=== PATIENT | female | born 1955 | race Caucasian/White ===

== ENCOUNTER 2019-09-29 08:12 | Outpatient (CLI) | payer OTHER, SELFPAY ==
--- NOTE | ~2019-09-29 | XR_ITS ---
EXAMINATION: XR chest 2V DATE: 09/29/2019 09:35 INDICATION: Preoperative evaluation with risk factors of hypertension TECHNIQUE: PA and lateral views of the chest were obtained. COMPARISON: Chest radiograph dated 07/14/2019 and 04/15/2017 no airspace opacities, pulmonary edema, ple ural effusion or pneumothorax. FINDINGS: Small calcified nodule at the at the base of the right middle lobe consistent with old granulomatous disease. Prominent left paracardial fat pad. The cardiomediastinal silhouette is normal. Cholecystect song clips in the right upper quadrant. Moderate thoracolumbar spondylosis. IMPRESSION: 1. No acute cardiopulmonary disease. Reviewed, dictated and finalized at location A. YTICAL STATISTICIAN
--- NOTE | 2019-09-29 09:08 | ECG_ITS ---
Measurements Intervals Fraser Rate: 86 P: 30 LA: 183 QRS: 3 QRSD: 85 T: 12 QT: 339 QTc: 406 Interpretive Statements SINUS RHYTHM LOW QRS VOLTAGE IN PRECORDIAL LEADS BORDERLINE R WAVE PROGRESSION, ANTERIOR LEADS INFERIOR INFARCT, AGE INDETERMINATE BASELINE ARTIFACT- I, II, III, AVR, AVL, AVF ABNORMAL ECG Electronically Signed On 09-29-2019 9:32:04 [employer] by Jenaro Hall D.O.
[2019-09-29 09:34] LABS: Basophils Absolute Auto 0.1 K/mm3 (0.0-0.1); Eosinophils Absolute Auto 0.2 K/mm3 (0-0.3); Eosinophils Percent Auto 1.8 % (0-4.4); Hemoglobin 14.5 g/dL (12.0-15.0); Immature Granulocyte Absolute 0.05 K/mm3 (0.00-0.031); Immature Granulocyte Percent A 0.5 % (0-0.5); Lymphocytes Absolute Auto 3.04 K/mm3 (0.9-3.2); Mean Corpuscular HGB Conc 32.2 g/dl (32-36); Mean Platelet Volume 8.9 fl (7.4-10.4); Monocytes Absolute Auto 0.9 K/mm3 (0.1-0.6); Monocytes Percent Auto 8.7 % (2.6-8.5); Neutrophils Absolute Auto 5.9 K/mm3 (1.3-6.7); Platelet Count Result 426 k/mm3 (150-375); Red Cell Distribution Width 13.7 % (11.5-14.5); White Blood Count 10.1 K/mm3 (4.5-10.0)
[2019-09-29 09:47] LABS: Albumin Level 4.4 g/dL (3.5-5.1); Blood Urea Nitrogen 14 mg/dL (7-17); Calcium 9.5 mg/dL (8.4-10.2); Carbon Dioxide 29 mmol/L (22-30); Chloride 99 mmol/L (98-107); Estimated Glomerular Filt Rate > 60; Glucose 80 mg/dL (65-105); Potassium 3.9 mmol/L (3.4-5.0); Sodium 140 mmol/L (137-145)
[2019-09-29 09:51] LABS: Hemoglobin A1C 6.1 % (<5.7); Urine Cotinine NEGATIVE
== END 2019-09-29 08:13 | disposition home or self-care (01) ==
PROVIDERS: PCP Family Medicine; Visit Provider Orthopaedic Surgery
DX: Z01.810 Encounter for preprocedural cardiovascular examination (principal); Z01.812 Encounter for preprocedural laboratory examination; Z41.9 Encounter for procedure for purposes other than remedying health state, unspecified; R94.31 Abnormal electrocardiogram [ECG] [EKG]; I10 Essential (primary) hypertension; E03.9 Hypothyroidism, unspecified; R73.03 Prediabetes
CPT/HCPCS: 36415; 71046; 80048; 80307; 82040; 83036; 85025; 87070; 93005

== ENCOUNTER 2019-10-20 01:13 | Day surgery (SDC) | payer OTHER, SELFPAY ==
[2019-09-29 08:22] VITALS: BP 154/96; PULSE 94; RESP 20; TEMP 36.9; O2SAT 96; BMI 36.7
--- NOTE | 2019-10-18 18:05 | HP_ITS ---
DATE OF SERVICE: 10/20/2019 ADMIT DIAGNOSIS: Degenerative joint disease, right knee. HISTORY: The patient is a 64-year-old female, patient of Dr. Purvis, who presents today for a right total knee arthroplasty. She underwent left total knee arthroplasty by Dr. Singh in November 2017. She did very well with that. Her right knee continued to be very painful for her. She has severe medial compartment arthritis. She has been treating this nonsurgically with cortisone injections, last one being in June 2019, which gave her minimal relief. She has reached a point where she is not tolerating the symptoms and would like to proceed with total knee arthroplasty on the right. PAST MEDICAL HISTORY: She has history of hypothyroidism. CURRENT MEDICATIONS: Takes 1. Albuterol inhaler p.r.n. 2. Amitriptyline 25 mg daily. 3. Diltiazem ER 240 mg daily. 4. Levothyroxine 88 mcg daily. 5. Metoprolol 50 mg daily. 6. Omeprazole 20 mg daily. 7. Simvastatin 40 mg daily. She has had a history of proximal tachycardia, which was treated with cardiac ablation in the past. She also takes baby aspirin daily. ALLERGIES: THERE ARE NO KNOWN DRUG ALLERGIES. FAMILY HISTORY: History of diabetes and stroke. SOCIAL HISTORY: She is a nonsmoker. PHYSICAL EXAMINATION: VITAL SIGNS: She is 4 feet 11 inches, 180 pounds. BMI is 36. Other vital signs per nursing on the morning of surgery. HEENT: Grossly normal. LUNGS: Clear bilaterally. HEART: Regular rate and rhythm. EXTREMITIES: She walks with a mild limp relative to pain in the right knee. She has a moderate effusion. The right knee range of motion is from 3 to 110 degrees. She has mild medial pseudolaxity. Hip range of motion is full without discomfort. Normal quad strength. 1+ edema in the left calf. Trace edema in the right calf. No pedal edema. 2+ dorsalis pedis pulse. Normal sensation, right lower extremity. IMAGING DATA: X-rays demonstrate severe medial compartment as well as patellofemoral arthritis in the right knee. IMPRESSION: The patient has severe medial compartment and patellofemoral arthritis in the right knee, which continues to be very symptomatic for her. She would like to proceed with total knee arthroplasty. She is very happy with the left side. Surgical procedure as well as risks and complications were discussed. All questions were answered and we will proceed. The patient will avoid any aspirin, ibuprofen products 1 week prior to surgery. She will see Dr. Purvis as well as Dr. 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 Nasal swab was negative. Chem panel is all within normal limits. Creatinine 0.90. GFR is greater than 60. Hemoglobin is 14.5, platelets are 426. PLAN: Use Eliquis for DVT prophylaxis postoperatively followed by aspirin twice a day. D I MT: Trevor
[2019-10-20] VITALS (11 sets, daily range): BP systolic 105–140; BP diastolic 68–93; PULSE 70–91; RESP 16–22; TEMP 36.1–37.3; O2SAT 93–100
--- NOTE | ~2019-10-20 | XR_ITS ---
EXAMINATION: XR knee RT 2V DATE: 10/20/2019 16:13 CDT INDICATION: Right total knee arthroplasty TECHNIQUE: 2 views right knee FINDINGS: There is a right total knee arthroplasty in expected position. Subcutaneous gas with fluid and air in the joint are consistent with recent surgery. No evidence of periprosthetic fracture. IMPRESSION: 1. Recent right total knee arthroplasty. Reviewed, dictated and finalized at location A.
[2019-10-20] MEDS: LACTATED RINGERS 1,000 ML 30 ML IV CONT ×2 (10:45→15:56)
[2019-10-20] MEDS: IBUPROFEN IV 800 MG/200 ML 800 MG/200 ML BAG 400 MG IVPB (10:45)
--- NOTE | 2019-10-20 11:13 | WPDANESEPPF ---
Anes - Initial Pre Proc Eval Procedure: Operation Date: 10/20/19 12:00 Proposed Procedures p Right Total Knee Arthroplasty - Koko Singh MD Date/Time: 10/20/19 11:13 Surgeon: Koko Singh MD Pre Op Diagnosis: Right Knee Severe OA 10/19 Patient Data Age: 64 Gender: F Height: 1.51 m Weight: 82.2 kg Last Vital Signs Temp 37.3 C 10/20/19 10:11 Pulse 84 10/20/19 10:11 Resp 20 10/20/19 10:11 BP 138/93 H 10/20/19 10:11 Pulse Ox 99 10/20/19 10:11 Allergies Allergy/AdvReac Type Severity Reaction Status Date / Time No Known Allergies Allergy Verified 09/30/19 10:51 Home Medications Medication Instructions Recorded Confirmed Type loratadine 10 mg PO DAILY 07/05/19 10/20/19 History amitriptyline 25 mg PO HS 07/14/19 10/20/19 History latanoprost 1 drp OPHTHALMIC (EYE) QPM 07/14/19 10/20/19 History levothyroxine 88 mcg PO DAILY 07/14/19 10/20/19 History omeprazole 40 mg PO DAILY 07/14/19 10/20/19 History diltiazem HCl 240 mg capsule,24 240 mg PO DAILY #90 cap 08/10/19 10/20/19 Rx hr,extended release metoprolol succinate 50 mg 50 mg PO DAILY #90 tablet 08/10/19 10/20/19 Rx tablet,extended release 24 hr simvastatin 40 mg tablet 40 mg PO QPM #90 tablet 08/24/19 10/20/19 Rx L. gasseri-B. bifidum-B longum 1 cap PO DAILY 09/29/19 10/20/19 History [[facility]] acetaminophen [Tylenol Extra 500 mg PO Q6H PRN 09/29/19 10/20/19 History Strength] aspirin [Aspir-81] 81 mg PO DAILY 09/29/19 10/20/19 History calcium carbonate-vitamin D3 1 tablet PO DAILY 09/29/19 10/20/19 History [Calcium 600 + D(3)] cholecalciferol (vitamin D3) 25 mcg PO DAILY 09/29/19 10/20/19 History cyanocobalamin (vitamin B-12) 1,000 mcg PO DAILY 09/29/19 10/20/19 History xaokqkks-npmb-ecd6-C-lonnie-bosw 1 tablet PO HS 09/29/19 10/20/19 History [Osteo Bi-Flex Triple Strength] methylcellulose (laxative) [Fiber 500 mg PO BID 09/29/19 10/20/19 History Therapy (m-cellulose)] nbsekgbu-giu-CJ-lycopen-lutein 1 tablet PO DAILY 09/29/19 10/20/19 History [Complete Multi 50+] jkvybuagqowbv-zhdvgefknaqdb-BJ 2 tablet PO Q4-6H PRN 09/29/19 10/20/19 History [Tylenol Sinus Severe] Patient hx anesthesia problems: none Family hx anesthesia problems: none [facility] Past Medical History Medical History (Updated 10/20/19 @ 11:13 by Navin Cohn DO) Acid reflux Arthritis Bilateral knees Dyslipidemia Environmental allergies Essential (primary) hypertension GERD without esophagitis History of electrophysiologic study for SVT 02/22/2013 History of PSVT (paroxysmal supraventricular tachycardia) 2012 - no reo-ccurence since cardiac ablation Hypertension Hypothyroidism (acquired) IBS (irritable bowel syndrome) Melena Polycystic ovaries Postmenopausal Pre-diabetes Rectal polyp Shingles Tachycardia Thyroid nodule Unspecified osteoarthritis, unspecified site Vitamin D deficiency Surgical History Surgical History (Updated 09/30/19 @ 11:18 by Vivian Hahn) H/O arthroscopic knee surgery 11/17/2017 H/O prior ablation treatment SVT History of cholecystectomy 11/30/2003 History of thyroidectomy 07/14/1998 Hx of dilation and curettage 10/28/2003 Knee joint replacement by other means Left knee in 2018 Social History Social History Smoking status: Never smoker Second hand tobacco smoke exposure: No Alcohol intake: never Substance use: never Substance use type: does not use Gender identity (if verbalized by the patient): Female Anes - Eval Final PreProcedure Day of Procedure 10/20/19 11:13 Patient weight: obese Heart: regular rate and rhythm Lungs: clear to auscultation and normal air movement Airway: Mallampati scale class II Neurological: alert and oriented Last oral intake: >/= 8 hours ASA classification: III Emergent: no Anesthetic plan: proceed Anesthesia type and monitoring: general LMA and
[2019-10-20] MEDS: TRANEXAMIC ACID 1,000MG/ISO100 1,000 MG/100 ML BAG 200 MG IVPB (11:19)
--- NOTE | 2019-10-20 12:04 | WPDHPUPDATE1 ---
History and Physical Update Update Date/Time: 10/20/19 12:04 History and Physical has been reviewed, including an updated exam of the patient. There are NO changes in the patient's condition. Risks, benefits, and alternatives have been discussed and questions answered. Patient agrees to proceed with procedure.
--- NOTE | 2019-10-20 12:05 | WPDHPUPDATE1 ---
History and Physical Update Update Date/Time: 10/20/19 12:05 History and Physical has been reviewed, including an updated exam of the patient. There are NO changes in the patient's condition. Risks, benefits, and alternatives have been discussed and questions answered. Patient agrees to proceed with procedure.
--- NOTE | 2019-10-20 12:09 | SUR.PREOP ---
1205 ambulated pt to bathroom w/minimal assistance
[2019-10-20] MEDS: ceFAZolin 2 GM/D5W 50 ML 2 GM/50 ML BAG IVPB (12:11)
[2019-10-20] MEDS: ceFAZolin SODIUM 1 GM VIAL 3 GM IRRIGATION (12:52)
[2019-10-20] MEDS: ceFAZolin SODIUM 1 GM VIAL IV PUSH (14:50)
--- NOTE | 2019-10-20 15:25 | PC.NURSE ---
This patient, Sarah Underwood, was admitted to [facility] Surg Room 327-01. Patient/family oriented to hospital policies and general routines including ID bracelet, bed and alarms, visiting hours, pain management, procedures, bathroom and other care routines, personal items, smoking policy, room service/diet, and visiting hours. Valuables list has been completed. Information on how to activate the Rapid Response Team has been discussed. Patient/Family are encouraged to report perceived risks to care and to ask questions if they do not understand what they are told or what they should do.
--- NOTE | 2019-10-20 15:53 | PM.PROC ---
Procedure Note - Detailed Date of procedure: 10/20/19 Pre-op diagnosis: Right Knee Severe OA 10/19 Osteoarthritis right knee Post-op diagnosis: same Procedure performed: Right total knee arthroplasty Description of procedure: There is extra difficulty with the procedure because of her very small bone size and obesity with BMI of 36.5. This added at least 45 min to the procedure. Patient brought to the operating room and general anesthesia was administered the right knee was prepped draped usual fashion. She received 2 g of Ancef weight based vancomycin preoperatively 1 g tranexamic acid was given IV preoperatively. The limb was exsanguinated tourniquet elevated to 300 mm of mercury. Zaiz 7 inch longitudinal midline incision was used. A vastus medialis splitting approach utilized. Infrapatellar and suprapatellar fat pads were excised and a quadriceps synovectomy carried out. the patella was severely arthritic it was scalloped. He had large osteophytes which were carefully trimmed. A conservative lateral facetectomy was performed. the patella measured 17 mm in its thickest point and then the lateral facette were there is eburnated bone and grooving it only measured 11 mm and therefore I did not feel it was appropriate to resurface this patella. a guide arturo was inserted down the femoral canal after aspiration of canal contents in using the 5? valgus cutting bushing 9 mm of bone removed the distal femur. this actually removed only about 7 mm medially because of significant wear and bone loss. Next the tibial plateau was cut. We made a skim cut off the low point of medial tibial plateau. Meniscal remnants were excised and the PCL was released. in at 90? of flexion we had 8 mm of flexion gap medially 12 mm of flexion gap laterally. I thought the alignment was appropriate on the tibial cut. Whitesides line was drawn on the femur as was the trans epicondylar axis. Whitesides line was a little bit difficult to determine because of eburnated lateral trochlear ridge and a little bit of bone loss there. I found that 5? of external rotation on the femoral sizing guide matched the trans epicondylar axis appropriately thin posterior referencing pin holes were placed. we applied the 57.5 vanguard cutting block and the anterior cut was made which was a little proud of the cortex posterior and chamfer cuts completed and we trialed with the 57.5 was far too wide. We placed the 10 mm CR insert with the 59 trial and found that we had symmetric flexion gap medial and lateral and that the knee came out to to the degree arc 2 from full extension at this point with some plate medially laterally. we then addressed the tibia. I found that the bone in the distal femur was somewhat osteopenic particularly given her younger age of 64 and we will request a bone density that to be done postoperatively and check a 25 hydroxy vitamin-D in the morning. The tibia sized to a size I 59 Bankart. I found that the 63 was going to overhang substantially oracle adf consultant laterally in the proper rotation. the 59 fit line to line oracle adf consultant lateral to anteromedial at the proper rotation referenced off medial 3rd of the tubercle anterior cortex tibia. I was concerned with her osteopenia her obesity and her younger age presumed higher activity level that she would be had excessive risk for tibial loosening and therefore I elected to utilize a short cemented stem. we prepared the tibia for the 80 mm x 10 mm tibial stem on the modular tibial tray 59 size. As we were seating knee 80 x 10 mm fin punch I could see that the medial side was lifting off a couple of mm which indicates that we were its guiding off the lateral cortex of the tibial shaft with the stem therefore we removed the punched and a trial reapplied the tibial cutting guide and removed about a mm more of bone from a lateral tibial plateau and transition this to a flat surface Re punched in this time the tibial punch sat completely all the way and without lift off medially
--- NOTE | 2019-10-20 16:56 | SUR.PHASEI ---
1600 updated in waiting room. 1655 updated in waiting room.
--- NOTE | 2019-10-20 17:25 | PC.NURSE ---
This patient, Sarah Underwood, was admitted to [facility] Surg Room 327-01. Patient/family oriented to hospital policies and general routines including ID bracelet, bed and alarms, visiting hours, pain management, procedures, bathroom and other care routines, personal items, smoking policy, room service/diet, and visiting hours. Valuables list has been completed. Information on how to activate the Rapid Response Team has been discussed. Patient/Family are encouraged to report perceived risks to care and to ask questions if they do not understand what they are told or what they should do.
[2019-10-20] MEDS: SENNOSIDES 8.6 MG TABLET PO (17:55)
[2019-10-20] MEDS: ACETAMINOPHEN 500 MG TABLET 1000 MG PO (17:59)
[2019-10-20] MEDS: DEXTROSE 5%/0.45% SOD CHL 1,000 ML 100 ML IV CONT (18:04)
[2019-10-20] MEDS: DOCUSATE SODIUM 100 MG CAPSULE PO (18:38)
[2019-10-20] MEDS: LATANOPROST 0.005% OP SOLN 2.5 ML BTL 1 DROP EACH EYE (21:02)
[2019-10-20] MEDS: SIMVASTATIN 20 MG TABLET 40 MG PO (21:02)
[2019-10-20] MEDS: PANTOPRAZOLE 40 MG TABLET PO (21:02)
[2019-10-20] MEDS: AMITRIPTYLINE HCL 25 MG TABLET PO (21:02)
[2019-10-21] MEDS: ACETAMINOPHEN 500 MG TABLET 1000 MG PO ×3 (00:25→12:01)
[2019-10-21] MEDS: LEVOTHYROXINE SODIUM 88 MCG TABLET PO (05:40)
[2019-10-21 06:00] VITALS: BP 118/76; PULSE 76; RESP 18; TEMP 36.9; O2SAT 94
[2019-10-21 06:31] LABS: Basophils Percent Auto 0.2 % (0.2-1.2); Hematocrit 35.4 % (37.0-47.0); Hemoglobin 11.8 g/dL (12.0-15.0); Immature Granulocyte Absolute 0.27 K/mm3 (0.00-0.031); Immature Granulocyte Percent A 1.2 % (0-0.5); Lymphocytes Absolute Auto 1.63 K/mm3 (0.9-3.2); Lymphocytes Percent Auto 7.1 % (18.3-44.2); Mean Corpuscular HGB Conc 33.3 g/dl (32-36); Mean Corpuscular Hemoglobin 29.9 pg (26-34); Mean Corpuscular Volume 89.8 fl (80-100); Mean Platelet Volume 8.8 fl (7.4-10.4); Monocytes Absolute Auto 1.2 K/mm3 (0.1-0.6); Monocytes Percent Auto 5.1 % (2.6-8.5); Neutrophils Percent Auto 86.4 % (45.5-73.1); Platelet Count Result 358 k/mm3 (150-375); Red Blood Count 3.94 M/mm3 (4.2-5.4); Red Cell Distribution Width 13.5 % (11.5-14.5); White Blood Count 23.1 K/mm3 (4.5-10.0)
[2019-10-21 06:53] LABS: Blood Urea Nitrogen 10 mg/dL (7-17); Calcium 8.5 mg/dL (8.4-10.2); Carbon Dioxide 27 mmol/L (22-30); Chloride 103 mmol/L (98-107); Estimated Glomerular Filt Rate > 60; Glucose 124 mg/dL (65-105); Potassium 3.9 mmol/L (3.4-5.0); Sodium 135 mmol/L (137-145)
--- NOTE | 2019-10-21 07:17 | PM.PNORT ---
Progress Note: A&P Additional Plan POD 1 alert avss, wd-dry NVI, no nausea last night ,pain is well controlled, has been up walking in room doing well, PT to work with pt today,plan to send later today Subjective Subjective Date/Time Seen: 10/21/19 07:17 Objective Data Vital Signs Vital Signs: Vital Signs - 24 hr 10/20/19 10:11 10/20/19 15:56 10/20/19 16:10 Temperature 37.3 C 36.6 C Pulse Rate 84 91 81 Respiratory Rate 20 22 H 17 Blood Pressure 138/93 H 117/76 113/68 Pulse Oximetry 99 97 97 10/20/19 16:25 10/20/19 16:40 10/20/19 16:55 Temperature Pulse Rate 70 73 77 Respiratory Rate 18 17 18 Blood Pressure 113/74 105/71 107/72 Pulse Oximetry 94 93 95 10/20/19 17:10 10/20/19 17:25 10/20/19 17:40 Temperature 36.1 C L 36.4 C L Pulse Rate 72 77 79 Respiratory Rate 18 16 16 Blood Pressure 117/72 128/77 125/85 Pulse Oximetry 93 96 100 10/20/19 18:10 10/20/19 22:00 10/21/19 06:00 Temperature 36.4 C L 36.4 C 36.9 C Pulse Rate 80 78 76 Respiratory Rate 16 18 18 Blood Pressure 125/84 140/79 118/76 Pulse Oximetry 99 95 94 Intake/Output Intake/Output: Intake & Output 10/18/19 10/19/19 10/20/19 10/21/19 23:59 23:59 23:59 23:59 Intake Total 950 1200 Output Total 0 700 Balance 950 500 Meds/Results Medications: Active Medications Generic Name Dose Route Start Last Admin Trade Name Freq PRN Reason Stop Dose Admin Acetaminophen 1,000 mg 10/20/19 18:00 10/21/19 05:40 Tylenol Tablet PO 1,000 mg Q6H ROXANN Administration Amitriptyline HCl 25 mg 10/20/19 21:00 10/20/19 21:02 Elavil PO 25 mg HS ROXANN Administration Apixaban 2.5 mg 10/21/19 09:00 Eliquis PO 11/01/19 21:01 Q12HR ROXANN Celecoxib 100 mg 10/21/19 08:00 Celebrex PO DAILY@0800 [facility] Cyanocobalamin 1,000 mcg 10/21/19 09:00 Vitamin B-12 Tab PO DAILY [facility] Diltiazem HCl 240 mg 10/21/19 09:00 Cardizem Cd PO DAILY [facility] Docusate Sodium 100 mg 10/20/19 17:16 10/20/19 18:38 Colace Capsule PO 100 mg BID ROXANN Administration Cefazolin Sodium 1 gm in 50 mls @ 100 mls/hr 10/20/19 20:00 10/21/19 04:27 Ancef 1 Gm/D5w 50 Ml Pm IVPB 10/21/19 12:29 100 mls/hr Q8H ROXANN Administration Dextrose/Sodium Chloride 1,000 mls @ 100 mls/hr 10/20/19 17:16 10/21/19 05:48 Dextrose 5% Sodium Chloride 0.45% IV CONT Not Given .Q10H ROXANN Vancomycin HCl 1,000 mg in 250 mls @ 250 mls/hr 10/20/19 23:00 10/21/19 00:24 Vancomycin 1,000 Mg/D5w 250 Ml IVPB 10/21/19 11:59 250 mls/hr Q12H ROXANN Administration Latanoprost 1 drop 10/20/19 18:00 10/20/19 21:02 Xalatan EACH EYE 1 drop QPM ROXANN Administration Levothyroxine Sodium 88 mcg 10/21/19 06:30 10/21/19 05:40 Synthroid PO 88 mcg DAILY@0630 [facility] Administration Loratadine 10 mg 10/21/19 09:00 Claritin PO DAILY [facility] Metoprolol Succinate 50 mg 10/21/19 09:00 Toprol Xl PO DAILY [facility] Multivitamins/Minerals 1 tablet 10/21/19 09:00 Ocuvite PO DAILY [facility] Naloxone HCl 0.1 mg 10/20/19 17:16 Narcan IV PUSH Q2M PRN Opiate Reversal Oxycodone HCl 5 mg 10/20/19 21:00 10/21/19 04:34 Roxicodone Ir Tablet PO 5 mg Q4HR ROXANN Administration Oxycodone HCl 5 mg 10/20/19 17:16 10/20/19 17:57 Roxicodone Ir Tablet PO 5 mg Q4H PRN Administration Pain Rated 7-10 Pantoprazole Sodium 40 mg 10/20/19 21:00 10/20/19 21:02 Protonix PO 40 mg Q12HR ROXANN Administration Polyethylene Glycol 17 gm 10/21/19 09:00 Miralax PO QAM [facility] Senna 8.6 mg 10/20/19 17:00 10/20/19 17:55 Senokot Tablet PO 8.6 mg BID ROXANN Administration Simvastatin 40 mg 10/20/19 18:00 10/20/19 21:02 Zocor PO 40 mg QPM [facility] Administration Vitamin D 1,000 unit 10/21/19 09:00 Vitamin D PO DAILY [facility] Radiology Results: ITS Impressions Knee X-Ray 10/20/19 16:13 IMPRESSION: 1. Recent right total knee arthroplasty.
[2019-10-21 08:06] VITALS: BP 107/75; PULSE 85; RESP 16; TEMP 36.7; O2SAT 98
[2019-10-21 08:19] LABS: Vitamin D 25 Hydroxy 50.1 ng/mL
[2019-10-21] MEDS: CHOLECALCIFEROL 1,000 UNIT TABLET 1000 UNITS PO (08:38)
[2019-10-21] MEDS: PANTOPRAZOLE 40 MG TABLET PO (08:38)
[2019-10-21] MEDS: OPTI-GEN TAB 1 TABLET PO (08:38)
[2019-10-21] MEDS: DOCUSATE SODIUM 100 MG CAPSULE PO (08:40)
[2019-10-21] MEDS: CELECOXIB 100 MG CAPSULE PO (08:40)
[2019-10-21] MEDS: SENNOSIDES 8.6 MG TABLET PO (08:40)
[2019-10-21] MEDS: polyethylene glycoL 3350 17 GM POWD.PACK PO (08:40)
[2019-10-21] MEDS: APIXABAN 2.5 MG TABLET PO (08:40)
[2019-10-21] MEDS: CYANOCOBALAMIN 1,000 MCG TABLET 1000 MCG PO (08:41)
--- NOTE | 2019-10-21 10:03 | PM.IMCN ---
Assessment and Plan Assessment and plan (1) Unspecified osteoarthritis, unspecified site: Qualifiers: Osteoarthritis location: unspecified site Osteoarthritis type: unspecified Qualified Code(s): M19.90 - Unspecified osteoarthritis, unspecified site Code(s): M19.90 - Unspecified osteoarthritis, unspecified site Status: Acute Assessment and Plan: POD [address] Singh. Patient doing well overall. Improving with rehab Post op management, pain management, dvt ppx, disposition per Dr. Singh (2) Hypertension: Code(s): I10 - Essential (primary) hypertension Status: Acute Assessment and Plan: BP reviewed and 100-110s sys this morning Continue with home antihypertensives Monitor (3) Hypothyroidism (acquired): Code(s): E03.9 - Hypothyroidism, unspecified Status: Acute Assessment and Plan: No acute issues Continue home levothyroxine (4) GERD without esophagitis: Code(s): K21.9 - Gastro-esophageal reflux disease without esophagitis Status: Acute Assessment and Plan: No acute issues Continue home omeprazole (5) Dyslipidemia: Code(s): E78.5 - Hyperlipidemia, unspecified Status: Acute Assessment and Plan: No acute issues Continue home simvastatin (6) Environmental allergies: Code(s): Z91.09 - Other allergy status, other than to drugs and biological substances Status: Acute Assessment and Plan: No acute issues Continue home loratidine Additional Plan Supervising physician for this Consult H&P is Dr. Karin SORIA 10/21/2019 at roughly 9:45 am Thank you for allowing the Hospitalist team to care for this patient during their stay. We will continue to follow with you. Please call with any questions HPI Data of Consult Consult date: 10/21/19 Requesting Physician: Koko Singh MD Primary Care Provider: Consuelo Purvis MD Consult Narrative Narrative: Sarah Underwood is a 64 year old female with history of hypothyroidism, hypertension, OA in b/l knees among other several comorbidities who presented to the hospital for a planned right total knee arthroplasty per Dr. Singh; POD 1; Hospitalist service has been consulted for management on comorbid conditions. Patient states her b/l knee pain is chronic due to her OA. She had her left knee replaced in 11/2017. She states she has tried conservative treatment including oral pain medications and cortisone injections that have proved to be less effective as of late. She states her pain has been so bad that she has had to resort using her walker at home. This has progressed to a point where she elected to have her right knee replaced yesterday. Patient states she is doing well today. Her pain is 7/10 but she just had therapy and otherwise her pain has been reasonable. She has improving well today. She otherwise has no complaints. Denies f/c/ns, headaches, dizziness/lightheadedness upon standing, changes in v/h, cp/palpitations, sob/cough, n/v/d/c, abd pain, dysphagia, melena, brbpr, dysuria, hematuria, cloudy urine, calf pain/swelling. Review of Systems Review of Systems: All systems reviewed & are unremarkable except as noted in HPI and below PMFSH Past Medical History Medical History Acid reflux Arthritis Bilateral knees Dyslipidemia Environmental allergies Essential (primary) hypertension GERD without esophagitis History of electrophysiologic study for SVT 02/22/2013 History of PSVT (paroxysmal supraventricular tachycardia) 2012 - no reo-ccurence since cardiac ablation Hypertension Hypothyroidism (acquired) IBS (irritable bowel syndrome) Melena Polycystic ovaries
--- NOTE | 2019-10-21 10:39 | WPDANESPN ---
Anes - Prog Note Post-Op Date/Time: 10/21/19 10:39 Cardiovascular status: normal Respiratory status: normal Airway patency: baseline Mental status: baseline Post-Op hydration status: normal Vital Signs: Last Vital Signs Temp 36.7 C 10/21/19 08:06 Pulse 85 10/21/19 08:06 Resp 16 10/21/19 08:06 BP 107/75 10/21/19 08:06 Pulse Ox 98 10/21/19 08:06 I/O: Intake & Output 10/20/19 10/21/19 10/21/19 23:59 07:59 15:59 Intake Total 250 1200 600 Output Total 0 700 Balance 250 500 600 Laboratory Tests 10/21/19 06:18 10/21/19 06:18 10/20/19 10/21/19 10/21/19 10:27 06:18 06:18 WBC 23.1 H RBC 3.94 L Hgb 11.8 L Hct 35.4 L MCV 89.8 MCH 29.9 MCHC 33.3 RDW 13.5 Plt Count 358 MPV 8.8 Immature Gran % (Auto) 1.2 H Neut % (Auto) 86.4 H Lymph % (Auto) 7.1 L [place] % (Auto) 5.1 Eos % (Auto) 0.0 Baso % (Auto) 0.2 Lymph # (Auto) 1.63 [place] # (Auto) 1.2 H Eos # (Auto) 0.0 Baso # (Auto) 0.0 Abs Immat Gran (auto) 0.27 H Absolute Neuts (auto) 20.0 H Absolute Nucleated RBC 0.0 Nucleated RBC % 0.0 Sodium 135 L Potassium 3.9 Chloride 103 Carbon Dioxide 27 BUN 10 Creatinine 0.80 Estim Creat Clear Calc Not Reportable Estimated GFR > 60 Glucose 124 H Calcium 8.5 Vitamin D 25-Hydroxy Blood Type A Positive Antibody Screen Negative 10/21/19 06:18 WBC RBC Hgb Hct MCV MCH MCHC RDW Plt Count MPV Immature Gran % (Auto) Neut % (Auto) Lymph % (Auto) [place] % (Auto) Eos % (Auto) Baso % (Auto) Lymph # (Auto) [place] # (Auto) Eos # (Auto) Baso # (Auto) Abs Immat Gran (auto) Absolute Neuts (auto) Absolute Nucleated RBC Nucleated RBC % Sodium Potassium Chloride Carbon Dioxide BUN Creatinine Estim Creat Clear Calc Estimated GFR Glucose Calcium Vitamin D 25-Hydroxy 50.1 Blood Type Antibody Screen Post-procedural complaints: none Patient Feedback: Patient satisfied with anesthetic care.
[2019-10-21] MEDS: LORATADINE 10 MG TABLET PO (10:44)
[2019-10-21 12:01] VITALS: PULSE 85
[2019-10-21] MEDS: METOPROLOL SUCCINATE EXT REL 50 MG TABCR PO (12:01)
[2019-10-21 12:31] VITALS: BP 133/77; PULSE 78; RESP 16; TEMP 36.9; O2SAT 97
[2019-10-21 14:46] VITALS: BP 132/79; PULSE 92; RESP 16; TEMP 37.1; O2SAT 95
--- NOTE | 2019-10-22 05:03 | DS_ITS ---
DATE OF DISCHARGE: 10/21/2019 DIAGNOSIS: Degenerative joint disease of right knee. The patient is a 64-year-old female, who underwent a right total knee arthroplasty by Dr. Singh on 10/20/2019, underwent the procedure without any complications. Postoperatively, she has been afebrile. Vital signs have been stable. Neurovascularly intact. Her wound is in Mepilex dressing over it. She is weightbearing as tolerated. She reported no nausea immediately postop or overnight on surgical date. Otherwise, she has been afebrile. Vital signs have been stable. Her pain is well controlled with scheduled Tylenol, Celebrex 100 mg daily as well as oxycodone q.4 hours. She is on Eliquis for 2 weeks followed by baby aspirin twice a day for DVT prophylaxis. She will be discharged to home on 10/20. She is advised to keep the leg elevated to prevent swelling of the knee. She has outpatient physical therapy starting on Friday. At the time of dictation, morning labs were not completed yet. We will check on these prior to her discharge. We were checking a vitamin D, which was not done at the time of dictation. We will check on this. If she is found to be low, we will supplement this as well. The patient was advised if any questions or concerns, she is to call the office. Otherwise, see on her appointed date. She is going home on a regular diet as well. Abel I MT: Trevor
== END 2019-10-21 16:11 | disposition home or self-care (01) ==
LOC: ANHSURGERY 09:45 → ANH3MEDSUR 17:26
PROVIDERS: PCP Family Medicine; Visit Provider Orthopaedic Surgery
PROC: (CPT 27447; principal; 2019-10-20 12:00)
DX: M17.11 Unilateral primary osteoarthritis, right knee (principal); I10 Essential (primary) hypertension; E78.5 Hyperlipidemia, unspecified; E03.9 Hypothyroidism, unspecified; R73.03 Prediabetes; E55.9 Vitamin D deficiency, unspecified; K21.9 Gastro-esophageal reflux disease without esophagitis; K58.9 Irritable bowel syndrome, unspecified; E28.2 Polycystic ovarian syndrome; E66.9 Obesity, unspecified; Z68.36 Body mass index [BMI] 36.0-36.9, adult; Z87.891 Personal history of nicotine dependence
CPT/HCPCS: 27447; 36415; 73560; 80048; 82306; 85025; 86850; 86900; 86901; 97110; 97116; 97161; 97165; 97530; A9270; C1713; C1776; J0131; J0171; J0690; J1100; J1170; J1741; J2250; J2270; J2405; J2704; J2710; J2795; J3010; J3370; J7120

== ENCOUNTER 2020-10-27 15:13 | Outpatient (CLI) | payer OTHER, SELFPAY | END 2020-10-27 15:14 | disposition home or self-care (01) | LOC: ANHCOVIDVC 15:13 | PROVIDERS: PCP Family Medicine | DX: Z23 Encounter for immunization (principal) | CPT/HCPCS: 0001A; 91300 ==

== ENCOUNTER 2020-11-17 15:13 | Outpatient (CLI) | payer OTHER, SELFPAY | END 2020-11-17 15:14 | disposition home or self-care (01) | LOC: ANHCOVIDVC 15:13 | PROVIDERS: PCP Family Medicine | DX: Z23 Encounter for immunization (principal) | CPT/HCPCS: 0002A; 91300 ==

== ENCOUNTER 2021-02-26 15:11 | Emergency (ER) | payer OTHER, SELFPAY ==
[2021-02-26 15:12] VITALS: BP 152/98; PULSE 109; RESP 18; TEMP 37; O2SAT 97
[2021-02-26 16:13] VITALS: BP 73/49; PULSE 87; RESP 17; O2SAT 97
--- NOTE | 2021-02-26 16:19 | PC.NURSE ---
Pt c/o feeling like she is going to pass out and became diaphoretic. BP 73/49. 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 Pt repositioned to supine. NS infusing.
[2021-02-26] MEDS: SODIUM CHLORIDE 0.9% IV 1,000 ML 999 ML (16:20)
[2021-02-26 16:24] VITALS: BP 123/77; PULSE 89; RESP 14; O2SAT 96
[2021-02-26] MEDS: LORazepam INJ (*CRX) 2 MG/ML VIAL (17:07)
[2021-02-26 17:10] VITALS: BP 147/95; PULSE 90; RESP 17; O2SAT 95
[2021-02-26 17:22] LABS: Basophils Absolute Auto 0.1 K/mm3 (0.0-0.1); Basophils Percent Auto 0.5 % (0.2-1.2); Eosinophils Absolute Auto 0.1 K/mm3 (0-0.3); Eosinophils Percent Auto 0.5 % (0-4.4); Hemoglobin 10.2 g/dL (12.0-15.0); Immature Granulocyte Absolute 0.09 K/mm3 (0.00-0.031); Immature Granulocyte Percent A 0.5 % (0-0.5); Lymphocytes Percent Auto 10.5 % (18.3-44.2); Mean Corpuscular HGB Conc 31.9 g/dl (32-36); Mean Corpuscular Hemoglobin 29.6 pg (26-34); Mean Corpuscular Volume 92.8 fl (80-100); Mean Platelet Volume 8.9 fl (7.4-10.4); Monocytes Absolute Auto 1.1 K/mm3 (0.1-0.6); Monocytes Percent Auto 6.3 % (2.6-8.5); Neutrophils Absolute Auto 14.1 K/mm3 (1.3-6.7); Neutrophils Percent Auto 81.7 % (45.5-73.1); Platelet Count Result 487 k/mm3 (150-375); Red Blood Count 3.45 M/mm3 (4.2-5.4); White Blood Count 17.2 K/mm3 (4.5-10.0)
--- NOTE | 2021-02-26 19:22 | ED.GENADULT ---
HPI - General Adult General Chief complaint: Epistaxis Stated complaint: Active nosebleed Time Seen by Provider: 02/26/21 16:05 Source: patient, family, EMS and RN notes reviewed Mode of arrival: EMS Limitations: no limitations History of Present Illness HPI narrative: Patient is a 65-year-old female who presents to emergency department for evaluation of epistaxis that began after being seen by Dr. Galdino Landry this morning patient had cauterization of a left nare epistaxis she had 2 Rhino Rocket's placed on at outside hospital and was seen today by Dr. Shirley. Patient denies any anticoagulant use. Patient on arrival is not distressed but appears uncomfortable. Patient denies injury trauma or similar occurrence in the past. Patient is also currently on antibiotics that were prescribed on her visit at the outside hospital on Related Data Home Medications Medication Instructions Recorded Confirmed amitriptyline 25 mg PO HS 07/14/19 02/26/21 latanoprost 1 drp OPHTHALMIC (EYE) QPM 07/14/19 02/26/21 Complete Multi 50+ 1 tablet PO DAILY 09/29/19 02/26/21 Fiber Therapy (m-cellulose) 500 mg PO BID 09/29/19 11/27/20 Osteo Bi-Flex Triple Strength 1 tablet PO HS 09/29/19 11/27/20 [employer] 1 cap PO DAILY 09/29/19 02/26/21 calcium carbonate-vitamin D3 1 tablet PO DAILY 09/29/19 02/26/21 [Calcium 600 + D(3)] cholecalciferol (vitamin D3) 25 mcg PO DAILY 09/29/19 02/26/21 cyanocobalamin (vitamin B-12) 1,000 mcg PO DAILY 09/29/19 02/26/21 Allergies Allergy/AdvReac Type Severity Reaction Status Date / Time No Known Allergies Allergy Verified 02/26/21 08:05 Review of Systems Review of Systems: All systems reviewed & are unremarkable except as noted in HPI and below PMFSH Past Medical History Medical History Arthritis Bilateral knees Dyslipidemia Environmental allergies Essential (primary) hypertension GERD without esophagitis History of electrophysiologic study for SVT 02/22/2013 History of PSVT (paroxysmal supraventricular tachycardia) 2012 - no reo-ccurence since cardiac ablation Hypothyroidism (acquired) IBS (irritable bowel syndrome) Polycystic ovaries Postmenopausal Pre-diabetes Rectal polyp Shingles Tachycardia Thyroid nodule Unspecified osteoarthritis, unspecified site Vitamin D deficiency Surgical History Surgical History H/O arthroscopic knee surgery 11/17/2017 H/O prior ablation treatment SVT - 02/2013 History of bilateral knee replacement left - 11/2017, right - 10/2019 History of cholecystectomy 11/30/2003 History of partial thyroidectomy 07/1998 Hx of dilation and curettage 10/28/2003 Family History Family History Father Diabetes mellitus Cerebrovascular accident Mother Hypertension Depression Heart disease Sibling Hypertension Grandparent Heart disease Grandparent Heart disease Other Family history of coronary artery disease Social History Social History Smoking status: Never smoker Second hand tobacco smoke exposure: No Alcohol intake: never Substance use: never Substance use type: does not use Gender identity (if verbalized by the patient): Female Spiritual care concerns: No Agree to blood products: Yes Exam Narrative: Exam Narrative: GENERAL: Well-appearing, well-nourished, uncomfortable and in no acute distress. HEAD: Normocephalic, atraumatic. EYES: PERRLA and EOMI. ENT: Na epistaxis from the left nare CHEST: Clear to auscultation. No respiratory distress. No wheezes rales or rhonchi HEART: Regular rate and rhythm. No murmur heard. Normal peripheral pulses. ABDOMEN: Soft, nontender, nondistended EXTREMITIES: Normal range of motion. No edema. SKIN: Warm, dry, no rash. NEURO: No focal
[2021-02-26 20:00] LABS: Anion Gap 7 mmol/L (8-16); Blood Urea Nitrogen 21 mg/dL (7-17); Calcium 8.2 mg/dL (8.4-10.2); Carbon Dioxide 24 mmol/L (22-30); Chloride 109 mmol/L (98-107); Estimated Glomerular Filt Rate > 60; Glucose 139 mg/dL (65-110); Partial Thromboplastin Time 26.8 SECONDS (22.3-36.8); Potassium 4.1 mmol/L (3.4-5.0); Prothrombin Time 12.6 Seconds (11.1-14.7); Sodium 140 mmol/L (137-145)
[2021-02-26 20:40] VITALS: BP 147/95; PULSE 88; RESP 18; O2SAT 100
== END 2021-02-26 20:40 | disposition home or self-care (01) ==
PROVIDERS: Emergency Medicine Emergency Medical Services; Emergency Provider Emergency Medicine; PCP Family Medicine
DX: R04.0 Epistaxis (principal); I10 Essential (primary) hypertension; E03.9 Hypothyroidism, unspecified
CPT/HCPCS: 30901; 36415; 80048; 85025; 85610; 85730; 96361; 96374; 99284; A9270; J2060; J7030

== ENCOUNTER 2021-03-19 14:46 | Outpatient (CLI) | payer OTHER, SELFPAY ==
--- NOTE | ~2021-03-19 | DEXA_ITS ---
Bone Density Report Name: Sarah Underwood Age: 65 Sex: Female Ethnicity: White Date of : 1955 Indication: postmenopausal; height loss; Referring Provider: Megan Whyte Study: Bone densitometry was performed. Exam Date: March 19, 2021 Accession number: [id number] Bone Density: Region BMD T-score Z-score Classification AP Spine (L1-L4) 1.071 0.2 1.9 Normal Femoral Neck (Left) 0.643 -1.9 -0.4 Osteopenia Total Hip (Left) 0.889 -0.4 0.7 Normal Total Hip Bilateral Avg 0.876 -0.6 0.6 Normal Femoral Neck (Right) 0.633 -1.9 -0.5 Osteopenia Total Hip (Right) 0.862 -0.7 0.5 Normal World Health Organization criteria for BMD impression classify patients as: Normal (T-score at or above -1.0), Osteopenia (T-score between -1.0 and -2.5), or Osteoporosis (T-score at or below -2.5). 10-year Fracture Risk(1): Major Osteoporotic Fracture 9.1% Hip Fracture 1.1% Reported Risk Factors: [place] (), Neck BMD=0.633, BMI=38.4 (1) FRAX(R) Version 3.08. Fracture probability calculated for an untreated patient. Fracture probability may be lower if the patient has received treatment. Previous Exams: Region Exam Age BMD T-score BMD Change BMD Change Date g/cm2 vs Baseline vs Previous AP Spine(L1-L4) 03/19/2021 65 1.071 0.2 0.118(12.4%)# 0.066(6.6%)* 06/02/2017 61 1.005 -0.4 0.051(5.4%)# 0.023(2.4%)* 05/22/2015 59 0.982 -0.6 0.028(3.0%)# 0.063(6.9%)# 03/26/2013 57 0.918 -1.2 -0.035(-3.7%)# -0.041(-4.2%)# 03/08/2010 54 0.959 -0.8 0.005(0.6%) 0.005(0.6%) 03/02/2008 52 0.953 -0.9 Total Hip(Left) 03/19/2021 65 0.889 -0.4 -0.136(-13.3%) -0.054(-5.7%)* 06/02/2017 61 0.943 0.0 -0.082(-8.0%)# 0.020(2.2%) 05/22/2015 59 0.923 -0.2 -0.103(-10.0%) -0.011(-1.1%)# 03/26/2013 57 0.933 -0.1 -0.092(-9.0%)# -0.082(-8.1%)# 03/08/2010 54 1.015 0.6 -0.010(-1.0%) -0.010(-1.0%) 03/02/2008 52 1.025 0.7 Total Hip(Right) 03/19/2021 65 0.862 -0.7 -0.135(-13.6%) -0.094(-9.8%)* 06/02/2017 61 0.955 0.1 -0.042(-4.2%)# 0.003(0.3%) 05/22/2015 59 0.952 0.1 -0.045(-4.5%)# -0.043(-4.3%)# 03/26/2013 57 0.995 0.4 -0.002(-0.2%)# -0.003(-0.3%)# 03/08/2010 54 0.999 0.5 0.002(0.2%) 0.002(0.2%) 03/02/2008 52 0.997 0.5 *Denotes significance at 95% confidence level, LSC for AP Spine = 0.022 g/cm2, LSC for Total Hip = 0.027 g/cm2 Clinical Information Provided by Patient: Has used the following medic
--- NOTE | ~2021-03-19 | MM_ITS ---
EXAMINATION: MM screening [facility] BI w brandon HISTORY: Screening TECHNIQUE: Craniocaudal and mediolateral oblique 3-D tomosynthesis images were obtained and synthetic 2-D images were generated. CAD analysis was submitted and interpreted. COMPARISON: Comparison to multiple prior studies sequentially, with oldest reviewed study dated 05/11. BREAST PARENCHYMAL COMPOSITION: There are scattered areas of fibroglandular density. FINDINGS: There is no evidence of suspicious mass, calcification, or architectural distortion to sugg est malignancy in either breast. There has been no suspicious interval change. IMPRESSION: 1. No mammographic evidence of malignancy. 2. Recommend routine screening mammography in one year. BI-RADS Category 1: Negative Reviewed, dictated and finalized at location A.
== END 2021-03-19 14:47 | disposition home or self-care (01) ==
LOC: ANHIMG 14:48
PROVIDERS: PCP Family Medicine; Visit Provider Obstetrics & Gynecology
DX: Z12.31 Encounter for screening mammogram for malignant neoplasm of breast (principal); Z78.0 Asymptomatic menopausal state; M85.89 Other specified disorders of bone density and structure, multiple sites
CPT/HCPCS: 77063; 77067; 77080

== ENCOUNTER 2021-04-29 10:19 | Emergency (ER) | payer OTHER, SELFPAY ==
--- NOTE | ~2021-04-29 | XR_ITS ---
EXAMINATION: XR hand LT min 3V INDICATION: Left hand pain TECHNIQUE: Three views of the left hand are obtained. COMPARISON: None available FINDINGS: There is moderate joint space narrowing at the second and third metacarpophalangeal joints. Mild joint space narrowing is noted in multiple interphalangeal joints. Soft tissues are unremarkabl e. IMPRESSION: 1. Moderate osteoarthritis at the second and third metacarpophalangeal joint. Reviewed, dictated and finalized at location A.
[2021-04-29 10:31] VITALS: BP 137/94; PULSE 79; RESP 16; TEMP 36.4; O2SAT 99
--- NOTE | 2021-04-29 10:47 | ED.EXTPRO ---
HPI - Extremity Problem General Chief complaint: Extremity Problem,Nontraumatic Stated complaint: pain in left hand Source: patient Mode of arrival: ambulatory Limitations: no limitations History of Present Illness HPI Narrative: Patient is a 65-year-old female who presents complaining of left hand pain. Patient reports pain awoke her last night. She denies injury. She denies significant medical history. Patient reports taking [id number] medications with moderate relief. She denies numbness and tingling in her fingertips. She denies all other complaints at this time. MD Complaint: extremity pain Related Data Home Medications Medication Instructions Recorded Confirmed latanoprost 1 drp OPHTHALMIC (EYE) QPM 1204/29/21 Complete Multi 50+ 1 tablet PO DAILY 09/29/19 04/29/21 Fiber Therapy (m-cellulose) 500 mg PO BID 09/29/19 04/29/21 Step-In 1 cap PO DAILY 09/29/19 04/29/21 calcium carbonate-vitamin D3 1 tablet PO DAILY 09/29/19 04/29/21 [Calcium 600 + D(3)] cholecalciferol (vitamin D3) 25 mcg PO DAILY 09/29/19 04/29/21 cyanocobalamin (vitamin B-12) 1,000 mcg PO DAILY 09/29/19 04/29/21 diltiazem HCl 240 mg PO DAILY 04/29/21 04/29/21 loratadine 10 mg PO DAILY 04/29/21 04/29/21 metoprolol succinate 50 mg PO DAILY 04/29/21 04/29/21 simvastatin 40 mg PO DAILY 04/29/21 04/29/21 Allergies Allergy/AdvReac Type Severity Reaction Status Date / Time No Known Allergies Allergy Verified 04/29/21 10:42 Review of Systems Review of Systems: CONSTITUTIONAL: Denies fever, chills, or sweats. EYES: Denies visual changes, redness, or discharge. ENT: Denies rhinorrhea, congestion, sore throat, or otalgia. CARDIOVASCULAR: Denies chest pain, palpitations, or edema. RESPIRATORY: Denies cough or dyspnea. GASTROINTESTINAL: Denies abdominal pain, nausea, vomiting, or diarrhea. GENITOURINARY: Denies dysuria or hematuria. SKIN: Denies rash or itching. MUSCULOSKELETAL: Reports left hand pain NEUROLOGIC: Denies headache, numbness, dizziness, or weakness. PSYCHIATRIC: Denies anxiety or depression. [facility] Past Medical History Medical History Arthritis Bilateral knees Dyslipidemia Environmental allergies Essential (primary) hypertension GERD without esophagitis History of electrophysiologic study for SVT 02/22/2013 History of PSVT (paroxysmal supraventricular tachycardia) 2012 - no reo-ccurence since cardiac ablation Hypothyroidism (acquired) IBS (irritable bowel syndrome) Polycystic ovaries Postmenopausal Pre-diabetes Rectal polyp Shingles Tachycardia Thyroid nodule Unspecified osteoarthritis, unspecified site Vitamin D deficiency Surgical History Surgical History H/O arthroscopic knee surgery 11/17/2017 H/O prior ablation treatment SVT - 02/2013 History of bilateral knee replacement left - 11/2017, right - 10/2019 History of cholecystectomy 11/30/2003 History of partial thyroidectomy 07/1998 Hx of dilation and curettage 10/28/2003 Family History Family History Father Diabetes mellitus Cerebrovascular accident Mother Hypertension Depression Heart disease Sibling Hypertension Grandparent Heart disease Grandparent Heart disease Other Family history of coronary artery disease Social History Social History Second hand tobacco smoke exposure: No Alcohol intake: never Substance use: never Substance use type: does not use Gender identity (if verbalized by the patient): Female Spiritual care concerns: No Agree to blood products: Yes Comments At the time of signature, I have reviewed and agree with nursing past medical, surgical, social, and family history unless otherwise noted. Please see nursing chart for further information. There is no rele
== END 2021-04-29 11:38 | disposition home or self-care (01) ==
PROVIDERS: Emergency Provider Nurse Practitioner; PCP Family Medicine
DX: M19.042 Primary osteoarthritis, left hand (principal); E03.9 Hypothyroidism, unspecified; I10 Essential (primary) hypertension
CPT/HCPCS: 73130; 99213; G0463

== ENCOUNTER 2021-05-25 07:07 | Outpatient (CLI) | payer OTHER, SELFPAY ==
[2021-05-25 09:36] LABS: Basophils Absolute Auto 0.1 K/mm3 (0.0-0.1); Basophils Percent Auto 1.1 % (0.2-1.2); Eosinophils Absolute Auto 0.2 K/mm3 (0-0.3); Eosinophils Percent Auto 2.4 % (0-4.4); Hematocrit 34.3 % (37.0-47.0); Hemoglobin 10.4 g/dL (12.0-15.0); Immature Granulocyte Absolute 0.04 K/mm3 (0.00-0.031); Immature Granulocyte Percent A 0.4 % (0-0.5); Lymphocytes Absolute Auto 2.37 K/mm3 (0.9-3.2); Lymphocytes Percent Auto 23.4 % (18.3-44.2); Mean Corpuscular HGB Conc 30.3 g/dl (32-36); Mean Corpuscular Hemoglobin 23.5 pg (26-34); Mean Corpuscular Volume 77.4 fl (80-100); Mean Platelet Volume 9.2 fl (7.4-10.4); Monocytes Absolute Auto 0.7 K/mm3 (0.1-0.6); Monocytes Percent Auto 6.7 % (2.6-8.5); Neutrophils Absolute Auto 6.7 K/mm3 (1.3-6.7); Platelet Count Result 843 k/mm3 (150-375); Red Blood Count 4.43 M/mm3 (4.2-5.4); Red Cell Distribution Width 16.1 % (11.5-14.5); White Blood Count 10.1 K/mm3 (4.5-10.0)
[2021-05-25 11:08] LABS: Erythrocyte Sedimentation Rate 21 mm/hr (0-20); Iron 22 ug/dL (37-170)
[2021-05-25 11:26] LABS: Percent Iron Saturation 4 % (20-50)
[2021-05-25 11:55] LABS: Ferritin 7.31 ng/mL (11.1-264)
[2021-05-25 12:41] LABS: Alanine Aminotransferase 45 U/L (4-35); Albumin Level 4.7 g/dL (3.5-5.1); Alkaline Phosphatase 86 U/L (38-126); Anion Gap 11 mmol/L (8-16); Aspartate Amino Transferase 74 U/L (14-36); Bilirubin,Total 0.4 mg/dL (0.2-1.3); Blood Urea Nitrogen 20 mg/dL (7-17); CRP < 0.5 mg/dL (<1.0); Calcium 9.4 mg/dL (8.4-10.2); Carbon Dioxide 24 mmol/L (22-30); Chloride 106 mmol/L (98-107); Estimated Glomerular Filt Rate 56; Glucose 91 mg/dL (65-110); Potassium 4.2 mmol/L (3.4-5.0); Sodium 141 mmol/L (137-145)
[2021-05-31 15:03] LABS: CALR Exon 9 Mutation Not Detected (Not Detected); CSF3R Exon 14/17 Mutation Not Detected (Not Detected); JAK2 Exon 12 Mutation Not Detected (Not Detected); JAK2 V617F Mutation Not Detected (Not Detected); MPL Exon 10 Mutation Not Detected (Not Detected); Specimen Source Blood
== END 2021-05-25 07:08 | disposition home or self-care (01) ==
PROVIDERS: PCP Family Medicine; Visit Provider Internal Medicine Hematology & Oncology
DX: D47.3 Essential (hemorrhagic) thrombocythemia (principal)
CPT/HCPCS: 36415; 80053; 81219; 81270; 81402; 81403; 81479; 82728; 83540; 83550; 85025; 85652; 86140

== ENCOUNTER 2021-05-30 12:08 | Emergency (ER) | payer OTHER, SELFPAY ==
[2021-05-30] VITALS (15 sets, daily range): BP systolic 132–166; BP diastolic 87–96; PULSE 78–89; RESP 15–22; TEMP 36.3; O2SAT 94–100
--- NOTE | ~2021-05-30 | CT_ITS ---
EXAMINATION: CT abdomen pelvis w con DATE: 05/30/2021 14:08 INDICATION: Right lower abdominal pain TECHNIQUE: Computed tomography (CT) of the abdomen and pelvis was performed with 100 mL Omnipaque-350 intravenous contrast. Automated exposure control and iterative reconstruction technique were employe d. The dose-length product was 1038.53 mGy-cm. COMPARISON: 07/26/2012 FINDINGS: Mild bibasilar atelectasis. Heart size is normal. No pericardial or pleural effusion. Cholecystectomy clips at the gallbladder fossa. Diffuse hepatic steatosis. Spleen, pancreas, bilateral adrenal gland s and kidneys are normal. Bowels including the appendix are normal. No periappendiceal contrast drain ing to suggest acute appendicitis. Bladder, anteverted uterus and bilateral adnexa are normal. No rao e intraperitoneal gas or fluid. No pathologically enlarged abdominal or pelvic lymphadenopathy. Moder ate to severe lumbar and lower thoracic spondylosis. IMPRESSION: 1. No acute intra-abdominal/pelvic process. Reviewed, dictated and finalized at location A.
[2021-05-30 12:40] LABS: Basophils Absolute Auto 0.1 K/mm3 (0.0-0.1); Eosinophils Absolute Auto 0.2 K/mm3 (0-0.3); Eosinophils Percent Auto 1.5 % (0-4.4); Hematocrit 35.2 % (37.0-47.0); Hemoglobin 10.6 g/dL (12.0-15.0); Immature Granulocyte Absolute 0.04 K/mm3 (0.00-0.031); Immature Granulocyte Percent A 0.3 % (0-0.5); Lymphocytes Percent Auto 28.5 % (18.3-44.2); Mean Corpuscular HGB Conc 30.1 g/dl (32-36); Mean Corpuscular Hemoglobin 23.8 pg (26-34); Mean Corpuscular Volume 78.9 fl (80-100); Mean Platelet Volume 8.9 fl (7.4-10.4); Monocytes Absolute Auto 0.8 K/mm3 (0.1-0.6); Monocytes Percent Auto 6.8 % (2.6-8.5); Neutrophils Absolute Auto 7.6 K/mm3 (1.3-6.7); Neutrophils Percent Auto 61.9 % (45.5-73.1); Platelet Count Result 818 k/mm3 (150-375); Red Blood Count 4.46 M/mm3 (4.2-5.4); Red Cell Distribution Width 16.5 % (11.5-14.5); White Blood Count 12.3 K/mm3 (4.5-10.0)
[2021-05-30 12:47] LABS: Add Urine Microscopic? YES; Appearance Urine Clear (Clear); Bilirubin Urine Negative (Negative); Blood Urine Negative (Negative); Color Urine Yellow (Yellow); Glucose Urine UA Negative (Negative); Ketones Urine Negative (Negative); Leukocyte Esterase Ur Negative LEU/UL (Negative); Mucus Urine Rare /lpf; Nitrate Urine Negative (Negative); Protein Urine Negative (Negative); RBC Urine 0-2 /hpf (0-2); Specific Grav Ur 1.012 (1.001-1.035); Urobilinogen Urine Negative mg/dL (<2.0); WBC Urine 0-3 /hpf
[2021-05-30 13:02] LABS: Anion Gap 10 mmol/L (8-16); Blood Urea Nitrogen 15 mg/dL (7-17); Calcium 9.7 mg/dL (8.4-10.2); Carbon Dioxide 25 mmol/L (22-30); Chloride 104 mmol/L (98-107); Estimated CRCL calculation 49 ml/min; Estimated Glomerular Filt Rate 56; Glucose 98 mg/dL (65-110); Potassium 3.8 mmol/L (3.4-5.0); Sodium 139 mmol/L (137-145)
--- NOTE | 2021-05-30 13:27 | ED.ABDPAIN ---
HPI - Abdominal Pain General Chief Complaint: Urogenital-Female Stated Complaint: right flank pain - Dr Purvis sent in Time Seen by Provider: 05/30/21 13:07 Source: patient and RN notes reviewed Mode of arrival: ambulatory Limitations: no limitations History of Present Illness HPI narrative: This is 65 year old female who presents for evaluation of right flank pain. Patient developed pain on Friday. She states her pain has been constant. She reports radiation of pain to right lower abdomen. She has nausea but no vomiting. She denies any exacerbating or alleviating factors. She denies fever or chills. She also denies hematuria or dysuria. She was evaluated in PCP office, and she states she was given shot of pain medication. She rates pain 04/20 . Denies history of kidney stone . History of cholecystectomy. She denies cough or shortness of breath. Related Data Home Medications Medication Instructions Recorded Confirmed latanoprost 1 drp OPHTHALMIC (EYE) QPM 07/14/19 05/30/21 Complete Multi 50+ 1 tablet PO DAILY 09/29/19 05/30/21 Fiber Therapy (m-cellulose) 500 mg PO BID 09/29/19 05/30/21 Solaiemes 1 cap PO DAILY 09/29/19 05/30/21 calcium carbonate-vitamin D3 1 tablet PO DAILY 09/29/19 05/30/21 [Calcium 600 + D(3)] cholecalciferol (vitamin D3) 25 mcg PO DAILY 09/29/19 05/30/21 cyanocobalamin (vitamin B-12) 1,000 mcg PO DAILY 09/29/19 05/30/21 loratadine 10 mg PO DAILY 04/29/21 05/30/21 fenofibrate 160 mg tablet 160 mg PO DAILY tablet 05/02/21 05/30/21 simvastatin 40 mg tablet 40 mg PO QHS tablet 05/02/21 05/30/21 Allergies Allergy/AdvReac Type Severity Reaction Status Date / Time No Known Allergies Allergy Verified 05/30/21 13:19 Review of Systems Review of Systems: All systems reviewed & are unremarkable except as noted in HPI and below PMFSH Past Medical History Medical History Arthritis Bilateral knees Diastasis recti Dyslipidemia Environmental allergies Essential (primary) hypertension GERD without esophagitis History of electrophysiologic study for SVT 02/22/2013 History of PSVT (paroxysmal supraventricular tachycardia) 2012 - no reo-ccurence since cardiac ablation Hypothyroidism (acquired) IBS (irritable bowel syndrome) Osteopenia Polycystic ovaries Postmenopausal Pre-diabetes Rectal polyp Shingles Tachycardia Thyroid nodule Umbilical hernia Unspecified osteoarthritis, unspecified site Vitamin D deficiency Surgical History Surgical History H/O arthroscopic knee surgery 11/17/2017 H/O prior ablation treatment SVT - 02/2013 History of bilateral knee replacement left - 11/2017, right - 10/2019 History of cataract surgery b/l - 2020 History of cholecystectomy 11/30/2003 History of partial thyroidectomy 07/1998 Hx of dilation and curettage 10/28/2003 Family History Family History Father Diabetes mellitus Cerebrovascular accident Mother Hypertension Depression Heart disease Sibling Hypertension Grandparent Heart disease Grandparent Heart disease Other Family history of coronary artery disease Social History Social History Smoking status: Never smoker Second hand tobacco smoke exposure: No Alcohol intake: never Substance use: never Substance use type: does not use Gender identity (if verbalized by the patient): Female Spiritual care concerns: No Agree to blood products: Yes Exam Const: General: no acute distress and alert Orientation/consciousness: patient oriented x3 Eyes: EOM: EOMs intact bilaterally Chest: Chest palpation & inspection: normal inspection of the chest Resp: Effort & Inspection: normal respiratory effort and no retractions Auscultation: clear to auscultation bilaterally Cardio:
[2021-05-30] MEDS: MORPHINE SULFATE (*CRX) 4 MG/ML INJ IV PUSH (13:43)
[2021-05-30] MEDS: ONDANSETRON INJ 4 MG/2 ML VIAL IV PUSH (13:43)
[2021-05-30 15:16] LABS: Alanine Aminotransferase 46 U/L (4-35); Albumin Level 4.7 g/dL (3.5-5.1); Alkaline Phosphatase 96 U/L (38-126); Aspartate Amino Transferase 73 U/L (14-36); Bilirubin,Total 0.4 mg/dL (0.2-1.3); Lipase 109 U/L (23-300)
[2021-05-30] MEDS: DICYCLOMINE HCL INJ 20 MG/2 ML VIAL IM (15:27)
== END 2021-05-30 15:43 | disposition home or self-care (01) ==
PROVIDERS: Emergency Provider General Practice; PCP Family Medicine
DX: R10.9 Unspecified abdominal pain (principal); M19.90 Unspecified osteoarthritis, unspecified site; E78.5 Hyperlipidemia, unspecified; I10 Essential (primary) hypertension; K21.9 Gastro-esophageal reflux disease without esophagitis; E89.0 Postprocedural hypothyroidism
CPT/HCPCS: 36415; 74177; 80048; 80076; 81001; 83690; 85025; 96372; 96374; 96375; 99284; J0500; J2270; J2405; Q9967

== ENCOUNTER 2021-09-04 00:39 | Day surgery (SDC) | payer OTHER, SELFPAY ==
[2021-08-31 11:53] VITALS: BMI 36.6
[2021-09-04 08:57] VITALS: BP 136/92; PULSE 87; RESP 18; TEMP 36.1; O2SAT 97
--- NOTE | 2021-09-04 09:09 | WPDGICN ---
Assessment and Plan Assessment and plan (1) MONICA (iron deficiency anemia): Code(s): D50.9 - Iron deficiency anemia, unspecified Status: Acute Assessment and Plan: Because of iron deficiency anemia both colonoscopy an EGD will be performed to assess for possible source of GI blood loss. Patient does have a history of colon polyps. Has been treated for GE reflux and also has a history of nose bleeds. (2) History of colon polyps: Code(s): Z86.010 - Personal history of colonic polyps Status: Acute Assessment and Plan: Patient with prior history of colon polyps. Most recent exam 3 years ago 2019. Plan is for surveillance colonoscopy at this time. (3) GERD without esophagitis: Code(s): K21.9 - Gastro-esophageal reflux disease without esophagitis Status: Acute Assessment and Plan: Patient with chronic GE reflux disease. Currently maintained on omeprazole 40mg p.o. once daily. Plan to evaluate with EGD. GI Consult Note Consult date/time: 09/04/21 09:09 HPI: Sarah Underwood is a 66 year old female Presents for GI endoscopy. Patient recently found to have iron deficiency anemia. Currently sees Hematology. GI endoscopy advised. Patient denies any obvious GI bleeding. She has a distant history of nose bleeds most recently February of 2021. Patient has a distant history of colon polyps last colonoscopy 2018. She has an ongoing history of GE reflux disease. Currently feels stable with no heartburn while taking omeprazole 40mg p.o. once daily. She denies any dysphagia bleeding or weight loss. Patient does report some ongoing epigastric fullness. She has a very distant history of cholecystectomy. Currently being evaluated by Hematology for her iron deficiency. Family history is noncontributory. Review of Systems Review of Systems: All systems reviewed & are unremarkable except as noted in HPI and below [facility] Past Medical History Medical History Arthritis Bilateral knees Diastasis recti Dyslipidemia Environmental allergies Essential (primary) hypertension GERD without esophagitis History of electrophysiologic study for SVT 02/22/2013 History of PSVT (paroxysmal supraventricular tachycardia) 2012 - no reo-ccurence since cardiac ablation Hypothyroidism (acquired) IBS (irritable bowel syndrome) Osteopenia Polycystic ovaries Postmenopausal Pre-diabetes Rectal polyp Shingles Tachycardia Thyroid nodule Umbilical hernia Unspecified osteoarthritis, unspecified site Vitamin D deficiency Surgical History Surgical History H/O arthroscopic knee surgery 11/17/2017 H/O prior ablation treatment SVT - 02/2013 History of bilateral knee replacement left - 11/2017, right - 10/2019 History of cataract surgery b/l - 2020 History of cholecystectomy 11/30/2003 History of partial thyroidectomy 07/1998 Hx of dilation and curettage 10/28/2003 Family History Family History Father Diabetes mellitus Cerebrovascular accident Mother Hypertension Depression Heart disease Sibling Hypertension Grandparent Heart disease Grandparent Heart disease Other Family history of coronary artery disease Social History Social History Smoking status: Never smoker Second hand tobacco smoke exposure: No Alcohol intake: never Substance use: never Substance use type: does not use Living arrangements: with family Gender identity (if verbalized by the patient): Female Spiritual care concerns: No Agree to blood products: Yes Meds Home Medications and Allergies Home Medications Medication Instructions Recorded Confirmed Type latanoprost 1 drp OPHTHALMIC (EYE) QPM 07/14/19 08/31/21 History Complete Multi 50+ 1 tabl
[2021-09-04] MEDS: LACTATED RINGERS 1,000 ML 150 ML IV CONT (09:13)
--- NOTE | 2021-09-04 09:59 | WPDANESEPPF ---
Anes - Initial Pre Proc Eval Procedure: Operation Date: 09/04/21 10:00 Proposed Procedures p Esophagogastroduodenoscopy & Colonoscopy - Yoel Lozada MD Date/Time: 09/04/21 09:59 Surgeon: Yoel Lozada MD Pre Op Diagnosis: MONICA, hx of colon polyps, epigastric pain Patient Data Age: 66 Gender: F Height: 1.52 m Weight: 84.4 kg Last Vital Signs Temp 97 F L 09/04/21 08:57 Pulse 87 09/04/21 08:57 Resp 18 09/04/21 08:57 BP 136/92 H 09/04/21 08:57 Pulse Ox 97 09/04/21 08:57 Allergies Allergy/AdvReac Type Severity Reaction Status Date / Time adhesive tape Allergy Intermediate Redness of Verified 09/04/21 08:55 Skin Home Medications Medication Instructions Recorded Confirmed Type latanoprost 1 drp OPHTHALMIC (EYE) QPM 07/14/19 08/31/21 History Complete Multi 50+ 1 tablet PO DAILY 09/29/19 08/31/21 History Fiber Therapy (m-cellulose) 500 mg PO BID 09/29/19 08/31/21 History [employer] 1 cap PO DAILY 09/29/19 08/31/21 History calcium carbonate-vitamin D3 1 tablet PO DAILY 09/29/19 08/31/21 History [Calcium 600 + D(3)] cholecalciferol (vitamin D3) 25 mcg PO DAILY 09/29/19 08/31/21 History cyanocobalamin (vitamin B-12) 1,000 mcg PO DAILY 09/29/19 08/31/21 History loratadine 10 mg PO DAILY 04/29/21 08/31/21 History diltiazem HCl 240 mg capsule,24 240 mg PO DAILY #90 cap 05/02/21 08/31/21 Rx hr,extended release metoprolol succinate 50 mg 50 mg PO DAILY #90 tablet 05/02/21 08/31/21 Rx tablet,extended release 24 hr simvastatin 40 mg tablet 40 mg PO QHS #90 tablet 06/07/21 08/31/21 Rx fenofibrate 160 mg tablet 160 mg PO DAILY #90 tablet 06/13/21 08/31/21 Rx ferrous sulfate 325 mg (65 mg 325 mg PO BID 06/20/21 08/31/21 History iron) tablet ascorbic acid (vitamin C) [Vitamin 500 mg PO DAILY 06/26/21 08/31/21 History C] aspirin 81 mg PO DAILY 06/26/21 08/31/21 History ketoconazole 2 % topical cream 1 applic TOPICAL BID #15 g 07/26/21 08/31/21 Rx omeprazole 40 mg capsule,delayed 40 mg PO DAILY #30 cap 08/17/21 08/31/21 Rx release levothyroxine 88 mcg tablet 88 mcg PO DAILY #90 tablet 08/31/21 09/04/21 Rx Patient hx anesthesia problems: none Family hx anesthesia problems: none Results Review: All pre-operative results and documents have been reviewed as part of the pre-operative evaluation. [facility] Past Medical History Medical History Arthritis Bilateral knees Diastasis recti Dyslipidemia Environmental allergies Essential (primary) hypertension GERD without esophagitis History of electrophysiologic study for SVT 02/22/2013 History of PSVT (paroxysmal supraventricular tachycardia) 2012 - no reo-ccurence since cardiac ablation Hypothyroidism (acquired) IBS (irritable bowel syndrome) Osteopenia Polycystic ovaries Postmenopausal Pre-diabetes Rectal polyp Shingles Tachycardia Thyroid nodule Umbilical hernia Unspecified osteoarthritis, unspecified site Vitamin D deficiency Surgical History Surgical History H/O arthroscopic knee surgery 11/17/2017 H/O prior ablation treatment SVT - 02/2013 History of bilateral knee replacement left - 11/2017, right - 10/2019 History of cataract surgery b/l - 2020 History of cholecystectomy 11/30/2003 History of partial thyroidectomy 07/1998 Hx of dilation and curettage 10/28/2003 Family History Family History Father Diabetes mellitus Cerebrovascular accident Mother Hypertension Depression Heart disease Sibling Hypertension Grandparent Heart disease Grandparent Heart disease Other Family history of coronary artery disease Social History Social History Smoking status: Never smoker Second hand tobacco smoke exposure: No Alcohol intake: never Substance us
--- NOTE | 2021-09-04 10:32 | SUR.OPER ---
EGD ended at 1025. Colonoscopy started at 1032.
[2021-09-04 10:46] VITALS: BP 106/74; PULSE 72; RESP 19; O2SAT 97
== END 2021-09-04 11:18 | disposition home or self-care (01) ==
PROVIDERS: PCP Family Medicine; Visit Provider Internal Medicine Gastroenterology
PROC: 0DJ08ZZ Inspection of Upper Intestinal Tract, Via Natural or Artificial Opening Endoscopic (ICD-10-PCS; CPT 43235; principal; 2021-09-04 10:00)
DX: D50.9 Iron deficiency anemia, unspecified (principal); K64.8 Other hemorrhoids; K57.30 Diverticulosis of large intestine without perforation or abscess without bleeding; Z86.010 Personal history of colon polyps; K21.9 Gastro-esophageal reflux disease without esophagitis; K31.7 Polyp of stomach and duodenum; I10 Essential (primary) hypertension; E78.5 Hyperlipidemia, unspecified; K58.9 Irritable bowel syndrome, unspecified; M85.80 Other specified disorders of bone density and structure, unspecified site; E55.9 Vitamin D deficiency, unspecified; M19.90 Unspecified osteoarthritis, unspecified site; Z96.653 Presence of artificial knee joint, bilateral; E66.9 Obesity, unspecified; Z68.36 Body mass index [BMI] 36.0-36.9, adult
CPT/HCPCS: 45378; 43251; 43239; 87081; 88305; J2704; J7120

== ENCOUNTER 2021-09-17 07:06 | Outpatient (CLI) | payer OTHER, SELFPAY ==
--- NOTE | ~2021-09-17 | XR_ITS ---
EXAMINATION: XR small bowel follow through DATE: 09/17/2021 08:08 INDICATION: Iron deficiency anemia. TECHNIQUE: Electrical Sign Wirer Helper radiograph(s) of the abdomen was/were obtained. Oral contrast was administered, and sequential radiographs of the abdomen were obtained until oral contrast was noted to be in the proxi mal colon. A total of 3 overhead radiographs and 11 fluoroscopic images of the small bowel were obtai babak. Fluoroscopy exposure time was 1.2 minutes. COMPARISON: CT dated 05/30/2021 FINDINGS: Transit time from the stomach to proximal colon was approximately 30 minutes. There is normal caliber and mucosal fold pattern throughout the small bowel. Terminal ileum is normal. No tethering or abn ormal mass effect observed upon the small bowel with real-time fluoroscopy. Cholecystectomy clips in right upper quadrant. IMPRESSION: 1. Normal small bowel follow-through. Reviewed, dictated and finalized at location A. ET FORMER
== END 2021-09-17 07:07 | disposition home or self-care (01) ==
LOC: ANHIMG 07:11
PROVIDERS: PCP Family Medicine; Visit Provider Internal Medicine Gastroenterology
DX: D50.9 Iron deficiency anemia, unspecified (principal)
CPT/HCPCS: 74250

== ENCOUNTER 2022-05-06 11:29 | Emergency (ER) | payer OTHER, SELFPAY ==
[2022-05-06 11:43] VITALS: BP 142/95; PULSE 77; RESP 18; TEMP 36.4; O2SAT 98
--- NOTE | 2022-05-06 12:06 | ECG_ITS ---
Measurements Intervals [place] Rate: 72 P: 4 HI: 191 QRS: 6 QRSD: 93 T: -5 QT: 369 QTc: 404 Interpretive Statements SINUS RHYTHM BORDERLINE R WAVE PROGRESSION, ANTERIOR LEADS CONSIDER INFERIOR INFARCT, AGE INDETERMINATE BASELINE ARTIFACT- I, II, III, AVR, AVF ABNORMAL ECG COMPARED TO ECG 09/29/2019 09:37:28 NO SIGNIFICANT CHANGES Electronically Signed On 05-06-2022 12:08:18 CDT by Jenaro Hall D.O.
--- NOTE | 2022-05-06 12:14 | ED.GENADULT ---
HPI - General Adult General Chief complaint: Extremity Injury, Upper Stated complaint: lt shoulder pain Time Seen by Provider: 05/06/22 12:04 Source: patient Mode of arrival: ambulatory Limitations: no limitations History of Present Illness HPI narrative: 66-year-old female presented for complaint of left upper back pain/shoulder pain for 2 days. She denies injury. She states it feels like knots which she has a history of. She has been using ice, heat, and ibuprofen which relieves the symptoms temporarily. She sees a chiropractor monthly, and was last seen last week ago. Denies chest pain, palpitations, diaphoresis. Pain does not radiate into the neck, jaw, arm or chest. Denies numbness, tingling, weakness of the left upper extremity Patient also reports postnasal drainage, nausea yesterday and bilateral jaw pressure. She takes a daily allergy medication. History of epistaxis following with an ENT. Related Data Home Medications Medication Instructions Recorded Confirmed latanoprost 0.005 % eye drops 1 drp ophthalmic (eye) QPM 07/14/19 05/06/22 Lactobacills gasseri-Bifidobac 1 cap PO DAILY 09/29/19 05/06/22 bifidum,longum 1.5 billion cell capsule (duuin) calcium carbonate 600 mg-vitamin 1 tablet PO DAILY 09/29/19 05/06/22 D3 10 mcg (400 unit) tablet (Calcium 600 + D(3)) cholecalciferol (vitamin D3) 25 25 mcg PO DAILY 09/29/19 05/06/22 mcg (1,000 unit) tablet cyanocobalamin (vitamin B-12) 1,000 mcg PO DAILY 09/29/19 05/06/22 1,000 mcg capsule methylcellulose (laxative) 500 mg 500 mg PO BID 09/29/19 05/06/22 tablet (Fiber Therapy (methylcellulose)) ctvqkghd-vpa-dnmxl acid 500 1 tablet PO DAILY 09/29/19 05/06/22 mcg-lycopene 300 mcg-lutein 250 mcg tablet (Complete Multi 50+) ferrous sulfate 325 mg (65 mg 325 mg PO BID 06/20/21 05/06/22 iron) tablet ascorbic acid (vitamin C) 500 mg 500 mg PO DAILY 06/26/21 05/06/22 tablet (Vitamin C) aspirin 81 mg tablet 81 mg PO DAILY 06/26/21 05/06/22 estradiol 0.01% (0.1 mg/gram) 1 g vaginal 2XW 11/06/21 05/06/22 vaginal cream Allergies Allergy/AdvReac Type Severity Reaction Status Date / Time adhesive tape Allergy Intermediate Redness of Verified 05/06/22 12:05 Skin Review of Systems Review of Systems: CONSTITUTIONAL: Denies body aches, fever, chills EYES: Denies visual changes ENT: Reports rhinorrhea, congestion CARDIOVASCULAR: Denies chest pain, palpitations, or edema. RESPIRATORY: Denies cough or dyspnea. GASTROINTESTINAL: Denies abdominal pain, vomiting, or diarrhea. SKIN: Denies rash, or wounds. MUSCULOSKELETAL: Denies joint pain, or myalgia. NEUROLOGIC: Denies headache, numbness, tingling, or weakness. All systems reviewed & are unremarkable except as noted in HPI and below PMFSH Past Medical History Medical History Arthritis Bilateral knees Diastasis recti Dyslipidemia Environmental allergies Essential (primary) hypertension GERD without esophagitis History of electrophysiologic study for SVT 02/22/2013 History of PSVT (paroxysmal supraventricular tachycardia) 2012 - no reo-ccurence since cardiac ablation Hypothyroidism (acquired) IBS (irritable bowel syndrome) Osteopenia Polycystic ovaries Postmenopausal Pre-diabetes Rectal polyp Shingles Tachycardia Thyroid nodule Umbilical hernia Unspecified osteoarthritis, unspecified site Vitamin D deficiency Surgical History Surgical History H/O arthroscopic knee surgery 11/17/2017 H/O prior ablation treatment SVT - 02/2013 History of bilateral knee replacement left - 11/2017, right - 10/2019 History of cataract surgery b/l - 2020 History of cholecystectomy 11/30/2003 History of partial thyroidectomy 07/1998 Hx of dilation and curettage 10/28/2003 Family History Family History (Reviewed 05/06/22 @ 12:33 by Angelita Pink, AP
== END 2022-05-06 12:20 | disposition home or self-care (01) ==
PROVIDERS: Emergency Provider Nurse Practitioner Family; PCP Family Medicine
DX: M54.9 Dorsalgia, unspecified (principal); E78.5 Hyperlipidemia, unspecified; I10 Essential (primary) hypertension; K21.9 Gastro-esophageal reflux disease without esophagitis; E03.9 Hypothyroidism, unspecified; R73.03 Prediabetes; M85.80 Other specified disorders of bone density and structure, unspecified site; E55.9 Vitamin D deficiency, unspecified
CPT/HCPCS: 93005; 99213; G0463

== ENCOUNTER 2022-05-08 09:27 | Outpatient (CLI) | payer OTHER, SELFPAY ==
[2022-05-08 18:38] LABS: Hemoglobin A1C 5.9 % (<5.7)
[2022-05-08 18:48] LABS: Alanine Aminotransferase 60 U/L (6-35); Albumin Level 4.7 g/dL (3.5-5.1); Alkaline Phosphatase 85 U/L (38-126); Anion Gap 13 mmol/L (8-16); Aspartate Amino Transferase 108 U/L (14-36); Bilirubin,Total 0.6 mg/dL (0.2-1.3); Blood Urea Nitrogen 23 mg/dL (7-17); Calcium 9.5 mg/dL (8.4-10.2); Carbon Dioxide 27 mmol/L (22-30); Chloride 100 mmol/L (98-107); Cholesterol 168 mg/dL (0-200); Estimated Glomerular Filt Rate 56; Glucose 89 mg/dL (65-110); HDL Direct 64 mg/dL; Potassium 4.1 mmol/L (3.4-5.0); Sodium 140 mmol/L (137-145); Triglycerides 121 mg/dL (<150)
[2022-05-08 19:00] LABS: LDL Cholesterol Direct 76 mg/dL
[2022-05-08 19:15] LABS: Vitamin D 25 Hydroxy 67.1 ng/mL
[2022-05-08 20:29] LABS: Basophils Absolute Auto 0.1 K/mm3 (0.0-0.1); Eosinophils Absolute Auto 0.2 K/mm3 (0-0.3); Eosinophils Percent Auto 1.8 % (0-4.4); Hematocrit 46.6 % (37.0-47.0); Hemoglobin 15.1 g/dL (12.0-15.0); Immature Granulocyte Absolute 0.05 K/mm3 (0.00-0.031); Immature Granulocyte Percent A 0.5 % (0-0.5); Lymphocytes Absolute Auto 2.22 K/mm3 (0.9-3.2); Lymphocytes Percent Auto 20.7 % (18.3-44.2); Mean Corpuscular HGB Conc 32.4 g/dl (32-36); Mean Corpuscular Hemoglobin 31.9 pg (26-34); Mean Corpuscular Volume 98.5 fl (80-100); Mean Platelet Volume 9.7 fl (7.4-10.4); Monocytes Absolute Auto 0.7 K/mm3 (0.1-0.6); Monocytes Percent Auto 6.3 % (2.6-8.5); Neutrophils Absolute Auto 7.5 K/mm3 (1.3-6.7); Neutrophils Percent Auto 69.7 % (45.5-73.1); Platelet Count Result 542 k/mm3 (150-375); Red Blood Count 4.73 M/mm3 (4.2-5.4); White Blood Count 10.7 K/mm3 (4.5-10.0)
[2022-05-09 01:21] LABS: Free T4 Free Thyroxine Reflex 1.59 ng/dL (0.78-2.19)
[2022-05-09 02:13] LABS: Total Triiodothyronine (T3) 1.08 NG/ML (0.97-1.69)
== END 2022-05-08 09:28 | disposition home or self-care (01) ==
LOC: ANHGOSHLAB 09:30
PROVIDERS: PCP Family Medicine; Visit Provider Family Medicine
DX: E78.5 Hyperlipidemia, unspecified (principal); I10 Essential (primary) hypertension; E55.9 Vitamin D deficiency, unspecified; Z00.00 Encounter for general adult medical examination without abnormal findings; E53.8 Deficiency of other specified B group vitamins
CPT/HCPCS: 36415; 80053; 80061; 82306; 82607; 83036; 84439; 84443; 84480; 85025

== ENCOUNTER 2022-05-16 17:31 | Outpatient (CLI) | payer OTHER, SELFPAY ==
--- NOTE | ~2022-05-16 | MM_ITS ---
EXAMINATION: MM screening [facility] BI w brandon HISTORY: Screening mammogram TECHNIQUE: Craniocaudal and mediolateral oblique 3-D tomosynthesis images were obtained and synthetic 2-D images were generated. CAD analysis was submitted and interpreted. COMPARISON: 03/19/2021, 08/26/2019, 06/04/2018, 06/02/2017 BREAST PARENCHYMAL COMPOSITION: There are scattered areas of fibroglandular density. FINDINGS: No suspicious mass, calcification, or architectural distortion are identified in either norman ast to suggest malignancy. There has been no suspicious interval change. IMPRESSION: 1. No mammographic evidence of malignancy. 2. Recommend routine screening mammography in one year. BI-RADS Category 1: Negative Reviewed, dictated and finalized at location A.
== END 2022-05-16 17:32 | disposition home or self-care (01) ==
LOC: ANHIMG 17:34
PROVIDERS: PCP Family Medicine; Visit Provider Obstetrics & Gynecology
DX: Z12.31 Encounter for screening mammogram for malignant neoplasm of breast (principal)
CPT/HCPCS: 77063; 77067

== ENCOUNTER 2022-06-08 08:40 | Emergency (ER) | payer OTHER, SELFPAY ==
--- NOTE | ~2022-06-08 | XR_ITS ---
XR chest 2V 06/08/2022 09:07 Indication: Cough and wheezing Procedure: 2 view chest Comparison: 09/29/2019 Findings: Heart size normal. There is subsegmental atelectasis of the left mid and lower lung. No foc al pneumonia, pleural effusion, edema or pneumothorax. No acute osseous abnormality. Impression: 1: Left basilar atelectasis. Reviewed, dictated and finalized at location A. Impression: 1: Left basilar atelectasis.
[2022-06-08 08:49] VITALS: BP 148/94; PULSE 88; RESP 16; TEMP 36.9; O2SAT 97
--- NOTE | 2022-06-08 09:04 | ED.URI ---
HPI - URI/Sore Throat General Chief Complaint: Upper Respiratory Infection Stated Complaint: cough, congestion Source: patient and RN notes reviewed Mode of arrival: ambulatory Limitations: no limitations History of Present Illness HPI Narrative: 66 y/o female presented for c/o cough for 2 weeks. Endorses sinus congestion and hearing occasional wheezing. Denies associated sob, chest pain, n/v/d/f/c. States at the onset of symptoms she was on a bus tour, used vicks rub and tylenol. States many people became ill on the bus tour with similar symptoms. Taking Coricidin for symptoms without relief. MD elicited complaint: cough Related Data Home Medications Medication Instructions Recorded Confirmed latanoprost 0.005 % eye drops 1 drp ophthalmic (eye) QPM 07/14/19 05/08/22 Lactobacills gasseri-Bifidobac 1 cap PO DAILY 09/29/19 05/08/22 bifidum,longum 1.5 billion cell capsule ([employer]) calcium carbonate 600 mg-vitamin 1 tablet PO DAILY 09/29/19 05/08/22 D3 10 mcg (400 unit) tablet (Calcium 600 + D(3)) cholecalciferol (vitamin D3) 25 25 mcg PO DAILY 09/29/19 05/08/22 mcg (1,000 unit) tablet cyanocobalamin (vitamin B-12) 1,000 mcg PO DAILY 09/29/19 05/08/22 1,000 mcg capsule kfieopvi-tnc-ioosz acid 500 1 tablet PO DAILY 09/29/19 05/08/22 mcg-lycopene 300 mcg-lutein 250 mcg tablet (Complete Multi 50+) ascorbic acid (vitamin C) 500 mg 500 mg PO DAILY 06/26/21 05/08/22 tablet (Vitamin C) aspirin 81 mg tablet 81 mg PO DAILY 06/26/21 05/08/22 estradiol 0.01% (0.1 mg/gram) 1 g vaginal 2XW 11/06/21 05/08/22 vaginal cream ferrous sulfate 325 mg (65 mg 325 mg PO DAILY 05/08/22 05/08/22 iron) tablet Allergies Allergy/AdvReac Type Severity Reaction Status Date / Time adhesive tape Allergy Intermediate Redness of Verified 05/08/22 08:20 Skin Review of Systems Review of Systems: CONSTITUTIONAL: denies malaise, chills, sweats, fever EYES: Denies visual changes, redness, or discharge ENT: Reports rhinorrhea, congestion, sinus pain, denies otalgia, sore throat CARDIOVASCULAR: Denies chest pain, palpitations, edema RESPIRATORY: Reports cough, post nasal drainage. Denies dyspnea GASTROINTESTINAL: Denies abdominal pain, nausea, vomiting, diarrhea SKIN: Denies rash or itching MUSCULOSKELETAL: Denies myalgia [facility] Past Medical History Medical History Diastasis recti Dyslipidemia Environmental allergies Essential (primary) hypertension GERD without esophagitis History of colon polyps History of electrophysiologic study for SVT 02/22/2013 History of PSVT (paroxysmal supraventricular tachycardia) 2012 - no reo-ccurence since cardiac ablation Hypothyroidism (acquired) IBS (irritable bowel syndrome) Osteopenia Polycystic ovaries Postmenopausal Pre-diabetes Rectal polyp Shingles (~05/2021) Thyroid nodule Umbilical hernia Unspecified osteoarthritis, unspecified site Vitamin D deficiency Surgical History Surgical History H/O arthroscopic knee surgery 11/17/2017 H/O prior ablation treatment SVT - 02/2013 History of bilateral knee replacement left - 11/2017, right - 10/2019 History of cataract surgery b/l - 2020 History of cholecystectomy 11/30/2003 History of partial thyroidectomy 07/1998 Hx of dilation and curettage 10/28/2003 Family History Family History Father Diabetes mellitus Cerebrovascular accident Mother Hypertension Depression Heart disease Sibling Hypertension Grandparent Heart disease Grandparent Heart disease Other Family history of coronary artery disease Social History Social History Smoking status: Never smoker Second hand tobacco smoke exposure: No Alcohol intake: never Substance use: never Substance u
== END 2022-06-08 09:30 | disposition home or self-care (01) ==
PROVIDERS: Emergency Provider Nurse Practitioner Family; PCP Family Medicine
DX: J06.9 Acute upper respiratory infection, unspecified (principal); E78.5 Hyperlipidemia, unspecified; I10 Essential (primary) hypertension; K21.9 Gastro-esophageal reflux disease without esophagitis; E03.9 Hypothyroidism, unspecified; M85.80 Other specified disorders of bone density and structure, unspecified site; R73.03 Prediabetes; M19.90 Unspecified osteoarthritis, unspecified site; E55.9 Vitamin D deficiency, unspecified; Z96.653 Presence of artificial knee joint, bilateral
CPT/HCPCS: 71046; 99213; G0463

== ENCOUNTER → 2022-07-24 11:52 | Outpatient (CLI) | payer OTHER, SELFPAY ==
--- NOTE | ~2022-07-24 | XR_ITS ---
Left ankle Technique: AP, oblique, and lateral views were obtained. Clinical History: Pain and swelling Findings: No acute fracture or dislocation is seen. Osseous alignment is anatomic. There is mild dege nerative change at the medial aspect of the tibiotalar joint. There is additional degenerative change at the articulation of the navicular with the medial cuneiform. Plantar calcaneal spur present.. Dif fuse subcutaneous soft tissue edema noted. Impression: Scattered degenerative changes, as detailed above. No fracture or dislocation. Diffuse subcutaneous soft tissue edema. Reviewed, dictated and finalized at location [] X CLERK Impression: Scattered degenerative changes, as detailed above. No fracture or dislocation. Diffuse subcutaneous soft tissue edema.
== END ==
PROVIDERS: PCP Family Medicine; Visit Provider Family Medicine
DX: M25.572 Pain in left ankle and joints of left foot (principal)
CPT/HCPCS: 73610

== ENCOUNTER 2022-09-03 21:31 | Outpatient (NON) | payer OTHER, SELFPAY | END 2022-09-03 21:32 | disposition home or self-care (01) | PROVIDERS: PCP Family Medicine; Visit Provider Family Medicine | DX: R82.998 Other abnormal findings in urine (principal) | CPT/HCPCS: 87086 ==

== ENCOUNTER 2022-11-12 09:19 | Outpatient (CLI) | payer OTHER, SELFPAY ==
[2022-11-12 21:20] LABS: Alanine Aminotransferase 54 U/L (6-35); Albumin Level 4.3 g/dL (3.5-5.1); Alkaline Phosphatase 78 U/L (38-126); Anion Gap 6 mmol/L (8-16); Aspartate Amino Transferase 83 U/L (14-36); Bilirubin,Total 0.6 mg/dL (0.2-1.3); Blood Urea Nitrogen 23 mg/dL (7-17); Calcium 9.4 mg/dL (8.4-10.2); Carbon Dioxide 31 mmol/L (22-30); Chloride 102 mmol/L (98-107); Estimated Glomerular Filt Rate 56; Glucose 82 mg/dL (65-110); Potassium 4.1 mmol/L (3.4-5.0); Sodium 139 mmol/L (137-145)
[2022-11-12 21:33] LABS: Hemoglobin A1C 6.1 % (<5.7)
== END 2022-11-12 09:20 | disposition home or self-care (01) ==
LOC: ANHGOSHLAB 09:20
PROVIDERS: PCP Family Medicine; Visit Provider Family Medicine
DX: R73.03 Prediabetes (principal); I10 Essential (primary) hypertension; E03.9 Hypothyroidism, unspecified
CPT/HCPCS: 36415; 80053; 83036; 84443

== ENCOUNTER 2023-04-29 12:31 | Outpatient (CLI) | payer OTHER, SELFPAY ==
[2023-04-29 16:51] LABS: Appearance Urine Clear (Clear); Bacteria Urine None Seen /hpf; Bilirubin Urine Negative (Negative); Blood Urine Negative (Negative); Color Urine Yellow (Yellow); Glucose Urine UA Negative (Negative); Ketones Urine Negative (Negative); Leukocyte Esterase Ur 2+ LEU/UL (Negative); Nitrate Urine Negative (Negative); Non Pathogenic Casts 0-2; Protein Urine Negative (Negative); RBC Urine 0-2 /hpf (0-2); Specific Grav Ur 1.006 (1.001-1.035); Squamous Epithelial Cell Urine None seen /hpf (Few); Urobilinogen Urine 0.2 mg/dL (<2.0); pH Urine 7.5 (5.0-9.0)
[2023-04-29 16:55] LABS: Add Urine Microscopic? YES
== END 2023-04-29 12:32 | disposition home or self-care (01) ==
LOC: ANHGOSHLAB 12:33
PROVIDERS: PCP Family Medicine; Visit Provider Emergency Medicine
DX: M54.9 Dorsalgia, unspecified (principal)
CPT/HCPCS: 81001; 87086; 87088; 87147

== ENCOUNTER → 2023-04-29 13:05 | Outpatient (CLI) | payer OTHER, SELFPAY ==
--- NOTE | ~2023-04-29 | XR_ITS ---
AP and lateral views of the right hip Clinical history: Pain Findings: No acute fracture or dislocation is seen. Osseous alignment is anatomic. The right hip join t and right SI joint are preserved. Soft tissues are unremarkable. Impression: No significant abnormality is seen. Reviewed, dictated and finalized at location . Impression: No significant abnormality is seen.
== END ==
PROVIDERS: PCP Emergency Medicine; Visit Provider Emergency Medicine
DX: M25.551 Pain in right hip (principal)
CPT/HCPCS: 73502

== ENCOUNTER 2023-05-21 09:24 | Outpatient (CLI) | payer OTHER, SELFPAY ==
[2023-05-21 18:22] LABS: Basophils Absolute Auto 0.1 K/mm3 (0.0-0.1); Basophils Percent Auto 0.9 % (0.2-1.2); Eosinophils Absolute Auto 0.3 K/mm3 (0-0.3); Eosinophils Percent Auto 2.2 % (0-4.4); Hematocrit 45.8 % (37.0-47.0); Hemoglobin 14.8 g/dL (12.0-15.0); Immature Granulocyte Absolute 0.06 K/mm3 (0.00-0.031); Immature Granulocyte Percent A 0.5 % (0-0.5); Lymphocytes Absolute Auto 2.65 K/mm3 (0.9-3.2); Lymphocytes Percent Auto 22.8 % (18.3-44.2); Mean Corpuscular HGB Conc 32.3 g/dl (32-36); Mean Corpuscular Hemoglobin 31.2 pg (26-34); Mean Corpuscular Volume 96.6 fl (80-100); Mean Platelet Volume 9.5 fl (7.4-10.4); Monocytes Absolute Auto 0.8 K/mm3 (0.1-0.6); Neutrophils Absolute Auto 7.7 K/mm3 (1.3-6.7); Neutrophils Percent Auto 66.6 % (45.5-73.1); Platelet Count Result 551 k/mm3 (150-375); Red Blood Count 4.74 M/mm3 (4.2-5.4); Red Cell Distribution Width 12.8 % (11.5-14.5); White Blood Count 11.6 K/mm3 (4.5-10.0)
[2023-05-21 19:12] LABS: Alanine Aminotransferase 59 U/L (6-35); Albumin Level 4.4 g/dL (3.5-5.1); Alkaline Phosphatase 79 U/L (38-126); Anion Gap 5 mmol/L (8-16); Aspartate Amino Transferase 69 U/L (14-36); Bilirubin,Total 0.7 mg/dL (0.2-1.3); Blood Urea Nitrogen 19 mg/dL (7-17); Calcium 9.5 mg/dL (8.4-10.2); Carbon Dioxide 32 mmol/L (22-30); Chloride 101 mmol/L (98-107); Cholesterol 173 mg/dL (0-200); Estimated Glomerular Filt Rate > 60; Glucose 96 mg/dL (65-110); HDL Direct 60 mg/dL; Sodium 138 mmol/L (137-145); Triglycerides 118 mg/dL (<150)
[2023-05-21 19:23] LABS: LDL Cholesterol Direct 89 mg/dL
[2023-05-21 20:12] LABS: Vitamin D 25 Hydroxy 48.3 ng/mL
[2023-05-21 20:47] LABS: Hemoglobin A1C 5.8 % (<5.7)
[2023-05-21 20:55] LABS: Free T4 Free Thyroxine Reflex 1.41 ng/dL (0.78-2.19)
[2023-05-21 21:37] LABS: Total Triiodothyronine (T3) 1.19 NG/ML (0.97-1.69)
== END 2023-05-21 09:25 | disposition home or self-care (01) ==
LOC: ANHGOSHLAB 09:25
PROVIDERS: PCP Emergency Medicine; Visit Provider Family Medicine
DX: R73.03 Prediabetes (principal); I10 Essential (primary) hypertension; E78.5 Hyperlipidemia, unspecified; E53.8 Deficiency of other specified B group vitamins; E55.9 Vitamin D deficiency, unspecified; Z00.00 Encounter for general adult medical examination without abnormal findings
CPT/HCPCS: 36415; 80053; 80061; 82306; 82607; 83036; 84439; 84443; 84480; 85025

== ENCOUNTER 2023-09-05 08:16 | Outpatient (CLI) | payer OTHER, SELFPAY ==
[2023-09-05 08:42] LABS: Basophils Absolute Auto 0.1 K/mm3 (0.0-0.1); Basophils Percent Auto 0.8 % (0.2-1.2); Eosinophils Absolute Auto 0.3 K/mm3 (0-0.3); Eosinophils Percent Auto 2.4 % (0-4.4); Hemoglobin 14.1 g/dL (12.0-15.0); Immature Granulocyte Absolute 0.06 K/mm3 (0.00-0.031); Immature Granulocyte Percent A 0.5 % (0-0.5); Lymphocytes Absolute Auto 2.33 K/mm3 (0.9-3.2); Lymphocytes Percent Auto 20.9 % (18.3-44.2); Mean Corpuscular HGB Conc 32.8 g/dl (32-36); Mean Corpuscular Hemoglobin 31.3 pg (26-34); Mean Corpuscular Volume 95.3 fl (80-100); Mean Platelet Volume 9.1 fl (7.4-10.4); Monocytes Absolute Auto 0.8 K/mm3 (0.1-0.6); Monocytes Percent Auto 7.3 % (2.6-8.5); Neutrophils Absolute Auto 7.6 K/mm3 (1.3-6.7); Neutrophils Percent Auto 68.1 % (45.5-73.1); Platelet Count Result 457 k/mm3 (150-375); Red Blood Count 4.51 M/mm3 (4.2-5.4); Red Cell Distribution Width 12.8 % (11.5-14.5); White Blood Count 11.1 K/mm3 (4.5-10.0)
[2023-09-05 09:44] LABS: Anion Gap 7 mmol/L (8-16); Blood Urea Nitrogen 18 mg/dL (7-17); Calcium 9.4 mg/dL (8.4-10.2); Carbon Dioxide 30 mmol/L (22-30); Chloride 103 mmol/L (98-107); Estimated Glomerular Filt Rate 55; Glucose 104 mg/dL (65-110); Potassium 4.1 mmol/L (3.4-5.0); Sodium 140 mmol/L (137-145)
== END 2023-09-05 08:17 | disposition home or self-care (01) ==
LOC: ANHLAB 08:22
PROVIDERS: PCP Family Medicine; Visit Provider Internal Medicine Hematology & Oncology
DX: D64.9 Anemia, unspecified (principal)
CPT/HCPCS: 36415; 80048; 85025

== ENCOUNTER 2023-09-16 12:11 | Outpatient (CLI) | payer OTHER, SELFPAY ==
--- NOTE | ~2023-09-16 | XR_ITS ---
EXAMINATION: XR chest 2V Exam Date/Time: 09/16/2023 12:30 HEAD BUCKER HISTORY: R05.3 - Chronic cough Comparison: 06/08/2022. RESULT: Lines, tubes, and devices: None. Lungs and pleura: Mild diffuse interstitial pattern. Low volumes, particularly in the lateral view, with crowding. Subsegmental patchy and streaky bibasilar opacities. Cardiomediastinal silhouette: Stable. Other: No acute osseous or upper abdominal finding. IMPRESSION: Mild interstitial edema. Subsegmental bibasilar opacities may represent atelectasis or pneumonia. Reviewed, dictated and finalized at location K. BUCKER IMPRESSION: Mild interstitial edema. Subsegmental bibasilar opacities may represent atelect asis or pneumonia.
== END 2023-09-16 12:12 ==
PROVIDERS: PCP Family Medicine; Visit Provider Family Medicine
DX: R05.3 Chronic cough (principal); U09.9 Post COVID-19 condition, unspecified; R91.8 Other nonspecific abnormal finding of lung field
CPT/HCPCS: 71046

== ENCOUNTER 2023-09-26 08:06 | Outpatient (CLI) | payer OTHER, SELFPAY ==
--- NOTE | ~2023-09-26 | XR_ITS ---
Clinical Indication: Chronic cough PA and lateral views of the chest: Comparison: 09/16/2023 Findings: The lungs are clear, without evidence of focal consolidation or pleural effusion. Cardiome diastinal silhouette is within normal limits. Bones and soft tissues are unremarkable. Impression: Normal chest. Reviewed, dictated and finalized at [facility]. Y MEDIA OPERATOR Impression: Normal chest.
--- NOTE | 2023-09-26 10:29 | WPDPFTINT ---
PFT Procedure Performed PFT Procedure Performed Spirometry with Pre/Post Bronchodilator Plethysmography (Lung Vol) Diffusing Cap (DLCO) Flow Vol Loop PFT Interpretation Lung volumes were measured with the body plethysmography method. The diminished expiratory reserve volume is related to obesity. The remaining lung volumes are unremarkable. Spirometry showed normal expiratory flow rates and a normal FEV1 to FVC ratio of 81%. Following administration of a bronchodilator there was no significant increase in the expiratory flow rates. Lung diffusion capacity is moderately reduced at 50% predicted. Impression: Spirometry, lung volumes within the normal range. Moderate reduction in lung diffusion capacity.
== END 2023-09-26 08:07 | disposition home or self-care (01) ==
LOC: ANHPFT 08:07
PROVIDERS: PCP Family Medicine; Visit Provider Family Medicine
DX: R05.3 Chronic cough (principal); U09.9 Post COVID-19 condition, unspecified
CPT/HCPCS: 71046; 94060; 94726; 94729

== ENCOUNTER 2023-10-03 13:14 | Outpatient (CLI) | payer OTHER, SELFPAY ==
--- NOTE | ~2023-10-03 | DEXA_ITS ---
Bone Density Report Name: OPAL DOLL Age: 68 Sex: Female Ethnicity: White Date of : 1955 Indication: postmenopausal; screening for osteoporosis; parental hip fracture; height loss; Referring Provider: NAGI ASKEW Study: Bone densitometry was performed. Exam Date: October 03, 2023 Accession number: [id number] Bone Density: Region BMD T-score Z-score Classification AP Spine(L1, L2, L3) 0.928 -0.8 1.0 Normal Femoral Neck (Left) 0.624 -2.0 -0.4 Osteopenia Total Hip (Left) 0.899 -0.4 0.9 Normal Femoral Neck (Right) 0.670 -1.6 0.0 Osteopenia Total Hip (Right) 0.937 0.0 1.2 Normal Total Hip Mean 0.918 -0.2 1.1 Normal World Health Organization criteria for BMD impression classify patients as: Normal (T-score at or above -1.0), Osteopenia (T-score between -1.0 and -2.5), or Osteoporosis (T-score at or below -2.5). 10-year Fracture Risk(1): Major Osteoporotic Fracture 17% Hip Fracture 1.6% Reported Risk Factors: [place] (), Neck BMD=0.624, BMI=40.2, parental fracture (1) FRAX(R) Version 3.08. Fracture probability calculated for an untreated patient. Fracture probability may be lower if the patient has received treatment. Previous Exams: Region Exam Age BMD T-score BMD Change BMD Change Date g/cm2 vs Baseline vs Previous AP Spine (L1-L3) 10/03/2023 68 0.928 -0.8 0.010 (1.1%)# -0.112 (-10.7% 03/19/2021 65 1.040 0.2 0.122 (13.3%)# 0.057 (5.8%)* 06/02/2017 61 0.983 -0.3 0.065 (7.1%)# 0.020 (2.1%) 05/22/2015 59 0.962 -0.5 0.045 (4.9%)# 0.045 (4.9%)# 03/26/2013 57 0.918 -0.9 Total Hip(Left) 10/03/2023 68 0.899 -0.4 -0.035 (-3.7%) 0.010 (1.1%) 03/19/2021 65 0.889 -0.4 -0.044 (-4.7%) -0.054 (-5.7%) 06/02/2017 61 0.943 0.0 0.010 (1.0%)# 0.020 (2.2%) 05/22/2015 59 0.923 -0.2 -0.011 (-1.1%) -0.011 (-1.1%) 03/26/2013 57 0.933 -0.1 Total Hip(Right) 10/03/2023 68 0.937 0.0 -0.059 (-5.9%) 0.075 (8.7%)* 03/19/2021 65 0.862 -0.7 -0.134 (-13.4% -0.094 (-9.8%) 06/02/2017 61 0.955 0.1 -0.040 (-4.1%) 0.003 (0.3%) 05/22/2015 59 0.952 0.1 -0.043 (-4.3%) -0.043 (-4.3%) 03/26/2013 57 0.995 0.4 *Denotes significance at 95% confidence level, LSC for AP Spine = 0.022 g/cm2, LSC for Total Hip = 0.027 g/cm2 # Denotes dissimilar scan types or analysis methods Clinical Information Provided by Patient: Parent has had a hip fracture Has used the following medications: Vitamin D, Calcium
--- NOTE | ~2023-10-03 | MM_ITS ---
EXAMINATION: MM screening [facility] BI w brandon HISTORY: Screening TECHNIQUE: Craniocaudal and mediolateral oblique 3-D tomosynthesis images were obtained and synthetic 2-D images were generated. CAD analysis was submitted and interpreted. COMPARISON: Comparison to multiple prior studies sequentially, with oldest reviewed study dated 05/11. BREAST PARENCHYMAL COMPOSITION: Not dense: There are scattered areas of fibroglandular density. FINDINGS: There is no evidence of suspicious mass, calcification, or architectural distortion to sugg est malignancy in either breast. There has been no suspicious interval change. IMPRESSION: 1. No mammographic evidence of malignancy. 2. Recommend routine screening mammography in one year. BI-RADS Category 1: Negative Reviewed, dictated and finalized at location A. HOP SERVICE CAPTAIN
== END 2023-10-03 13:15 | disposition home or self-care (01) ==
LOC: ANHIMG 13:18
PROVIDERS: PCP Family Medicine; Visit Provider Obstetrics & Gynecology
DX: Z12.31 Encounter for screening mammogram for malignant neoplasm of breast (principal); M85.89 Other specified disorders of bone density and structure, multiple sites
CPT/HCPCS: 77063; 77067; 77080

== ENCOUNTER 2023-10-26 20:47 | Emergency (ER) | payer OTHER, SELFPAY ==
[2023-10-26] VITALS (8 sets, daily range): BP systolic 129–170; BP diastolic 78–93; PULSE 65–84; RESP 16–24; TEMP 36.6; O2SAT 93–98
--- NOTE | ~2023-10-26 | CT_ITS ---
Clinical Indication: Shortness of breath CT Scan of the Chest with Contrast: Technique: Contiguous sections were acquired throughout the chest after intravenous administration of 100 cc of Omnipaque 350. Dose reduction technique was used on this scan by utilizing automated expos ure control and iterative reconstruction technique. The dose-length product (DLP) was 684.97 mGy-cm. Findings: There is no evidence of any significant mediastinal, hilar or axillary lymphadenopathy. There is no f illing defect in the pulmonary arterial tree to suggest pulmonary embolus. There is no evidence of ao rtic dissection or aneurysm. There is no evidence of pleural or pericardial effusion. The lungs are clear. No pulmonary nodules or infiltrates are noted. Images through the upper abdomen reveal no abnormalities. Impression: No evidence of pulmonary embolus, aortic dissection, or aortic aneurysm. Clear lungs. Reviewed, dictated and finalized at [facility]. Impression: No evidence of pulmonary embolus, aortic dissection, or aortic aneurysm. Clear lungs.
--- NOTE | ~2023-10-26 | XR_ITS ---
Clinical Indication: Chest pain PA and lateral views of the chest: Comparison: 09/26/2023 Findings: The lungs are clear, without evidence of focal consolidation or pleural effusion. Cardiome diastinal silhouette is within normal limits. Bones and soft tissues are unremarkable. Impression: Normal chest. Reviewed, dictated and finalized at location . Impression: Normal chest.
--- NOTE | 2023-10-26 20:50 | ECG_ITS ---
Measurements Intervals [place] Rate: 84 P: 37 [place]: 204 QRS: 6 QRSD: 87 T: -4 QT: 334 QTc: 395 Interpretive Statements SINUS RHYTHM LOW QRS VOLTAGE IN PRECORDIAL LEADS CONSIDER INFERIOR INFARCT, AGE INDETERMINATE CONSIDER ANTERIOR INFARCT, AGE INDETERMINATE BORDERLINE ST-T WAVE ABNORMALITY- HIGH LATERAL LEADS BASELINE WANDER- II, III, AVL, AVF, V3-V6 ABNORMAL ECG COMPARED TO ECG 05/06/2022 12:03:20 NO SIGNIFICANT CHANGES Electronically Signed On 10-27-2023 6:28:23 CDT by Jenaro Hall D.O.
[2023-10-26] MEDS: ASPIRIN 81 MG CHEWABLE TABLET 324 MG PO (21:04)
[2023-10-26 21:26] LABS: INR 0.9; Prothrombin Time 12.3 Seconds (11.1-14.7)
[2023-10-26 21:28] LABS: Alanine Aminotransferase 53 U/L (6-35); Albumin Level 4.6 g/dL (3.5-5.1); Alkaline Phosphatase 74 U/L (38-126); Anion Gap 7 mmol/L (8-16); Aspartate Amino Transferase 63 U/L (14-36); Bilirubin,Total 0.4 mg/dL (0.2-1.3); Blood Urea Nitrogen 25 mg/dL (7-17); Calcium 9.9 mg/dL (8.4-10.2); Carbon Dioxide 31 mmol/L (22-30); Chloride 103 mmol/L (98-107); Estimated Glomerular Filt Rate 50; Glucose 142 mg/dL (65-110); Lipase 162 U/L (23-300); Potassium 3.5 mmol/L (3.4-5.0); Sodium 141 mmol/L (137-145)
[2023-10-26 21:35] LABS: Basophils Absolute Auto 0.1 K/mm3 (0.0-0.1); Eosinophils Absolute Auto 0.4 K/mm3 (0-0.3); Eosinophils Percent Auto 3.1 % (0-4.4); Hematocrit 40.7 % (37.0-47.0); Hemoglobin 13.8 g/dL (12.0-15.0); Immature Granulocyte Absolute 0.04 K/mm3 (0.00-0.031); Immature Granulocyte Percent A 0.4 % (0-0.5); Lymphocytes Absolute Auto 3.33 K/mm3 (0.9-3.2); Lymphocytes Percent Auto 29.5 % (18.3-44.2); Mean Corpuscular HGB Conc 33.9 g/dl (32-36); Mean Corpuscular Hemoglobin 31.9 pg (26-34); Mean Corpuscular Volume 94.2 fl (80-100); Mean Platelet Volume 9.3 fl (7.4-10.4); Monocytes Absolute Auto 0.9 K/mm3 (0.1-0.6); Monocytes Percent Auto 7.7 % (2.6-8.5); Neutrophils Absolute Auto 6.6 K/mm3 (1.3-6.7); Neutrophils Percent Auto 58.3 % (45.5-73.1); Platelet Count Result 442 k/mm3 (150-375); Red Blood Count 4.32 M/mm3 (4.2-5.4); Red Cell Distribution Width 12.8 % (11.5-14.5); White Blood Count 11.3 K/mm3 (4.5-10.0)
[2023-10-26 21:39] LABS: Troponin I < 0.012 ng/mL (0.000-0.034)
--- NOTE | 2023-10-26 22:04 | ED.GENADULT ---
HPI - General Adult General Chief complaint: Chest Pain Stated complaint: chest pain Time Seen by Provider: 10/26/23 20:52 History of Present Illness HPI narrative: Patient is 68-year-old female who presents emergency department with chief complaint of left-sided chest/shoulder pain. The patient reports been having some shoulder discomfort for some time and also has been having some shortness of breath and cough. Patient reports that she was diagnosed with COVID and pneumonia back in July the patient states that she has seen pulmonology and is actually scheduled for outpatient V/Q scan and then a CT scan of her chest the patient reports there is a heaviness sensation in her chest reports that the pain is not radiating reports that she has had no diaphoresis and denies radiation of the neck. Patient reports no ischemic disease does report that she had a dysrhythmia that was treated with a ablation. Related Data Home Medications Medication Instructions Recorded Confirmed latanoprost 0.005 % eye drops 1 drp ophthalmic (eye) QPM 07/14/19 10/20/23 Lactobacills gasseri-Bifidobac 1 cap PO DAILY 09/29/19 10/20/23 bifidum,longum 1.5 billion cell capsule ([place]) calcium carbonate 600 mg-vitamin 1 tablet PO DAILY 09/29/19 10/20/23 D3 10 mcg (400 unit) tablet (Calcium 600 + D(3)) cholecalciferol (vitamin D3) 25 25 mcg PO DAILY 09/29/19 10/20/23 mcg (1,000 unit) tablet cyanocobalamin (vitamin B-12) 1,000 mcg PO DAILY 09/29/19 10/20/23 1,000 mcg capsule wafxwcei-bey-kvbxi acid 500 1 tablet PO DAILY 09/29/19 10/20/23 mcg-lycopene 300 mcg-lutein 250 mcg tablet (Complete Multi 50+) ascorbic acid (vitamin C) 500 mg 500 mg PO DAILY 06/26/21 10/20/23 tablet (Vitamin C) aspirin 81 mg tablet 81 mg PO DAILY 06/26/21 10/20/23 estradiol 0.01% (0.1 mg/gram) 1 g vaginal 2XW 11/06/21 10/20/23 vaginal cream ferrous sulfate 325 mg (65 mg 325 mg PO DAILY 05/08/22 10/20/23 iron) tablet Allergies Allergy/AdvReac Type Severity Reaction Status Date / Time adhesive tape Allergy Intermediate Redness of Verified 10/26/23 21:03 Skin Review of Systems Review of Systems: A 10 system review of systems was completed on the patient and is negative except for what is stated in the HPI. Nursing and ancillary documentation was reviewed. [facility] Past Medical History Medical History Chronic venous insufficiency of lower extremity CKD (chronic kidney disease) stage 3, GFR 30-59 ml/min Diastasis recti Dyslipidemia Environmental allergies Essential (primary) hypertension GERD without esophagitis History of colon polyps History of electrophysiologic study for SVT 02/22/2013 History of PSVT (paroxysmal supraventricular tachycardia) 2012 - no reo-ccurence since cardiac ablation Hypothyroidism (acquired) IBS (irritable bowel syndrome) Intermittent low back pain Osteopenia Polycystic ovaries Postmenopausal Pre-diabetes Rectal polyp Shingles (~05/2021) Thrombocytosis Thyroid nodule Umbilical hernia Unspecified osteoarthritis, unspecified site Vitamin D deficiency Surgical History Surgical History H/O arthroscopic knee surgery 11/17/2017 H/O prior ablation treatment SVT - 02/2013 History of bilateral knee replacement left - 11/2017, right - 10/2019 History of cataract surgery b/l - 2020 History of cholecystectomy 11/30/2003 History of partial thyroidectomy 07/1998 Hx of dilation and curettage 10/28/2003 Family History Family History Father Diabetes mellitus Cerebrovascular accident Mother Hypertension Depression Heart disease Sibling Hypertension Grandparent Heart disease Grandparent Heart disease Other Family history of coronary artery disease Social History Social History (R
--- NOTE | 2023-10-26 23:33 | ECG_ITS ---
Measurements Intervals [place] Rate: 68 P: -4 VT: 217 QRS: 3 QRSD: 81 T: -3 QT: 368 QTc: 394 Interpretive Statements SINUS RHYTHM WITH FIRST DEGREE AV BLOCK LOW QRS VOLTAGE IN PRECORDIAL LEADS CONSIDER ANTERIOR INFARCT, AGE INDETERMINATE BORDERLINE T WAVE ABNORMALITY- INFERIOR LEADS BASELINE ARTIFACT- I, II, III, AVR, AVL, AVF, V4 ABNORMAL ECG COMPARED TO ECG 10/26/2023 20:58:05 FIRST DEGREE AV BLOCK NOW PRESENT Electronically Signed On 10-27-2023 6:35:08 CDT by Jenaro Hall D.O.
--- NOTE | 2023-10-26 23:45 | ECG_ITS ---
Measurements Intervals [place] Rate: 69 P: 6 PA: 225 QRS: 7 QRSD: 90 T: 4 QT: 377 QTc: 407 Interpretive Statements SINUS RHYTHM WITH FIRST DEGREE AV BLOCK LOW QRS VOLTAGE IN PRECORDIAL LEADS BORDERLINE T WAVE ABNORMALITY- INFERIOR LEADS BASELINE ARTIFACT- I, II, III, AVR, AVL, AVF BORDERLINE ECG COMPARED TO ECG 10/26/2023 23:44:07 NO SIGNIFICANT CHANGES Electronically Signed On 10-27-2023 10:43:00 CDT by Jenaro Hall D.O.
[2023-10-27] VITALS (9 sets, daily range): BP systolic 134–148; BP diastolic 79–89; PULSE 64–69; RESP 17–23; O2SAT 94–100
[2023-10-27 00:17] LABS: Troponin I < 0.012 ng/mL (0.000-0.034)
[2023-10-27 03:23] LABS: Troponin I < 0.012 ng/mL (0.000-0.034)
== END 2023-10-27 04:10 | disposition home or self-care (01) ==
PROVIDERS: Emergency Provider Emergency Medicine; PCP Family Medicine
DX: R07.89 Other chest pain (principal); I12.9 Hypertensive chronic kidney disease with stage 1 through stage 4 chronic kidney disease, or unspecified chronic kidney disease; N18.30 Chronic kidney disease, stage 3 unspecified
CPT/HCPCS: 36415; 71046; 71275; 80053; 83690; 84484; 85025; 85610; 85730; 93005; 99284; A9270; Q9967

== ENCOUNTER 2023-12-17 19:15 | Emergency (ER) | payer OTHER, SELFPAY ==
[2023-12-17 19:23] VITALS: BP 135/81; PULSE 81; RESP 16; TEMP 36.6; O2SAT 98
--- NOTE | 2023-12-17 19:23 | ED.FEMALEGU ---
HPI - Female Genitourinary General Chief complaint: Urogenital-Female Stated complaint: UTI SYMPTOMS Source: patient and RN notes reviewed Mode of arrival: ambulatory Limitations: no limitations History of Present Illness HPI Narrative: 68-year-old female presented for complaint of urinary frequency x4 days. Endorses occasional sharp pain to pelvic area. Denies painful urination. Denies hematuria, itching, discharge, nausea, vomiting, abdominal pain, flank pain, constipation, diarrhea, fevers or chills. LBM today. Related Data Home Medications Medication Instructions Recorded Confirmed latanoprost 0.005 % eye drops 1 drp ophthalmic (eye) QPM 07/14/19 12/17/23 Lactobacills gasseri-Bifidobac 1 cap PO DAILY 09/29/19 12/17/23 bifidum,longum 1.5 billion cell capsule ([employer]) calcium carbonate 600 mg-vitamin 1 tablet PO DAILY 09/29/19 12/17/23 D3 10 mcg (400 unit) tablet (Calcium 600 + D(3)) cholecalciferol (vitamin D3) 25 25 mcg PO DAILY 09/29/19 12/17/23 mcg (1,000 unit) tablet cyanocobalamin (vitamin B-12) 1,000 mcg PO DAILY 09/29/19 12/17/23 1,000 mcg capsule qzabohbs-nde-aicaq acid 500 1 tablet PO DAILY 09/29/19 12/17/23 mcg-lycopene 300 mcg-lutein 250 mcg tablet (Complete Multi 50+) ascorbic acid (vitamin C) 500 mg 500 mg PO DAILY 06/26/21 12/17/23 tablet (Vitamin C) aspirin 81 mg tablet 81 mg PO DAILY 06/26/21 12/17/23 estradiol 0.01% (0.1 mg/gram) 1 g vaginal 2XW 11/06/21 12/17/23 vaginal cream ferrous sulfate 325 mg (65 mg 325 mg PO DAILY 05/08/22 12/17/23 iron) tablet Allergies Allergy/AdvReac Type Severity Reaction Status Date / Time adhesive tape AdvReac Mild Redness of Verified 12/17/23 19:18 Skin Review of Systems Review of Systems: CONSTITUTIONAL: Denies body aches, fever, chills, or sweats. CARDIOVASCULAR: Denies chest pain, palpitations, or edema. RESPIRATORY: Denies cough or dyspnea. GASTROINTESTINAL: Denies abdominal pain, nausea, vomiting, or diarrhea. GENITOURINARY: Reports frequency, denies dysuria, urgency, hematuria, flank pain SKIN: Denies rash, itching, or wounds. MUSCULOSKELETAL: Denies back pain or myalgia. [facility] Past Medical History Medical History Chronic venous insufficiency of lower extremity CKD (chronic kidney disease) stage 3, GFR 30-59 ml/min Diastasis recti Dyslipidemia Environmental allergies Essential (primary) hypertension GERD without esophagitis History of colon polyps History of electrophysiologic study for SVT 02/22/2013 History of PSVT (paroxysmal supraventricular tachycardia) 2012 - no reo-ccurence since cardiac ablation Hypothyroidism (acquired) IBS (irritable bowel syndrome) Intermittent low back pain Osteopenia Polycystic ovaries Postmenopausal Pre-diabetes Rectal polyp Shingles (~05/2021) Thrombocytosis Thyroid nodule Umbilical hernia Unspecified osteoarthritis, unspecified site Vitamin D deficiency Surgical History Surgical History H/O arthroscopic knee surgery 11/17/2017 H/O prior ablation treatment SVT - 02/2013 History of bilateral knee replacement left - 11/2017, right - 10/2019 History of cataract surgery b/l - 2020 History of cholecystectomy 11/30/2003 History of partial thyroidectomy 07/1998 Hx of dilation and curettage 10/28/2003 Family History Family History Father Diabetes mellitus Cerebrovascular accident Mother Hypertension Depression Heart disease Sibling Hypertension Grandparent Heart disease Grandparent Heart disease Other Family history of coronary artery disease Social History Social History Smoking status: Never smoker Second hand tobacco smoke exposure: No Alcohol intake: never Substance use: never Substance use
== END 2023-12-17 19:38 | disposition home or self-care (01) ==
PROVIDERS: Emergency Provider Nurse Practitioner Family; PCP Family Medicine
DX: R35.0 Frequency of micturition (principal); I12.9 Hypertensive chronic kidney disease with stage 1 through stage 4 chronic kidney disease, or unspecified chronic kidney disease; N18.30 Chronic kidney disease, stage 3 unspecified; E78.5 Hyperlipidemia, unspecified; K21.9 Gastro-esophageal reflux disease without esophagitis; E03.9 Hypothyroidism, unspecified; M85.80 Other specified disorders of bone density and structure, unspecified site; E28.2 Polycystic ovarian syndrome; R73.03 Prediabetes; M19.90 Unspecified osteoarthritis, unspecified site; E55.9 Vitamin D deficiency, unspecified; Z96.653 Presence of artificial knee joint, bilateral; Z90.89 Acquired absence of other organs; Z79.82 Long term (current) use of aspirin
CPT/HCPCS: 81003; 87086; 99213; G0463

== ENCOUNTER 2024-06-01 10:06 | Outpatient (CLI) | payer OTHER, SELFPAY ==
[2024-06-01 13:11] LABS: Alanine Aminotransferase 49 U/L (6-35); Albumin Level 4.5 g/dL (3.5-5.1); Alkaline Phosphatase 71 U/L (38-126); Anion Gap 8 mmol/L (4-12); Aspartate Amino Transferase 69 U/L (14-36); Bilirubin,Total 0.7 mg/dL (0.2-1.3); Blood Urea Nitrogen 24 mg/dL (7-17); Calcium 9.8 mg/dL (8.4-10.2); Carbon Dioxide 31 mmol/L (22-30); Chloride 100 mmol/L (98-107); Cholesterol 161 mg/dL (0-200); Estimated Glomerular Filt Rate 55; Glucose 95 mg/dL (65-110); HDL Direct 64 mg/dL; Potassium 4.4 mmol/L (3.4-5.0); Sodium 139 mmol/L (137-145); Triglycerides 99 mg/dL (<150)
[2024-06-01 13:22] LABS: LDL Cholesterol Direct 69 mg/dL
[2024-06-01 13:28] LABS: Basophils Absolute Auto 0.1 K/mm3 (0.0-0.1); Basophils Percent Auto 1.1 % (0.2-1.2); Eosinophils Absolute Auto 0.2 K/mm3 (0-0.3); Eosinophils Percent Auto 1.9 % (0-4.4); Hematocrit 45.5 % (37.0-47.0); Hemoglobin 14.6 g/dL (12.0-15.0); Immature Granulocyte Absolute 0.04 K/mm3 (0.00-0.031); Immature Granulocyte Percent A 0.3 % (0-0.5); Lymphocytes Absolute Auto 3.01 K/mm3 (0.9-3.2); Mean Corpuscular HGB Conc 32.1 g/dl (32-36); Mean Corpuscular Hemoglobin 31.3 pg (26-34); Mean Corpuscular Volume 97.6 fl (80-100); Mean Platelet Volume 9.8 fl (7.4-10.4); Monocytes Absolute Auto 0.8 K/mm3 (0.1-0.6); Monocytes Percent Auto 7.2 % (2.6-8.5); Neutrophils Absolute Auto 7.4 K/mm3 (1.3-6.7); Neutrophils Percent Auto 63.5 % (45.5-73.1); Platelet Count Result 514 k/mm3 (150-375); Red Blood Count 4.66 M/mm3 (4.2-5.4); Red Cell Distribution Width 12.9 % (11.5-14.5); White Blood Count 11.6 K/mm3 (4.5-10.0)
[2024-06-01 14:43] LABS: Vitamin D 25 Hydroxy 50.8 ng/mL
[2024-06-01 14:48] LABS: Hemoglobin A1C 6.2 % (<5.7)
== END 2024-06-01 10:07 | disposition home or self-care (01) ==
LOC: ANHGOSHLAB 10:07
PROVIDERS: PCP Family Medicine; Visit Provider Family Medicine
DX: E55.9 Vitamin D deficiency, unspecified (principal); Z00.00 Encounter for general adult medical examination without abnormal findings; I10 Essential (primary) hypertension; E03.9 Hypothyroidism, unspecified; E78.5 Hyperlipidemia, unspecified; E53.8 Deficiency of other specified B group vitamins; R73.03 Prediabetes
CPT/HCPCS: 36415; 80053; 80061; 82306; 82607; 83036; 84443; 85025

== ENCOUNTER 2024-06-18 09:10 | Outpatient (CLI) | payer OTHER, SELFPAY ==
--- NOTE | ~2024-06-18 | US_ITS ---
EXAMINATION: US_VDOPREFBI_US DATE: 06/18/2024 10:10 INDICATION: Chronic peripheral venous insufficiency TECHNIQUE: Grayscale ultrasound images without and with compression and Doppler ultrasound images of the bilateral lower extremity veins were obtained. COMPARISON: None. FINDINGS: The visualized portions of right common femoral vein, profunda (deep) femoral vein, femoral vein, pop liteal vein, peroneal veins, and posterior tibial veins are patent. Right greater saphenous vein kyle ures 7 mm in the upper thigh without significant reflux, 3 mm in the lower thigh without reflux, and 2 mm in the calf without reflux. Right small saphenous vein measures 2 mm in the upper calf with 1.6 seconds reflux and 2 mm in the lower calf without reflux. The visualized portions of left common femoral vein, profunda femoral vein, femoral vein, popliteal v ein, peroneal veins, and posterior tibial veins are patent. Left greater saphenous vein measures 11 m m in the upper thigh without reflux, 4 mm in the lower thigh without reflux, and 4 mm in the calf wit hout reflux. Left small saphenous vein measures 2 mm in the upper calf and lower calf without reflux. IMPRESSION: 1. Reflux in right small saphenous vein. Reviewed, dictated and finalized at location A. [employer]
== END 2024-06-18 09:11 | disposition home or self-care (01) ==
LOC: ANHIMG 09:12
PROVIDERS: PCP Family Medicine; Visit Provider Family Medicine
DX: I87.2 Venous insufficiency (chronic) (peripheral) (principal)
CPT/HCPCS: 93970

== ENCOUNTER 2024-06-25 08:03 | Outpatient (CLI) | payer OTHER, SELFPAY ==
[2024-06-25 08:19] LABS: Basophils Absolute Auto 0.1 K/mm3 (0.0-0.1); Basophils Percent Auto 1.3 % (0.2-1.2); Eosinophils Absolute Auto 0.2 K/mm3 (0-0.3); Eosinophils Percent Auto 2.4 % (0-4.4); Hematocrit 43.8 % (37.0-47.0); Hemoglobin 14.4 g/dL (12.0-15.0); Immature Granulocyte Absolute 0.07 K/mm3 (0.00-0.031); Immature Granulocyte Percent A 0.7 % (0-0.5); Lymphocytes Absolute Auto 2.36 K/mm3 (0.9-3.2); Lymphocytes Percent Auto 24.4 % (18.3-44.2); Mean Corpuscular HGB Conc 32.9 g/dl (32-36); Mean Corpuscular Hemoglobin 31.4 pg (26-34); Mean Corpuscular Volume 95.6 fl (80-100); Mean Platelet Volume 8.9 fl (7.4-10.4); Monocytes Absolute Auto 0.7 K/mm3 (0.1-0.6); Neutrophils Absolute Auto 6.2 K/mm3 (1.3-6.7); Neutrophils Percent Auto 64.2 % (45.5-73.1); Platelet Count Result 485 k/mm3 (150-375); Red Blood Count 4.58 M/mm3 (4.2-5.4); Red Cell Distribution Width 12.6 % (11.5-14.5); White Blood Count 9.7 K/mm3 (4.5-10.0)
[2024-06-25 09:56] LABS: Anion Gap 9 mmol/L (4-12); Blood Urea Nitrogen 21 mg/dL (7-17); Calcium 9.6 mg/dL (8.4-10.2); Carbon Dioxide 30 mmol/L (22-30); Chloride 100 mmol/L (98-107); Estimated Glomerular Filt Rate 55; Glucose 102 mg/dL (65-110); Potassium 4.8 mmol/L (3.4-5.0); Sodium 139 mmol/L (137-145)
== END 2024-06-25 08:04 | disposition home or self-care (01) ==
PROVIDERS: PCP Family Medicine; Visit Provider Internal Medicine Hematology & Oncology
DX: D64.9 Anemia, unspecified (principal)
CPT/HCPCS: 36415; 80048; 85025

== ENCOUNTER 2024-09-21 11:38 | Emergency (ER) | payer OTHER, SELFPAY ==
--- NOTE | ~2024-09-21 | XR_ITS ---
EXAMINATION: XR chest 2V DATE: 09/21/2024 12:35 INDICATION: Cough TECHNIQUE: PA and lateral views of the chest were obtained. COMPARISON: Chest radiograph dated 10/26/2023 FINDINGS: The lungs are clear with no focal airspace opacities, pulmonary edema, pleural effusion or pneumothor ax. Heart size is normal prominent left paracardial fat pad. Tortuous thoracic aorta. Moderate to sev ere thoracic spondylosis with chronic mild anterior wedging of a midthoracic vertebral body. Cholecys tectomy clips in right upper quadrant. IMPRESSION: 1. No acute cardiopulmonary disease. Reviewed, dictated and finalized at location A. WILLOW ANALYST
[2024-09-21 11:54] VITALS: BP 151/92; PULSE 83; RESP 18; TEMP 36.1; O2SAT 97
--- NOTE | 2024-09-21 12:11 | ED.URI ---
HPI - URI/Sore Throat General Chief Complaint: Upper Respiratory Infection Stated Complaint: cough / nose congestion Time Seen by Provider: 09/21/24 12:12 Source: patient, RN notes reviewed and old records reviewed Mode of arrival: ambulatory Limitations: no limitations History of Present Illness HPI Narrative: 69-year-old female presents to the [facility] with started , 5 days. Reports taking such as Tylenol Robitussin Vicks Delsyn salt water gargles. Denies any fevers, chest pain Onset (ago): day(s) (5) Treatments prior to arrival: cold medicine Related Data Home Medications ?Medication ?Instructions ?Recorded ?Confirmed ?Last Taken ?Type latanoprost 0.005 % eye drops 1 drp ophthalmic (eye) QPM 07/14/19 06/16/24 1 Day Ago History ~10/19/19 Lactobacills gasseri-Bifidobac 1 cap PO DAILY 09/29/19 06/16/24 10/17/19 History bifidum,longum 1.5 billion cell capsule ([employer]) calcium 600 mg (as 1 tablet PO DAILY 09/29/19 06/16/24 10/17/19 History carbonate)-vitamin D3 10 mcg (400 unit) tablet (Calcium 600 + D(3)) cholecalciferol (vitamin D3) 25 25 mcg PO DAILY 09/29/19 06/16/24 10/17/19 History mcg (1,000 unit) tablet cyanocobalamin (vitamin B-12) 1,000 mcg PO DAILY 09/29/19 06/16/24 10/17/19 History 1,000 mcg capsule jvjwihik-xof-qxtjr acid 500 1 tablet PO DAILY 09/29/19 06/16/24 10/17/19 History mcg-lycopene 300 mcg-lutein 250 mcg tablet (Complete Multi 50+) ascorbic acid (vitamin C) 500 mg 500 mg PO DAILY 06/26/21 06/16/24 Unknown History tablet (Vitamin C) aspirin 81 mg tablet 81 mg PO DAILY 06/26/21 06/16/24 Unknown History estradiol 0.01% (0.1 mg/gram) 1 g vaginal 2XW 11/06/21 06/16/24 Unknown History vaginal cream ferrous sulfate 325 mg (65 mg 325 mg PO DAILY 05/08/22 06/16/24 Unknown History iron) tablet tretinoin 0.025 % topical cream 1 applic topical QHS 09/15/24 Unknown History Allergies Allergy/AdvReac Type Severity Reaction Status Date / Time adhesive tape AdvReac Mild Redness of Verified 09/21/24 12:10 Skin Review of Systems Review of Systems: All systems reviewed & are unremarkable except as noted in HPI and below Constitutional: Constitutional: Reports no additional constitutional complaints ENT: Reports system reviewed and no additional complaints, except as documented Cardiovascular: Cardiovascular: Reports no additional cardiovascular complaints, Denies chest pain and Denies dyspnea Respiratory: Respiratory: Reports as per HPI, Reports chest congestion, Reports cough and Denies dyspnea Musculoskeletal: Musculoskeletal: Reports no additional musculoskeletal complaints Integumentary/Breasts: Skin/Breast: Reports system reviewed and no additional complaints, except as docu PMFSH Past Medical History Medical History Hepatic steatosis Intermittent low back pain CKD (chronic kidney disease) stage 3, GFR 30-59 ml/min Chronic venous insufficiency of lower extremity History of colon polyps Thrombocytosis Osteopenia Umbilical hernia Diastasis recti Environmental allergies History of electrophysiologic study for SVT 02/22/2013 Polycystic ovaries Thyroid nodule Hypothyroidism (acquired) History of PSVT (paroxysmal supraventricular tachycardia) 2012 - no reo-ccurence since cardiac ablation Vitamin D deficiency Unspecified osteoarthritis, unspecified site Pre-diabetes GERD without esophagitis Dyslipidemia Essential (primary) hypertension Shingles (~05/2021) Postmenopausal IBS (irritable bowel syndrome) Rectal polyp Surgical History Surgical History History of cataract surgery b/l - 2020 History of bilateral knee replacement left - 11/2017, right - 10/2019 History of partial thyroidectomy 07/1998 Hx of dilation and curettage 10/28/2003 H/O arthroscopic knee surgery 11/17/2017 H/O prior ablation treatment SVT - 02/2013 History of cholecystectomy 11/30/2003 Family History Family History Father Diabetes mellitus Cerebrovascular accident Mother Hypertension Depression Heart disease Sibling Hypertension Grandparent Heart disease Grandparent Heart disease Other Family history of coronary artery disease Social History Social History (Reviewed 09/25/24 @ 08:51 by KATHARINE Juarez Smoking status: Never smoker Second hand tobacco smoke exposure: No Alcohol intake: never Substance use: never Substance use type: does not use Do You Feel Safe in your Home?: Yes Lack of Transportation: No Lack of Food: Never True Current Housing: I Have Housing Concerned About Future Housing: No Difficulty Paying Gas/Electric Bills: No Difficulty Paying for Meds: No Currently Unemployed: No Education: High School Diploma/GED Difficulty w/ Childcare or Family Care: No Living arrangements: with family Gender identity (if verbalized by the patient): Female Spiritual care concerns: No Agree to blood products: Yes Comments At the time of my signature, I reviewed and agree with the nursing past medical, surgical, social, and family history. There is no relevant family history pertinent to the patient complaint. Exam Const: General: cooperative, healthy appearing, comfortable, no acute distress, well developed, alert and well nourished Nutritional Appearance: well nourished Orientation/consciousness: patient oriented x3 Limitations: no limitations HENMT: Head: normal to inspection Ears: hearing grossly normal bilaterally, external ears normal, TM's normal bilaterally, EAC's normal, mastoids normal and no periauricular adenopathy Mouth: Yes Normal oral and palatal mucosa present, Yes lip normal, Yes tongue normal and Yes moist mucous membranes Throat: posterior oropharynx normal, uvula midline and no uvular edema Eyes: General: appearance normal, both eyes and all related structures Alignment and Position: alignment normal Neck: Neck: normal visual inspection, full ROM, no lymphadenopathy and no meningeal signs Chest: Chest palpation & inspection: normal inspection of the chest Resp: Effort & Inspection: normal respiratory effort and able to speak in complete sentences Auscultation: clear to auscultation bilaterally, no crackles, no rales, no rhonchi and no wheezes Cardio: Rate: regular rate Skin: General skin exam: normal color and no rashes or lesions noted Neuro: General: patient oriented x3, gait normal, moves all extremities and no meningeal signs Cognition (Neuro): normal cognition Speech: normal speech Gait exam (Neuro): Normal gait present Extrem: General: normal to inspection, full ROM, capillary refill normal and normal gait Psych: Appearance: grossly normal and well kempt Mental Status: mental status grossly normal Speech and movement: Normal speech and movement present and Clear speech present Affect: normal affect Attitude: cooperative Course Course Level of Care: Express Care Visit Vital Signs Vital signs: Vital Signs Temperature 96.9 F L 09/21/24 11:54 Pulse Rate 83 09/21/24 11:54 Respiratory Rate 18 09/21/24 11:54 Blood Pressure 151/92 H 09/21/24 11:54 Pulse Oximetry 97 09/21/24 11:54 Oxygen Delivery Room Air 09/21/24 11:54 Temperature 96.9 F L 09/21/24 11:54 Pulse Rate 83 09/21/24 11:54 Respiratory Rate 18 09/21/24 11:54 Blood Pressure 151/92 H 09/21/24 11:54 Pulse Oximetry 97 09/21/24 11:54 Oxygen Delivery Room Air 09/21/24 11:54 Reviewed MDM - URI/Sore Throat MDM Narrative Medical decision making narrative: Patient sitting comfortably in exam room. Nontoxic, vitals stable. Patient in no acute distress x-ray is negative for pneumonia. Flu and COVID are negative Patient appropriate for outpatient treatment with close follow-up Discharge instructions reviewed with patient, as well as provided in writing per nursing staff. The instructions also include specific and strict return/GO TO THE ER as well as f/u information. All questions have been answered, and the patient deny any further questions with discharge and discharge plan. Some parts of this dictation were generated by voice recognition software and may contain typographical and/or grammatical inaccuracies. Differential Diagnosis Differential diagnosis: Likely upper respiratory infection, otitis media, sinusitis, viral infection, bronchitis, influenza and pharyngitis Lab Data Labs: Lab Results 09/21/24 Range/Units 12:09 POC Influenza A Ag Negative (Negative) POC Influenza B Ag Negative (Negative) POC SARS CoV-2 Ag Negative (Negative) Reviewed Imaging Data Radiologist's impression: EXAMINATION: XR chest 2V DATE: 09/21/2024 12:35 INDICATION: Cough TECHNIQUE: PA and lateral views of the chest were obtained. COMPARISON: Chest radiograph dated 10/26/2023 FINDINGS: The lungs are clear with no focal airspace opacities, pulmonary edema, pleural effusion or pneumothorax. Heart size is normal prominent left paracardial fat pad. Tortuous thoracic aorta. Moderate to severe thoracic spondylosis with chronic mild anterior wedging of a midthoracic vertebral body. Cholecystectomy clips in right upper quadrant. IMPRESSION: 1. No acute cardiopulmonary disease. Critical Care Time Critical Care Time Critical Care Time: No Discharge Plan Discharge Clinical Impression: Upper respiratory infection Qualifiers: URI type: unspecified viral URI Qualified Code(s): J06.9 - Acute upper respiratory infection, unspecified Patient Disposition: Home, Self-Care Condition: Stable Instructions: Antibiotic Form Additional Instructions: Your x-ray did not show signs of a pneumonia. Your rapid COVID test were negative Your rapid flu test was negative Your symptoms are likely due to a viral illness, which is not treated with antibiotics. Typically viral infections last 7-10 days, can linger for couple of weeks. It is very important to treat your symptoms. Drink plenty of water, Gatorade, Pedialyte, ice pops or Jell-O. -Alternate Tylenol and Motrin per package directions for fever or pain. You can alternate every 4 hours -Antihistamine medication such as Zyrtec/Claritin/Dotty during the day can help improve symptoms. -doing daily nasal irrigations can help relieve pressure your sinuses. Things like a Neti pot -Use Flonase twice a day for 5 days then daily to help reduce the inflammation and dry up your sinuses. -You can also use Mucinex, Coricidin HBP. Be sure to drink plenty of water with this medication at least 8 ounces with every dose and it is important to drink 8 to 10 glasses of water per day. Water is a natural decongestant -Eat and drink things that are easy to swallow, like tea or soup, or popsicles. -Oral rinses such as: Salt water gargles and/or may use topical anesthetic (eg. Chloraseptic spray) or lozenges to relieve dryness or throat pain). -Frequent hand washing or hand horticultural technical officer is one of the best ways to prevent spread of infection. -Using a vaporizer or humidifier at night will also help thin secretions and help with coughing up phlegm. -Follow up with primary care provider in 7-10 days if condition is not improving - For new or worsening symptoms go directly to the nearest ER Patient Language: Welsh Prescriptions: No Action latanoprost 0.005 % Drops 1 drp OPHTHALMIC (EYE) QPM Rx Instructions: BOTH EYES ascorbic acid (vitamin C) [Vitamin C] 500 mg Tablet 500 mg PO DAILY aspirin 81 mg Tablet 81 mg PO DAILY estradiol 0.01 % (0.1 mg/gram) cream 1 g vaginal 2XW ferrous sulfate 325 mg (65 mg iron) tablet 325 mg PO DAILY azelastine 137 mcg (0.1 %) spray,non-aerosol 1 spray intranasal Q12H 30 Days Qty: 30 5RF Rx Instructions: administer into each nostril tretinoin 0.025 % cream 1 applic topical QHS cholecalciferol (vitamin D3) 25 mcg (1,000 unit) Tablet 25 mcg PO DAILY calcium carbonate-vitamin D3 [Calcium 600 + D(3)] 600 mg(1,500mg) -400 unit Tablet 1 tablet PO DAILY Complete Multi 50+ 500-300-250 mcg Tablet 1 tablet PO DAILY [employer] 1.5 billion cell Capsule 1 cap PO DAILY cyanocobalamin (vitamin B-12) 1,000 mcg Capsule 1,000 mcg PO DAILY metoprolol succinate 50 mg tablet extended release 24 hr 50 mg PO DAILY Qty: 90 1RF loratadine 10 mg tablet 10 mg PO DAILY Qty: 90 1RF fenofibrate 160 mg tablet 160 mg PO DAILY Qty: 90 1RF simvastatin 40 mg tablet 40 mg PO QHS Qty: 90 1RF levothyroxine 88 mcg tablet 88 mcg PO DAILY Qty: 90 1RF diltiazem HCl 240 mg capsule,extended release 24hr See Rx Instructions .ROUTE .COMPLEX Qty: 90 1RF Dose Instruction: TAKE 1 CAPSULE BY MOUTH DAILY Rx Instructions: TAKE 1 CAPSULE BY MOUTH DAILY omeprazole 40 mg capsule,delayed release(DR/EC) See Rx Instructions .ROUTE .COMPLEX Qty: 90 1RF Dose Instruction: TAKE 1 CAPSULE BY MOUTH DAILY Rx Instructions: TAKE 1 CAPSULE BY MOUTH DAILY ketoconazole 2 % cream See Rx Instructions .ROUTE .COMPLEX Qty: 30 0RF Dose Instruction: APPLY TOPICALLY TO THE AFFECTED AREA TWICE DAILY Rx Instructions: APPLY TOPICALLY TO THE AFFECTED AREA TWICE DAILY Follow-up/Referrals: Shruthi Purvis MD [Primary Care Provider] - 2 Weeks ([facility]) Time of Disposition: 12:46
[2024-09-21 12:13] LABS: EDCOVIDSCREEN Negative (Negative); EDINFLUASCREEN Negative (Negative); EDINFLUBSCREEN Negative (Negative)
--- OUTSIDE RECORDS SUMMARY | 2024-09-21 12:52 | XMS_ITS | Clinical Summary ---
Author Organization [facility] [place] [address] Address [address] [place] [address] Care Team Providers Care Roll Up Guider Operator Name Role Phone Consuelo Purvis MD Primary Care Provider Allergies Active Allergy Reactions Criticality Noted Date Comments Loratadine Medications levothyroxine (SYNTHROID, LEVOTHROID) 88 mcg tablet Take 1 tablet (88 mcg total) by mouth daily 8 Active meloxicam (MOBIC) 15 mg tablet Take 15 mg by mouth daily. 8 Active OMEPRAZOLE ORAL Take 40 mg by mouth 2 (two) times a day 8 Active simvastatin (ZOCOR) 40 mg tablet Take 1 tablet (40 mg total) by mouth daily 8 Active loratadine (CLARITIN) 10 mg tablet Take 1 tablet (10 mg total) by mouth daily Active metoprolol XL (TOPROL-XL) 50 mg extended release tablet Take 1 tablet (50 mg total) by mouth daily 8 Active multivitamin tabletIndicatio ns:Vitamin Deficiency Prevention Take 1 tablet by mouth daily Active calcium carbonate-vitam in D3 1,500 mg (600mg elemental) -800 unit per tablet Take 1 tablet by mouth daily Active cyanocobalamin (Vitamin B-12) 1,000 mcg tabletIndicatio ns:Prevention of Vitamin B12 Deficiency Take 1 tablet (1,000 mcg total) by mouth daily Active cholecalciferol (VITAMIN D-3) 2,000 unit tablet Take 1 tablet (2,000 Units total) by mouth daily Active L. gasseri-B. bifidum-B longum 1.5 billion cell capsule Take by mouth daily. Active PSYLLIUM SEED (FIBER THERAPY, PSYLLIUM, ORAL) Take 1,500 mg by mouth daily. Active GLUCOSAMINE/CHO NDR FORREST A SOD (OSTEO BI-FLEX ORAL) Take by mouth daily. Active omega 5-kvm-ave-fish oil 1,000 mg (120 mg-180 mg) capsule Take by mouth daily. Active aspirin 81 mg tablet Take 1 tablet (81 mg total) by mouth daily Active PHENYLEPHRINE HCL/ACETAMINOPH N (TYLENOL SINUS CONGESTION PAIN ORAL) Take by mouth daily as needed. Active ACETAMINOPHEN (TYLENOL EXTRA STRENGTH ORAL) Take by mouth every 4 (four) hours as needed. Active amitriptyline (ELAVIL) 25 mg tablet Take 1 tablet (25 mg total) by mouth daily 0 Active latanoprost (XALATAN) 0.005 % ophthalmic solution 1 drop nightly Activ e fenofibrate (TRIGLIDE) 160 mg tablet Take 1 tablet (160 mg total) by mouth daily 1 Active ascorbic acid (ascorbic acid) 500 mg tablet,chewable Take 1 tablet/chew tab (500 mg total) by mouth daily Active ferrous sulfate 325 mg (65 mg of elemental iron) tabletIndicatio ns:Iron Deficiency Anemia Take 2 tablets (650 mg total) by mouth daily with breakfast Active diltiazem (TIAZAC) 240 mg 24 hr capsule Take 1 capsule (240 mg total) by mouth daily 4 Active azelastine (ASTELIN) 137 mcg (0.1 %) nasal spray USE 1 SPRAY IN EACH NOSTRIL EVERY 12 HOURS 4 Active estrogens, conjugated, (PREMARIN) vaginal cream Active Active Problems Problem Noted Date Diagnosed Date Paroxysmal supraventricular tachycardia 11/07/19 18 Encounters Date Type Department Care Team Description 08/23/2024 8:15 AM CLINICAL SCIENCES PROFESSOR Office Visit [facility] Cardiology [address] [facility] [address] [place] [address] Ankit Joseph MD Paroxysmal supraventricular tachycardia (HCC) (Primary Dx) from Last 3 Months Surgical History Surgery Date Site/Laterality Comments CHOLECYSTECTOMY Cholecystectomy THYROIDECTOMY Thyroidectomy OTHER SURGICAL HISTORY D&C KNEE ARTHROSCOPY left knee arthroscopy OTHER SURGICAL HISTORY D & C KNEE SURGERY Left Knee Surgery OTHER SURGICAL HISTORY L. knee OR KNEE ARTHROPLASTY 10/10/2019 - 11/09/2019 Right CATARACT EXTRACTION, BILATERAL 08/11/2020 - 08/10/2021 Medical History Medical History Date Comments Hx Other Medical history suprave ntricular tachycardia Hypothyroidism hypothyroidism Gastroesophageal reflux disease GERD Hypercholesterolemia High choles terol Osteoarthritis osteoarthritis Hx Other Medical Arrhythmias Hx Other Medical Palpitations Hx Other Medical Chest pain Family History Medical History Relation Name Comments Stroke Father Stroke; Cause o f : Stroke/Stroke; Cause of : Stroke Coronary artery disease Mother Ntia nary Artery Disease; Relation Name Status Comments Father Mother Alive Social History Tobacco Use Types Packs/Day Years Used Date Smoking Tobacco: Never Smokeless Tobacco: Never Tobacco Cessation:Counseling Given: Not Answered Alcohol Use Standard Drinks/Week Comments No 0 (1 standard drink = 0.6 oz pur e alcohol) Comments Unknown Sex and Gender Information Value Date Recorded Sex Assigned at Not on file Legal Sex Female 11:01 AM CLINICAL SCIENCES PROFESSOR Gender Identity Not on file Sexual Orientation Not on file Obstetrics History Last Filed Vital Signs Vital Sign Reading Time Taken Comments Blood Pressure 126/74 08/23/2024 8:14 AM CLINICAL SCIENCES PROFESSOR Pulse 86 08/23/2024 8:14 AM CLINICAL SCIENCES PROFESSOR Temperature - - Respiratory Rate - - Oxygen Saturation 97% 08/23/2024 8:14 AM CLINICAL SCIENCES PROFESSOR Inhaled Oxygen Concentration - - Weight 92.9 kg (204 lb 11.2 oz) 08/23/2024 8:14 AM CLINICAL SCIENCES PROFESSOR Height 152.4 cm (5') 08/23/2024 8:14 AM CLINICAL SCIENCES PROFESSOR Body Mass Index 39.98 08/23/2024 8:14 AM CLINICAL SCIENCES PROFESSOR Plan of Treatment Health Maintenance Due Date Last Done Comments Colon Cancer Screening-Colonoscopy 1957 Depression Screening 1957 Fall Risk Assessment 1957 Hepatitis C Screening 1957 Osteoporosis Screening-Bone Density Scan 1957 DTaP/Tdap/Td Vaccine (1 - Tdap) 1968 Hepatitis B Screening 1975 Zoster Vaccine (1 of 2) 2007 Pneumococcal vaccine 65+ (1 of 1 - PCV) 2022 Well Visit 65+ 2022 Covid-19 Vaccine ( season) 2024 08/17/2021, 11/17/2020, 10/27/2020 Influenza Vaccine (#1) 2024 Breast Cancer Screening-Mammogram 10/03/2024 10/03/2023, 05/17/2022, 03/19/2021 Insurance [employer] OPEN ACCESS [employer] OPEN ACCESS Care Teams Roll Up Guider Operator Relationship Specialty Start Date End Date Consuelo Purvis MD PCP - General Family Practice 11/05/17
--- OUTSIDE RECORDS SUMMARY | 2024-09-21 12:52 | XMS_ITS | Clinical Summary ---
Author Organization [facility] Address [address] [place] [address] Care Team Providers Care Aircraft Landing Gear Inspector Name Role Phone Consuelo Purvis MD Primary Care Provider Allergies No known active allergies Medications levothyroxine 88 MCG tablet Take 88 mcg by mouth daily. 11/29/2020 Active omeprazole 40 MG capsule Take 40 mg by mouth daily. 01/30/2021 Active simvastatin 40 MG tablet Take 40 mg by mouth nightly at bedtime. 11/20/2020 Active dilTIAZem ER 240 MG 24 hr capsule Take 240 mg by mouth daily. 02/02/2021 Active loratadine 10 MG tablet Take 10 mg by mouth daily. 12/18/2020 Active metoprolol succinate ER 50 MG 24 hr tablet Take 50 mg by mouth daily. 02/02/2021 Active amitriptyline 25 MG tablet Take 25 mg by mouth daily. 11/19/2020 Active latanoprost 0.005 % ophthalmic solution Place 1 drop into both eyes nightly at bedtime. 02/18/2021 Active fenofibrate 160 MG tablet Take 160 mg by mouth daily. 01/26/2021 Active calcium carb-cholecalci ferol 600-800 MG-UNIT tablet Take 1 tablet by mouth daily. Active vitamin B-12 1000 MCG tablet Take 1,000 mcg by mouth daily. Active Cholecalciferol 50 MCG (2000 UT) Tab Take 2,000 Units by mouth daily. Active aspirin 81 MG chewable tablet Chew 81 mg by mouth daily. Active naproxen 500 MG tablet Take 1 tablet (500 mg total) by mouth every 12 (twelve) hours as needed (pain). 20 tablet 02/23/2021 Active HYDROcodone-lisset taminophen 5-325 MG tabletIndicatio ns:Acute Pain < 3 Day Supply Take 1 tablet by mouth every 6 (six) hours as needed for Pain (not relieved by naproxen 20 minutes after taking naproxen.). Indications: Acute Pain < 3 Day Supply 10 tablet 02/23/2021 Active Active Problems Problem Noted Date Diagnosed Date Osteoarthritis of right hip 05/02/2023 Sacroiliitis 05/02/2023 S/P total knee arthroplasty, right 10/25/2019 Social History Tobacco Use Types Packs/Day Years Used Date Smoking Tobacco: Never Smokeless Tobacco: Never Alcohol Use Standard Drinks/Week Comments Never 0 (1 standard drink = 0.6 oz pur e alcohol) AUDIT-C Answer Date Recorded Q1: How often do you have a drink containing alc ohol? Never 02/22/2021 Average Number of Drinks Not on file 021 Frequency of Binge Drinking Not on file 02/08 Comments No Sex and Gender Information Value Date Recorded Sex Assigned at Not on file Legal Sex Female 5:49 PM CDT Gender Identity Not on file Sexual Orientation Not on file Last Filed Vital Signs Vital Sign Reading Time Taken Comments Blood Pressure 133/82 08/20/2021 10:00 PM FRUIT DISTRIBUTOR Pulse 70 08/20/2021 10:00 PM FRUIT DISTRIBUTOR Temperature 36.4 C (97.6 F) 08/20/2021 9:00 PM FRUIT DISTRIBUTOR Respiratory Rate 20 08/20/2021 10:00 PM FRUIT DISTRIBUTOR Oxygen Saturation 96% 08/20/2021 10:00 PM FRUIT DISTRIBUTOR Inhaled Oxygen Concentration - - Weight 85.7 kg (189 lb) 08/20/2021 6:48 PM FRUIT DISTRIBUTOR Height 152.4 cm (5') 08/20/2021 6:48 PM FRUIT DISTRIBUTOR Body Mass Index 36.91 08/20/2021 6:48 PM FRUIT DISTRIBUTOR Plan of Treatment Health Maintenance Due Date Last Done Comments Colorectal Cancer Screening Colonoscopy (10 Years) 1957 Hepatitis C 1975 DTaP, Tdap and Td Vaccines ( 1 - Tdap) 1976 Mammogram Screening 1997 Zoster Vaccines (1 of 2) 2007 Dexa Scan (General) 2022 Pneumococcal Vaccine: 65+ Years (1 of 1 - PCV) 2022 COVID-19 Vaccine (3 - 2023-2 5 season) 2024 11/17/2020, 10/27/2020 Influenza Adult (#1) 2024 RSV Immunization or 60+ Years (1 - 1-dose 75+ series) 2032 Meningococcal B Vaccine Aged Out No l onger eligible based on patient's age to complete this topic Meningococcal Vaccine Aged Out No melia bernadette eligible based on patient's age to complete this topic RSV Immunizations Under 20 Months Aged Out No longer eligible b ased on patient's age to complete this topic Insurance [id number] [place] [id number] [employer] PPO GENERIC - COMMERCIAL [place] [id number] Care Teams Aircraft Landing Gear Inspector Relationship Specialty Start Date End Date Consuelo Purvis MD [address] [place] [address] PCP - General FAMILY PRACTICE 02/23/21
--- OUTSIDE RECORDS SUMMARY | 2024-09-21 12:52 | XMS_ITS | Clinical Summary ---
Author Organization [facility] Address [address] [place] [address] Phone Care Team Providers Care Synthetic Cloth Binding Cutter Name Role Phone Consuelo Purvis MD Primary Care Provider Allergies No known active allergies Medications levothyroxine 88 mcg tablet levothyroxine 88 mcg tablet TK 1 T PO D 1 Active omeprazole (PriLOSEC) 40 mg Capsule, Delayed Release(E.C.) omeprazole 40 mg capsule,delayed release TK ONE C PO BID 1 Active simvastatin (ZOCOR) 40 mg tablet simvastatin 40 mg tablet TK 1 T PO QPM 1 Active diltiaZEM (TIAZAC) 240 mg Extended Release capsule diltiazem ER 240 mg capsule,24 hr,extended release TK 1 C PO D 1 Active loratadine (CLARITIN) 10 mg tablet loratadine 10 mg tablet TK 1 T PO D 1 Active metoprolol succinate (TOPROL XL) 50 mg Extended Release 24 hour tablet metoprolol succinate ER 50 mg tablet,extended release 24 hr TK 1 T PO D 1 Active latanoprost (XALATAN) 0.005 % solution latanoprost 0.005 % eye drops 1 Active fenofibrate (LOFIBRA) 160 mg Tablet Take 160 mg by mouth daily. 1 Active cyanocobalamin 1,000 mcg Tablet Take 1,000 mcg by mouth daily. Active aspirin (MAYDA CHEWABLE) 81 mg Tablet, Chewable Take 81 mg by mouth daily. Active multivitamin (DAILY-MYLENE) tablet Take 1 Tablet by mouth daily. Active PSYLLIUM SEED, ASPARTAME, ORAL Take 1,500 mg by mouth daily. Active traMADoL (ULTRAM) 50 mg tablet Take 100 mg by mouth every 6 hours as needed for Pain. Active acyclovir (ZOVIRAX) 800 mg tablet Take 800 mg by mouth 2 times daily. Active estradioL (ESTRACE) 0.01% (0.1 mg/g) vaginal cream Insert vaginally daily. Active ferrous sulfate 325 mg (65 mg iron) tablet Take 650 mg by mouth daily with breakfast. 2 Active azelastine (ASTELIN) 137 mcg/actuation nasal spray USE 1 SPRAY IN EACH NOSTRIL EVERY 12 HOURS 4 Active ketoconazole (NIZORAL) 2 % Cream apply topically to the affected area twice daily Active tretinoin (RETIN-A) 0.025 % Gel Apply to affected area daily. Active CALCIUM CARBONATE ORAL Take 600 mg by mouth daily. Active ascorbic acid, vitamin C, (VITAMIN C) 500 mg tablet Take 500 mg by mouth daily. Active Calcium-Cholec alciferol, D3, (OSCAL) 250 mg-3.125 mcg (125 unit) per tablet Take by mouth daily. Active Active Problems Problem Noted Date Diagnosed Date Essential thrombocytosis 05/22/2021 Microcytic anemia 05/22/2021 Encounters Date Type Department Care Team Description 09/02/2024 External Device Data STL ABSTRACTION Provider, Abstract 07/02/2024 9:30 AM COMMERCIAL TECHNICIAN Office Visit [facility] [place] [address] [place] [id number] Cliff Cerda MD Chronic anemia (Primary Dx) 06/28/2024 Orders Only [facility] [place] [address] [place] [id number] Cliff Cerda MD 06/25/2024 Orders Only [facility] [place] [address] [place] [id number] Cliff Cerda MD from Last 3 Months Family History Medical History Relation Name Comments Diabetes Father Heart Disease Mother Relation Name Status Comments Brother Alive Father Mother Alive Sister Alive Social History Tobacco Use Types Packs/Day Years Used Date Smoking Tobacco: Never Smokeless Tobacco: Never Tobacco Cessation:Counseling Given: Not Answered Alcohol Use Standard Drinks/Week Comments Never 0 (1 standard drink = 0.6 oz pur e alcohol) Comments No Sex and Gender Information Value Date Recorded Sex Assigned at Not on file Legal Sex Female 5:13 AM COMMERCIAL TECHNICIAN Gender Identity Not on file Sexual Orientation Not on file Last Filed Vital Signs Vital Sign Reading Time Taken Comments Blood Pressure 132/80 07/02/2024 9:43 AM COMMERCIAL TECHNICIAN Pulse 81 07/02/2024 9:43 AM COMMERCIAL TECHNICIAN Temperature 36.5 C (97.7 F) 07/02/2024 9:43 AM COMMERCIAL TECHNICIAN Respiratory Rate 18 07/02/2024 9:43 AM COMMERCIAL TECHNICIAN Oxygen Saturation 93% 07/02/2024 9:43 AM COMMERCIAL TECHNICIAN Inhaled Oxygen Concentration - - Weight 91.2 kg (201 lb) 07/02/2024 9:43 AM COMMERCIAL TECHNICIAN Height 152.4 cm (5') 06/12/2022 3:43 PM CDT Body Mass Index 39.26 06/12/2022 3:43 PM CDT Plan of Treatment Upcoming Encounters Date Type Department Care Team (Late st Contact Info) Description 04/08/2025 9:15 AM CDT Office Visit [facility] [place] [address] [place] [address] [facility] [address] [place] [address] Cliff Cerda MD [address] [facility] [address] [place] [address] Health Maintenance Due Date Last Done Comments Pre-Diabetes and Diabetes Screening 1957 DTAP/TDAP/TD VACCINES (1 - Tdap) 1976 BREAST CANCER SCREENING 1997 FIT-DNA Q 3 years 2002 FIT/FOBT Q 1 year 2002 Flex Sig/CT Colonography Q 5 years 2002 PNEUMOCOCCAL VACCINE 65+ YEA RS (1 of 1 - PCV) 2007 ZOSTER VACCINE (1 of 2) 2007 OSTEOPOROSIS SCREENING 2022 INFLUENZA VACCINE (#1) 2024 COLORECTAL SCREENING 09/03/2031 09/03/2021, 08/10/20 12 Colorectal Cancer Screening 09/03/2031 RSV VACCINE (60+ or ) (1 - 1-dose 75+ series) 2032 Procedures Procedure Name Priority Date/Time Associated Diagnosis Comments CBC WITH DIFFERENTIAL Routine 06/25/2024 2:46 PM COMMERCIAL TECHNICIAN BASIC METABOLIC PANEL Routine 06/25/2024 11:00 AM COMMERCIAL TECHNICIAN from Last 3 Months Results * CBC WITH DIFFERENTIAL (06/25/2024 2:46 PM COMMERCIAL TECHNICIAN) Blood us Cliff Cerda MD HEMATOLOGY ORDERABLES Final Res ult * BASIC METABOLIC PANEL (06/25/2024 11:00 AM COMMERCIAL TECHNICIAN) Blood us Cliff Cerda MD CHEMISTRY ORDERABLES Final Resu lt from Last 3 Months Insurance [facility] Care Teams Synthetic Cloth Binding Cutter Relationship Specialty Start Date End Date Consuelo Purvis MD [address] [place] [address] PCP - General Family Practice 05/22/21
--- OUTSIDE RECORDS SUMMARY | 2024-09-21 12:52 | XMS_ITS | Data Portability ---
Author Organization [facility], Main Office Address [address] [place] [address] Care Team Providers Care Director Of Investigations Name Role Phone PATTI ARANDA Primary Care Provider [phone] PATTI ARANDA Referring Provider Assessment No assessment recorded. Plan of Treatment Reminders Order Date Submit Date Provider Last Modified By Organization Details Last Modified Time Details Appointments None record ed. Lab None record ed. Referral None record ed. Procedures None record ed. Surgeries None record ed. Imaging None record ed. Medication Orders None record ed. Patient TargetsNo targets recorded. Patient InstructionsNo instructions recorded. Reason for Referral None Reported. Results Created Date Observation Date Name Description Value Unit Range Abnormal Flag Note LastModifiedBy Organization Detail LastModifiedTime 12/19/19 21 XR, knee, 3 view No observ ation record ed. [id number] [address], [place], [address], 10/09/2022 13:36:35 Result Notes None recorded. Problems Name Problem SNOMED Code Status Onset Date Resolution Date Notes Provider Name and Address Organization Details Recorded Time Osteoarthriti s of knee [id number] Active Not Available [facility] 3 13:35:11 Osteoarthriti s 865664357 Active Not Available [facility] 13:35:11 Problem Notes None recorded. Procedures Surgical History Date Name Laterality Status Provider Name and Address Organization Details Recorded Time 11/18/19 18 Knee Replacement completed Not Available [facility] 10/09/2022 13:35:04 02/23/20 13 Pierre-[place] Cid virus serology completed Not Available [facility] 10/09/2022 13:35:04 08/21/19 12 Knee arthroscopy/catrachita fabio completed Not Available [facility] 10/09/2022 13:35:04 10/30/19 04 Gallbladder Surgery completed Not Available [facility] 10/09/2022 13:35:04 10/28/19 04 D&c of cervical stump completed Not Available [facility] 10/09/2022 13:35:04 07/14/19 98 Thyroid Surgery completed Not Available [facility] 08/2022 13:35:04 Imaging Results Imaging Date Name Status LastModified by Organiz ation Details LastModified Time 12/18/2020 XR, knee, 3 view completed [id number] [place] [address], [place], [address], 10/09/2022 13:36:35 Procedure Notes None recorded. Medical Equipment None Reported. Medications Name Sig Start Date Stop Date Status Note LastModified by Organization Details LastModified Time amoxicillin 500 mg capsule TAKE 4 CAPSULES BY MOUTH 1 HOUR BEFORE APPOINTME NT 12/18 completed Not Available Not Available Not Available latanoprost 0.005 % eye drops INT 1 GTT IN OU QD HS active Not Available Not Available No t Available prednisone 10 mg tablet 06/08 completed Not Available Not Available Not Available diltiazem ER 180 mg capsule,24 hr,extended release 06/08 completed Not Available Not Available Not Available polyethylen e glycol 3350 17 gram oral powder packet MIX 1 PACKET WITH LIQUID QAM AND DRINK 12/18 completed Not Available Not Available Not Available azithromyci n 250 mg tablet 06/08 completed Not Available Not Available Not Available diltiazem CD 180 mg capsule,ext ended release 24 hr 06/08 completed Not Available Not Available Not Available metoprolol succinate ER 50 mg tablet,exte nded release 24 hr TAKE 1 TABLET BY MOUTH DAILY active Not Available Not Available No t Available hydrocodone 5 mg-acetamin ophen 325 mg tablet 06/08 completed Not Available Not Available Not Available diltiazem CD 240 mg capsule,ext ended release 24 hr TK 1 C PO D 06/21 completed Not Available Not Available Not Available meloxicam 15 mg tablet 06/21 completed Not Available Not Available Not Available prednisone 20 mg tablet TK 1 T PO D FOR 5 DAYS 09/08 completed Not Available Not Available Not Available clindamycin HCl 150 mg capsule 06/08 completed Not Available Not Available Not Available diltiazem ER 240 mg capsule,24 hr,extended release TAKE 1 CAPSULE BY MOUTH DAILY active Not Available Not Available No t Available metronidazo le 500 mg tablet 06/08 completed Not Available Not Available Not Available fluocinonid e 0.05 % topical ointment 06/08 completed Not Available Not Available Not Available omeprazole 40 mg capsule,del ayed release TAKE ONE CAPSULE BY MOUTH TWICE DAILY active Not Available Not Available No t Available simvastatin 40 mg tablet TAKE 1 TABLET BY MOUTH EVERY EVENING active Not Available Not Available No t Available levothyroxi ne 100 mcg tablet 06/08 completed Not Available Not Available Not Available oxycodone-a cetaminophe n 5 mg-325 mg tablet 06/08 completed Not Available Not Available Not Available levothyroxi ne 88 mcg tablet TAKE 1 TABLET BY MOUTH DAILY active Not Available Not Available No t Available amoxicillin 875 mg tablet 06/08 completed Not Available Not Available Not Available amitriptyli ne 25 mg tablet TAKE 1 TABLET BY MOUTH EVERY DAY active Not Available Not Available No t Available aspirin 325 mg tablet,julianne yed release 06/08 completed Not Available Not Available Not Available Kenalog 10 mg/mL suspension for injection In office injection administe red by the provider 12/18 completed [facility]: 0003- 0494- 20 Not Available Not Available Not Available cephalexin 500 mg capsule 06/08 completed Not Available Not Available Not Available prednisone 50 mg tablet TK 1 T PO D 12/18 completed Not Available Not Available Not Available omeprazole 20 mg capsule,del ayed release 06/21 completed Not Available Not Available Not Available chlordiazep oxide-clidi nium 5 mg-2.5 mg capsule 06/08 completed Not Available Not Available Not Available metoprolol succinate ER 25 mg tablet,exte nded release 24 hr 06/08 completed Not Available Not Available Not Available azelastine 137 mcg (0.1 %) nasal spray 06/08 completed Not Available Not Available Not Available ibuprofen 600 mg tablet 06/08 completed Not Available Not Available Not Available polyethylen e glycol 3350 17 gram/dose oral powder 06/08 completed Not Available Not Available Not Available methylpredn isolone 4 mg tablets in a dose pack 06/08 completed Not Available Not Available Not Available albuterol sulfate HFA 90 mcg/actuati on aerosol inhaler INL 2 PFS PO QID PRF COUGH 12/18 completed Not Available Not Available Not Available celecoxib 100 mg capsule TK 1 C PO QD 12/18 completed Not Available Not Available Not Available cefdinir 300 mg capsule TK 1 C PO BID 06/08 completed Not Available Not Available Not Available fluticasone propionate 50 mcg/actuati on nasal spray,suspe nsion 06/08 completed Not Available Not Available Not Available loratadine 10 mg tablet TAKE 1 TABLET BY MOUTH DAILY active Not Available Not Available No t Available amoxicillin 875 mg-potassiu m clavulanate 125 mg tablet TAKE 1 TABLET BY MOUTH TWICE DAILY 12/18 completed Not Available Not Available Not Available oxycodone 5 mg tablet Take 1 tablet every 4 hours by oral route. active Not Available Not Available No t Available Cough Syrup DM 10 mg-100 mg/5 mL TK 5ML PO TID PRF COUGH 06/08 completed Not Available Not Available Not Available cyclobenzap rine 5 mg tablet 06/08 completed Not Available Not Available Not Available Senna Plus 8.6 mg-50 mg tablet TK 2 TS PO BID 12/18 completed Not Available Not Available Not Available DILT-XR 180 mg capsule, extended release 06/08 completed Not Available Not Available Not Available fenofibrate 160 mg tablet TAKE 1 TABLET BY MOUTH DAILY active Not Available Not Available No t Available lidocaine (PF) 10 mg/mL (1 %) injection solution In office injection administe red by the provider 12/18 completed [facility]: 0409- 4276- 17 Not Available Not Available Not Available Golytely 236 gram-22.74 gram-6.74 gram-5.86 gram oral solution 06/08 completed Not Available Not Available Not Available Eliquis 2.5 mg tablet TK 1 T PO BID 12/18 completed Not Available Not Available Not Available Virtussin AC 10 mg-100 mg/5 mL oral liquid TK 5 ML Q 6 H PRN FOR COUGH 09/08 completed Not Available Not Available Not Available Vitals Date Recorded Body mass index (BMI) Body height Body weight Provider Name and Address Organization Details Last Updated DateTime 10/09/2022 40.1 kg/m2 147.32 cm 35526.74 g Not Available [email or web address] 10/09/2022 13:35:06 Social History Question Answer Notes LastModified by Organizat ion Details LastModified Time What Was The Date Of Your Most Recent Tobacco Screening? 12/18/2020 [id number] Information not available 10/09/2022 Sex: Unknown Functional Status None recorded. Mental Status None recorded. Family History Relationship Description Onset Age of this Age Resolved Age Notes LastModified by Organization Details LastModified Time Mother Heart disease [id number] Not available 10/09/2022 13:35:05 Father Family history of stroke [id number] Not available 10/09/2022 13:35:05 Father Diabetes mellitus [id number] Not available 10/09/2022 13:35:05 Medical History No medical history recorded. Gynecological HistoryNo gynecological history recorded. Obstetrics History GPAL:G 0 P 0 0 0 0 Past Encounters Encounter ID Performer Location Encounter Start Date Encounter Closed Date Diagnosis/Indication Diagnosis SNOMED-CT Code Diagnosis ICD10 Code Diagnosis Note [id number] [facility] [address] [place] [address] 12/18/2020 00:00:00 12/18/2020 18:16:26 Health Concerns Section Related Observation LastModified by Organization Detai ls LastModified Time None Recorded Concern Status LastModified by Organization Details LastModified Time None Recorded Advance Directives Directive None Recorded Payers None recorded. OBGyn Episode No OBEpisode recorded.
--- OUTSIDE RECORDS SUMMARY | 2024-09-21 12:53 | XMS_ITS | Data Portability ---
Author Organization [facility] Arjay Address [address] [place] [place] [address] Care Team Providers Care Vp [employer] Name Role Phone MANOJ ANDI Primary Care Provider Assessment Encounter Date Assessment Date Assessment LastModified by Organization Details LastModified Time 04/03/2021 04/03/2021 healthy female exam/menopause patient declines std testing pap due 2022 mammogram UTD colonoscopy due 2025 dexa repeat Encouraged weight bearing exercise and 1500mg daily of Calcium with Vitamin D US for abdominal bloating. FU GI if normal. FU 1 year or prn Not available 04/04/2021 09:33:54 04/30/2022 04/30/2022 healthy female exam/menopause patient declines std testing pap due next year mammogram scheduled next month colonoscopy UTD dexa Encouraged weight bearing exercise and 1500mg daily of Calcium with Vitamin D FU 1 year or prn [email or web address] Not available 05/01/2022 09:01:14 05/15/2023 05/15/2023 Annual gynecological exam performed. Patient will come back in a year unless there are new symptoms. [email or web address] Not available 05/15/2023 17:14:10 Plan of Treatment Reminders Order Date Submit Date Provider Last Modified By Organization Details Last Modified Time Details Appointments None recorded. Lab urinalysis, dipstick 2021 022 [email or web address] Arjay[address], [address], [place], [address], 18:30:26 urinalysis, dipstick 2022 023 [email or web address] 6 [facility] [address], [address], [place], [address], 3 09:42:57 Referral None recorded. Procedures None recorded. Surgeries None recorded. Imaging US, pelvis 2020 [address], [address], [place], [address], 1 09:08:02 US, transvagina l 2020 [email or web address], [address], [place], [address], 1 09:08:02 DEXA, axial skeleton + vertebral fracture assessment [address] [facility], [address], [place], [address], 4 11:59:50 Medication Orders Estrace 0.01% (0.1 mg/gram) vaginal cream 2021 022 [id number], [address] [place] [address], [id number], 2 18:53:53 Patient TargetsNo targets recorded. Patient InstructionsNo instructions recorded. Reason for Referral None Reported. Results Created Date Observation Date Name Description Value Unit Range Abnormal Flag Note LastModifiedBy Organization Detail LastModifiedTime 04/30/20 22 04/30/2022 urina lysis , dipst ick Leukocytes neg Not Available Iveth vega [address], [place], [address], 04/30/2022 18:30:06 04/30/20 22 04/30/2022 urina lysis , dipst ick Nitrite neg Not Available Arjay [address], [place], [address], 04/30/2022 18:30:06 05/15/2005/15/2023 urina lysis , dipst ick Leukocytes +3 Not Available [facility] gary [address], [place], [address], 05/15/2023 17:42:53 05/15/2005/15/2023 urina lysis , dipst ick Nitrite Negati ve Not Available Arjay [address], [place], [address], 05/15/2023 17:42:53 05/15/2005/15/2023 urina lysis , dipst ick Urobilinogen Negati ve Not Available Arjay [address], [place], [address], 05/15/2023 17:42:53 05/15/2005/15/2023 urina lysis , dipst ick Protein Negati ve Not Available Arjay [address], [place], [address], 05/15/2023 17:42:53 05/15/2005/15/2023 urina lysis , dipst ick pH 8 Not Available Arjay [address], [place], [address], 05/15/2023 17:42:53 05/15/2005/15/2023 urina lysis , dipst ick Specific [place] 1.005 Not Available [facility] [address], [place], [address], 05/15/2023 17:42:53 05/15/2005/15/2023 urina lysis , dipst ick Ketone Negati ve Not Available Arjay [address], [place], [address], 05/15/2023 17:42:53 05/15/2005/15/2023 urina lysis , dipst ick Bilirubin Negati ve Not Available Arjay [address], [place], [address], 05/15/2023 17:42:53 05/15/20 23 05/15/2023 urina lysis , dipst ick Glucose Negati ve Not Available Arjay [address], [place], [address], 05/15/2023 17:42:53 05/15/20 23 05/15/2023 urina lysis , dipst ick Appearance Clear Not Available [facility] [address], [place], [address], 05/15/2023 17:42:53 05/15/20 23 05/15/2023 urina lysis , dipst ick Color Dark yellow Not Available Arjay [address], [place], [address], 05/15/2023 17:42:53 10/20/19 24 10/20/2023 CMP(C OMPRE HENSI VE METAB OLIC PANEL ) sodium 141 mmol/ L 133-14 6 Not Available [facility] (Lab) [address] [place], [address], 10/21/2023 04:26:23 10/20/19 24 10/20/2023 CMP(C OMPRE HENSI VE METAB OLIC PANEL ) potassium 4.0 mmol/ L 3.5-5. 1 Not Available [facility] (Lab) [address] [place], [address], 10/21/2023 04:26:23 10/20/19 24 10/20/2023 CMP(C OMPRE HENSI VE METAB OLIC PANEL ) chloride 103 mmol/ L 98-107 Not Available [facility] (Lab) [address] [place], [address], 10/21/2023 04:26:23 10/20/19 24 10/20/2023 CMP(C OMPRE HENSI VE METAB OLIC PANEL ) carbon dioxide 31 mmol/ L 21-31 Not Available [facility] (Lab) [address] [facility], [place], [address], 10/21/2023 04:26:23 10/20/19 24 10/20/2023 CMP(C OMPRE HENSI VE METAB OLIC PANEL ) anion gap 7 mmol/ L 4-13 Not Available [facility] (Lab) [address] [facility], [place], [address], 10/21/2023 04:26:23 10/20/19 24 10/20/2023 CMP(C OMPRE HENSI VE METAB OLIC PANEL ) blood urea nitrogen 21 mg/dL 7-25 Not Available [facility] (Lab) [address] [facility], [place], [address], 10/21/2023 04:26:23 10/20/19 24 10/20/2023 CMP(C OMPRE HENSI VE METAB OLIC PANEL ) creatinine 0.96 mg/dL 0.60-1 .30 Not Available [facility] (Lab) [address] [facility], [place], [address], 10/21/2023 04:26:23 10/20/19 24 10/20/2023 CMP(C OMPRE HENSI VE METAB OLIC PANEL ) egfrcr (CKD-epi 2020) 65 mL/mi n/1.7 3_m2 >=60 Not Available [facility] (Lab) [address] [facility], [place], [address], 10/21/2023 04:26:23 10/20/19 24 10/20/2023 CMP(C OMPRE HENSI VE METAB OLIC PANEL ) calcium 9.3 mg/dL 8.3-10 .5 Not Available [facility] (Lab) [address] [facility], [place], [address], 10/21/2023 04:26:23 10/20/19 24 10/20/2023 CMP(C OMPRE HENSI VE METAB OLIC PANEL ) glucose 88 mg/dL 70-100 Not Available [facility] (Lab) [address] [facility], [place], [address], 10/21/2023 04:26:23 10/20/19 24 10/20/2023 CMP(C OMPRE HENSI VE METAB OLIC PANEL ) protein, total 6.3 g/dL 6.4-8. 3 low Not Available [facility] (Lab) [address] [facility], [place], [address], 10/21/2023 04:26:23 10/20/19 24 10/20/2023 CMP(C OMPRE HENSI VE METAB OLIC PANEL ) albumin 3.9 g/dL 3.5-5. 0 Not Available [facility] (Lab) [address] [facility], [place], [address], 10/21/2023 04:26:23 10/20/19 24 10/20/2023 CMP(C OMPRE HENSI VE METAB OLIC PANEL ) ALT 48 units /L 9-43 high Not Available [facility] (Lab) [address] [facility], [place], [address], 10/21/2023 04:26:23 10/20/19 24 10/20/2023 CMP(C OMPRE HENSI VE METAB OLIC PANEL ) alkaline phosphatase 67 units /L 34-104 Not Available [facility] (Lab) [address] [facility], [place], [address], 10/21/2023 04:26:23 10/20/19 24 10/20/2023 CMP(C OMPRE HENSI VE METAB OLIC PANEL ) AST 47 units /L 13-39 high Not Available [facility] (Lab) [address] [facility], [place], [address], 10/21/2023 04:26:23 10/20/19 24 10/20/2023 CMP(C OMPRE HENSI VE METAB OLIC PANEL ) bilirubin, total 0.3 mg/dL 0.2-1. 2 Not Available [facility] (Lab) [address] [facility], [place], [address], 10/21/2023 04:26:23 10/20/19 24 10/20/2023 VITAM IN D, 25-OH (TOTA L D2/D3 ) vitamin D, 25-hydroxy, total 48.2 NG/mL 30.0-1 00.0 Sugge stive of Defic iency : <20 ng/mL Sugge stive of Insuf ficie ncy: 20-29 ng/mL Sugge stive of Suffi cienc y: 30-10 0 ng/mL Sugge stive of Toxic ity: >150 ng/mL Not Available [facility] (Lab) [address] [facility], [place], [address], 10/21/2023 04:26:23 03/19/20 21 03/19/2021 MAMMO , scree kishan, bilat eral No observ ation record ed. [email or web address] [facility], [place], [address], 03/19/2021 17:32:45 03/21/20 21 03/19/2021 DEXA, axial skele ton + verte bral fract ure asses sment No observ ation record ed. [address] [address], [place], [address], 04/05/2021 14:47:03 04/19/20 21 04/19/2021 US, pelvi s No observ ation record ed. [email or web address] Arjay [address], [place], [address], 04/19/2021 17:50:44 04/19/20 21 04/19/2021 US, trans micaela [place] No observ ation record ed. [email or web address] Arjay [address], [place], [address], 04/19/2021 17:50:54 04/19/20 21 04/19/2021 US, pelvi s No observ ation record ed. [email or web address] Mc[address], [place], [address], 04/30/2021 11:08:10 05/17/20 22 05/16/2022 MAMMO , scree kishan, bilat eral No observ ation record ed. [email or web address] [address] [facility], [place], [address], 05/20/2022 08:56:26 10/03/19 24 10/03/2023 MAMMO , scree kishan, bilat eral No observ ation record ed. [email or web address] [address] [facility], [place], [address], 10/28/2023 16:54:47 10/06/19 24 10/03/2023 DEXA, axial skele ton + verte bral fract ure asses sment No observ ation record ed. [email or web address] [facility], [place], [address], 10/16/2023 12:24:38 Result Notes None recorded. Problems Name Problem SNOMED Code Status Onset Date Resolution Date Notes Provider Name and Address Organization Details Recorded Time SNOMED CT Concept Completed 201912/25/2020 [facility] for [facility] gynecology professor exam (general ) (routine ) w/o abn findings ;Practic e ID: [id number] Megan Whyte MD [address], [place], [address], [facility] 1 18:07:57 Screenin g for malignan t neoplasm of rectum Completed 201912/25/2020 Encounte r for screenin g for malignan t neoplasm of rectum;P ractice ID: [id number] Megan Whyte MD [address], [place], [address], [facility] 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 1 18:07:55 Blood leukocyt e number above referenc e range [id number] Completed 201912/25/2020 Elevated white blood cell count, unspecif ied;Durga rded Elsewher e: No Locat ion: [facility] S ource: E[employer] As[employer] garrison: N Practi ce ID: 0001 Kofi lable Time: 04:00:00 PM Megan Whyte MD [address], [place], [address], [facility] 1 18:07:44 Adult health examinat ion Completed 201012/25/2020 Routine general medical examinat ion at a health care facility ;Practic e ID: [id number] Megan Whyte MD [address], [place], [address], [facility] 18:07:35 Speciali zed medical examinat ion Completed 201012/25/2020 Routine gynecolo gical examinat ion;Prac sukhi ID: [id number] Megan Whyte MD [address], [place], [address], [facility] 18:07:59 Screenin g for malignan t neoplasm of cervix Completed 201012/25/2020 Pap Smear;Pr actice ID: [id number] Megan Whyte MD [address], [place], [address], [facility] 1 18:07:50 Contact dermatit is [id number] Active 2011 Contact dermatit is and other eczema, unspecif ied cause;Pr actice ID: 0001 Not Available [facility] 0 18:44:17 Finding of trunk structur e [id number] Completed 201112/25/2020 Abdomina l or pelvic swelling , mass, or lump, generali zed;Prac sukhi ID: 0001 Megan Whyte MD [address], [place], [address], [facility] 1 18:07:42 Leukocyt osis 751724429 Active 2012 LEUKOCYT OSIS NOS;Prac sukhi ID: 0001 Not Available [facility] 0 18:44:17 Obesity 629917693 Completed 201312/25/2020 Obesity, unspecif ied;Prac sukhi ID: 0001 Megan Whyte MD [address], [place], [address], [facility] 1 18:07:48 Epigastr ic pain [id number] Completed 201812/25/2020 Epigastr ic pain;Pra ctice ID: [id number] Megan Whyte MD [address], [place], [address], [facility] 1 18:07:39 Body mass index 30+ - obesity 390309135 Active 2016 Body mass index (BMI) 33.0-33. 9, adult;Re corded Elsewher e: No Locat ion: [facility] S ource: EHR Crane Assembler garrison: N Practi ce ID: 0001 Kofi lable Time: 08:30:00 AM Not Available [facility] 0 18:44:19 Vaginiti s and vulvovag initis Completed 201212/25/2020 Vaginiti s and vulvovag initis;R ecorded Elsewher e: No Locat ion: [facility] S ource: EHR Crane Assembler garrison: N Practi ce ID: 0001 Kofi lable Time: 11:30:00 AM Megan Whyte MD [address], [place], [address], [facility] 18:08:02 Osteopen ia 619315531 Active 2020 L and R femoral neck Megan Whyte MD [address], [place], [address], [facility] 16:36:36 Atrophic vaginiti s 60038980 Active 2020 Megan Whyte MD [address], [place], [address], [facility] 09:32:57 Abdomina l bloating 403557506 Active 2020 Megan Whtye MD [address], [place], [address], [facility] 09:32:59 Problem Notes None recorded. Procedures Surgical History Date Name Laterality Status Provider Name and Address Organization Details Recorded Time 022 Date of Last Colonoscopy completed NAGI ASKEW MD [address], [place], [address], [facility] 05/15/2023 17:39:08 021 Date of Last Mammogram completed Rosa Roblero [facility] 04/30/2022 10:10:57 021 Most Recent Bone Density completed Rosa Roblero [facility] 04/30/2022 10:11:04 020 Date of Last Pap Smear completed Rosa Roblero [facility] 12/25/2020 18:07:44 018 Knee arthroscopy/surger y completed Rosa Roblero [facility] 04/30/2022 18:24:11 013 [facility] 12/25/2020 17:15:42 008 hysteroscopy completed [facility] 12/25/2020 17:16:54 004 Cholecystectomy completed [facility] 04/30/2022 18:24:45 004 hysteroscopy completed [facility] 04/30/2022 18:24:35 002 Endometrial Biopsy completed [facility] 12/25/2020 17:17:44 998 removal of thyroid nodule completed [facility] 04/30/2022 18:24:27 total knee replacement completed [facility] 12/25/2020 17:18:34 Imaging Results Imaging Date Name Status LastModified by Organization Details LastModified Time 03/19/2021 MAMMO, screening, bilateral completed [address] [facility], [place], [address], 03/19/2021 17:32:45 03/19/2021 DEXA, axial skeleton + vertebral fracture assessment completed [address], [place], [address], 04/05/2021 14:47:03 04/19/2021 US, pelvis completed [email or web address] Arjay [address], [place], [address], 04/19/2021 17:50:44 04/19/2021 US, transvaginal completed [email or web address] [facility] [address], [place], [address], 04/19/2021 17:50:54 04/19/2021 US, pelvis completed [email or web address] [address], [place], [address], 04/30/2021 11:08:10 05/16/2022 MAMMO, screening, bilateral completed [email or web address] [place] [address], [address], 05/20/2022 08:56:26 10/03/2023 MAMMO, screening, bilateral completed [address] [place] [address], [address], 10/28/2023 16:54:47 10/03/2023 DEXA, axial skeleton + vertebral fracture assessment completed [address], [address], 10/16/2023 12:24:38 Procedure Notes None recorded. Medical Equipment None Reported. Allergies No known drug allergies Medications Name Sig Start Date Stop Date Status Note LastModified by Organization Details LastModified Time cyclobenz aprine 10 mg tablet TAKE 1 TABLET BY MOUTH THREE TIMES DAILY NEEDED FOR MUSCLE SPASM active Not Available Not Available No t Available amoxicill in 500 mg capsule TK FOUR CS PO 1 HOUR B DAPP active Not Available Not Available No t Available latanopro st 0.005 % eye drops INSTILL 1 DROP IN BOTH EYES EVERY EVENING active Not Available Not Available No t Available Clotrimaz ole AF 1 % topical cream apply by topical route 2 times every day to the affected and surround ing areas of skin in the morning and evening 06/09 completed Prescrib ed [facility] e: Yes Loca tion: [facility] M odify By: amnatasha salesuntraymond DateTime : 03/19/20 12 10:00:00 AM Not Available Not Available Not Available azithromy sherice 250 mg tablet TK 2 TS PO ON DAY 1, THEN TK 1 T PO D FOR 4 DAYS active Not Available Not Available No t Available benzonata te 200 mg capsule TAKE 1 CAPSULE BY MOUTH THREE TIMES DAILY NEEDED FOR COUGH 05/15 completed Not Available Not Available Not Available metoprolo l succinate ER 50 mg tablet,ex tended release 24 hr TAKE 1 TABLET BY MOUTH DAILY active Not Available Not Available No t Available valacyclo vir 1 gram tablet TAKE 2 TABLETS BY MOUTH EVERY 12 HOURS active Not Available Not Available No t Available hydrocodo ne 5 mg-acetam inophen 325 mg tablet 04/03 completed Not Available Not Available Not Available meloxicam 15 mg tablet take 1 tablet by oral route every day 09/16 completed Prescrib ed Elsewher e: Yes [facility] odify By: jb gibbs DateTime : 07/10/20 17 08:30:00 AM Not Available Not Available Not Available prednison e 20 mg tablet TAKE 2 TABLETS BY MOUTH DAILY FOR 5 DAYS active Not Available Not Available No t Available diltiazem ER 240 mg capsule,2 4 hr,extend ed release TAKE 1 CAPSULE BY MOUTH DAILY active Not Available Not Available No t Available diltiazem ER 360 mg capsule,2 4 hr,extend ed release take 1 capsule by oral route every day 04/03 completed Prescrib ed Elsewher e: Yes Loca tion: [facility] odify By: olga gibbs DateTime : 06/25/20 16 10:00:00 AM Not Available Not Available Not Available simvastat in 80 mg tablet 04/03 completed Prescrib ed Elsewher e: No [facility] odify By: jag dennis DateTime : 05/07/20 11 07:59:28 AM Not Available Not Available Not Available Terazol 3 0.8 % vaginal cream apply cream to affected area BID 06/09 completed Prescrib ed Elsewher e: No [facility] odify By: brayan gibbs DateTime : 03/19/20 12 10:00:00 AM Not Available Not Available Not Available omeprazol e 40 mg capsule,d elayed release TAKE 1 CAPSULE BY MOUTH DAILY active Not Available Not Available No t Available tramadol 50 mg tablet TAKE 1 TABLET BY MOUTH EVERY 6 HOURS NEEDED FOR PAIN 04/30 completed Not Available Not Available Not Available simvastat in 40 mg tablet TAKE 1 TABLET BY MOUTH EVERY DAY AT BEDTIME active Not Available Not Available No t Available acyclovir 800 mg tablet TAKE 1 TABLET BY MOUTH FOUR TIMES DAILY FOR 7 DAYS 04/30 completed Not Available Not Available Not Available levothyro xine 88 mcg tablet TAKE 1 TABLET BY MOUTH DAILY active Not Available Not Available No t Available amoxicill in 875 mg tablet TAKE 1 TABLET BY MOUTH EVERY 12 HOURS 05/15 completed Not Available Not Available Not Available amitripty line 25 mg tablet TAKE 1 TABLET BY MOUTH EVERY DAY 04/03 completed Not Available Not Available Not Available amitripty line 10 mg tablet take 1 tablet by oral route every day at bedtime 04/03 completed Prescrib ed Elsewher e: Yes Loca tion: Thais sharp [facility] odify By: jb Sharp ncounter DateTime : 09/16/19 04:00:00 PM Not Available Not Available Not Available Flagyl 500 mg tablet take 1 tablet (500MG) by oral route 2 times every day for 7 days 07/25 completed Prescrib ed Elsewher e: No Locat ion: Thais [facility] odify By: marques Wasserman er DateTime : 07/19/20 13 10:27:00 AM Not Available Not Available Not Available benzonata te 100 mg capsule TAKE 1 CAPSULE BY MOUTH THREE TIMES DAILY NEEDED FOR COUGH active Not Available Not Available No t Available Vitamin B-6 100 mg tablet 06/09 completed Prescrib ed Elsewher e: Yes Loca tion: Thais [facility] odify By: brayan Sharp ncounter DateTime : 03/19/20 12 10:00:00 AM Not Available Not Available Not Available black cohosh root extract 40 mg capsule 06/25 completed Prescrib ed Elsewher e: Yes Loca tion: Thais sharp [facility] odify By: olga Sharp ncounter DateTime : 05/07/20 11 07:59:28 AM Not Available Not Available Not Available omeprazol e 20 mg capsule,d elayed release TAKE 1 CAPSULE BY MOUTH DAILY active Not Available Not Available No t Available chlordiaz epoxide-c lidinium 5 mg-2.5 mg capsule take 1 capsule by oral route 3 times every day before meals 07/10 completed Prescrib ed Elsewher e: Yes Loca tion: Maryvill [facility] odify By: [email or web address] Sharp ncounter DateTime : 06/09/20 14 08:30:00 AM Not Available Not Available Not Available metoprolo l succinate ER 25 mg tablet,ex tended release 24 hr take 1 tablet (25MG) by oral route every day 07/13 completed Prescrib ed Elsewher e: No [facility]ify By: stormy Sharp ncounter DateTime : 05/07/20 11 07:59:28 AM Not Available Not Available Not Available estradiol 0.01% (0.1 mg/gram) vaginal cream Apply sparingl y to vulva and vaginal introitu s nightly for 2 weeks, then 2x per week. active Not Available Not Available No t Available methylpre dnisolone 4 mg tablets in a dose pack FOLLOW PACKAGE DIRECTIO NS 04/30 completed Not Available Not Available Not Available albuterol sulfate HFA 90 mcg/actua tion aerosol inhaler INHALE 2 PUFFS BY MOUTH EVERY 4 HOURS NEEDED FOR SHORTNES S OF BREATH OR WHEEZING active Not Available Not Available No t Available ketoconaz ole 2 % topical cream APPLY TOPICALL Y TO THE AFFECTED AREA TWICE DAILY active Not Available Not Available No t Available multivita min capsule take 1 capsule by oral route every day 12/25 completed Prescrib ed Elsewher e: No Locat ion: [facility] odify By: olga Sharp ncounter DateTime : 06/25/20 16 10:00:00 AM Not Available Not Available Not Available dicyclomi ne 10 mg capsule TAKE 1 CAPSULE BY MOUTH FOUR TIMES DAILY NEEDED FOR ABDOMINA L PAIN 04/30 completed Not Available Not Available Not Available loratadin e 10 mg tablet TAKE 1 TABLET BY MOUTH ONCE DAILY active Not Available Not Available No t Available naproxen 500 mg tablet 04/03 completed Not Available Not Available Not Available amoxicill in 875 mg-potass ium clavulana te 125 mg tablet TAKE 1 TABLET BY MOUTH TWICE DAILY 04/03 completed Not Available Not Available Not Available AcipHex 20 mg tablet,de layed release take 1 tablet (20MG) by oral route every day 06/09 completed Prescrib ed Elsewher e: No Locat ion: Thais sharp [facility] odify By: brayan gibbs DateTime : 05/07/20 11 07:59:28 AM Not Available Not Available Not Available Vitamin B-12 1,000 mcg tablet 04/30 completed Prescrib ed Elsewher e: Yes Loca tion: [facility] odify By: brayan gibbs DateTime : 06/09/20 14 08:30:00 AM Not Available Not Available Not Available Tylenol Extra Strength 500 mg tablet take 2 tablet by oral route every 6 hours as needed 04/30 completed Prescrib ed Elsewher e: Yes Loca tion: [facility] odify By: brayan salesuntraymond DateTime : 06/09/20 14 08:30:00 AM Not Available Not Available Not Available Aspirin Low-Stren gth 81 mg chewable tablet chew 1 tablet (81MG) by oral route every day 04/30 completed Prescrib ed Elsewher e: No Locat ion: [facility] odify By: jag dennis DateTime : 05/07/20 11 07:59:28 AM Not Available Not Available Not Available Vitamin C 500 mg capsule,e xtended release 09/16 completed Prescrib ed Elsewher e: No Locat ion: [facility] odify By: jb salesuntraymond DateTime : 05/07/20 11 07:59:28 AM Not Available Not Available Not Available Centrum 0.4 mg-162 mg-18 mg tablet 06/25 completed Prescrib ed Elsewher e: No Locat ion: [facility] odify By: olga salesuntraymond DateTime : 05/07/20 11 07:59:28 AM Not Available Not Available Not Available Os-Pradip 500 + D3 500 mg-5 mcg (200 unit) tablet 06/09 completed Prescrib ed Elsewher e: Yes Loca tion: [facility] odify By: brayan gibbs DateTime : 05/07/20 11 07:59:28 AM Not Available Not Available Not Available Fiber Therapy (methylce llulose-s ugar) oral powder active Prescrib ed Elsewher e: Yes Loca tion: [facility] odify By: olga gibbs DateTime : 06/25/20 16 10:00:00 AM Not Available Not Available Not Available fenofibra te 160 mg tablet TAKE 1 TABLET BY MOUTH DAILY active Not Available Not Available No t Available Calcio John 500 mg tablet 12/25 completed Prescrib ed Elsewher e: Yes Loca tion: [facility] odify By: prudence coyle DateTime : 03/19/20 12 10:00:00 AM Not Available Not Available Not Available fenofibra te 04/03 completed Not Available Not Available Not Available Tylenol Sinus Congestio n Pain 2 mg-5 mg-325 mg tablet take 2 tablet by oral route every 4 hours as needed not to exceed 8 tablets per 24hrs 06/09 completed Prescrib ed Elsewher e: Yes Loca tion: [facility] odify By: brayan gibbs DateTime : 05/07/20 11 07:59:28 AM Not Available Not Available Not Available Tylenol Sinus Congestio n Pain 5 mg-325 mg tablet 04/30 completed Prescrib ed Elsewher e: Yes Loca tion: [facility] odify By: olga gibbs DateTime : 06/25/20 16 10:00:00 AM Not Available Not Available Not Available Vitamin D3 10 mcg (400 unit) capsule 04/30 completed Prescrib ed Elsewher e: Yes Loca tion: [facility] odify By: stormy gibbs DateTime : 07/13/20 13 11:30:00 AM Not Available Not Available Not Available meloxicam 7.5 mg/5 mL oral suspensio n take 5 millilit er (7.5MG) by oral route every day 07/10 completed Prescrib ed Elsewher e: No Locat ion: [facility] odify By: brayan gibbs DateTime : 05/07/20 11 07:59:28 AM Not Available Not Available Not Available Glucoten 375 mg-300 mg-25 mg-0.5 mg tablet 06/09 completed Prescrib ed Elsewher e: No Locat ion: [facility] odify By: brayan Sharp ncounter DateTime : 05/07/20 11 07:59:28 AM Not Available Not Available Not Available Fish Oil 360 mg-1,200 mg capsule 12/25 completed Prescrib ed Elsewher e: Yes Loca tion: [facility] odify By: jag Alvaradote r DateTime : 05/07/20 11 07:59:28 AM Not Available Not Available Not Available fiber 2 gram chewable tablet 09/16 completed Prescrib ed Elsewher e: Yes Loca tion: [facility] odify By: jb Sharp ncounter DateTime : 03/19/20 12 10:00:00 AM Not Available Not Available Not Available Tirosint 13 mcg capsule take 1 capsule by oral route every day 04/03 completed Prescrib ed Elsewher e: Yes Loca tion: [facility] odify By: jag Alvaradote r DateTime : 05/07/20 11 07:59:28 AM Not Available Not Available Not Available loratadin e 10 mg capsule 04/03 completed Prescrib ed Elsewher e: Yes Loca tion: [facility] odify By: weston Sharp ncounter DateTime : 09/02/19 19 08:15:00 AM Not Available Not Available Not Available [employer] 1.5 billion cell capsule 04/30 completed Prescrib ed Elsewher e: Yes Loca tion: [facility] odify By: brayan Sharp ncounter DateTime : 06/09/20 14 08:30:00 AM Not Available Not Available Not Available Osteo Bi-Flex 12/25 completed Prescrib ed Elsewher e: Yes Loca tion: [facility] odify By: jovon Encount er DateTime : 03/19/20 12 10:00:00 AM Not Available Not Available Not Available metoprolo l miles-hydroc hlorothia z 04/03 completed Not Available Not Available Not Available latanopro st (bulk) 100 % oil 04/03 completed Prescrib ed Elsewher e: Yes [facility] odify By: jb gibbs DateTime : 09/16/19 04:00:00 PM Not Available Not Available Not Available Kapspargo Sprinkle 25 mg capsule,e xtended release 12/25 completed Prescrib ed Elsewher e: Yes Loca tion: [facility] odify By: weston gibbs DateTime : 09/02/19 08:15:00 AM Not Available Not Available Not Available Paxlovid 150 mg-100 mg tablets in a dose pack (Renal Dose) TAKE ACCORDIN G TO PACKAGE INSTRUTI ONS active Not Available Not Available No t Available Vitals Date Recorded Body height Body mass index (BMI) Body weight Systolic blood pressure Diastolic blood pressure Provider Name and Address Organization Details Last Updated DateTime 04/03/2021 149.86 cm 38.2 kg/m2 89873.96 g 124 mm[Hg] 77 mm[Hg] [facility] 1 17:42:57 Date Recorded Body height Body mass index (BMI) Body weight Systolic blood pressure Diastolic blood pressure Provider Name and Address Organization Details Last Updated DateTime 04/25/2021 149.86 cm 38.8 kg/m2 51603.74 g 134 mm[Hg] 88 mm[Hg] Julia Maciel [facility] 1 17:28:39 Date Recorded Body height Body mass index (BMI) Body weight Systolic blood pressure Diastolic blood pressure Provider Name and Address Organization Details Last Updated DateTime 04/30/2022 149.86 cm 38.6 kg/m2 18951.14 g 137 mm[Hg] 86 mm[Hg] [facility] 2 18:22:53 Date Recorded Body height Body mass index (BMI) Body weight Systolic blood pressure Diastolic blood pressure Provider Name and Address Organization Details Last Updated DateTime 05/15/2023 149.86 cm 39.7 kg/m2 00875.98 g 138 mm[Hg] 92 mm[Hg] Luh Landaverderamón [facility] 17:16:00 Social History Question Answer Notes LastModified by Organizat ion Details LastModified Time Tobacco Smoking Status Never Smoker Rosa greco, [facility] 04/03/2021 17:44:40 What Is Your Level Of Alcohol Consumption? None Information not available 04/03/2021 Has Tobacco Cessation Counseling Been Provided? No Information not available 04/03/2021 Do You Or Have You Ever Used Any Other Forms Of Tobacco Or Nicotine? No Information not available 04/03/2021 Sex: Unknown Functional Status None recorded. Mental Status None recorded. Family History Relationship Description Onset Age of this Age Resolved Age Notes LastModified by Organization Details LastModified Time Father Cerebrovascu lar accident [email or web address] Not available 13:55:52 Paternal Grandfather Cerebrovascu lar accident [email or web address] Not available 13:55:52 Maternal Aunt Malignant tumor of lung [email or web address] Not available 2020 13:56:05 Mother Hypertensive disorder [email or web address] Not available 2020 13:56:15 Mother Heart disease Athero sclero tic heart diseas e [email or web address] Not available 04/24/2021 13:58:33 Medical History Condition Response Allergies (Food, seasonal, environmental ) N Other N Breast Cancer N Drug/Latex Allergies/Reactions N Blood Transfusion N Dermatologic Disorders N Lung Disease N Defects or Inherited Disease N Breast Problem N Gestational Diabetes N Hematologic disorders N Anesthesia Complications N History of STI N Deep Vein Thrombosis N Polycystic ovary syndrome N Anxiety Disorder N Autoimmune disease N Arthritis N Infertility N Polyps N Acid Reflux (GERD) N History of abnormal pap N Cancer N Stroke N Varicosities N Neurologic/Epilepsy N Endometriosis N High Cholesterol N Headaches N Fibromyalgia N Kidney Disease N Heart Problems N Kidney or Bladder Problems N Thyroid Problems N GI Problems N Eating Disorder N Anemia N Art (IVF or FET) N Psychiatric Illness N Ovarian Cancer N Diabetes N Pulmonary (TB, Asthma) N Hepatitis/Liver Disease N No Past Medical History N Eczema N Urinary Tract Infection N Abuse/Domestic Violence N Asthma N Trauma/Violence N Depression/ depression N Heart Disease N Pre-Eclampsia N Hypertension N Osteoporosis N Thrombophilias N Gynecological History Statement/Question Response Date of Last Pap Smear 09/16/2019 Current Control Method Menopause Date of Last Mammogram 03/19/2021 Date of Last Colonoscopy 09/04/2021 Most Recent Bone Density 03/19/2021 Obstetrics History GPAL:G 0 P 0 0 0 0 Type Value Living 0 Total 0 Past Encounters Encounter ID Performer Location Encounter Start Date Encounter Closed Date Diagnosis/Indication Diagnosis SNOMED-CT Code Diagnosis ICD10 Code Diagnosis Note [id number] Megan Whyte MD [facility] [address] [address] 12/25/2020 17:54:59 12/26/2020 21:03:05 Blood in urine 08436474 R31.9 Disorder of vulva 632136 7 N90.9 Atrophic vaginitis 42214 000 N95.2 [id number] Megan Whyte MD [facility] [address],[place] [address] 04/03/2021 17:29:33 04/03/2021 23:34:50 Gynecologic examination 28131079 Z01.419 Abdominal bloating 43641 9008 R14.0 Atrophic vaginitis 68793 000 N95.2 [id number] Priyanka Del Valle [facility] [address],[place] [address] 04/19/2021 16:50:25 04/19/2021 17:32:51 Abdominal bloating 027104872 R14.0 [id number] Seth Gilbert MD [facility] [address],[place] [address] 04/25/2021 17:21:12 04/26/2021 13:51:12 Abdominal distension symptom 942209815 R14.0 This patient is a 65-year-ol d female presents for follow-up on ultrasound . She is a Dr. Whyte patient and was scheduled in the slot accidental ly. she was not in the office to see the patient. Patient I briefly discussed her ultrasound results. Her pelvic ultrasound was normal. We talked about her a GI /abdominal symptoms. She has a lot of abdominal distension and tightness in her upper abdomen. She is seeing her family practice doctor next week. She has a GI specialist who has been seeing her for similar problem. She feels satisfied with the informatio n that she got today. This is likely a GI problem. Her ovaries were not well visualized but there does not appear to be any masses in the pelvis And uterus is normal. She will follow up here as needed. [id number] Megan Whyte MD [facility] [address] [address] 04/30/2022 17:54:36 05/01/2022 14:11:28 Dysuria 36187690 R30.9 Atrophic vaginitis 39025 000 N95.2 Gynecologi c examination 21977065 Z01.419 [id number] NAGI ASKEW MD [facility] [address] [address] 05/15/2023 16:59:16 05/16/2023 10:58:15 Urinary symptoms 012881917 R39.9 Postmenopa usal osteopenia 018045002 M85.80 Gynecologi c examination 48518966 Z01.419 Z11.51 [facility]- Cervical cancer screening: Pap smear obtained today, will follow up on the results with the patient as they become available; if normal can consider no further testing- Breast cancer screening: mammogram ordered- Colon cancer screening: up to date Health Concerns Section Related Observation LastModified by Organization Detai ls LastModified Time None Recorded Concern Status LastModified by Organization Details LastModified Time None Recorded Advance Directives Directive None Recorded Payers Encounter Date Sequence Insurance Name Policy Number Policy Salvador Covered Member ID Salvador Member ID Guarantor Name 04/03/2021 1 [facility] Sarah A Kj [id number] Sarah A Kj 04/19/2021 1 [facility] Sarah A Kj [id number] Sarah A Kj 04/25/2021 1 [facility] Sarah A Kj [id number] Sarah A Kj 04/30/2022 1 [facility] Sarah A Kj [id number] Sarah A Kj 05/15/2023 1 [facility] Sarah A Kj [id number] Sarah A Kj Notes Date Note Type Note Provider Name and Address Organization Details Recorded Time 04/03/2021 text/html Patient is a 65y o G0 who presents for an annual exam. Last seen in December for perineal laceration, started estrace cream then. States it healed and the entire vulva and vagina feel much better with estrace. Does complain of abdominal bloating for years, seems worse lately. last pap-2019 NIL[facility] mammo-03/2021 colonoscopy-2019, 7 years dexa-03/2021 osteopenia szwfgxfka-16-15 years ago sexually active-n seatbelts-y exercise-y, some depression-denies domestic violence-denies tobacco-n concerns-none Megan Whyte MD [address], [place], [address], [facility] 04/04/2021 09:34:19 04/25/2021 text/html This patient is a 65-year-old female presents for follow-up on ultrasound. She is a Dr. Whyte patient and was scheduled in the slot accidentally. she was not in the office to see the patient. Patient I briefly discussed her ultrasound results. Her pelvic ultrasound was normal. We talked about her a GI /abdominal symptoms. She has a lot of abdominal distension and tightness in her upper abdomen. She is seeing her family practice doctor next week. She has a GI specialist who has been seeing her for similar problem. She feels satisfied with the information that she got today. This is likely a GI problem. Her ovaries were not well visualized but there does not appear to be any masses in the pelvis And uterus is normal. She will follow up here as needed. Seth Gilbert MD [address], [place], [address], [facility] 04/25/2021 18:00:48 04/30/2022 text/html Patient is a 66y o G0 who presents for an annual exam. needs refill on estrace cream. no concerns. last pap mammo-scheduled next month colonoscopy-2020 normal dexa-2020 osteopenia menopause-aroudn 52 sexually active-n seatbelts-y exercise-y depression-denies domestic violence-denies tobacco-n concerns- Megan Whyte MD [address], [place], [address], [place] [facility] 05/01/2022 09:02:08 05/15/2023 text/html Presents today for her annual well-woman exam. Nulliparous. Not sexually active. She has not noticed any changes or masses in her breasts. Went through menopause 10-15 years ago. No PMB. Feeling very bloated. Passing more gas. Colonoscopy 08/2021, gastric polyp and diverticulosis. Was diagnosed with UTI 2 weeks ago, completed antibiotics. Symptoms improved. NAGI ASKEW MD [address], [place], [address], [place] [facility] 05/16/2023 09:43:29 OBGyn Episode No OBEpisode recorded.
--- OUTSIDE RECORDS SUMMARY | 2024-09-21 12:53 | XMS_ITS | Referral Summary ---
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 Gender Identity Not on file Sexual Orientation Not on file Last Filed Vital Signs Vital Sign Reading Time Taken Comments Blood Pressure 126/74 08/23/2024 8:14 AM 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 Pulse 86 08/23/2024 8:14 AM 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 Temperature - - Respiratory Rate - - Oxygen Saturation 97% 08/23/2024 8:14 AM 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 Inhaled Oxygen Concentration - - Weight 92.9 kg (204 lb 11.2 oz) 08/23/2024 8: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
== END 2024-09-21 12:52 | disposition home or self-care (01) ==
PROVIDERS: Emergency Provider Nurse Practitioner; PCP Family Medicine
DX: J06.9 Acute upper respiratory infection, unspecified (principal); Z20.822 Contact with and (suspected) exposure to COVID-19; I12.9 Hypertensive chronic kidney disease with stage 1 through stage 4 chronic kidney disease, or unspecified chronic kidney disease; N18.30 Chronic kidney disease, stage 3 unspecified; K76.0 Fatty (change of) liver, not elsewhere classified; D75.839 Thrombocytosis, unspecified; M85.80 Other specified disorders of bone density and structure, unspecified site; E28.2 Polycystic ovarian syndrome; E03.9 Hypothyroidism, unspecified; E66.9 Obesity, unspecified; R73.03 Prediabetes; K21.9 Gastro-esophageal reflux disease without esophagitis; M19.90 Unspecified osteoarthritis, unspecified site; Z90.89 Acquired absence of other organs
CPT/HCPCS: 71046; 87426; 87804; 99213; G0463

== ENCOUNTER 2024-10-27 15:23 | Emergency (ER) | payer OTHER, SELFPAY ==
[2024-10-27 15:31] VITALS: BP 158/78; PULSE 92; RESP 16; TEMP 36.5; O2SAT 97
--- NOTE | 2024-10-27 16:08 | ED.URI ---
HPI - URI/Sore Throat General Chief Complaint: Urogenital-Female Stated Complaint: sore throat and congestion Time Seen by Provider: 10/27/24 15:35 Source: patient Mode of arrival: ambulatory Limitations: no limitations History of Present Illness HPI Narrative: 69-year-old female presents with complaint of nasal congestion, left ear pain, cough starting yesterday. Afebrile. No chest pain or shortness of breath. Patient is taking Delsym and echj-uol-nvdfgwk Coricidin to treat her symptoms. Also reports urinary itching, burning for 3-4. No nausea vomiting diarrhea. Patient would also like urine checked while here. All systems reviewed and negative except as noted above. Related Data Home Medications ?Medication ?Instructions ?Recorded ?Confirmed ?Last Taken ?Type latanoprost 0.005 % eye drops 1 drp ophthalmic (eye) QPM 07/14/19 10/02/24 1 Day Ago History ~10/19/19 Lactobacills gasseri-Bifidobac 1 cap PO DAILY 09/29/19 10/02/24 10/17/19 History bifidum,longum 1.5 billion cell capsule ([employer]) calcium 600 mg (as 1 tablet PO DAILY 09/29/19 10/02/24 10/17/19 History carbonate)-vitamin D3 10 mcg (400 unit) tablet (Calcium 600 + D(3)) cholecalciferol (vitamin D3) 25 25 mcg PO DAILY 09/29/19 10/02/24 10/17/19 History mcg (1,000 unit) tablet cyanocobalamin (vitamin B-12) 1,000 mcg PO DAILY 09/29/19 10/02/24 10/17/19 History 1,000 mcg capsule rxueahko-cyd-lknbj acid 500 1 tablet PO DAILY 09/29/19 10/02/24 10/17/19 History mcg-lycopene 300 mcg-lutein 250 mcg tablet (Complete Multi 50+) ascorbic acid (vitamin C) 500 mg 500 mg PO DAILY 06/26/21 10/02/24 Unknown History tablet (Vitamin C) aspirin 81 mg tablet 81 mg PO DAILY 06/26/21 10/02/24 Unknown History estradiol 0.01% (0.1 mg/gram) 1 g vaginal 2XW 11/06/21 10/02/24 Unknown History vaginal cream ferrous sulfate 325 mg (65 mg 325 mg PO DAILY 05/08/22 10/02/24 Unknown History iron) tablet tretinoin 0.025 % topical cream 1 applic topical QHS 09/15/24 10/02/24 Unknown History Allergies Allergy/AdvReac Type Severity Reaction Status Date / Time adhesive tape AdvReac Mild Redness of Verified 10/27/24 15:39 Skin Review of Systems Review of Systems: CONSTITUTIONAL: Denies fever, chills, or sweats. EYES: Denies visual changes, redness, or discharge. ENT: Reports rhinorrhea, congestion, left ear pain. Denies sore throat CARDIOVASCULAR: Denies chest pain, palpitations, or edema. RESPIRATORY: reports cough. Denies dyspnea. GASTROINTESTINAL: Denies abdominal pain, nausea, vomiting, or diarrhea. GENITOURINARY: Denies dysuria or hematuria. reports urinary itching and burning SKIN: Denies rash or itching. MUSCULOSKELETAL: Denies back pain, joint pain, or myalgia. NEUROLOGIC: Denies headache, numbness, or weakness. PSYCHIATRIC: Denies anxiety or depression. All other systems reviewed are negative, except as documented in HPI. [facility] Past Medical History Medical History Hepatic steatosis Intermittent low back pain CKD (chronic kidney disease) stage 3, GFR 30-59 ml/min Chronic venous insufficiency of lower extremity History of colon polyps Thrombocytosis Osteopenia Umbilical hernia Diastasis recti Environmental allergies History of electrophysiologic study for SVT 02/22/2013 Polycystic ovaries Thyroid nodule Hypothyroidism (acquired) History of PSVT (paroxysmal supraventricular tachycardia) 2012 - no reo-ccurence since cardiac ablation Vitamin D deficiency Unspecified osteoarthritis, unspecified site Pre-diabetes GERD without esophagitis Dyslipidemia Essential (primary) hypertension Shingles (~05/2021) Postmenopausal IBS (irritable bowel syndrome) Rectal polyp Surgical History Surgical History History of cataract surgery b/l - 2020 History of bilateral knee replacement left - 11/2017, right - 10/2019 History of partial thyroidectomy 07/1998 Hx of dilation and curettage 10/28/2003 H/O arthroscopic knee surgery 11/17/2017 H/O prior ablation treatment SVT - 02/2013 History of cholecystectomy 11/30/2003 Family History Family History Father Diabetes mellitus Cerebrovascular accident Mother Hypertension Depression Heart disease Sibling Hypertension Grandparent Heart disease Grandparent Heart disease Other Family history of coronary artery disease Social History Social History Smoking status: Never smoker Second hand tobacco smoke exposure: No Alcohol intake: never Substance use: never Substance use type: does not use Do You Feel Safe in your Home?: Yes Lack of Transportation: No Lack of Food: Never True Current Housing: I Have Housing Concerned About Future Housing: No Difficulty Paying Gas/Electric Bills: No Difficulty Paying for Meds: No Currently Unemployed: No Education: High School Diploma/GED Difficulty w/ Childcare or Family Care: No Living arrangements: with family Gender identity (if verbalized by the patient): Female Spiritual care concerns: No Agree to blood products: Yes Comments At time of signature, agree with nursing past medical, surgical, social and family history. There is no relevant family history pertinent to the presenting complaint. Exam Narrative: GENERAL: This is a well-nourished, well-developed patient, in no apparent distress. HEAD: normocephalic, atraumatic. EYES: PERRL. Sclera clear/white. Vision is grossly intact. EARS: External ears normal, auditory canals clear and without drainage, TMs normal without perforation. Hearing grossly intact. NOSE: External nose normal with no obvious nasal discharge, nares without redness, no rhinorrhea. THROAT: Mucous membranes moist, posterior pharynx clear. NECK: Neck supple, non-tender without lymphadenopathy, masses or thyromegaly. CARDIOVASCULAR: Regular rate and rhythm without murmurs, gallops, or rubs. RESPIRATORY: Clear to auscultation. Breath sounds equal bilaterally. No wheezes, rales, or rhonchi. SKIN: warm, Dry, intact with no suspicious lesions or rash, good texture and turgor. NEURO: awake, alert, and oriented to person, place and time. There were no obvious focal neurologic abnormalities. EXTREMITIES: No joint tenderness, effusion, or edema noted. Course Course Level of Care: Express Care Visit Vital Signs Vital signs: Vital Signs Temperature 36.5 C 10/27/24 15:31 Pulse Rate 92 10/27/24 15:31 Respiratory Rate 16 10/27/24 15:31 Blood Pressure 158/78 H 10/27/24 15:31 Pulse Oximetry 97 10/27/24 15:31 Oxygen Delivery Room Air 10/27/24 15:31 Temperature 36.5 C 10/27/24 15:31 Pulse Rate 92 10/27/24 15:31 Respiratory Rate 16 10/27/24 15:31 Blood Pressure 158/78 H 10/27/24 15:31 Pulse Oximetry 97 10/27/24 15:31 Oxygen Delivery Room Air 10/27/24 15:31 reviewed MDM - URI/Sore Throat MDM Narrative Medical decision making narrative: negative COVID and influenza test. Patient is well-appearing, nontoxic. Lungs clear to auscultation. Exam is normal. Urinalysis 1+ leukocytes. Urine culture ordered. Will treat with Augmentin. Recommend follow-up with primary care physician if symptoms not improving. Please be advised this is a medical document. It is intended for aouj-kb-maqg communication. It is written in medical language and may contain unfamiliar abbreviations or verbiage. Medical documents are intended to carry relevant information, facts as evident, and the clinical opinion of the practitioner at the time of the encounter. This report may have been done utilizing a voice recognition system. Attempts have been made to correct errors. However, there may be uncorrected grammatical, spelling, and recognition errors present. The file time of this note does not necessarily represent the time of service. Differential Diagnosis Differential diagnosis: Likely upper respiratory infection, sinusitis, viral infection and influenza Discharge Plan Discharge Clinical Impression: Viral upper respiratory tract infection with cough, Urinary tract infection, Pruritus of vagina Patient Disposition: Home, Self-Care Condition: Stable Instructions: Antibiotic Form, Urinary Tract Infection in Women (ED) Additional Instructions: your COVID and influenza test was negative today. Your symptoms are viral and may last 10-14 days. Continue using lurb-bvv-eivwgjb Coricidin and Delsym as directed on packaging. Take antibiotic as prescribed until gone to treat urinary tract infection. May take gosk-usp-adilbup azo as needed for urinary symptoms. Drink at least 64 oz water a day. Sleep with cool-mist humidifier in you bedroom. see your doctor if symptoms are not improving. Patient Language: Zambian Prescriptions: New fluconazole 150 mg tablet 150 mg PO ONCE 1 Days Qty: 1 0RF amoxicillin-pot clavulanate [Augmentin] 500-125 mg tablet 1 tablet PO BID 5 Days Qty: 10 0RF No Action latanoprost 0.005 % Drops 1 drp OPHTHALMIC (EYE) QPM Rx Instructions: BOTH EYES ascorbic acid (vitamin C) [Vitamin C] 500 mg Tablet 500 mg PO DAILY aspirin 81 mg Tablet 81 mg PO DAILY estradiol 0.01 % (0.1 mg/gram) cream 1 g vaginal 2XW ferrous sulfate 325 mg (65 mg iron) tablet 325 mg PO DAILY azelastine 137 mcg (0.1 %) spray,non-aerosol 1 spray intranasal Q12H 30 Days Qty: 30 5RF Rx Instructions: administer into each nostril tretinoin 0.025 % cream 1 applic topical QHS sulfamethoxazole-trimethoprim [Bactrim DS] 800-160 mg tablet 1 tablet PO Q12H Qty: 14 0RF mupirocin [Centany] 2 % ointment 1 applic topical TID Qty: 15 0RF cholecalciferol (vitamin D3) 25 mcg (1,000 unit) Tablet 25 mcg PO DAILY calcium carbonate-vitamin D3 [Calcium 600 + D(3)] 600 mg(1,500mg) -400 unit Tablet 1 tablet PO DAILY Complete Multi 50+ 500-300-250 mcg Tablet 1 tablet PO DAILY [employer] 1.5 billion cell Capsule 1 cap PO DAILY cyanocobalamin (vitamin B-12) 1,000 mcg Capsule 1,000 mcg PO DAILY fenofibrate 160 mg tablet 160 mg PO DAILY Qty: 90 1RF simvastatin 40 mg tablet 40 mg PO QHS Qty: 90 1RF levothyroxine 88 mcg tablet 88 mcg PO DAILY Qty: 90 1RF diltiazem HCl 240 mg capsule,extended release 24hr See Rx Instructions .ROUTE .COMPLEX Qty: 90 1RF Dose Instruction: TAKE 1 CAPSULE BY MOUTH DAILY Rx Instructions: TAKE 1 CAPSULE BY MOUTH DAILY omeprazole 40 mg capsule,delayed release(DR/EC) See Rx Instructions .ROUTE .COMPLEX Qty: 90 1RF Dose Instruction: TAKE 1 CAPSULE BY MOUTH DAILY Rx Instructions: TAKE 1 CAPSULE BY MOUTH DAILY ketoconazole 2 % cream See Rx Instructions .ROUTE .COMPLEX Qty: 30 0RF Dose Instruction: APPLY TOPICALLY TO THE AFFECTED AREA TWICE DAILY Rx Instructions: APPLY TOPICALLY TO THE AFFECTED AREA TWICE DAILY loratadine 10 mg tablet See Rx Instructions .ROUTE .COMPLEX Qty: 90 0RF Dose Instruction: TAKE ONE TABLET BY MOUTH DAILY Rx Instructions: TAKE ONE TABLET BY MOUTH DAILY metoprolol succinate 50 mg tablet extended release 24 hr See Rx Instructions .ROUTE .COMPLEX Qty: 90 1RF Dose Instruction: TAKE 1 TABLET BY MOUTH DAILY Rx Instructions: TAKE 1 TABLET BY MOUTH DAILY Follow-up/Referrals: Shruthi Purvis MD [Primary Care Provider] - Time of Disposition: 16:11
[2024-10-27 16:12] LABS: EDCOVIDSCREEN Negative (Negative); EDINFLUASCREEN Negative (Negative); EDINFLUBSCREEN Negative (Negative)
[2024-10-27 16:13] LABS: EDUAAPPEAR Clear; EDUABILI Negative (Negative); EDUABLOOD Negative (Negative); EDUACOLOR1 Light/Pale; EDUAGLUCOSE Negative (Negative); EDUAKETONE Negative (Negative); EDUALEUKO 1+ (Negative); EDUANITRATE Negative (Negative); EDUAPROTEIN Negative (Negative); EDUASPGRAVITY 1.015; EDUAUROBILI 0.2
--- OUTSIDE RECORDS SUMMARY | 2024-10-27 16:53 | XMS_ITS | Clinical Summary ---
Author Organization [facility] Address [address] [facility] [address] [address] [place] [address] Phone Care Team Providers Care Detail Supervisor Name Role Phone Consuelo Purvis MD Primary [...] Encounters Date Type Department Care Team Description 10/16/2024 External Device Data ST[facility] ABSTRACTION Provider, Abstract 10/15/2024 External Device Data [facility] ABSTRACTION Provider, Abstract 10/13/2024 External Device Data [facility] ABSTRACTION Provider, Abstract 10/13/2024 External Device Data [facility] ABSTRACTION Provider, Abstract 09/29/2024 External Device Data [facility] ABSTRACTION Provider, Abstract 09/02/2024 External Device Data [facility] ABSTRACTION Provider, Abstract from Last 3 Months Family History Medical [...] on file Legal Sex Female 5:13 AM MEDICAL EDUCATOR Gender Identity Not on file Sexual Orientation Not on file Last Filed Vital Signs Vital Sign Reading Time Taken Comments Blood Pressure 132/80 07/02/2024 9:43 AM MEDICAL EDUCATOR Pulse 81 07/02/2024 9:43 AM MEDICAL EDUCATOR Temperature 36.5 C (97.7 F) 07/02/2024 9:43 AM MEDICAL EDUCATOR Respiratory Rate 18 07/02/2024 9:43 AM MEDICAL EDUCATOR Oxygen Saturation 93% 07/02/2024 9:43 AM MEDICAL EDUCATOR Inhaled Oxygen Concentration - - Weight 91.2 kg (201 lb) 07/02/2024 9:43 AM MEDICAL EDUCATOR Height 152.4 cm (5') 06/12/2022 3:43 PM CDT Body Mass Index 39.26 06/12/2022 3:43 PM CDT Plan of Treatment Upcoming Encounters Date Type Department Care Team (Late st Contact Info) Description 04/08/2025 9:15 AM CDT Office Visit [facility] Oncology and Hematology [facility] [address] [facility] [address] [place] [address] Cliff Cerda MD [address] [facility] [address] [place] [address] Health Maintenance Due Date Last Done Comments Pre-Diabetes and Diabetes Screening 1955 DTAP/TDAP/TD VACCINES (1 - Tdap) 1976 BREAST CANCER SCREENING 1997 FIT-DNA Q 3 years 2002 FIT/FOBT Q 1 year 2002 Flex Sig/CT Colonography Q 5 years 2002 PNEUMOCOCCAL VACCINE 50+ YEA RS (1 of 1 - PCV) 2007 ZOSTER VACCINE (1 of 2) 2007 OSTEOPOROSIS SCREENING 2022 INFLUENZA VACCINE (#1) 2024 Preventative Visit- Commercial 08/11/2024 1 , 04/30/2022, 04/03/2021 COLORECTAL SCREENING 09/03/2031 09/03/2021, 08/10/20 12 Colorectal Cancer Screening 09/03/2031 RSV VACCINE (60+ or ) (1 - 1-dose 75+ series) 2032 Insurance [employer] Care Teams Detail Supervisor Relationship Specialty Start Date End Date Consuelo Purvis MD [address] [place] [address] PCP - General Family Practice 05/22/21
--- OUTSIDE RECORDS SUMMARY | 2024-10-27 16:53 | XMS_ITS | Clinical Summary ---
Author Organization [facility] [place] [address] Address [address] [place] [address] Care Team Providers Care Stockfeed Miller Name Role Phone Consuelo Purvis MD Primary [...] ORAL) Take by mouth daily. Active omega 7-ixc-dtd-fish oil 1,000 mg (120 mg-180 mg) capsule [...] Department Care Team Description 08/23/2024 8:15 AM RUBBER WASHER Office Visit [facility] Cardiology [address] [facility] [address] [place] [address] Ankit Joseph MD Paroxysmal supraventricular tachycardia (Primary Dx) from Last 3 Months Surgical [...] of : Stroke Coronary artery disease Mother Nita nary Artery Disease; Relation Name Status Comments [...] on file Legal Sex Female 11:01 AM RUBBER WASHER Gender Identity Not on file Sexual Orientation Not on file Obstetrics History Last Filed Vital Signs Vital Sign Reading Time Taken Comments Blood Pressure 126/74 08/23/2024 8:14 AM RUBBER WASHER Pulse 86 08/23/2024 8:14 AM RUBBER WASHER Temperature - - Respiratory Rate - - Oxygen Saturation 97% 08/23/2024 8:14 AM RUBBER WASHER Inhaled Oxygen Concentration - - Weight 92.9 kg (204 lb 11.2 oz) 08/23/2024 8:14 AM RUBBER WASHER Height 152.4 cm (5') 08/23/2024 8:14 AM RUBBER WASHER Body Mass Index 39.98 08/23/2024 8:14 AM RUBBER WASHER Plan of Treatment Health Maintenance Due Date Last Done Comments Colon Cancer Screening-Colonoscopy 1955 Depression Screening 1957 Fall Risk Assessment 1957 Hepatitis C Screening 1957 Osteoporosis Screening-Bone Density Scan 1957 DTaP/Tdap/Td Vaccine (1 - Tdap) 1968 Hepatitis B Screening 1975 Pneumococcal vaccine 65+ (1 of 1 - PCV) 2007 Zoster Vaccine (1 of 2) 2007 Well Visit 65+ 2022 Covid-19 Vaccine ( season) 2024 08/17/2021, 11/17/2020, 10/27/2020 Influenza Vaccine (#1) 2024 Breast Cancer Screening-Mammogram 10/03/2024 10/03/2023, 05/17/2022, 03/19/2021 Insurance [employer] OPEN ACCESS [employer] OPEN ACCESS Care Teams Stockfeed Miller Relationship Specialty Start Date End Date Consuelo Purvis MD PCP - General Family Practice 11/05/17
--- OUTSIDE RECORDS SUMMARY | 2024-10-27 16:53 | XMS_ITS | Data Portability ---
Author Organization [place] [facility], Main Office Address [address] [place] [address] Care Team Providers Care Site Operations Manager Name Role Phone PATTI ARANDA Primary Care Provider [phone] PATTI ARANDA Referring Provider [phone] Assessment No assessment recorded. Plan of Treatment [...] 3 view No observ ation record ed. [id number] [id number] [address], [place], [address], 10/09/2022 13:36:35 Result Notes None recorded. Problems Name Problem SNOMED Code Status Onset Date Resolution Date Notes Provider Name and Address Organization Details Recorded Time Osteoarthriti s of knee 619540830 Active Not Available [facility] 3 13:35:11 Osteoarthriti s 560075116 Active Not Available [facility] 13:35:11 Problem Notes None recorded. Procedures Surgical History Date Name Laterality Status Provider Name and Address Organization Details Recorded Time 11/18/19 18 Knee Replacement completed Not Available [facility] 10/09/2022 13:35:04 02/23/20 13 Pierre-Del Cid virus serology completed Not Available [facility] 10/09/2022 13:35:04 08/21/19 12 Knee arthroscopy/catrachita fabio completed Not Available [facility] 10/09/2022 13:35:04 10/30/19 04 Gallbladder Surgery completed Not Available [facility] 10/09/2022 13:35:04 10/28/19 04 D&c of cervical stump completed Not Available [facility] 10/09/2022 13:35:04 07/14/19 98 Thyroid Surgery completed Not Available [facility] 08/2022 13:35:04 Imaging Results Imaging Date Name Status LastModified by Organiz ation Details LastModified Time 12/18/2020 XR, knee, 3 view completed [id number] [facility] [place] [address], [place], [address], 10/09/2022 13:36:35 Procedure Notes None recorded. Medical [...] administe red by the provider 12/18 completed [facility]: [phone] Not Available [...] administe red by the provider 12/18 completed [facility]: [phone] Not Available [...] and Address Organization Details Last Updated DateTime 12/18/2020 40.1 kg/m2 147.32 cm 64609.74 g Not Available [email or web address] 10/09/2022 13:35:06 Social History Question Answer Notes LastModified by Organizat ion Details LastModified Time What Was The Date Of Your Most Recent Tobacco Screening? 12/18/2020 [id number] Information not available 10/09/2022 Sex: Unknown Functional Status None recorded. Mental Status None recorded. Family History Relationship Description Onset Age of this Age Resolved Age Notes LastModified by Organization Details LastModified Time Mother Heart disease [id number] Not available 10/09/2022 13:35:05 Father Family history of stroke [id number] Not available 10/09/2022 13:35:05 Father Diabetes mellitus [id number] Not available 10/09/2022 13:35:05 Medical History No medical history recorded. Gynecological HistoryNo gynecological history recorded. Obstetrics History GPAL:G 0 P 0 0 0 0 Past Encounters Encounter ID Performer Location Encounter Start Date Encounter Closed Date Diagnosis/Indication Diagnosis SNOMED-CT Code Diagnosis ICD10 Code Diagnosis Note [id number] [facility] [address] [place] [address] 12/18/2020 00:00:00 12/18/2020 18:16:26 Health Concerns Section Related Observation LastModified by Organization Detai ls LastModified Time None Recorded Concern Status LastModified by Organization Details LastModified Time None Recorded Advance Directives Directive None Recorded Payers None recorded. OBGyn Episode No OBEpisode recorded.
--- OUTSIDE RECORDS SUMMARY | 2024-10-27 16:53 | XMS_ITS | Clinical Summary ---
Author Organization [facility] Address [address] [place] [address] Care Team Providers Care Dental Technician Name Role Phone Consuelo Purvis MD Primary [...] Comments Blood Pressure 133/82 08/20/2021 10:00 PM BRAZER RESISTANCE Pulse 70 08/20/2021 10:00 PM BRAZER RESISTANCE Temperature 36.4 C (97.6 F) 08/20/2021 9:00 PM BRAZER RESISTANCE Respiratory Rate 20 08/20/2021 10:00 PM BRAZER RESISTANCE Oxygen Saturation 96% 08/20/2021 10:00 PM BRAZER RESISTANCE Inhaled Oxygen Concentration - - Weight 85.7 kg (189 lb) 08/20/2021 6:48 PM BRAZER RESISTANCE Height 152.4 cm (5') 08/20/2021 6:48 PM BRAZER RESISTANCE Body Mass Index 36.91 08/20/2021 6:48 PM BRAZER RESISTANCE Plan of Treatment Health Maintenance Due Date [...] to complete this topic Insurance [id number] [id number] [employer] PPO GENERIC - COMMERCIAL [employer] [id number] Care Teams Dental Technician Relationship Specialty Start Date End Date Consuelo Purvis MD [address] [place] [address] PCP - General FAMILY PRACTICE 02/23/21
--- OUTSIDE RECORDS SUMMARY | 2024-10-27 16:54 | XMS_ITS | Referral Summary ---
Author Organization [facility] [address] [facility] [address] Address [address] [place] [address] Care Team Providers Care Suspect Artist Name Role Phone Consuelo Purvis MD Primary Care Provider Encounters Date Type Department Care Team Description 08/23/2024 8:15 AM DATA TECHNICIAN Office Visit [facility] Cardiology [address] [place] [address] Ankit Joseph MD Paroxysmal supraventricular tachycardia (Primary Dx) from Last 3 Months Allergies [...] ORAL) Take by mouth daily. Active omega 7-kdb-cyi-fish oil 1,000 mg (120 mg-180 mg) capsule [...] on file Legal Sex Female 11:01 AM DATA TECHNICIAN Gender Identity Not on file Sexual Orientation Not on file Last Filed Vital Signs Vital Sign Reading Time Taken Comments Blood Pressure 126/74 08/23/2024 8:14 AM DATA TECHNICIAN Pulse 86 08/23/2024 8:14 AM DATA TECHNICIAN Temperature - - Respiratory Rate - - Oxygen Saturation 97% 08/23/2024 8:14 AM DATA TECHNICIAN Inhaled Oxygen Concentration - - Weight 92.9 kg (204 lb 11.2 oz) 08/23/2024 8:14 AM DATA TECHNICIAN Height 152.4 cm (5') 08/23/2024 8:14 AM DATA TECHNICIAN Body Mass Index 39.98 08/23/2024 8:14 AM DATA TECHNICIAN Plan of Treatment Not on file Insurance [employer] OPEN ACCESS [employer] OPEN ACCESS Care Teams Suspect Artist Relationship Specialty Start Date End Date Consuelo Purvis MD PCP - General Family Practice 11/05/17
--- OUTSIDE RECORDS SUMMARY | 2024-10-27 16:54 | XMS_ITS | Data Portability ---
Author Organization [facility] [place] Address [address] [place] [address] [place] [address] Care Team Providers Care Orthoptist Name Role Phone MANOJ ANDI Primary Care [...] if normal. FU 1 year or prn [email or web address] Not available 04/04/2021 09:33:54 04/30/2022 04/30/2022 healthy female exam/menopause patient declines std testing pap due next year mammogram scheduled next month colonoscopy UTD dexa Encouraged weight bearing exercise and 1500mg daily of Calcium with Vitamin D FU 1 year or prn [email or web address] Not available 05/01/2022 09:01:14 05/15/2023 05/15/2023 Annual gynecological exam performed. Patient will come back in a year unless there are new symptoms. [email or web address] Not available 05/15/2023 17:14:10 Plan of Treatment Reminders Order Date Submit Date Provider Last Modified By Organization Details Last Modified Time Details Appointments None recorded. Lab urinalysis, dipstick 2022 023 [email or web address] [address] [place], [address], [place], [address], 09:42:57 urinalysis, dipstick 2021 022 [facility], [address], [place], [address], 2 18:30:26 Referral None recorded. Procedures None recorded. Surgeries None recorded. Imaging DEXA, axial skeleton + vertebral fracture assessment 2022 023 [facility], [address], [place], [address], 4 11:59:50 US, pelvis 2020 021 [address], [address], [place], [address], 1 09:08:02 US, transvagina l 2020 [address], [address], [place], [address], 09:08:02 Medication Orders Estrace 0.01% (0.1 mg/gram) vaginal cream 2021 022 [id number], [address] [place] [address], [phone], 18:53:53 Patient TargetsNo targets recorded. Patient InstructionsNo instructions recorded. Reason for Referral None Reported. Results Created Date Observation Date Name Description Value Unit Range Abnormal Flag Note LastModifiedBy Organization Detail LastModifiedTime 04/30/2004/30/2022 urina lysis , dipst ick Leukocytes neg Not Available [facility] [address], [place], [address], 04/30/2022 18:30:06 04/30/20 22 04/30/2022 urina lysis , dipst ick Nitrite neg Not Available [place] [address], [place], [address], 04/30/2022 18:30:06 05/15/2005/15/2023 urina lysis , dipst ick Leukocytes +3 Not Available [facility] gary [address], [place], [address], 05/15/2023 17:42:53 05/15/2005/15/2023 urina lysis , dipst ick Nitrite Negati ve Not Available [place] [address], [place], [address], 05/15/2023 17:42:53 05/15/2005/15/2023 urina lysis , dipst ick Urobilinogen Negati ve Not Available [place] [address], [place], [address], 05/15/2023 17:42:53 05/15/2005/15/2023 urina lysis , dipst ick Protein Negati ve Not Available [place] [address], [place], [address], 05/15/2023 17:42:53 05/15/2005/15/2023 urina lysis , dipst ick pH 8 Not Available [place] [address], [place], [address], 05/15/2023 17:42:53 05/15/2005/15/2023 urina lysis , dipst ick Specific [place] 1.005 Not Available [facility] [address], [place], [address], 05/15/2023 17:42:53 05/15/2005/15/2023 urina lysis , dipst ick Ketone Negati ve Not Available [place] [address], [place], [address], 05/15/2023 17:42:53 05/15/2005/15/2023 urina lysis , dipst ick Bilirubin Negati ve Not Available [place] [address], [place], [address], 05/15/2023 17:42:53 05/15/20 23 05/15/2023 urina lysis , dipst ick Glucose Negati ve Not Available [place] [address], [place], [address], 05/15/2023 17:42:53 05/15/20 23 05/15/2023 urina lysis , dipst ick Appearance Clear Not Available [facility] [address], [place], [address], 05/15/2023 17:42:53 05/15/20 23 05/15/2023 urina lysis , dipst ick Color Dark yellow Not Available [place] [address], [place], [address], 05/15/2023 17:42:53 10/20/19 24 10/20/2023 CMP(C OMPRE HENSI VE METAB OLIC PANEL ) sodium 141 mmol/ L 133-14 6 Not Available [facility] (Lab) [address] [place], [address], 10/21/2023 04:26:23 10/20/19 24 10/20/2023 CMP(C OMPRE HENSI VE METAB OLIC PANEL ) potassium 4.0 mmol/ L 3.5-5. 1 Not Available [facility] (Lab) [address] [place], [address], 10/21/2023 04:26:23 10/20/19 24 10/20/2023 CMP(C OMPRE HENSI VE METAB OLIC PANEL ) chloride 103 mmol/ L 98-107 Not Available [facility] (Lab) [address] [place], [address], 10/21/2023 04:26:23 10/20/19 24 10/20/2023 CMP(C OMPRE HENSI VE METAB OLIC PANEL ) carbon dioxide 31 mmol/ L 21-31 Not Available [facility] (Lab) [address] [facility], [place], [address], 10/21/2023 04:26:23 10/20/19 24 10/20/2023 CMP(C OMPRE HENSI VE METAB OLIC PANEL ) anion gap 7 mmol/ L 4-13 Not Available [facility] (Lab) [address] [facility], [place], [address], 10/21/2023 04:26:23 10/20/19 24 10/20/2023 CMP(C OMPRE HENSI VE METAB OLIC PANEL ) blood urea nitrogen 21 mg/dL 7-25 Not Available [facility] (Lab) [address] [facility], [place], [address], 10/21/2023 04:26:23 10/20/19 24 10/20/2023 CMP(C OMPRE HENSI VE METAB OLIC PANEL ) creatinine 0.96 mg/dL 0.60-1 .30 Not Available [facility] (Lab) [address] [facility], [place], [address], 10/21/2023 04:26:23 10/20/19 24 10/20/2023 CMP(C OMPRE HENSI VE METAB OLIC PANEL ) egfrcr (CKD-epi 2020) 65 mL/mi n/1.7 3_m2 >=60 Not Available [facility] (Lab) [address] [facility], [place], [address], 10/21/2023 04:26:23 10/20/19 24 10/20/2023 CMP(C OMPRE HENSI VE METAB OLIC PANEL ) calcium 9.3 mg/dL 8.3-10 .5 Not Available [facility] (Lab) [address] [facility], [place], [address], 10/21/2023 04:26:23 10/20/19 24 10/20/2023 CMP(C OMPRE HENSI VE METAB OLIC PANEL ) glucose 88 mg/dL 70-100 Not Available [facility] (Lab) [address] [facility], [place], [address], 10/21/2023 04:26:23 10/20/19 24 10/20/2023 CMP(C OMPRE HENSI VE METAB OLIC PANEL ) protein, total 6.3 g/dL 6.4-8. 3 low Not Available [facility] (Lab) [address] [facility], [place], [address], 10/21/2023 04:26:23 10/20/19 24 10/20/2023 CMP(C OMPRE HENSI VE METAB OLIC PANEL ) albumin 3.9 g/dL 3.5-5. 0 Not Available [facility] (Lab) [address] [facility], [place], [address], 10/21/2023 04:26:23 10/20/19 24 10/20/2023 CMP(C OMPRE HENSI VE METAB OLIC PANEL ) ALT 48 units /L 9-43 high Not Available [facility] (Lab) [address] [facility], [place], [address], 10/21/2023 04:26:23 10/20/19 24 10/20/2023 CMP(C OMPRE HENSI VE METAB OLIC PANEL ) alkaline phosphatase 67 units /L 34-104 Not Available [facility] (Lab) [address] [facility], [place], [address], 10/21/2023 04:26:23 10/20/19 24 10/20/2023 CMP(C OMPRE HENSI VE METAB OLIC PANEL ) AST 47 units /L 13-39 high Not Available [facility] (Lab) [address] [facility], [place], [address], 10/21/2023 04:26:23 10/20/19 24 10/20/2023 CMP(C OMPRE HENSI VE METAB OLIC PANEL ) bilirubin, total 0.3 mg/dL 0.2-1. 2 Not Available [facility] (Lab) [address] [facility], [place], [address], 10/21/2023 04:26:23 10/20/19 24 10/20/2023 VITAM IN D, 25-OH (TOTA L D2/D3 ) vitamin D, 25-hydroxy, total 48.2 NG/mL 30.0-1 00.0 Sugge stive of Defic iency : <20 ng/mL Sugge stive of Insuf ficie ncy: 20-29 ng/mL Sugge stive of Suffi cienc y: 30-10 0 ng/mL Sugge stive of Toxic ity: >150 ng/mL Not Available [facility] (Lab) [address] [facility], [place], [address], 10/21/2023 04:26:23 03/19/20 21 03/19/2021 MAMMO , scree kishan, bilat eral No observ ation record ed. [email or web address] [facility], [place], [address], 03/19/2021 17:32:45 03/21/20 21 03/19/2021 DEXA, axial skele ton + verte bral fract ure asses sment No observ ation record ed. [address] [address], [place], [address], 04/05/2021 14:47:03 04/19/20 21 04/19/2021 US, pelvi s No observ ation record ed. [email or web address] [place] [address], [place], [address], 04/19/2021 17:50:44 04/19/20 21 04/19/2021 US, trans micaela [place] No observ ation record ed. [email or web address] [place] [address], [place], [address], 04/19/2021 17:50:54 04/19/20 21 04/19/2021 US, pelvi s No observ ation record ed. hawk [address], [place], [address], 04/30/2021 11:08:10 05/17/20 22 05/16/2022 MAMMO , scree kishan, bilat eral No observ ation record ed. [address] [facility], [place], [address], 05/20/2022 08:56:26 10/03/19 24 10/03/2023 MAMMO , scree kishan, bilat eral No observ ation record ed. [address] [facility], [place], [address], 10/28/2023 16:54:47 10/06/19 24 10/03/2023 DEXA, axial skele ton + verte bral fract ure asses sment No observ ation record ed. [email or web address] [facility], [place], [address], 10/16/2023 12:24:38 Result Notes None recorded. 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 1 18:07:57 Screenin g for malignan t neoplasm of rectum Completed 201912/25/2020 Encounte r for screenin g for malignan t neoplasm of rectum;P ractice ID: [id number] Megan Whyte MD [address], [place], [address], [facility] 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 1 18:07:44 Adult health examinat ion Completed 201012/25/2020 Routine general medical examinat ion at a health care facility ;Practic e ID: 0001 Megan Whyte MD [address], [place], [address], [facility] 18:07:35 Speciali zed medical examinat ion Completed 201012/25/2020 Routine gynecolo gical examinat ion;Prac sukhi ID: 0001 Megan Whyte MD [address], [place], [address], [facility] 18:07:59 Screenin g for malignan t neoplasm of cervix Completed 201012/25/2020 Pap Smear;Pr actice ID: 0001 Megan Whyte MD [address], [place], [address], [facility] 1 18:07:50 Contact dermatit is 99084160 Active 2011 Contact dermatit is and other eczema, unspecif ied cause;Pr actice ID: 0001 Not Available [facility] 0 18:44:17 Finding of trunk structur e [id number] Completed 201112/25/2020 Abdomina l or pelvic swelling , mass, or lump, generali zed;Prac sukhi ID: 0001 Megan Whyte MD [address], [place], [address], [facility] 1 18:07:42 Leukocyt osis 784856868 Active 2012 LEUKOCYT OSIS NOS;Prac sukhi ID: 0001 Not Available [facility] 0 18:44:17 Obesity 593642878 Completed 201312/25/2020 Obesity, unspecif ied;Prac sukhi ID: 0001 Megan Whyte MD [address], [place], [address], [facility] 1 18:07:48 Epigastr ic pain 86923880 Completed 201812/25/2020 Epigastr ic pain;Pra ctice ID: 0001 Megan Whyte MD [address], [place], [address], [facility] 1 18:07:39 Body mass index 30+ - obesity 648114536 Active 2016 Body mass index (BMI) 33.0-33. 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 18:08:02 Osteopen ia 240835425 Active 2020 L and R femoral neck Mgean Whyte MD [address], [place], [address], [facility] 16:36:36 Atrophic vaginiti s 91898977 Active 2020 Mgean Whyte MD [address], [place], [address], [facility] 09:32:57 Abdomina l bloating 752870652 Active 2020 Megan Whyte MD [address], [place], [address], [facility] 09:32:59 Problem Notes None recorded. Procedures Surgical History Date Name Laterality Status Provider Name and Address Organization Details Recorded Time 022 Date of Last Colonoscopy completed NAGI ASKEW MD [address], [place], [address], [facility] 05/15/2023 17:39:08 021 Date of Last Mammogram completed Rosa Roblero [facility] 04/30/2022 10:10:57 021 Most Recent Bone Density completed Rosa Roblero [facility] 04/30/2022 10:11:04 020 Date of Last Pap Smear completed Rosa Roblero [facility] 12/25/2020 18:07:44 018 Knee arthroscopy/surger y completed Rosa Roblero [facility] 04/30/2022 18:24:11 013 [facility] 12/25/2020 17:15:42 008 hysteroscopy completed [facility] 12/25/2020 17:16:54 004 Cholecystectomy completed [facility] 04/30/2022 18:24:45 004 hysteroscopy completed [facility] 04/30/2022 18:24:35 002 Endometrial Biopsy completed [facility] 12/25/2020 17:17:44 998 removal of thyroid nodule completed [facility] 04/30/2022 18:24:27 total knee replacement completed [facility] 12/25/2020 17:18:34 Imaging Results Imaging Date Name Status LastModified by Organization Details LastModified Time 03/19/2021 MAMMO, screening, bilateral completed [address] [facility], [place], [address], 03/19/2021 17:32:45 03/19/2021 DEXA, axial skeleton + vertebral fracture assessment completed [address], [place], [address], 04/05/2021 14:47:03 04/19/2021 US, pelvis completed [email or web address] [place] [address], [place], [address], 04/19/2021 17:50:44 04/19/2021 US, transvaginal completed [email or web address] [facility] [address], [place], [address], 04/19/2021 17:50:54 04/19/2021 US, pelvis completed [email or web address], [place], [address], 04/30/2021 11:08:10 05/16/2022 MAMMO, screening, bilateral completed [email or web address] [place] [address], [address], 05/20/2022 08:56:26 10/03/2023 MAMMO, screening, bilateral completed [address] [place] [address], [address], 10/28/2023 16:54:47 10/03/2023 DEXA, axial skeleton + vertebral fracture assessment completed [address], [address], 10/16/2023 12:24:38 Procedure Notes None recorded. Medical [...] morning and evening 06/09 completed Prescrib ed [facility] e: Yes Loca tion: [facility] M odify By: amnatasha salesuntraymond DateTime : [...] Prescrib ed Elsewher e: Yes [facility] By: jb gibbs DateTime : 07/10/20 [...] Prescrib ed Elsewher e: Yes Loca tion: [facility] odify By: olga gibbs DateTime : 06/25/20 16 10:00:00 AM Not Available Not Available Not Available simvastat in 80 mg tablet 04/03 completed Prescrib ed Elsewher e: No [facility] odify By: jag dennis DateTime : 05/07/20 11 07:59:28 AM Not Available Not Available Not Available Terazol 3 0.8 % vaginal cream apply cream to affected area BID 06/09 completed Prescrib ed Elsewher e: No [facility] odify By: brayan gibbs DateTime : 03/19/20 [...] Elsewher e: Yes Loca tion: Thais sharp [facility] odify By: jb Sharp ncounter DateTime : 09/16/19 04:00:00 PM Not Available Not Available Not Available Flagyl 500 mg tablet take 1 tablet (500MG) by oral route 2 times every day for 7 days 07/25 completed Prescrib ed Elsewher e: No Locat ion: Thais sharp [facility] odify By: marques Wasserman er DateTime : 07/19/20 13 10:27:00 AM Not Available Not Available Not Available benzonata te 100 mg capsule TAKE 1 CAPSULE BY MOUTH THREE TIMES DAILY NEEDED FOR COUGH active Not Available Not Available No t Available Vitamin B-6 100 mg tablet 06/09 completed Prescrib ed Elsewher e: Yes Loca tion: Thais sharp [facility] odify By: brayan Sharp ncounter DateTime : 03/19/20 12 10:00:00 AM Not Available Not Available Not Available black cohosh root extract 40 mg capsule 06/25 completed Prescrib ed Elsewher e: Yes Loca tion: Thais sharp [facility] odify By: olga Sharp ncounter DateTime : [...] ed Elsewher e: Yes Loca tion: [facility] odify By: amkuhbradford Sharp ncounter DateTime : 06/09/20 14 08:30:00 AM Not Available Not Available Not Available metoprolo l succinate ER 25 mg tablet,ex tended release 24 hr take 1 tablet (25MG) by oral route every day 07/13 completed Prescrib ed Elsewher e: No [facility] odify By: stormy Sharp ncounter DateTime [...] No Locat ion: [facility] odify By: olga Sharp ncounter DateTime : [...] ed Elsewher e: No Locat ion: [facility] hsarp [facility] odify By: brayan gibbs DateTime : 05/07/20 11 07:59:28 AM Not Available Not Available Not Available Vitamin B-12 1,000 mcg tablet 04/30 completed Prescrib ed Elsewher e: Yes Loca tion: Thais sharp [facility] odify By: brayan gibbs DateTime : 06/09/20 14 08:30:00 AM Not Available Not Available Not Available Tylenol Extra Strength 500 mg tablet take 2 tablet by oral route every 6 hours as needed 04/30 completed Prescrib ed Elsewher e: Yes Loca tion: Thais sharp [facility] odify By: brayan salesuntraymond DateTime : 06/09/20 14 08:30:00 AM Not Available Not Available Not Available Aspirin Low-Stren gth 81 mg chewable tablet chew 1 tablet (81MG) by oral route every day 04/30 completed Prescrib ed Elsewher e: No Locat ion: Thais sharp [facility] odify By: jag dennis DateTime : 05/07/20 11 07:59:28 AM Not Available Not Available Not Available Vitamin C 500 mg capsule,e xtended release 09/16 completed Prescrib ed Elsewher e: No Locat ion: Thais sharp [facility] odify By: jb salesuntraymond DateTime : 05/07/20 11 07:59:28 AM Not Available Not Available Not Available Centrum 0.4 mg-162 mg-18 mg tablet 06/25 completed Prescrib ed Elsewher e: No Locat ion: Thais sharp [facility] odify By: olga salesuntraymond DateTime : 05/07/20 11 07:59:28 AM Not Available Not Available Not Available Os-Pradip 500 + D3 500 mg-5 mcg (200 unit) tablet 06/09 completed Prescrib ed Elsewher e: Yes Loca tion: Thais sharp [facility] odify By: brayan gibbs DateTime : 05/07/20 11 07:59:28 AM Not Available Not Available Not Available Fiber Therapy (methylce llulose-s ugar) oral powder active Prescrib ed Elsewher e: Yes Loca tion: Thais sharp [facility] odify By: olga gibbs DateTime : 06/25/20 16 10:00:00 AM Not Available Not Available Not Available fenofibra te 160 mg tablet TAKE 1 TABLET BY MOUTH DAILY active Not Available Not Available No t Available Calcio Joceline 500 mg tablet 12/25 completed Prescrib ed Elsewher e: Yes Loca tion: Thais sharp [facility] odify By: prudence coyle DateTime : 03/19/20 [...] Elsewher e: Yes Loca tion: Thais sharp [facility] odify By: brayan gibbs DateTime : 05/07/20 11 07:59:28 AM Not Available Not Available Not Available Tylenol Sinus Congestio n Pain 5 mg-325 mg tablet 04/30 completed Prescrib ed Elsewher e: Yes Loca tion: Thais sharp [facility] odify By: olga gibbs DateTime : 06/25/20 16 10:00:00 AM Not Available Not Available Not Available Vitamin D3 10 mcg (400 unit) capsule 04/30 completed Prescrib ed Elsewher e: Yes Loca tion: Thais sharp [facility] odify By: stormy gibbs DateTime : 07/13/20 13 11:30:00 AM Not Available Not Available Not Available meloxicam 7.5 mg/5 mL oral suspensio n take 5 millilit er (7.5MG) by oral route every day 07/10 completed Prescrib ed Elsewher e: No Locat ion: Thais sharp [facility] odify By: brayan gibbs DateTime : 05/07/20 11 07:59:28 AM Not Available Not Available Not Available Glucoten 375 mg-300 mg-25 mg-0.5 mg tablet 06/09 completed Prescrib ed Elsewher e: No Locat ion: Thais sharp [facility] odify By: brayan Sharp ncounter DateTime : 05/07/20 11 07:59:28 AM Not Available Not Available Not Available Fish Oil 360 mg-1,200 mg capsule 12/25 completed Prescrib ed Elsewher e: Yes Loca tion: Thais sharp [facility] odify By: jag Alvaradote r DateTime : 05/07/20 11 07:59:28 AM Not Available Not Available Not Available fiber 2 gram chewable tablet 09/16 completed Prescrib ed Elsewher e: Yes Loca tion: Thais sharp [facility] odify By: jb Sharp ncounter DateTime : 03/19/20 12 10:00:00 AM Not Available Not Available Not Available Tirosint 13 mcg capsule take 1 capsule by oral route every day 04/03 completed Prescrib ed Elsewher e: Yes Loca tion: Thais sharp [facility] odify By: jag Alvaradote r DateTime : 05/07/20 11 07:59:28 AM Not Available Not Available Not Available loratadin e 10 mg capsule 04/03 completed Prescrib ed Elsewher e: Yes Loca tion: Thais sharp [facility] odify By: weston Sharp ncounter DateTime : 09/02/19 19 08:15:00 AM Not Available Not Available Not Available [employer] 1.5 billion cell capsule 04/30 completed Prescrib ed Elsewher e: Yes Loca tion: Thais sharp [facility] odify By: brayan Sharp ncounter DateTime : 06/09/20 14 08:30:00 AM Not Available Not Available Not Available Osteo Bi-Flex 12/25 completed Prescrib ed Elsewher e: Yes Loca tion: Thais sharp [facility] odify By: jovon Encount er DateTime : 03/19/20 12 10:00:00 AM Not Available Not Available Not Available metoprolo l miles-hydroc hlorothia z 04/03 completed Not Available Not Available Not Available latanopro st (bulk) 100 % oil 04/03 completed Prescrib ed Elsewher e: Yes Loca [facility]ion: [facility] odify By: jb gibbs DateTime : 09/16/19 04:00:00 PM Not Available Not Available Not Available Kapspargo Sprinkle 25 mg capsule,e xtended release 12/25 completed Prescrib ed Elsewher e: Yes Loca tion: Patricio lila [facility] odify By: weston gibbs DateTime : 09/02/19 [...] Updated DateTime 04/03/2021 149.86 cm 38.2 kg/m2 90860.96 g 124 mm[Hg] 77 mm[Hg] [facility] 1 17:42:57 Date Recorded Body height Body mass index (BMI) Body weight Systolic blood pressure Diastolic blood pressure Provider Name and Address Organization Details Last Updated DateTime 04/25/2021 149.86 cm 38.8 kg/m2 77347.74 g 134 mm[Hg] 88 mm[Hg] Julia Maciel [facility] 1 17:28:39 Date Recorded Body height Body mass index (BMI) Body weight Systolic blood pressure Diastolic blood pressure Provider Name and Address Organization Details Last Updated DateTime 04/30/2022 149.86 cm 38.6 kg/m2 33509.14 g 137 mm[Hg] 86 mm[Hg] [facility] 2 18:22:53 Date Recorded Body height Body mass index (BMI) Body weight Systolic blood pressure Diastolic blood pressure Provider Name and Address Organization Details Last Updated DateTime 05/15/2023 149.86 cm 39.7 kg/m2 80371.98 g 138 mm[Hg] 92 mm[Hg] Luh Landaverderamón [facility] 17:16:00 Social History Question Answer Notes LastModified by Organizat ion Details LastModified Time Tobacco Smoking Status Never Smoker Rosa greco, [facility] 04/03/2021 17:44:40 What Is Your Level [...] SNOMED-CT Code Diagnosis ICD10 Code Diagnosis Note [id number] Megan Whyte MD [place] [address],[place] [address] 12/25/2020 17:54:59 12/26/2020 21:03:05 Blood in urine 55750874 R31.9 Disorder of vulva 355467 7 N90.9 Atrophic vaginitis 31019 000 N95.2 [id number] Megan Whyte MD [place] [address],[place] [address] 04/03/2021 17:29:33 04/03/2021 23:34:50 Gynecologic examination 92531374 Z01.419 Abdominal bloating 03155 9008 R14.0 Atrophic vaginitis 04885 000 N95.2 [id number] Priyanka Del Valle [place] [address],[place] [address] 04/19/2021 16:50:25 04/19/2021 17:32:51 Abdominal bloating 647197248 R14.0 [id number] Seth Gilbert MD [place] [address],[place] [address] 04/25/2021 17:21:12 04/26/2021 13:51:12 Abdominal distension symptom 101673234 R14.0 This patient is a 65-year-ol d [...] She will follow up here as needed. [id number] Megan Whyte MD [place] [address],[place] [address] 04/30/2022 17:54:36 05/01/2022 14:11:28 Dysuria 83575168 R30.9 Atrophic vaginitis 08495 000 N95.2 Gynecologi c examination 29884494 Z01.419 [id number] NAGI ASKEW MD [place] [address],[place] [address] 05/15/2023 16:59:16 05/16/2023 10:58:15 Urinary symptoms 914050750 R39.9 Postmenopa usal osteopenia 815316027 M85.80 Gynecologi c examination 55086475 Z01.419 Z11.51 [facility]- Cervical cancer screening: Pap smear obtained today, [...] Salvador Member ID Guarantor Name 04/03/2021 [facility] Sarah A Kj [id number] Sarah A Kj 04/19/2021 1 [facility] Sarah A Kj [id number] Sarah A Kj 04/25/2021 1 [facility] Sarah A Kj [id number] Sarah A Kj 04/30/2022 1 [facility] Sarah A Kj [id number] Sarah A Kj 05/15/2023 1 [facility] Sarah A Kj [id number] Sarah A Kj Notes Date Note Type [...] NILM mammo-03/2021 colonoscopy-2019, 7 years dexa-03/2021 osteopenia [id number]-72-56 years ago sexually active-n seatbelts-y exercise-y, some depression-denies domestic violence-denies tobacco-n concerns-none Megan Whyte MD [address], [place], [address], [facility] 04/04/2021 09:34:19 04/25/2021 text/html This [...] needed. Seth Gilbert MD [address], [place], [address], [facility] 04/25/2021 18:00:48 04/30/2022 text/html Patient is a 66y o G0 who presents for an annual exam. needs refill on estrace cream. no concerns. last pap mammo-scheduled next month colonoscopy-2020 normal dexa-2020 osteopenia menopause-aroudn 52 sexually active-n seatbelts-y exercise-y depression-denies domestic violence-denies tobacco-n concerns- Megan Whyte MD [address], [place], [address], [place] [facility] 05/01/2022 09:02:08 05/15/2023 text/html Presents today [...] improved. NAGI ASKEW MD [address], [place], [address], [place] [facility] 05/16/2023 09:43:29 OBGyn Episode No OBEpisode recorded.
== END 2024-10-27 16:16 | disposition home or self-care (01) ==
PROVIDERS: Emergency Provider Nurse Practitioner Family; PCP Family Medicine
DX: J06.9 Acute upper respiratory infection, unspecified (principal); R05.9 Cough, unspecified; N39.0 Urinary tract infection, site not specified; N89.8 Other specified noninflammatory disorders of vagina; Z20.822 Contact with and (suspected) exposure to COVID-19; K76.0 Fatty (change of) liver, not elsewhere classified; I12.9 Hypertensive chronic kidney disease with stage 1 through stage 4 chronic kidney disease, or unspecified chronic kidney disease; N18.30 Chronic kidney disease, stage 3 unspecified; M85.80 Other specified disorders of bone density and structure, unspecified site; E28.2 Polycystic ovarian syndrome; E03.9 Hypothyroidism, unspecified; E55.9 Vitamin D deficiency, unspecified; R73.03 Prediabetes; I87.2 Venous insufficiency (chronic) (peripheral); K21.9 Gastro-esophageal reflux disease without esophagitis; K58.9 Irritable bowel syndrome, unspecified; D75.839 Thrombocytosis, unspecified; M19.90 Unspecified osteoarthritis, unspecified site; Z96.653 Presence of artificial knee joint, bilateral; Z90.89 Acquired absence of other organs; Z79.82 Long term (current) use of aspirin
CPT/HCPCS: 81003; 87086; 87426; 87804; 99213; G0463

== ENCOUNTER 2024-12-10 14:58 | Outpatient (CLI) | payer OTHER, SELFPAY ==
--- NOTE | ~2024-12-10 | MM_ITS ---
EXAMINATION: MM screening [facility] BI w brandon HISTORY: Screening TECHNIQUE: Craniocaudal and mediolateral oblique 3-D tomosynthesis images were obtained and synthetic 2-D images were generated. CAD analysis was submitted and interpreted. COMPARISON: Comparison to multiple prior studies sequentially, with oldest reviewed study dated 05/12. BREAST PARENCHYMAL COMPOSITION: Not dense: There are scattered areas of fibroglandular density. FINDINGS: There is no evidence of suspicious mass, calcification, or architectural distortion to sugg est malignancy in either breast. There has been no suspicious interval change. IMPRESSION: 1. No mammographic evidence of malignancy. 2. Recommend routine screening mammography in one year. BI-RADS Category 1: Negative Reviewed, dictated and finalized at location A.
--- OUTSIDE RECORDS SUMMARY | 2024-12-11 14:46 | XMS_ITS | Clinical Summary ---
Author Organization [facility] [address] Address [address] [place] [address] Care Team Providers Care Glass Lined Tank Repairer Name Role Phone Consuelo Purvis MD Primary [...] ORAL) Take by mouth daily. Active omega 6-bsz-yxy-fish oil 1,000 mg (120 mg-180 mg) capsule [...] Diagnosed Date Paroxysmal supraventricular tachycardia 11/07/19 18 Surgical History Surgery Date Site/Laterality Comments CHOLECYSTECTOMY [...] on file Legal Sex Female 11:01 AM CASING SEWER Gender Identity Not on file Sexual Orientation Not on file Obstetrics History Last Filed Vital Signs Vital Sign Reading Time Taken Comments Blood Pressure 126/74 08/23/2024 8:14 AM CASING SEWER Pulse 86 08/23/2024 8:14 AM CASING SEWER Temperature - - Respiratory Rate - - Oxygen Saturation 97% 08/23/2024 8:14 AM CASING SEWER Inhaled Oxygen Concentration - - Weight 92.9 kg (204 lb 11.2 oz) 08/23/2024 8:14 AM CASING SEWER Height 152.4 cm (5') 08/23/2024 8:14 AM CASING SEWER Body Mass Index 39.98 08/23/2024 8:14 AM CASING SEWER Plan of Treatment Health Maintenance Due Date [...] Vaccine ( season) 2024 08/17/2021, 11/17/2020, 10/27/2020 Breast Cancer Screening-Mammogram 10/03/2024 10/03/2023, 05/17/2022, 03/19/2021 Influenza Vaccine (Season Ended) 2025 Insurance [employer] OPEN ACCESS [employer] OPEN ACCESS Care Teams Glass Lined Tank Repairer Relationship Specialty Start Date End Date Consuelo Purvis MD PCP - General Family Practice 11/05/17
--- OUTSIDE RECORDS SUMMARY | 2024-12-11 14:46 | XMS_ITS | Data Portability ---
Author Organization [facility], Main Office Address [address] [place] [address] Care Team Providers Care Cloth Cutting Machine Operator Name Role Phone PATTI ARANDA Primary Care Provider PATTI ARANDA Referring Provider [phone] Assessment No assessment recorded. Plan of Treatment [...] 3 view No observ ation record ed. [id number] [id number] [address], [place], [address], 10/09/2022 13:36:35 Result Notes None recorded. Problems Name Problem SNOMED Code Status Onset Date Resolution Date Notes Provider Name and Address Organization Details Recorded Time Osteoarthriti s of knee 656240151 Active Not Available [facility] 13:35:11 Osteoarthriti s 546485212 Active Not Available [facility] 13:35:11 Problem Notes None recorded. Procedures Surgical History Date Name Laterality Status Provider Name and Address Organization Details Recorded Time 11/18/19 18 Knee Replacement completed Not Available [facility] 10/09/2022 13:35:04 02/23/20 13 Pierre-Del Cid virus serology completed Not Available [facility] 10/09/2022 13:35:04 08/21/19 12 Knee arthroscopy/catrachita fabio completed Not Available [facility] 10/09/2022 13:35:04 10/30/19 04 Gallbladder Surgery completed Not Available [facility] 10/09/2022 13:35:04 10/28/19 04 D&c of cervical stump completed Not Available [facility] 10/09/2022 13:35:04 07/14/19 98 Thyroid Surgery completed Not Available [facility] 08/2022 13:35:04 Imaging Results Imaging Date Name Status LastModified by Organiz ation Details LastModified Time 12/18/2020 XR, knee, 3 view completed [id number] [id number] [place] [address], [place], [address], 10/09/2022 13:36:35 Procedure Notes None recorded. Medical [...] administe red by the provider 12/18 completed [facility]: 0003- 0494- 20 Not Available Not Available [...] administe red by the provider 12/18 completed [facility]: 0409- 4276- 17 Not Available Not Available [...] Updated DateTime 12/18/2020 40.1 kg/m2 147.32 cm 37020.74 g Not Available [email or web address] 10/09/2022 13:35:06 Social History Question Answer Notes LastModified by Organizat ion Details LastModified Time What Was The Date Of Your Most Recent Tobacco Screening? 12/18/2020 [id number] Information not available 10/09/2022 Sex: Unknown Functional Status None recorded. Mental Status None recorded. Family History Relationship Description Onset Age of this Age Resolved Age Notes LastModified by Organization Details LastModified Time Mother Heart disease [id number] Not available 10/09/2022 13:35:05 Father Family history of stroke [id number] Not available 10/09/2022 13:35:05 Father Diabetes mellitus [id number] Not available 10/09/2022 13:35:05 Medical History No medical history recorded. Gynecological HistoryNo gynecological history recorded. Obstetrics History GPAL:G 0 P 0 0 0 0 Past Encounters Encounter ID Performer Location Encounter Start Date Encounter Closed Date Diagnosis/Indication Diagnosis SNOMED-CT Code Diagnosis ICD10 Code Diagnosis Note [id number] Koko Singh MD [facility] [address] [place] [address] 12/18/2020 00:00:00 12/18/2020 18:16:26 Health Concerns Section Related Observation LastModified by Organization Detai ls LastModified Time None Recorded Concern Status LastModified by Organization Details LastModified Time None Recorded Advance Directives Directive None Recorded Payers None recorded. OBGyn Episode No OBEpisode recorded.
--- OUTSIDE RECORDS SUMMARY | 2024-12-11 14:46 | XMS_ITS | Clinical Summary ---
Author Organization [facility] Address [address] [address] [place] [address] Phone Care Team Providers Care Heddler Name Role Phone Consuelo Purvis MD Primary [...] Encounters Date Type Department Care Team Description 10/27/2024 External Device Data [facility] Provider, Abstract 10/16/2024 External Device Data [facility] Provider, [...] on file Legal Sex Female 5:13 AM SALES AGENT FINANCIAL REPORT SERVICE Gender Identity Not on file Sexual Orientation Not on file Last Filed Vital Signs Vital Sign Reading Time Taken Comments Blood Pressure 132/80 07/02/2024 9:43 AM SALES AGENT FINANCIAL REPORT SERVICE Pulse 81 07/02/2024 9:43 AM SALES AGENT FINANCIAL REPORT SERVICE Temperature 36.5 C (97.7 F) 07/02/2024 9:43 AM SALES AGENT FINANCIAL REPORT SERVICE Respiratory Rate 18 07/02/2024 9:43 AM SALES AGENT FINANCIAL REPORT SERVICE Oxygen Saturation 93% 07/02/2024 9:43 AM SALES AGENT FINANCIAL REPORT SERVICE Inhaled Oxygen Concentration - - Weight 91.2 kg (201 lb) 07/02/2024 9:43 AM SALES AGENT FINANCIAL REPORT SERVICE Height 152.4 cm (5') 06/12/2022 3:43 PM CDT Body Mass Index 39.26 06/12/2022 3:43 PM CDT Plan of Treatment Upcoming Encounters Date Type Department Care Team (Late st Contact Info) Description 04/08/2025 9:15 AM CDT Office Visit [facility] Oncology and Hematology [facility] [address] [facility] [address] [place] [address] Cliff Cerda MD [address] [place] [address] Health Maintenance Due Date Last [...] (1 - 1-dose 75+ series) 2032 Insurance [facility] [address] [place] Care Teams Heddler Relationship Specialty Start Date End Date Consuelo Purvis MD [address] [place] [address] PCP - General Family Practice 05/22/21
--- OUTSIDE RECORDS SUMMARY | 2024-12-11 14:46 | XMS_ITS | Clinical Summary ---
Author Organization [facility] Address [address] [place] [address] Care Team Providers Care Semiconductor Wafers Tester Name Role Phone Consuelo Purvis MD Primary [...] Comments Blood Pressure 133/82 08/20/2021 10:00 PM COORDINATE MEASURING MACHINE PROGRAMMER Pulse 70 08/20/2021 10:00 PM COORDINATE MEASURING MACHINE PROGRAMMER Temperature 36.4 C (97.6 F) 08/20/2021 9:00 PM COORDINATE MEASURING MACHINE PROGRAMMER Respiratory Rate 20 08/20/2021 10:00 PM COORDINATE MEASURING MACHINE PROGRAMMER Oxygen Saturation 96% 08/20/2021 10:00 PM COORDINATE MEASURING MACHINE PROGRAMMER Inhaled Oxygen Concentration - - Weight 85.7 kg (189 lb) 08/20/2021 6:48 PM COORDINATE MEASURING MACHINE PROGRAMMER Height 152.4 cm (5') 08/20/2021 6:48 PM COORDINATE MEASURING MACHINE PROGRAMMER Body Mass Index 36.91 08/20/2021 6:48 PM COORDINATE MEASURING MACHINE PROGRAMMER Plan of Treatment Health Maintenance Due Date Last Done Comments Colorectal Cancer Screening Colonoscopy (10 Years) 1957 Hepatitis C 1975 DTaP, Tdap and Td Vaccines ( 1 - Tdap) 1976 Mammogram Screening 1997 Pneumococcal Vaccine: 50+ Years (1 of 1 - PCV) 2007 Zoster Vaccines (1 of 2) 2007 Dexa Scan (General) 2022 COVID-19 Vaccine (3 - 2023-2 5 season) 2024 11/17/2020, 10/27/2020 RSV Immunization or 60+ Years (1 - [...] patient's age to complete this topic Insurance [employer] PPO GENERIC - COMMERCIAL [place] [id number] Care Teams Semiconductor Wafers Tester Relationship Specialty Start Date End Date Consuelo Purvis MD [address] [place] [address] PCP - General FAMILY PRACTICE 02/23/21
--- OUTSIDE RECORDS SUMMARY | 2024-12-11 14:47 | XMS_ITS | Referral Summary ---
Author Organization [facility] [address] Address [address] [place] [address] Care Team Providers Care Degreasing Wheel Operator Name Role Phone Consuelo Purvis MD [...] ORAL) Take by mouth daily. Active omega 4-fjc-hdt-fish oil 1,000 mg (120 mg-180 mg) capsule [...] on file Legal Sex Female 11:01 AM SPORTS DEVELOPMENT OFFICER Gender Identity Not on file Sexual Orientation Not on file Last Filed Vital Signs Vital Sign Reading Time Taken Comments Blood Pressure 126/74 08/23/2024 8:14 AM SPORTS DEVELOPMENT OFFICER Pulse 86 08/23/2024 8:14 AM SPORTS DEVELOPMENT OFFICER Temperature - - Respiratory Rate - - Oxygen Saturation 97% 08/23/2024 8:14 AM SPORTS DEVELOPMENT OFFICER Inhaled Oxygen Concentration - - Weight 92.9 kg (204 lb 11.2 oz) 08/23/2024 8:14 AM SPORTS DEVELOPMENT OFFICER Height 152.4 cm (5') 08/23/2024 8:14 AM SPORTS DEVELOPMENT OFFICER Body Mass Index 39.98 08/23/2024 8:14 AM SPORTS DEVELOPMENT OFFICER Plan of Treatment Not on file Insurance [employer] OPEN ACCESS [employer] OPEN ACCESS Care Teams Degreasing Wheel Operator Relationship Specialty Start Date End Date Consuelo Purvis MD PCP - General Family Practice 11/05/17
--- OUTSIDE RECORDS SUMMARY | 2024-12-11 14:47 | XMS_ITS | Data Portability ---
Author Organization [facility] [place] Address [address] [place] [address] [place] [address] Care Team Providers Care Speech And Hearing Director Name Role Phone MANOJ ANDI Primary Care [...] if normal. FU 1 year or prn [email or web address] Not available 04/04/2021 09:33:54 04/30/2022 04/30/2022 healthy female exam/menopause patient declines std testing pap due next year mammogram scheduled next month colonoscopy UTD dexa Encouraged weight bearing exercise and 1500mg daily of Calcium with Vitamin D FU 1 year or prn [email or web address] Not available 05/01/2022 09:01:14 05/15/2023 05/15/2023 Annual gynecological exam performed. Patient will come back in a year unless there are new symptoms. [email or web address] Not available 05/15/2023 17:14:10 Plan of Treatment Reminders Order Date Submit Date Provider Last Modified By Organization Details Last Modified Time Details Appointments [facility] 2024 10:00A M JAIRO GAGNON NP Not available Not available Not available Lab urinalysi s, dipstick 2022 023 [email or web address] [place], [address], [place], [address], 05/16/2023 09:42:57 urinalysi s, dipstick 2021 022 [email or web address] [place], [address], [address], [place], [address], 04/30/2022 18:30:26 Referral None recorded. Procedures None recorded. Surgeries None recorded. Imaging DEXA, axial skeleton + vertebral fracture assessmen t 2022 023 [facility], [address], [place], [address], 10/06/2023 11:59:50 US, pelvis 2020 021 [address], [address], [place], [address], 04/20/2021 09:08:02 US, transvagi nal 2020 [address], [address], [place], [address], 04/20/2021 09:08:02 Medication Orders Estrace 0.01% (0.1 mg/gram) vaginal cream 2021 [facility]22 [id number], [address] [place] [address], [id number], 04/30/2022 18:53:53 Patient TargetsNo targets recorded. Patient InstructionsNo instructions recorded. Reason for Referral None Reported. Results Created Date Observation Date Name Description Value Unit Range Abnormal Flag Note LastModifiedBy Organization Detail LastModifiedTime 04/30/20 22 04/30/2022 urina lysis , dipst ick Leukocytes neg Not Available [facility] [address], [place], [address], 04/30/2022 18:30:06 04/30/20 22 04/30/2022 urina lysis , dipst ick Nitrite neg Not Available [place] [address], [place], [address], 04/30/2022 18:30:06 05/15/2005/15/2023 urina lysis , dipst ick Leukocytes +3 Not Available [facility] [address], [place], [address], 05/15/2023 17:42:53 05/15/2005/15/2023 urina lysis , dipst ick Nitrite Negati ve Not Available [place] [address], [place], [address], 05/15/2023 17:42:53 05/15/2005/15/2023 urina lysis , dipst ick Urobilinogen Negati ve Not Available [place] [address], [place], [address], 05/15/2023 17:42:53 05/15/2005/15/2023 urina lysis , dipst ick Protein Negati ve Not Available [place] [address], [place], [address], 05/15/2023 17:42:53 05/15/2005/15/2023 urina lysis , dipst ick pH 8 Not Available [place] [address], [place], [address], 05/15/2023 17:42:53 05/15/2005/15/2023 urina lysis , dipst ick Specific [place] 1.005 Not Available [facility] [address], [place], [address], 05/15/2023 17:42:53 05/15/2005/15/2023 urina lysis , dipst ick Ketone Negati ve Not Available [place] [address], [place], [address], 05/15/2023 17:42:53 05/15/20 23 05/15/2023 urina lysis , dipst ick Bilirubin Negati ve Not Available [place] [address], [place], [address], 05/15/2023 17:42:53 05/15/20 23 05/15/2023 urina lysis , dipst ick Glucose Negati ve Not Available [place] [address], [place], [address], 05/15/2023 17:42:53 05/15/20 23 05/15/2023 urina lysis , dipst ick Appearance Clear Not Available [facility] gary [address], [place], [address], 05/15/2023 17:42:53 05/15/2005/15/2023 urina lysis , dipst ick Color Dark yellow Not Available [place] [address], [place], [address], 05/15/2023 17:42:53 10/20/19 24 10/20/2023 CMP(C OMPRE HENSI VE METAB OLIC PANEL ) sodium 141 mmol/ L 133-14 6 Not Available [facility] (Lab) [address], [place], [address], 10/21/2023 04:26:23 10/20/19 24 10/20/2023 CMP(C OMPRE HENSI VE METAB OLIC PANEL ) potassium 4.0 mmol/ L 3.5-5. 1 Not Available [facility] (Lab) [address], [place], [address], 10/21/2023 04:26:23 10/20/19 24 10/20/2023 CMP(C OMPRE HENSI VE METAB OLIC PANEL ) chloride 103 mmol/ L 98-107 Not Available [facility] (Lab) [address], [place], [address], 10/21/2023 04:26:23 10/20/19 24 10/20/2023 CMP(C OMPRE HENSI VE METAB OLIC PANEL ) carbon dioxide 31 mmol/ L 21-31 Not Available [facility] (Lab) [address], [place], [address], 10/21/2023 04:26:23 10/20/19 24 10/20/2023 CMP(C OMPRE HENSI VE METAB OLIC PANEL ) anion gap 7 mmol/ L 4-13 Not Available [facility] (Lab) [address], [place], [address], 10/21/2023 04:26:23 10/20/19 24 10/20/2023 CMP(C OMPRE HENSI VE METAB OLIC PANEL ) blood urea nitrogen 21 mg/dL 7-[address] [facility] (Lab) [address], [place], [address], 10/21/2023 04:26:23 10/20/19 24 10/20/2023 CMP(C OMPRE HENSI VE METAB OLIC PANEL ) creatinine 0.96 mg/dL 0.60-1 .30 Not Available [facility] (Lab) [address], [place], [address], 10/21/2023 04:26:23 10/20/19 24 10/20/2023 CMP(C OMPRE HENSI VE METAB OLIC PANEL ) egfrcr (CKD-epi 2020) 65 mL/mi n/1.7 3_m2 >=60 Not Available [facility] (Lab) [address], [place], [address], 10/21/2023 04:26:23 10/20/19 24 10/20/2023 CMP(C OMPRE HENSI VE METAB OLIC PANEL ) calcium 9.3 mg/dL 8.3-10 .5 Not Available [facility] (Lab) [address], [place], [address], 10/21/2023 04:26:23 10/20/19 24 10/20/2023 CMP(C OMPRE HENSI VE METAB OLIC PANEL ) glucose 88 mg/dL 70-100 Not Available [facility] (Lab) [address] [facility], [place], [address], 10/21/2023 04:26:23 10/20/19 24 10/20/2023 CMP(C OMPRE HENSI VE METAB OLIC PANEL ) protein, total 6.3 g/dL 6.4-8. 3 low Not Available [facility] (Lab) [address] [facility], [place], [address], 10/21/2023 04:26:23 10/20/19 24 10/20/2023 CMP(C OMPRE HENSI VE METAB OLIC PANEL ) albumin 3.9 g/dL 3.5-5. 0 Not Available [facility] (Lab) [address] [facility], [place], [address], 10/21/2023 04:26:23 10/20/19 24 10/20/2023 CMP(C OMPRE HENSI VE METAB OLIC PANEL ) ALT 48 units /L 9-43 high Not Available [facility] (Lab) [address] [facility], [place], [address], 10/21/2023 04:26:23 10/20/19 24 10/20/2023 CMP(C OMPRE HENSI VE METAB OLIC PANEL ) alkaline phosphatase 67 units /L 34-104 Not Available [facility] (Lab) [address] [facility], [place], [address], 10/21/2023 04:26:23 10/20/19 24 10/20/2023 CMP(C OMPRE HENSI VE METAB OLIC PANEL ) AST 47 units /L 13-39 high Not Available [facility] (Lab) [address] [place], [address], 10/21/2023 04:26:23 10/20/19 24 10/20/2023 CMP(C OMPRE HENSI VE METAB OLIC PANEL ) bilirubin, total 0.3 mg/dL 0.2-1. 2 Not Available [facility] (Lab) [address] [facility], [place], [address], 10/21/2023 04:26:23 10/20/19 24 10/20/2023 VITAM IN D, 25-OH (TOTA L D2/D3 ) vitamin D, 25-hydroxy, total 48.2 NG/mL 30.0-1 00.0 Sugge stive of Defic iency : <20 ng/mL Sugge stive of Insuf ficie ncy: 20-29 ng/mL Sugge stive of Suffi cienc y: 30-10 0 ng/mL Sugge stive of Toxic ity: >150 ng/mL Not Available [facility] (Lab) [address] [facility], [place], [address], 10/21/2023 04:26:23 03/19/20 21 03/19/2021 MAMMO , scree kishan, bilat eral No observ ation record ed. [email or web address] [address], [place], [address], 03/19/2021 17:32:45 03/21/20 21 03/19/2021 DEXA, axial skele ton + verte bral fract ure asses sment No observ ation record ed. [address], [place], [address], 04/05/2021 14:47:03 04/19/20 21 04/19/2021 US, pelvi s No observ ation record ed. [email or web address] [place] [address], [place], [address], 04/19/2021 17:50:44 04/19/20 21 04/19/2021 US, trans vagin al No observ ation record ed. [email or web address] [place] [address], [place], [address], 04/19/2021 17:50:54 04/19/20 21 04/19/2021 US, pelvi s No observ ation record ed. [email or web address], [place], [address], 04/30/2021 11:08:10 05/17/20 22 05/16/2022 MAMMO , scree kishan, bilat eral No observ ation record ed. [email or web address] [address] [facility], [place], [address], 05/20/2022 08:56:26 10/03/19 24 10/03/2023 MAMMO , scree kishan, bilat eral No observ ation record ed. [email or web address] [facility], [place], [address], 10/28/2023 16:54:47 10/06/19 24 10/03/2023 DEXA, axial skele ton + verte bral fract ure asses sment No observ ation record ed. [address] [facility], [place], [address], 10/16/2023 12:24:38 Result Notes None recorded. Problems Name Problem SNOMED Code Status Onset Date Resolution Date Notes Provider Name and Address Organization Details Recorded Time SNOMED CT Concept Completed 201912/25/2020 Encntr for residential living assistant exam (general ) (routine ) w/o abn findings ;Practic e ID: [id number] Megan Whyte MD [address], [place], [address], [facility] 18:07:57 Screenin g for malignan t neoplasm of rectum Completed 201912/25/2020 Encounte r for screenin g for malignan t neoplasm of rectum;P ractice ID: [id number] Megan Whyte MD [address], [place], [address], [facility] 18:07:[address] Concept Completed 201412/25/2020 Encntr for general adult medical exam w/o abnormal findings ;Recorde d Elsewher e: No Locat ion: [facility] S ource: EHR Rehab Liaison garrison: N Practi ce ID: 0001 Kofi lable Time: 08:30:00 AM Megan Whyte MD [address], [place], [address], [facility] 18:07:55 Blood leukocyt e number above referenc e range [id number] Completed 201912/25/2020 Elevated white blood cell count, unspecif ied;Durga rded Elsewher e: No Locat ion: [facility] S ource: EHR Rehab Liaison garrison: N Practi ce ID: 0001 Kofi lable Time: 04:00:00 PM Megan Whyte MD [address], [place], [address], [facility] 18:07:44 Adult health examinat ion Completed 201012/25/2020 Routine general medical examinat ion at a health care facility ;Practic e ID: 0001 Megan Whyte MD [address], [place], [address], [facility] 18:07:35 Speciali zed medical examinat ion Completed 201012/25/2020 Routine gynecolo gical examinat ion;Prac sukhi ID: 0001 Megan Whyte MD [address], [place], [address], [facility] 18:07:59 Screenin g for malignan t neoplasm of cervix Completed 201012/25/2020 Pap Smear;Pr actice ID: 0001 Megan Whyte MD [address], [place], [address], [facility] 1 18:07:50 Contact dermatit is [id number] Active 2011 Contact dermatit is and other eczema, unspecif ied cause;Pr actice ID: 0001 Not Available [facility] 0 18:44:17 Finding of trunk structur e [id number] Completed 201112/25/2020 Abdomina l or pelvic swelling , mass, or lump, generali zed;Prac sukhi ID: 0001 Megan Whyte MD [address], [place], [address], [facility] 1 18:07:42 Leukocyt osis 701717438 Active 2012 LEUKOCYT OSIS NOS;Prac sukhi ID: 0001 Not Available [facility] 0 18:44:17 Obesity 990285512 Completed 201312/25/2020 Obesity, unspecif ied;Prac sukhi ID: 0001 Megan Whyte MD [address], [place], [address], [facility] 1 18:07:48 Epigastr ic pain [id number] Completed 201812/25/2020 Epigastr ic pain;Pra ctice ID: 0001 Megan Whyte MD [address], [place], [address], [facility] 1 18:07:39 Body mass index 30+ - obesity 896965354 Active 2016 Body mass index (BMI) 33.0-33. 9, adult;Re corded Elsewher e: No Locat ion: [facility] S ource: EHR Rehab Liaison garrison: N Practi ce ID: 0001 Kofi lable Time: 08:30:00 AM Not Available [facility] 0 18:44:19 Vaginiti s and vulvovag initis Completed 201212/25/2020 Vaginiti s and vulvovag initis;R ecorded Elsewher e: No Locat ion: [facility] S ource: EHR Rehab Liaison garrison: N Practi ce ID: 0001 Kofi lable Time: 11:30:00 AM Megan Whyte MD [address], [place], [address], [facility] 18:08:02 Osteopen ia 192203003 Active 2020 L and R femoral neck Megan Whyte MD [address], [place], [address], [facility] 16:36:36 Atrophic vaginiti s 35477561 Active 2020 Megan Whyte MD [address], [place], [address], [facility] 09:32:57 Abdomina l bloating 864778738 Active 2020 Megan Whyte MD [address], [place], [address], [facility] 09:32:59 Problem Notes None recorded. Procedures Surgical History Date Name Laterality Status Provider Name and Address Organization Details Recorded Time 022 Date of Last Colonoscopy completed NAGI ASKEW MD [address], [place], [address], [facility] 05/15/2023 17:39:08 021 Date of Last Mammogram completed [facility] 04/30/2022 10:10:57 021 Most Recent Bone Density completed [facility] 04/30/2022 10:11:04 020 Date of Last Pap Smear completed [facility] 12/25/2020 18:07:44 018 Knee arthroscopy/surger y completed [facility] 04/30/2022 18:24:11 013 colonoscopy completed [facility] 12/25/2020 17:15:42 008 hysteroscopy completed [facility] 12/25/2020 17:16:54 004 Cholecystectomy completed [facility] 04/30/2022 18:24:45 004 hysteroscopy completed [facility] 04/30/2022 18:24:35 002 Endometrial Biopsy completed [facility] 12/25/2020 17:17:44 998 removal of thyroid nodule completed [facility] 04/30/2022 18:24:27 total knee replacement completed [facility] 12/25/2020 17:18:34 Imaging Results Imaging Date Name Status LastModified by Organization Details LastModified Time 03/19/2021 MAMMO, screening, bilateral completed [address] [place] [address], [address], 03/19/2021 17:32:45 03/19/2021 DEXA, axial skeleton + vertebral fracture assessment completed [address], [address], 04/05/2021 14:47:03 04/19/2021 US, pelvis completed [email or web address] [place] [address], [place], [address], 04/19/2021 17:50:44 04/19/2021 [facility]aginal [email or web address] [address], [place], [address], 04/19/2021 17:50:54 04/19/2021 US, pelvis completed [email or web address], [place], [address], 04/30/2021 11:08:10 05/16/2022 MAMMO, screening, bilateral completed [email or web address] [place] [address] [address] [facility], [place], [address], 05/20/2022 08:56:26 10/03/2023 MAMMO, screening, bilateral completed [email or web address], [place], [address], 10/28/2023 16:54:47 10/03/2023 DEXA, axial skeleton + vertebral fracture assessment completed [address], [address], 10/16/2023 12:24:38 Procedure Notes None recorded. Medical [...] morning and evening 06/09 completed Prescrib ed Elsewher e: Yes Loca tion: [facility] M odify By: amkuhbradford Sharp ncounter DateTime : 03/19/20 12 10:00:00 [...] ed Elsewher e: Yes Loca tion: Thais lila [facility] odify By: jb gibbs DateTime : 07/10/20 [...] ed Elsewher e: Yes Loca tion: Thais [facility] odify By: olga gibbs DateTime : 06/25/20 16 10:00:00 AM Not Available Not Available Not Available simvastat in 80 mg tablet 04/03 completed Prescrib ed Elsewher e: No [facility] By: jag dennis DateTime : 05/07/20 11 07:59:28 AM Not Available Not Available Not Available Terazol 3 0.8 % vaginal cream apply cream to affected area BID 06/09 completed Prescrib ed Elsewher e: No Locat ion: [facility] odify By: brayan gibbs DateTime : 03/19/20 [...] e: Yes Loca tion: Thais sharp [facility] odify By: jb gibbs DateTime : 09/16/19 04:00:00 PM Not Available Not Available Not Available Flagyl 500 mg tablet take 1 tablet (500MG) by oral route 2 times every day for 7 days 07/25 completed Prescrib ed Elsewher e: No Locat ion: Thais sharp [facility] odify By: [email or web address] andrade DateTime : 07/19/20 13 10:27:00 AM Not Available Not Available Not Available benzonata te 100 mg capsule TAKE 1 CAPSULE BY MOUTH THREE TIMES DAILY NEEDED FOR COUGH active Not Available Not Available No t Available Vitamin B-6 100 mg tablet 06/09 completed Prescrib ed Elsewher e: Yes Loca tion: Thais [facility] odify By: brayan salesuntraymond DateTime : 03/19/20 12 10:00:00 AM Not Available Not Available Not Available black cohosh root extract 40 mg capsule 06/25 completed Prescrib ed Elsewher e: Yes Loca tion: Thais [facility] odify By: olga gibbs DateTime : 05/07/20 11 07:59:28 AM Not Available Not Available Not Available omeprazol e 20 mg capsule,d elayed release TAKE 1 CAPSULE BY MOUTH DAILY active Not Available Not Available No t Available chlordiaz epoxide-c lidinium 5 mg-2.5 mg capsule take 1 capsule by oral route 3 times every day before meals 11/30 /2017 completed Prescrib ed Elsewher e: Yes Loca tion: Thais sharp [facility] odify By: amnatasha salesunter DateTime : 06/09/20 14 08:30:00 AM Not Available Not Available Not Available metoprolo l succinate ER 25 mg tablet,ex tended release 24 hr take 1 tablet (25MG) by oral route every day 07/13 completed Prescrib ed Elsewher e: No Locat ion: Thais sharp [facility] odify By: stormy Sharp ncounter DateTime : [...] e: No Locat ion: Thais sharp [facility] odify By: olga bartholomewer DateTime : 06/25/20 16 10:00:00 AM Not [...] Elsewher e: No [facility]at [facility] odify By: brayan gibbs DateTime : 05/07/20 11 07:59:28 AM Not Available Not Available Not Available Vitamin B-12 1,000 mcg tablet 04/30 completed Prescrib ed Elsewher e: Yes Loca tion: Thais sharp [facility] odify By: brayan salesuntraymond DateTime : 06/09/20 14 08:30:00 AM Not Available Not Available Not Available Tylenol Extra Strength 500 mg tablet take 2 tablet by oral route every 6 hours as needed 04/30 completed Prescrib ed Elsewher e: Yes Loca tion: Thais sharp [facility] odify By: brayan salesuntraymond DateTime : 06/09/20 14 08:30:00 AM Not Available Not Available Not Available Aspirin Low-Stren gth 81 mg chewable tablet chew 1 tablet (81MG) by oral route every day 04/30 completed Prescrib ed Elsewher e: No Locat ion: Thais shapr [facility] odify By: jag dennis DateTime : 05/07/20 11 07:59:28 AM Not Available Not Available Not Available Vitamin C 500 mg capsule,e xtended release 09/16 completed Prescrib ed Elsewher e: No Locat ion: Thais sharp [facility] odify By: jb gibbs DateTime : 05/07/20 11 07:59:28 AM Not Available Not Available Not Available Centrum 0.4 mg-162 mg-18 mg tablet 06/25 completed Prescrib ed Elsewher e: No Locat ion: Thais sharp [facility] odify By: olga gibbs DateTime : 05/07/20 11 07:59:28 AM Not Available Not Available Not Available Os-Pradip 500 + D3 500 mg-5 mcg (200 unit) tablet 06/09 completed Prescrib ed Elsewher e: Yes Loca tion: Thais sharp [facility] odify By: brayan gibbs DateTime : 05/07/20 11 07:59:28 AM Not Available Not Available Not Available Fiber Therapy (methylce llulose-s ugar) oral powder active Prescrib ed Elsewher e: Yes Loca tion: Thais sharp [facility] odify By: olga gibbs DateTime : 06/25/20 16 10:00:00 AM Not Available Not Available Not Available fenofibra te 160 mg tablet TAKE 1 TABLET BY MOUTH DAILY active Not Available Not Available No t Available Calcio Joceline 500 mg tablet 12/25 completed Prescrib ed Elsewher e: Yes Loca tion: Thais sharp [facility] odify By: prudence coyle DateTime : 03/19/20 [...] e: Yes Loca tion: Thais sharp [facility] odify By: brayan gibbs DateTime : 05/07/20 11 07:59:28 AM Not Available Not Available Not Available Tylenol Sinus Congestio n Pain 5 mg-325 mg tablet 04/30 completed Prescrib ed Elsewher e: Yes Loca tion: Thais sharp [facility] odify By: olga gibbs DateTime : 06/25/20 16 10:00:00 AM Not Available Not Available Not Available Vitamin D3 10 mcg (400 unit) capsule 04/30 completed Prescrib ed Elsewher e: Yes Loca tion: Patricio lila [facility] odify By: stormy gibbs DateTime : 07/13/20 13 11:30:00 AM Not Available Not Available Not Available meloxicam 7.5 mg/5 mL oral suspensio n take 5 millilit er (7.5MG) by oral route every day 07/10 completed Prescrib ed Elsewher e: No Locat ion: Thais sharp [facility] odify By: brayan salesunter DateTime : 05/07/20 11 07:59:28 AM Not Available Not Available Not Available Glucoten 375 mg-300 mg-25 mg-0.5 mg tablet 06/09 completed Prescrib ed Elsewher e: No Locat ion: Thais sharp [facility] odify By: brayan salesunter DateTime : 05/07/20 11 07:59:28 AM Not Available Not Available Not Available Fish Oil 360 mg-1,200 mg capsule 12/25 completed Prescrib ed Elsewher e: Yes Loca tion: Thais sharp [facility] odify By: jag dennis DateTime : 05/07/20 11 07:59:28 AM Not Available Not Available Not Available fiber 2 gram chewable tablet 09/16 completed Prescrib ed Elsewher e: Yes Loca tion: Thais sharp [facility] odify By: jb gibbs DateTime : 03/19/20 12 10:00:00 AM Not Available Not Available Not Available Tirosint 13 mcg capsule take 1 capsule by oral route every day 04/03 completed Prescrib ed Elsewher e: Yes Loca tion: Thais sharp [facility] odify By: jag Back r DateTime : 05/07/20 11 07:59:28 AM Not Available Not Available Not Available loratadin e 10 mg capsule 04/03 completed Prescrib ed Elsewher e: Yes Loca tion: Thais sharp [facility] odify By: weston salesuntraymond DateTime : 09/02/19 19 08:15:00 AM Not Available Not Available Not Available trgt.us 1.5 billion cell capsule 04/30 completed Prescrib ed Elsewher e: Yes Loca tion: Thais sharp [facility] odify By: brayan salesuntraymond DateTime : 06/09/20 14 08:30:00 AM Not Available Not Available Not Available Osteo Bi-Flex 12/25 completed Prescrib ed Elsewher e: Yes Loca tion: Thais sharp [facility] odify By: jovon Encount er DateTime : 03/19/20 12 10:00:00 AM Not Available Not Available Not Available metoprolo l miles-hydroc hlorothia z 04/03 completed Not Available Not Available Not Available latanopro st (bulk) 100 % oil 04/03 completed Prescrib ed Elsewher e: Yes Loca tion: Thais [facility] odify By: jb Sharp ncounter DateTime : 09/16/19 04:00:00 PM Not Available Not Available Not Available Kapspargo Sprinkle 25 mg capsule,e xtended release 12/25 completed Prescrib ed Elsewher e: Yes Loca tion: [facility] odify By: weston Sharp ncounter DateTime : 09/02/19 08:15:00 AM Not Available Not Available Not Available Paxlovid 150 mg-100 mg tablets in a dose pack (Moderate Renal Dose) TAKE ACCORDIN G TO PACKAGE INSTRUTI ONS active Not Available Not Available No t Available Vitals Date Recorded Body height Body mass index (BMI) Body weight Systolic blood pressure Diastolic blood pressure Provider Name and Address Organization Details Last Updated DateTime 04/03/2021 149.86 cm 38.2 kg/m2 99481.96 g 124 mm[Hg] 77 mm[Hg] [facility] 1 17:42:57 Date Recorded Body height Body mass index (BMI) Body weight Systolic blood pressure Diastolic blood pressure Provider Name and Address Organization Details Last Updated DateTime 04/25/2021 149.86 cm 38.8 kg/m2 98595.74 g 134 mm[Hg] 88 mm[Hg] Julia Maciel [facility] 1 17:28:39 Date Recorded Body height Body mass index (BMI) Body weight Systolic blood pressure Diastolic blood pressure Provider Name and Address Organization Details Last Updated DateTime 04/30/2022 149.86 cm 38.6 kg/m2 33994.14 g 137 mm[Hg] 86 mm[Hg] [facility] 2 18:22:53 Date Recorded Body height Body mass index (BMI) Body weight Systolic blood pressure Diastolic blood pressure Provider Name and Address Organization Details Last Updated DateTime 05/15/2023 149.86 cm 39.7 kg/m2 43124.98 g 138 mm[Hg] 92 mm[Hg] Luh Landaverderamón [facility] 17:16:00 Social History Question Answer Notes LastModified by Organizat ion Details LastModified Time Tobacco Smoking Status Never Smoker Rosa Roblero fannie, [facility] 04/03/2021 17:44:40 What Is Your Level [...] [email or web address] Not available 13:55:52 Maternal Aunt Malignant neoplasm of lung [email or web address] Not available 2020 13:56:05 Mother Hypertensive disorder [email or web address] Not available 2020 13:56:15 Mother Heart disease Athero sclero tic heart diseas e [email or web address] Not available 04/24/2021 13:58:33 Medical History Condition Response Allergies (Food, seasonal, environmental ) N Other N Drug/Latex Allergies/Reactions N Breast Cancer N Blood Transfusion N Lung Disease N Dermatologic Disorders N Defects or Inherited Disease N Breast Problem N Gestational Diabetes N Hematologic disorders N Anesthesia Complications N History of STI N Deep Vein Thrombosis N Polycystic ovary syndrome N Anxiety Disorder N Autoimmune disease N Arthritis N Polyps N Infertility N History of abnormal pap N Acid Reflux (GERD) N Cancer N Varicosities N Stroke N Neurologic/Epilepsy N Endometriosis N High Cholesterol N Headaches N Fibromyalgia N Kidney Disease N Heart Problems N Thyroid Problems N Kidney or Bladder Problems N GI Problems N Eating Disorder [...] SNOMED-CT Code Diagnosis ICD10 Code Diagnosis Note [id number] Megan Whyte MD [facility] [facility] [address],[place] [address] 12/25/2020 17:54:59 12/26/2020 21:03:05 Blood in urine 18304113 R31.9 Disorder of vulva 939702 7 N90.9 Atrophic vaginitis 43851 000 N95.2 [id number] Megan Whyte MD [place] [address],[place] [address] 04/03/2021 17:29:33 04/03/2021 23:34:50 Gynecologic examination 46887867 Z01.419 Abdominal bloating 32492 9008 R14.0 Atrophic vaginitis 82765 000 N95.2 [id number] Megan Whyte MD [place] [address],[place] [address] 04/19/2021 16:50:25 04/19/2021 17:32:51 Abdominal bloating 257319230 R14.0 [id number] Seth Gilbert MD [place] [address],[place] [address] 04/25/2021 17:21:12 04/26/2021 13:51:12 Abdominal distension symptom 866754185 R14.0 This patient is a 65-year-ol d [...] She will follow up here as needed. [id number] Megan Whyte MD [place] [address] [address] 04/30/2022 17:54:36 05/01/2022 14:11:28 Dysuria 70705773 R30.9 Atrophic vaginitis 58398 000 N95.2 Gynecologi c examination 38238848 Z01.419 [id number] NAGI ASKEW MD [place] [address],[place] [address] 05/15/2023 16:59:16 05/16/2023 10:58:15 Urinary symptoms 693044263 R39.9 Postmenopa usal osteopenia 708744483 M85.80 Gynecologi c examination 27876272 Z01.419 Z11.51 Well woman care- Cervical cancer screening: Pap smear obtained today, [...] Salvador Member ID Guarantor Name 04/03/2021 1 [facility] Sarah A Kj [id number] Sarah A Kj 04/19/2021 1 [facility] Sarah A Kj [id number] Sarah A Kj 04/25/2021 1 [facility] Sarah A Kj [id number] Sarah A Kj 04/30/2022 1 [facility] Sarah A Kj [id number] Sarah Underwood 05/15/2023 1 [facility] Sarah Whitten Kj [id number] Sarah A Kj Notes Date Note Type [...] seems worse lately. last pap-2019 NIL[facility] mammo-03/2021 colonoscopy-2018, 7 years dexa-03/2021 osteopenia ftypkmhzu-00-40 years ago sexually active-n seatbelts-y exercise-y, some depression-denies domestic violence-denies tobacco-n concerns-none Megan Whyte MD [address], [place], [address], [facility] 04/04/2021 09:34:19 04/25/2021 text/html This patient [...] needed. Seth Gilbert MD [address], [place], [address], [facility] 04/25/2021 18:00:48 04/30/2022 text/html Patient is a 66y o G0 who presents for an annual exam. needs refill on estrace cream. no concerns. last pap-2019 mammo-scheduled next month colonoscopy-2020 normal dexa-2020 osteopenia menopause-aroudn 52 sexually active-n seatbelts-y exercise-y depression-denies domestic violence-denies tobacco-n concerns- Megan Whyte MD [address], [place], [address], [facility] 05/01/2022 09:02:08 05/15/2023 text/html Presents today [...] improved. NAGI ASKEW MD [address], [place], [address], [facility] 05/16/2023 09:43:29 OBGyn Episode No OBEpisode recorded.
== END 2024-12-10 14:59 | disposition home or self-care (01) ==
LOC: ANHIMG 15:01
PROVIDERS: PCP Family Medicine; Visit Provider Student in an Organized Health Care Education/Training Program
DX: Z12.31 Encounter for screening mammogram for malignant neoplasm of breast (principal)
CPT/HCPCS: 77063; 77067

== ENCOUNTER 2024-12-22 18:36 | Emergency (ER) | payer OTHER, SELFPAY ==
--- OUTSIDE RECORDS SUMMARY | 2024-12-22 18:38 | XMS_ITS | Clinical Summary ---
Author Organization [facility] [address] Address [address] [place] [address] Care Team Providers Care Cell Technician Name Role Phone Consuelo Purvis MD [...] ORAL) Take by mouth daily. 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
--- OUTSIDE RECORDS SUMMARY | 2024-12-22 18:38 | XMS_ITS | Referral Summary ---
Author Organization [facility] [address] Address [address] [place] [address] Care Team Providers Care Records Technician Name Role Phone Consuelo Purvis MD [...] ORAL) Take by mouth daily. 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 Gender Identity Not on file Sexual Orientation Not on file Last Filed Vital Signs Vital Sign Reading Time Taken Comments Blood Pressure 126/74 08/23/2024 8:14 AM EMAIL MARKETING INTERN Pulse 86 08/23/2024 8:14 AM EMAIL MARKETING INTERN Temperature - - Respiratory Rate - - Oxygen Saturation 97% 08/23/2024 8:14 AM EMAIL MARKETING INTERN Inhaled Oxygen Concentration - - Weight 92.9 kg (204 lb 11.2 oz) 08/23/2024 8:14 AM EMAIL MARKETING INTERN Height 152.4 cm (5') 08/23/2024 8:14 AM EMAIL MARKETING INTERN Body Mass Index 39.98 08/23/2024 8:14 AM EMAIL MARKETING INTERN Plan of Treatment Not on file Insurance [place] OPEN ACCESS [employer] OPEN ACCESS Care Teams Records Technician Relationship Specialty Start Date End Date Consuelo Purvis MD PCP - General Family Practice 11/05/17
--- OUTSIDE RECORDS SUMMARY | 2024-12-22 18:38 | XMS_ITS | Data Portability ---
Author Organization [place] [facility] [employer], Main Office Address [address] [place] [address] Care Team Providers Care Middle School Tutor Name Role Phone PATTI ARANDA Primary Care Provider [phone] PATTI ARANDA Referring Provider Assessment No assessment [...] 3 view No observ ation record ed. [id number] [email or web address] [place] [address], [place], [address], 10/09/2022 13:36:35 Result Notes None recorded. Problems Name Problem SNOMED Code Status Onset Date Resolution Date Notes Provider Name and Address Organization Details Recorded Time Osteoarthriti s of knee 053984012 Active Not Available [facility] 3 13:35:11 Osteoarthriti s 435762162 Active Not Available [facility] 13:35:11 Problem Notes None recorded. Procedures Surgical History Date Name Laterality Status Provider Name and Address Organization Details Recorded Time 11/18/19 18 Knee Replacement completed Not Available [facility] 10/09/2022 13:35:04 02/23/20 13 Pierre-Del Cid virus serology completed Not Available [facility] 10/09/2022 13:35:04 08/21/19 12 Knee arthroscopy/catrachita fabio completed Not Available [facility] 10/09/2022 13:35:04 10/30/19 04 Gallbladder Surgery completed Not Available [facility] 10/09/2022 13:35:04 10/28/19 04 D&c of cervical stump completed Not Available [facility] 10/09/2022 13:35:04 07/14/19 98 Thyroid Surgery completed Not Available [facility] 08/2022 13:35:04 Imaging Results Imaging Date Name Status LastModified by Organiz ation Details LastModified Time 12/18/2020 XR, knee, 3 view completed [id number] [email or web address] [place] [address], [place], [address], 10/09/2022 13:36:35 Procedure Notes None recorded. Medical [...] administe red by the provider 12/18 completed [facility]: [id number] [id number] Not Available [...] administe red by the provider 12/18 completed [facility]: [id number]- 17 Not Available [...] Updated DateTime 12/18/2020 40.1 kg/m2 147.32 cm 18924.74 g Not Available [email or web address] 10/09/2022 13:35:06 Social History Question Answer Notes LastModified by Organizat ion Details LastModified Time What Was The Date Of Your Most Recent Tobacco Screening? 12/18/2020 [id number] Information not available 10/09/2022 Sex: Unknown Functional Status None recorded. Mental Status None recorded. Family History Relationship Description Onset Age of this Age Resolved Age Notes LastModified by Organization Details LastModified Time Mother Heart disease [id number] Not available 10/09/2022 13:35:05 Father Family history of stroke [id number] Not available 10/09/2022 13:35:05 Father Diabetes mellitus [id number] Not available 10/09/2022 13:35:05 Medical History No medical history recorded. Gynecological HistoryNo gynecological history recorded. Obstetrics History GPAL:G 0 P 0 0 0 0 Past Encounters Encounter ID Performer Location Encounter Start Date Encounter Closed Date Diagnosis/Indication Diagnosis SNOMED-CT Code Diagnosis ICD10 Code Diagnosis Note [id number] Koko Singh MD [facility] [place] [address] [facility] [address] [place] [address] 12/18/2020 00:00:00 12/18/2020 18:16:26 Health Concerns Section Related Observation LastModified by Organization Detai ls LastModified Time None Recorded Concern Status LastModified by Organization Details LastModified Time None Recorded Advance Directives Directive None Recorded Payers None recorded. OBGyn Episode No OBEpisode recorded.
--- OUTSIDE RECORDS SUMMARY | 2024-12-22 18:38 | XMS_ITS | Clinical Summary ---
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 Gender Identity Not on file Sexual Orientation Not on file Last Filed Vital Signs Vital Sign Reading Time Taken Comments Blood Pressure 132/80 07/02/2024 9:43 AM SPANISH TRANSLATOR Pulse 81 07/02/2024 9:43 AM SPANISH TRANSLATOR Temperature 36.5 C (97.7 F) 07/02/2024 9:43 AM SPANISH TRANSLATOR Respiratory Rate 18 07/02/2024 9:43 AM SPANISH TRANSLATOR Oxygen Saturation 93% 07/02/2024 9:43 AM SPANISH TRANSLATOR Inhaled Oxygen Concentration - - Weight 91.2 kg (201 lb) 07/02/2024 9:43 AM SPANISH TRANSLATOR Height 152.4 cm (5') 06/12/2022 3:43 PM CDT Body Mass Index 39.26 06/12/2022 3:43 PM CDT Plan of Treatment Upcoming Encounters Date Type Department Care Team (Late st Contact Info) Description 04/08/2025 9:15 AM CDT Office Visit [facility] Oncology and Hematology [facility] [address] [facility] [address] [place] [address] Cliff Cerda MD [address] [place] [address] Health Maintenance Due Date Last [...] (1 - 1-dose 75+ series) 2032 Insurance [facility] [place] [address] [place] [address] GAR[employer]T Care Teams Contract Technical Writer Relationship Specialty Start Date End Date Consuelo Purvis MD [address] [place] [address] PCP - General Family Practice 05/22/21
--- OUTSIDE RECORDS SUMMARY | 2024-12-22 18:38 | XMS_ITS | Clinical Summary ---
Author Organization [facility] Address [address] [place] [address] Care Team Providers Care Card Assembler Name Role Phone Consuelo Purvis MD Primary [...] Comments Blood Pressure 133/82 08/20/2021 10:00 PM PIE CHEF Pulse 70 08/20/2021 10:00 PM PIE CHEF Temperature 36.4 C (97.6 F) 08/20/2021 9:00 PM PIE CHEF Respiratory Rate 20 08/20/2021 10:00 PM PIE CHEF Oxygen Saturation 96% 08/20/2021 10:00 PM PIE CHEF Inhaled Oxygen Concentration - - Weight 85.7 kg (189 lb) 08/20/2021 6:48 PM PIE CHEF Height 152.4 cm (5') 08/20/2021 6:48 PM PIE CHEF Body Mass Index 36.91 08/20/2021 6:48 PM PIE CHEF Plan of Treatment Health Maintenance Due Date [...] age to complete this topic Insurance [employer] PPO GENERIC - COMMERCIAL MARY CARMEN GROSSMAN [id number] Care Teams Card Assembler Relationship Specialty Start Date End Date Consuelo Purvis MD [address] [place] [address] PCP - General FAMILY PRACTICE 02/23/21
--- OUTSIDE RECORDS SUMMARY | 2024-12-22 18:40 | XMS_ITS | Data Portability ---
Author Organization [facility] [place] Address [address] [place] [place] [address] [place] [address] Care Team Providers Care Trapper Bird Name Role Phone MANOJ ANDI Primary Care [...] Vitamin D FU 1 year or prn [email or web address] Not available 05/01/2022 09:01:14 05/15/2023 05/15/2023 Annual [...] available Lab urinalysi s, dipstick 2022 023 [email or web address] [place], [address], [place], [address], 05/16/2023 09:42:57 urinalysi s, dipstick 2021 [facility]22 [facility] [place], [address], [address], [place], [address], 04/30/2022 18:30:26 Referral None recorded. Procedures None recorded. Surgeries None recorded. Imaging DEXA, axial skeleton + vertebral fracture assessmen t 2022 023 [facility], [address], [place], [address], 10/06/2023 11:59:50 US, pelvis 2020 [address]21 [address], [address], [place], [address], 04/20/2021 09:08:02 US, transvagi nal 2020 [address], [address], [place], [address], 04/20/2021 09:08:02 Medication Orders Estrace 0.01% (0.1 mg/gram) vaginal cream 2021 022 [id number], [address], [place], [id number], 04/30/2022 18:53:53 Patient TargetsNo targets recorded. Patient InstructionsNo instructions recorded. Reason for Referral None Reported. Results Created Date Observation Date Name Description Value Unit Range Abnormal Flag Note LastModifiedBy Organization Detail LastModifiedTime 04/30/20 22 04/30/2022 urina lysis , dipst ick Leukocytes neg Not Available [facility] [address], [place], [address], 04/30/2022 18:30:06 04/30/20 22 04/30/2022 urina lysis , dipst ick Nitrite neg Not Available [place] [address], [place], [address], 04/30/2022 18:30:06 05/15/2005/15/2023 urina lysis , dipst ick Leukocytes +3 Not Available [facility] gary [address], [place], [address], 05/15/2023 17:42:53 05/15/2005/15/2023 urina lysis , dipst ick Nitrite Negati ve Not Available [place] [address], [place], [address], 05/15/2023 17:42:53 05/15/2005/15/2023 urina lysis , dipst ick Urobilinogen Negati ve Not Available [place] [address], [place], [address], 05/15/2023 17:42:53 05/15/2005/15/2023 urina lysis , dipst ick Protein Negati ve Not Available [facility] [address], [place], [address], 05/15/2023 17:42:53 05/15/2005/15/2023 urina lysis , dipst ick pH 8 Not Available [facility] [place] [address], [place], [address], 05/15/2023 17:42:53 05/15/2005/15/2023 urina lysis , dipst ick Specific [place] 1.005 Not Available [facility] [address], [place], [address], 05/15/2023 17:42:53 05/15/2005/15/2023 urina lysis , dipst ick Ketone Negati ve Not Available [place] [address], [place], [address], 05/15/2023 17:42:53 05/15/20 23 05/15/2023 urina lysis , dipst ick Bilirubin Negati ve Not Available [place] [address], [place], [address], 05/15/2023 17:42:53 05/15/20 23 05/15/2023 urina lysis , dipst ick Glucose Negati ve Not Available [facility] [place] [address], [place], [address], 05/15/2023 17:42:53 05/15/2005/15/2023 urina lysis , dipst ick Appearance Clear Not Available [facility] gary [address], [place], [address], 05/15/2023 17:42:53 05/15/2005/15/2023 urina lysis , dipst ick Color Dark yellow Not Available [place] [address], [place], [address], 05/15/2023 17:42:53 10/20/19 24 10/20/2023 CMP(C OMPRE HENSI VE METAB OLIC PANEL ) sodium 141 mmol/ L 133-14 6 Not Available [facility] (Lab) [address], [place], [address], 10/21/2023 04:26:23 10/20/19 24 10/20/2023 CMP(C OMPRE HENSI VE METAB OLIC PANEL ) potassium 4.0 mmol/ L 3.5-5. 1 Not Available [facility] (Lab) [address], [place], [address], 10/21/2023 04:26:23 10/20/19 24 10/20/2023 CMP(C OMPRE HENSI VE METAB OLIC PANEL ) chloride 103 mmol/ L 98-107 Not Available [facility] (Lab) [address], [place], [address], 10/21/2023 04:26:23 10/20/19 24 10/20/2023 CMP(C OMPRE HENSI VE METAB OLIC PANEL ) carbon dioxide 31 mmol/ L 21-31 Not Available [facility] (Lab) [address], [place], [address], 10/21/2023 04:26:23 10/20/19 24 10/20/2023 CMP(C OMPRE HENSI VE METAB OLIC PANEL ) anion gap 7 mmol/ L 4-13 Not Available [facility] (Lab) [address], [place], [address], 10/21/2023 04:26:23 10/20/19 24 10/20/2023 CMP(C OMPRE HENSI VE METAB OLIC PANEL ) blood urea nitrogen 21 mg/dL 7-25 Not Available [facility] (Lab) [address], [place], [address], 10/21/2023 04:26:23 10/20/19 24 10/20/2023 CMP(C OMPRE HENSI VE METAB OLIC PANEL ) creatinine 0.96 mg/dL 0.60-1 .30 Not Available [facility] (Lab) [address], [place], [address], 10/21/2023 04:26:23 10/20/19 24 10/20/2023 CMP(C OMPRE HENSI VE METAB OLIC PANEL ) egfrcr (CKD-epi 2020) 65 mL/mi n/1.7 3_m2 >=60 Not Available [facility] (Lab) [address], [place], [address], 10/21/2023 04:26:23 10/20/19 24 10/20/2023 CMP(C OMPRE HENSI VE METAB OLIC PANEL ) calcium 9.3 mg/dL 8.3-10 .5 Not Available [facility] (Lab) [address], [place], [address], 10/21/2023 04:26:23 10/20/19 24 10/20/2023 CMP(C OMPRE HENSI VE METAB OLIC PANEL ) glucose 88 mg/dL 70-100 Not Available [facility] (Lab) [address] [facility], [place], [address], 10/21/2023 04:26:23 10/20/19 24 10/20/2023 CMP(C OMPRE HENSI VE METAB OLIC PANEL ) protein, total 6.3 g/dL 6.4-8. 3 low Not Available [facility] (Lab) [address] [facility], [place], [address], 10/21/2023 04:26:23 10/20/19 24 10/20/2023 CMP(C OMPRE HENSI VE METAB OLIC PANEL ) albumin 3.9 g/dL 3.5-5. 0 Not Available [facility] (Lab) [address] [facility], [place], [address], 10/21/2023 04:26:23 10/20/19 24 10/20/2023 CMP(C OMPRE HENSI VE METAB OLIC PANEL ) ALT 48 units /L 9-43 high Not Available [facility] (Lab) [address] [facility], [place], [address], 10/21/2023 04:26:23 10/20/19 24 10/20/2023 CMP(C OMPRE HENSI VE METAB OLIC PANEL ) alkaline phosphatase 67 units /L 34-104 Not Available [facility] (Lab) [address] [place], [address], 10/21/2023 04:26:23 10/20/19 24 10/20/2023 CMP(C OMPRE HENSI VE METAB OLIC PANEL ) AST 47 units /L 13-39 high Not Available [facility] (Lab) [address] [place], [address], 10/21/2023 04:26:23 10/20/19 24 10/20/2023 CMP(C OMPRE HENSI VE METAB OLIC PANEL ) bilirubin, total 0.3 mg/dL 0.2-1. 2 Not Available [facility] (Lab) [address] [facility], [place], [address], 10/21/2023 04:26:23 10/20/19 24 10/20/2023 VITAM IN D, 25-OH (TOTA L D2/D3 ) vitamin D, 25-hydroxy, total 48.2 NG/mL 30.0-1 00.0 Sugge stive of Defic iency : <20 ng/mL Sugge stive of Insuf ficie ncy: 20-29 ng/mL Sugge stive of Suffi cienc y: 30-10 0 ng/mL Sugge stive of Toxic ity: >150 ng/mL Not Available [facility] (Lab) [address] [facility], [place], [address], 10/21/2023 04:26:23 03/19/20 21 03/19/2021 MAMMO , scree kishan, bilat eral No observ ation record ed. [email or web address] [facility], [place], [address], 03/19/2021 17:32:45 03/21/20 21 03/19/2021 DEXA, axial skele ton + verte bral fract ure asses sment No observ ation record ed. [address] [address], [place], [address], 04/05/2021 14:47:03 04/19/20 21 04/19/2021 US, pelvi s No observ ation record ed. [email or web address] [place] [address], [place], [address], 04/19/2021 17:50:44 04/19/20 21 04/19/2021 US, trans vagin al No observ ation record ed. [email or web address] [place] [address], [place], [address], 04/19/2021 17:50:54 04/19/20 21 04/19/2021 US, pelvi s No observ ation record ed. [address], [place], [address], 04/30/2021 11:08:10 05/17/20 22 05/16/2022 MAMMO , scree kishan, bilat eral No observ ation record ed. [email or web address] [address] [facility], [place], [address], 05/20/2022 08:56:26 10/03/19 24 10/03/2023 MAMMO , scree kishan, bilat eral No observ ation record ed. [email or web address] [place] [address] [address] [facility], [place], [address], 10/28/2023 16:54:47 10/06/19 24 10/03/2023 DEXA, axial skele ton + verte bral fract ure asses sment No observ ation record ed. [address] [address], [place], [address], 10/16/2023 12:24:38 Result Notes None recorded. Problems Name Problem SNOMED Code Status Onset Date Resolution Date Notes Provider Name and Address Organization Details Recorded Time SNOMED CT Concept Completed 201912/25/2020 Encntr for product development chemist exam (general ) (routine ) w/o abn findings ;Practic e ID: [id number] Megan Whyte MD [address], [place], [address], [facility] 18:07:57 Screenin g for malignan t neoplasm of rectum Completed 201912/25/2020 Encounte r for screenin g for malignan t neoplasm of rectum;P ractice ID: [id number] Megan Whyte MD [address], [place], [address], [facility] 18:07:[address] Concept Completed 201412/25/2020 Encntr for general adult medical exam w/o abnormal findings ;Recorde d Elsewher e: No Locat ion: [facility] S ource: EHR Director Compliance garrison: N Practi ce ID: 0001 Kofi lable Time: 08:30:00 AM Megan Whyte MD [address], [place], [address], [facility] 18:07:55 Blood leukocyt e number above referenc e range [id number] Completed 201912/25/2020 Elevated white blood cell count, unspecif ied;Durga rded Elsewher e: No Locat ion: [facility] S ource: EHR Director Compliance garrison: N Practi ce ID: [id number] Kofi lable Time: 04:00:00 PM Meagn Whyte MD [address], [place], [address], [facility] 18:07:44 Adult health examinat ion Completed 201012/25/2020 Routine general medical examinat ion at a health care facility ;Practic e ID: [id number] Megan Whyte MD [address], [place], [address], [facility] 18:07:35 Speciali zed medical examinat ion Completed 201012/25/2020 Routine gynecolo gical examinat ion;Prac sukhi ID: [id number] Megan Whyte MD [address], [place], [address], [facility] 18:07:59 Screenin g for malignan t neoplasm of cervix Completed 201012/25/2020 Pap Smear;Pr actice ID: 0001 Megan Whyte MD [address], [place], [address], [facility] 1 18:07:50 Contact dermatit is 22109622 Active 2011 Contact dermatit is and other eczema, unspecif ied cause;Pr actice ID: 0001 Not Available [facility] 0 18:44:17 Finding of trunk structur e [id number] Completed 201112/25/2020 Abdomina l or pelvic swelling , mass, or lump, generali zed;Prac sukhi ID: 0001 Megan Whyte MD [address], [place], [address], [facility] 1 18:07:42 Leukocyt osis 446988350 Active 2012 LEUKOCYT OSIS NOS;Prac sukhi ID: 0001 Not Available [facility] 0 18:44:17 Obesity 299266580 Completed 201312/25/2020 Obesity, unspecif ied;Prac sukhi ID: 0001 Megan Whyte MD [address], [place], [address], [facility] 1 18:07:48 Epigastr ic pain 86409166 Completed 201812/25/2020 Epigastr ic pain;Pra ctice ID: [id number] Megan Whyte MD [address], [place], [address], [facility] 1 18:07:39 Body mass index 30+ - obesity 183945516 Active 2016 Body mass index (BMI) 33.0-33. 9, adult;Re corded Elsewher e: No Locat ion: [facility] S ource: EHR Director Compliance garrison: N Practi ce ID: 0001 Kofi lable Time: 08:30:00 AM Not Available [facility] 0 18:44:19 Vaginiti s and vulvovag initis Completed 201212/25/2020 Vaginiti s and vulvovag initis;R ecorded Elsewher e: No Locat ion: [facility] S ource: EHR Director Compliance garrison: N Practi ce ID: 0001 Kofi lable Time: 11:30:00 AM Megan Whyte MD [address], [place], [address], [facility] 18:08:02 Osteopen ia 369525980 Active 2020 L and R femoral neck Megan Whyte MD [address], [place], [address], [facility] 16:36:36 Atrophic vaginiti s 47876981 Active 2020 Megan Whyte MD [address], [place], [address], [facility] 09:32:57 Abdomina l bloating 571092658 Active 2020 Megan Whyte MD [address], [place], [address], [facility] 09:32:59 Problem Notes None recorded. Procedures Surgical History Date Name Laterality Status Provider Name and Address Organization Details Recorded Time 022 Date of Last Colonoscopy completed NAGI ASKEW MD [address], [place], [address], [facility] 05/15/2023 17:39:08 021 Date of Last Mammogram completed [facility] 04/30/2022 10:10:57 021 Most Recent Bone Density completed [facility] 04/30/2022 10:11:04 020 Date of Last Pap Smear completed [facility] 12/25/2020 18:07:44 018 Knee arthroscopy/surger y completed [facility] 04/30/2022 18:24:11 013 colonoscopy completed [facility] 12/25/2020 17:15:42 008 hysteroscopy completed [facility] 12/25/2020 17:16:54 [address] [facility] 04/30/2022 18:24:45 004 hysteroscopy completed [facility] 04/30/2022 18:24:35 002 Endometrial Biopsy completed [facility] 12/25/2020 17:17:44 998 removal of thyroid nodule completed [facility] 04/30/2022 18:24:27 total knee replacement completed [facility] 12/25/2020 17:18:34 Imaging Results Imaging Date Name Status LastModified by Organization Details LastModified Time 03/19/2021 MAMMO, screening, bilateral completed [address] [place] [address], [address], 03/19/2021 17:32:45 03/19/2021 DEXA, axial skeleton + vertebral fracture assessment completed [address] [place] [address], [address], 04/05/2021 14:47:03 04/19/2021 US, pelvis completed [email or web address] [facility] [address], [place], [address], 04/19/2021 17:50:44 04/19/2021 US, transvaginal completed [email or web address] [facility] [address], [place], [address], 04/19/2021 17:50:54 04/19/2021 US, pelvis completed [email or web address], [place], [address], 04/30/2021 11:08:10 05/16/2022 MAMMO, screening, bilateral completed [email or web address] [place] [address] [address] [facility], [place], [address], 05/20/2022 08:56:26 10/03/2023 MAMMO, screening, bilateral completed [email or web address], [place], [address], 10/28/2023 16:54:47 10/03/2023 DEXA, axial skeleton + vertebral fracture assessment completed [address] [facility], [place], [address], 10/16/2023 12:24:38 Procedure Notes None recorded. Medical [...] Prescrib ed Elsewher e: Yes Loca tion: [facility] M odify By: [email or web address] salesuntraymond DateTime : 03/19/20 12 10:00:00 AM [...] Elsewher e: Yes Loca tion: [facility] odify By: jb gibbs DateTime : 07/10/20 [...] ed Elsewher e: Yes Loca tion: [facility] odify By: olga gibbs DateTime : 06/25/20 16 10:00:00 AM Not Available Not Available Not Available simvastat in 80 mg tablet 04/03 completed Prescrib ed Elsewher e: No Locat ion: [facility] odify By: jag dennis DateTime : 05/07/20 11 07:59:28 AM Not Available Not Available Not Available Terazol 3 0.8 % vaginal cream apply cream to affected area BID 06/09 completed Prescrib ed Elsewher e: No [facility] By: brayan gibbs DateTime : 03/19/20 [...] Elsewher e: Yes Loca tion: Thais sharp [facility] odify By: jb gibbs DateTime : 09/16/19 04:00:00 PM Not Available Not Available Not Available Flagyl 500 mg tablet take 1 tablet (500MG) by oral route 2 times every day for 7 days 07/25 completed Prescrib ed Elsewher e: No Locat ion: Thais sharp [facility] odify By: [email or web address] Alvaradot er DateTime : 07/19/20 13 10:27:00 AM Not Available Not Available Not Available benzonata te 100 mg capsule TAKE 1 CAPSULE BY MOUTH THREE TIMES DAILY NEEDED FOR COUGH active Not Available Not Available No t Available Vitamin B-6 100 mg tablet 06/09 completed Prescrib ed Elsewher e: Yes Loca tion: Thais sharp [facility] odify By: brayan gibbs DateTime : 03/19/20 12 10:00:00 AM Not Available Not Available Not Available black cohosh root extract 40 mg capsule 06/25 completed Prescrib ed Elsewher e: Yes Loca tion: [facility] odify By: olga gibbs DateTime : 05/07/20 [...] Elsewher e: Yes Loca tion: Thais sharp [facility] odify By: amnatasha salesunter DateTime : 06/09/20 14 08:30:00 AM Not Available Not Available Not Available metoprolo l succinate ER 25 mg tablet,ex tended release 24 hr take 1 tablet (25MG) by oral route every day 07/13 completed Prescrib ed Elsewher e: No Locat ion: Thais sharp [facility] odify By: stormy Sharp ncounter DateTime [...] Elsewher e: No Locat ion: Thais sharp [facility] odify By: olga bartholomewer DateTime : 06/25/20 [...] Elsewher e: No [facility]at [facility] odify By: brayan gibbs DateTime : 05/07/20 11 07:59:28 AM Not Available Not Available Not Available Vitamin B-12 1,000 mcg tablet 04/30 completed Prescrib ed Elsewher e: Yes Loca tion: Thais sharp [facility] odify By: brayan salesuntraymond DateTime : 06/09/20 14 08:30:00 AM Not Available Not Available Not Available Tylenol Extra Strength 500 mg tablet take 2 tablet by oral route every 6 hours as needed 04/30 completed Prescrib ed Elsewher e: Yes Loca tion: Thais sharp [facility] odify By: brayan salesuntraymond DateTime : 06/09/20 14 08:30:00 AM Not Available Not Available Not Available Aspirin Low-Stren gth 81 mg chewable tablet chew 1 tablet (81MG) by oral route every day 04/30 completed Prescrib ed Elsewher e: No Locat ion: Thais sharp [facility] odify By: jag dennis DateTime : 05/07/20 11 07:59:28 AM Not Available Not Available Not Available Vitamin C 500 mg capsule,e xtended release 09/16 completed Prescrib ed Elsewher e: No Locat ion: Thais sharp [facility] odify By: jb gibbs DateTime : 05/07/20 11 07:59:28 AM Not Available Not Available Not Available Centrum 0.4 mg-162 mg-18 mg tablet 06/25 completed Prescrib ed Elsewher e: No Locat ion: Thais sharp [facility] odify By: olga gibbs DateTime : 05/07/20 11 07:59:28 AM Not Available Not Available Not Available Os-Pradip 500 + D3 500 mg-5 mcg (200 unit) tablet 06/09 completed Prescrib ed Elsewher e: Yes Loca tion: Thais sharp [facility] odify By: brayan gibbs DateTime : 05/07/20 11 07:59:28 AM Not Available Not Available Not Available Fiber Therapy (methylce llulose-s ugar) oral powder active Prescrib ed Elsewher e: Yes Loca tion: Thais sharp [facility] odify By: olga gibbs DateTime : 06/25/20 16 10:00:00 AM Not Available Not Available Not Available fenofibra te 160 mg tablet TAKE 1 TABLET BY MOUTH DAILY active Not Available Not Available No t Available Calcio Joceline 500 mg tablet 12/25 completed Prescrib ed Elsewher e: Yes Loca tion: [facility]ais sharp [facility] odify By: prudence coyle DateTime : [...] Elsewher e: Yes Loca tion: Thais sharp [facility] odify By: brayan gibbs DateTime : 05/07/20 11 07:59:28 AM Not Available Not Available Not Available Tylenol Sinus Congestio n Pain 5 mg-325 mg tablet 04/30 completed Prescrib ed Elsewher e: Yes Loca tion: Thais sharp [facility] odify By: olga gibbs DateTime : 06/25/20 16 10:00:00 AM Not Available Not Available Not Available Vitamin D3 10 mcg (400 unit) capsule 04/30 completed Prescrib ed Elsewher e: Yes Loca tion: [facility]io [facility] odify By: stormy gibbs DateTime : 07/13/20 13 11:30:00 AM Not Available Not Available Not Available meloxicam 7.5 mg/5 mL oral suspensio n [id number]|2024-12-22 18:48:00|2024-12-22 18:48:00|ED_ITS|COLIN|Health Information Management|[id number]|"HPI - Female Genitourinary General Chief complaint: Urogenital-Female Stated complaint: Bladder Infection Time Seen by Provider: 12/22/24 18:49 Source: patient, RN notes reviewed and old records reviewed Mode of arrival: ambulatory Limitations: no limitations History of Present Illness HPI Narrative: 69 year old female who presents to [facility] care with complaints of urinary tract infection symptoms for the past 24 hours with bladder pressure no pain or burning with urination yet states symptoms worse this evening. Patient reports that she has not had any fevers or chills, denies any nausea or vomiting Patient states no difficulty voiding. Patient reports that she is leaving on trip tomorrow and wants to make sure she is able to go . 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 ([employer]) calcium 600 mg (as 1 tablet PO DAILY 09/29/19 10/02/24 10/17/19 History carbonate)-vitamin D3 10 mcg (400 unit) tablet (Calcium 600 + D(3)) cholecalciferol (vitamin D3) 25 25 mcg PO DAILY 09/29/19 10/02/24 10/17/19 History mcg (1,000 unit) tablet cyanocobalamin (vitamin B-12) 1,000 mcg PO DAILY 09/29/19 10/02/24 10/17/19 History 1,000 mcg capsule hsbwbfhn-dna-msclw acid 500 1 tablet PO DAILY 09/29/19 10/02/24 10/17/19 History mcg-lycopene 300 mcg-lutein 250 mcg tablet (Complete Multi 50+) ascorbic acid (vitamin C) 500 mg 500 mg PO DAILY 06/26/21 10/02/24 Unknown History tablet (Vitamin C) aspirin 81 mg tablet 81 mg PO DAILY 06/26/21 10/02/24 Unknown History estradiol 0.01% (0.1 mg/gram) 1 g vaginal 2XW 11/06/21 10/02/24 Unknown History vaginal cream ferrous sulfate 325 mg (65 mg 325 mg PO DAILY 05/08/22 10/02/24 Unknown History iron) tablet tretinoin 0.025 % topical cream 1 applic topical QHS 09/15/24 10/02/24 Unknown History Allergies Allergy/AdvReac Type Severity Reaction Status Date / Time adhesive tape AdvReac Mild Redness of Verified 10/27/24 15:39 Skin Review of Systems Review of Systems: CONSTITUTIONAL: Denies fever, chills, or sweats. CARDIOVASCULAR: Denies chest pain, palpitations, or edema. RESPIRATORY: Denies cough or dyspnea. GASTROINTESTINAL: Denies abdominal pain, nausea, vomiting, or diarrhea. GENITOURINARY: Reports pressure with urination, no frequency, urgency. Denies flank pain or hematuria. SKIN: Denies rash or itching. MUSCULOSKELETAL: Denies back pain or myalgia. Denies CVA tenderness NEUROLOGIC: Denies headache All systems reviewed & are unremarkable except as noted in HPI and below PMFSH Past Medical History Medical History Hepatic steatosis Intermittent low back pain CKD (chronic kidney disease) stage 3, GFR 30-59 ml/min Chronic venous insufficiency of lower extremity History of colon polyps Thrombocytosis Osteopenia Umbilical hernia Diastasis recti Environmental allergies History of electrophysiologic study for SVT 02/22/2013 Polycystic ovaries Thyroid nodule Hypothyroidism (acquired) History of PSVT (paroxysmal supraventricular tachycardia) 2012 - no reo-ccurence since cardiac ablation Vitamin D deficiency Unspecified osteoarthritis, unspecified site Pre-diabetes GERD without esophagitis Dyslipidemia Essential (primary) hypertension Shingles (~05/2021) Postmenopausal IBS (irritable bowel syndrome) Rectal polyp Surgical History Surgical History History of cataract surgery b/l - 2020 History of bilateral knee replacement left - 11/2017, right - 10/2019 History of partial thyroidectomy 07/1998 Hx of dilation and curettage 10/28/2003 H/O arthroscopic knee surgery 11/17/2017 H/O prior ablation treatment SVT - 02/2013 History of cholecystectomy 11/30/2003 Family History Family History Father Diabetes mellitus Cerebrovascular accident Mother Hypertension Depression Heart disease Sibling Hypertension Grandparent Heart disease Grandparent Heart disease Other Family history of coronary artery disease Social History Social History Smoking status: Never smoker Second hand tobacco smoke exposure: No Alcohol intake: never Substance use: never Substance use type: does not use Do You Feel Safe in your Home?: Yes Lack of Transportation: No Lack of Food: Never True Current Housing: I Have Housing Concerned About Future Housing: No Difficulty Paying Gas/Electric Bills: No Difficulty Paying for Meds: No Currently Unemployed: No Education: High School Diploma/GED Difficulty w/ Childcare or Family Care: No Living arrangements: with family Gender identity (if verbalized by the patient): Female Spiritual care concerns: No Agree to blood products: Yes Comments At time of signature, agree with nursing past medical, surgical, social and family history. There is no relevant family history pertinent to the presenting complaint Exam Narrative: GENERAL: Well-appearing, well-nourished, and in no acute distress. HEAD: Normocephalic, atraumatic. NECK: Supple. no lymphadenopathy CHEST: Clear to auscultation. No respiratory distress.SAO2 97% on room air HEART: Regular rate and rhythm. No murmur heard. Normal peripheral pulses. ABDOMEN: Soft, nontender, nondistended, normal active bowel sounds. No CVA tenderness reports pressure with urination EXTREMITIES: Normal range of motion. No edema. SKIN: Warm, dry, no rash. NEURO: No focal deficits. Alert and oriented x3. Course Course Emergency Course: Patient is aware of diagnosis, understands and agrees to treatment plan. Anticipatory guidance given. Patient agrees to follow-up as directed and is aware of reasons to seek care at the emergency department. Portions of this record may have been created with voice recognition software Level of Care: Express Care Visit Vital Signs Vital signs: Vital Signs Temperature 36.1 C L 12/22/24 18:42 Pulse Rate 96 12/22/24 18:42 Respiratory Rate 16 12/22/24 18:42 Blood Pressure 128/78 12/22/24 18:42 Pulse Oximetry 97 12/22/24 18:42 Oxygen Delivery Room Air 12/22/24 18:42 Temperature 36.1 C L 12/22/24 18:42 Pulse Rate 96 12/22/24 18:42 Respiratory Rate 16 12/22/24 18:42 Blood Pressure 128/78 12/22/24 18:42 Pulse Oximetry 97 12/22/24 18:42 Oxygen Delivery Room Air 12/22/24 18:42 MDM - Female Genitourinary MDM Narrative Medical decision making narrative: Exam findings and UA show no acute concerns or changes; patient is non-toxic appearing and is in no distress. Patient is appropriate for outpatient treatment and follow-up. Differential Diagnosis Differential diagnosis: Likely urinary tract infection, cystitis and other (urinary pressure) Medical Records Attestation: I reviewed the patient's medical records. Lab Data Attestation: I reviewed the patient's lab results. Lab results narrative: Glucose negative, bilirubin negative, ketone negative, specific gravity 1.020 blood negative pH 6.0 protein negative urobilinogen 0.2 nitrate negative leukocyte 1+ Critical Care Time Critical Care Time Critical Care Time: No Discharge Plan Discharge Clinical Impression: UTI symptoms Patient Disposition: Home Condition: Stable Instructions: Antibiotic Form, Urinary Tract Infection in Women (ED) Additional Instructions: Increase fluids especially cranberry juice and water Avoid caffeine and carbonated beverages Antibiotic as directed Medicine as directed--cautioned it will cause your urine to be bright orange Tylenol/ibuprofen for pain or fever Follow-up with her primary care provider if further problems or concerns Recheck if you have fever over 101, nausea and vomiting. If your symptoms persist, change or worsen significantly before you can contact your personal physician then please, without delay, go to the emergency depart ment for further evaluation. Follow-up with PCP in 7-10 days or sooner if needed Follow up with PCP soon in regards to your blood pressure which is elevated above threshold for referral. Blood pressure above 120/80 may indicate pre- hypertension. 128/78 minimal elevation Patient Language: Setswana Prescriptions: New nitrofurantoin monohyd/m-cryst [Macrobid] 100 mg capsule 100 mg PO Q12H 7 Days Qty: 14 0RF Rx Instructions: must administer with a meal/food No Action latanoprost 0.005 % Drops 1 drp OPHTHALMIC (EYE) QPM Rx Instructions: BOTH EYES fluconazole 150 mg tablet 150 mg PO ONCE 1 Days Qty: 1 0RF amoxicillin-pot clavulanate [Augmentin] 500-125 mg tablet 1 tablet PO BID 5 Days Qty: 10 0RF ascorbic acid (vitamin C) [Vitamin C] 500 mg Tablet 500 mg PO DAILY aspirin 81 mg Tablet 81 mg PO DAILY estradiol 0.01 % (0.1 mg/gram) cream 1 g vaginal 2XW ferrous sulfate 325 mg (65 mg iron) tablet 325 mg PO DAILY azelastine 137 mcg (0.1 %) spray,non-aerosol 1 spray intranasal Q12H 30 Days Qty: 30 5RF Rx Instructions: administer into each nostril tretinoin 0.025 % cream 1 applic topical QHS cholecalciferol (vitamin D3) 25 mcg (1,000 unit) Tablet 25 mcg PO DAILY calcium carbonate-vitamin D3 [Calcium 600 + D(3)] 600 mg(1,500mg) -400 unit Tablet 1 tablet PO DAILY Complete Multi 50+ 500-300-250 mcg Tablet 1 tablet PO DAILY [employer] 1.5 billion cell Capsule 1 cap PO DAILY cyanocobalamin (vitamin B-12) 1,000 mcg Capsule 1,000 mcg PO DAILY diltiazem HCl 240 mg capsule,extended release 24hr See Rx Instructions .ROUTE .COMPLEX Qty: 90 1RF Dose Instruction: TAKE 1 CAPSULE BY MOUTH DAILY Rx Instructions: TAKE 1 CAPSULE BY MOUTH DAILY omeprazole 40 mg capsule,delayed release(DR/EC) See Rx Instructions .ROUTE .COMPLEX Qty: 90 1RF Dose Instruction: TAKE 1 CAPSULE BY MOUTH DAILY Rx Instructions: TAKE 1 CAPSULE BY MOUTH DAILY loratadine 10 mg tablet See Rx Instructions .ROUTE .COMPLEX Qty: 90 0RF Dose Instruction: TAKE ONE TABLET BY MOUTH DAILY Rx Instructions: TAKE ONE TABLET BY MOUTH DAILY metoprolol succinate 50 mg tablet extended release 24 hr See Rx Instructions .ROUTE .COMPLEX Qty: 90 1RF Dose Instruction: TAKE 1 TABLET BY MOUTH DAILY Rx Instructions: TAKE 1 TABLET BY MOUTH DAILY fluticasone propionate [Flonase Allergy Relief] 50 mcg/actuation spray,suspension 2 spray intranasal DAILY Qty: 16 0RF Rx Instructions: administer into each nostril benzonatate 100 mg capsule 100 mg PO TID PRN (Reason: cough) Qty: 30 0RF ketoconazole 2 % cream See Rx Instructions .ROUTE .COMPLEX Qty: 30 0RF Dose Instruction: APPLY TOPICALLY TO THE AFFECTED AREA TWICE DAILY Rx Instructions: APPLY TOPICALLY TO THE AFFECTED AREA TWICE DAILY levothyroxine 88 mcg tablet 88 mcg PO DAILY Qty: 90 1RF simvastatin 40 mg tablet 40 mg PO QHS Qty: 90 1RF fenofibrate 160 mg tablet 160 mg PO DAILY Qty: 90 1RF Follow-up/Referrals: Shruthi Purvis MD [Primary Care Provider] - Time of Disposition: 19:02 Quality Lucille Coma Scale Eyes: Open Verbal: Oriented and Alert Motor: Follows Commands Ralph Coma Total Score: 15 "
[2024-12-22 18:42] VITALS: BP 128/78; PULSE 96; RESP 16; TEMP 36.1; O2SAT 97
--- NOTE | 2024-12-22 18:48 | ED.FEMALEGU ---
HPI - Female Genitourinary General Chief complaint: Urogenital-Female Stated complaint: Bladder Infection Time Seen by Provider: 12/22/24 18:49 Source: patient, RN notes reviewed and old records reviewed Mode of arrival: ambulatory Limitations: no limitations History of Present Illness HPI Narrative: 69 year old female who presents to [facility] care with complaints of urinary tract infection symptoms for the past 24 hours with bladder pressure no pain or burning with urination yet states symptoms worse this evening. Patient reports that she has not had any fevers or chills, denies any nausea or vomiting Patient states no difficulty voiding. Patient reports that she is leaving on trip tomorrow and wants to make sure she is able to go . 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 (DoubleDutch) calcium 600 mg (as 1 tablet PO DAILY 09/29/19 10/02/24 10/17/19 History carbonate)-vitamin D3 10 mcg (400 unit) tablet (Calcium 600 + D(3)) cholecalciferol (vitamin D3) 25 25 mcg PO DAILY 09/29/19 10/02/24 10/17/19 History mcg (1,000 unit) tablet cyanocobalamin (vitamin B-12) 1,000 mcg PO DAILY 09/29/19 10/02/24 10/17/19 History 1,000 mcg capsule ygmpltbz-ltt-hlokz acid 500 1 tablet PO DAILY 09/29/19 10/02/24 10/17/19 History mcg-lycopene 300 mcg-lutein 250 mcg tablet (Complete Multi 50+) ascorbic acid (vitamin C) 500 mg 500 mg PO DAILY 06/26/21 10/02/24 Unknown History tablet (Vitamin C) aspirin 81 mg tablet 81 mg PO DAILY 06/26/21 10/02/24 Unknown History estradiol 0.01% (0.1 mg/gram) 1 g vaginal 2XW 11/06/21 10/02/24 Unknown History vaginal cream ferrous sulfate 325 mg (65 mg 325 mg PO DAILY 05/08/22 10/02/24 Unknown History iron) tablet tretinoin 0.025 % topical cream 1 applic topical QHS 09/15/24 10/02/24 Unknown History Allergies Allergy/AdvReac Type Severity Reaction Status Date / Time adhesive tape AdvReac Mild Redness of Verified 10/27/24 15:39 Skin Review of Systems Review of Systems: CONSTITUTIONAL: Denies fever, chills, or sweats. CARDIOVASCULAR: Denies chest pain, palpitations, or edema. RESPIRATORY: Denies cough or dyspnea. GASTROINTESTINAL: Denies abdominal pain, nausea, vomiting, or diarrhea. GENITOURINARY: Reports pressure with urination, no frequency, urgency. Denies flank pain or hematuria. SKIN: Denies rash or itching. MUSCULOSKELETAL: Denies back pain or myalgia. Denies CVA tenderness NEUROLOGIC: Denies headache All systems reviewed & are unremarkable except as noted in HPI and below PMFSH Past Medical History Medical History Hepatic steatosis Intermittent low back pain CKD (chronic kidney disease) stage 3, GFR 30-59 ml/min Chronic venous insufficiency of lower extremity History of colon polyps Thrombocytosis Osteopenia Umbilical hernia Diastasis recti Environmental allergies History of electrophysiologic study for SVT 02/22/2013 Polycystic ovaries Thyroid nodule Hypothyroidism (acquired) History of PSVT (paroxysmal supraventricular tachycardia) 2012 - no reo-ccurence since cardiac ablation Vitamin D deficiency Unspecified osteoarthritis, unspecified site Pre-diabetes GERD without esophagitis Dyslipidemia Essential (primary) hypertension Shingles (~05/2021) Postmenopausal IBS (irritable bowel syndrome) Rectal polyp Surgical History Surgical History History of cataract surgery b/l - 2020 History of bilateral knee replacement left - 11/2017, right - 10/2019 History of partial thyroidectomy 07/1998 Hx of dilation and curettage 10/28/2003 H/O arthroscopic knee surgery 11/17/2017 H/O prior ablation treatment SVT - 02/2013 History of cholecystectomy 11/30/2003 Family History Family History Father Diabetes mellitus Cerebrovascular accident Mother Hypertension Depression Heart disease Sibling Hypertension Grandparent Heart disease Grandparent Heart disease Other Family history of coronary artery disease Social History Social History Smoking status: Never smoker Second hand tobacco smoke exposure: No Alcohol intake: never Substance use: never Substance use type: does not use Do You Feel Safe in your Home?: Yes Lack of Transportation: No Lack of Food: Never True Current Housing: I Have Housing Concerned About Future Housing: No Difficulty Paying Gas/Electric Bills: No Difficulty Paying for Meds: No Currently Unemployed: No Education: High School Diploma/GED Difficulty w/ Childcare or Family Care: No Living arrangements: with family Gender identity (if verbalized by the patient): Female Spiritual care concerns: No Agree to blood products: Yes Comments At time of signature, agree with nursing past medical, surgical, social and family history. There is no relevant family history pertinent to the presenting complaint Exam Narrative: GENERAL: Well-appearing, well-nourished, and in no acute distress. HEAD: Normocephalic, atraumatic. NECK: Supple. no lymphadenopathy CHEST: Clear to auscultation. No respiratory distress.SAO2 97% on room air HEART: Regular rate and rhythm. No murmur heard. Normal peripheral pulses. ABDOMEN: Soft, nontender, nondistended, normal active bowel sounds. No CVA tenderness reports pressure with urination EXTREMITIES: Normal range of motion. No edema. SKIN: Warm, dry, no rash. NEURO: No focal deficits. Alert and oriented x3. Course Course Emergency Course: Patient is aware of diagnosis, understands and agrees to treatment plan. Anticipatory guidance given. Patient agrees to follow-up as directed and is aware of reasons to seek care at the emergency department. Portions of this record may have been created with voice recognition software Level of Care: Express Care Visit Vital Signs Vital signs: Vital Signs Temperature 36.1 C L 12/22/24 18:42 Pulse Rate 96 12/22/24 18:42 Respiratory Rate 16 12/22/24 18:42 Blood Pressure 128/78 12/22/24 18:42 Pulse Oximetry 97 05/14/25 18:42 Oxygen Delivery Room Air 12/22/24 18:42 Temperature 36.1 C L 12/22/24 18:42 Pulse Rate 96 12/22/24 18:42 Respiratory Rate 16 12/22/24 18:42 Blood Pressure 128/78 12/22/24 18:42 Pulse Oximetry 97 12/22/24 18:42 Oxygen Delivery Room Air 12/22/24 18:42 MDM - Female Genitourinary MDM Narrative Medical decision making narrative: Exam findings and UA show no acute concerns or changes; patient is non-toxic appearing and is in no distress. Patient is appropriate for outpatient treatment and follow-up. Differential Diagnosis Differential diagnosis: Likely urinary tract infection, cystitis and other (urinary pressure) Medical Records Attestation: I reviewed the patient's medical records. Lab Data Attestation: I reviewed the patient's lab results. Lab results narrative: Glucose negative, bilirubin negative, ketone negative, specific gravity 1.020 blood negative pH 6.0 protein negative urobilinogen 0.2 nitrate negative leukocyte 1+ Critical Care Time Critical Care Time Critical Care Time: No Discharge Plan Discharge Clinical Impression: UTI symptoms Patient Disposition: Home Condition: Stable Instructions: Antibiotic Form, Urinary Tract Infection in Women (ED) Additional Instructions: Increase fluids especially cranberry juice and water Avoid caffeine and carbonated beverages Antibiotic as directed Medicine as directed--cautioned it will cause your urine to be bright orange Tylenol/ibuprofen for pain or fever Follow-up with her primary care provider if further problems or concerns Recheck if you have fever over 101, nausea and vomiting. If your symptoms persist, change or worsen significantly before you can contact your personal physician then please, without delay, go to the emergency department for further evaluation. Follow-up with PCP in 7-10 days or sooner if needed Follow up with PCP soon in regards to your blood pressure which is elevated above threshold for referral. Blood pressure above 120/80 may indicate pre-hypertension. 128/78 minimal elevation Patient Language: Hebrew Prescriptions: New nitrofurantoin monohyd/m-cryst [Macrobid] 100 mg capsule 100 mg PO Q12H 7 Days Qty: 14 0RF Rx Instructions: must administer with a meal/food No Action latanoprost 0.005 % Drops 1 drp OPHTHALMIC (EYE) QPM Rx Instructions: BOTH EYES fluconazole 150 mg tablet 150 mg PO ONCE 1 Days Qty: 1 0RF amoxicillin-pot clavulanate [Augmentin] 500-125 mg tablet 1 tablet PO BID 5 Days Qty: 10 0RF ascorbic acid (vitamin C) [Vitamin C] 500 mg Tablet 500 mg PO DAILY aspirin 81 mg Tablet 81 mg PO DAILY estradiol 0.01 % (0.1 mg/gram) cream 1 g vaginal 2XW ferrous sulfate 325 mg (65 mg iron) tablet 325 mg PO DAILY azelastine 137 mcg (0.1 %) spray,non-aerosol 1 spray intranasal Q12H 30 Days Qty: 30 5RF Rx Instructions: administer into each nostril tretinoin 0.025 % cream 1 applic topical QHS cholecalciferol (vitamin D3) 25 mcg (1,000 unit) Tablet 25 mcg PO DAILY calcium carbonate-vitamin D3 [Calcium 600 + D(3)] 600 mg(1,500mg) -400 unit Tablet 1 tablet PO DAILY Complete Multi 50+ 500-300-250 mcg Tablet 1 tablet PO DAILY [employer] 1.5 billion cell Capsule 1 cap PO DAILY cyanocobalamin (vitamin B-12) 1,000 mcg Capsule 1,000 mcg PO DAILY diltiazem HCl 240 mg capsule,extended release 24hr See Rx Instructions .ROUTE .COMPLEX Qty: 90 1RF Dose Instruction: TAKE 1 CAPSULE BY MOUTH DAILY Rx Instructions: TAKE 1 CAPSULE BY MOUTH DAILY omeprazole 40 mg capsule,delayed release(DR/EC) See Rx Instructions .ROUTE .COMPLEX Qty: 90 1RF Dose Instruction: TAKE 1 CAPSULE BY MOUTH DAILY Rx Instructions: TAKE 1 CAPSULE BY MOUTH DAILY loratadine 10 mg tablet See Rx Instructions .ROUTE .COMPLEX Qty: 90 0RF Dose Instruction: TAKE ONE TABLET BY MOUTH DAILY Rx Instructions: TAKE ONE TABLET BY MOUTH DAILY metoprolol succinate 50 mg tablet extended release 24 hr See Rx Instructions .ROUTE .COMPLEX Qty: 90 1RF Dose Instruction: TAKE 1 TABLET BY MOUTH DAILY Rx Instructions: TAKE 1 TABLET BY MOUTH DAILY fluticasone propionate [Flonase Allergy Relief] 50 mcg/actuation spray,suspension 2 spray intranasal DAILY Qty: 16 0RF Rx Instructions: administer into each nostril benzonatate 100 mg capsule 100 mg PO TID PRN (Reason: cough) Qty: 30 0RF ketoconazole 2 % cream See Rx Instructions .ROUTE .COMPLEX Qty: 30 0RF Dose Instruction: APPLY TOPICALLY TO THE AFFECTED AREA TWICE DAILY Rx Instructions: APPLY TOPICALLY TO THE AFFECTED AREA TWICE DAILY levothyroxine 88 mcg tablet 88 mcg PO DAILY Qty: 90 1RF simvastatin 40 mg tablet 40 mg PO QHS Qty: 90 1RF fenofibrate 160 mg tablet 160 mg PO DAILY Qty: 90 1RF Follow-up/Referrals: Shruthi Purvis MD [Primary Care Provider] - Time of Disposition: 19:02 Quality Lucille Coma Scale Eyes: Open Verbal: Oriented and Alert Motor: Follows Commands Lucille Coma Total Score: 15
[2024-12-22 18:59] LABS: EDUAAPPEAR Clear; EDUABILI Negative (Negative); EDUABLOOD Negative (Negative); EDUACOLOR1 Dark; EDUAGLUCOSE Negative (Negative); EDUAKETONE Negative (Negative); EDUALEUKO 1+ (Negative); EDUANITRATE Negative (Negative); EDUAPROTEIN Negative (Negative); EDUAUROBILI 0.2
== END 2024-12-22 19:17 | disposition home or self-care (01) ==
PROVIDERS: Emergency Provider Registered Nurse; PCP Family Medicine
DX: R39.89 Other symptoms and signs involving the genitourinary system (principal); I12.9 Hypertensive chronic kidney disease with stage 1 through stage 4 chronic kidney disease, or unspecified chronic kidney disease; N18.30 Chronic kidney disease, stage 3 unspecified; K76.0 Fatty (change of) liver, not elsewhere classified; M85.80 Other specified disorders of bone density and structure, unspecified site; E28.2 Polycystic ovarian syndrome; E03.9 Hypothyroidism, unspecified; M19.90 Unspecified osteoarthritis, unspecified site; R73.03 Prediabetes; K21.9 Gastro-esophageal reflux disease without esophagitis; E55.9 Vitamin D deficiency, unspecified; Z96.653 Presence of artificial knee joint, bilateral; Z90.89 Acquired absence of other organs
CPT/HCPCS: 81003; 87086; 99213; G0463

== ENCOUNTER 2024-12-29 09:28 | Outpatient (CLI) | payer OTHER, SELFPAY ==
--- OUTSIDE RECORDS SUMMARY | 2024-12-29 10:08 | XMS_ITS | Clinical Summary ---
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 Gender Identity Not on file Sexual Orientation Not on file Last Filed Vital Signs Vital Sign Reading Time Taken Comments Blood Pressure 132/80 07/02/2024 9:43 AM BLENDING TANK HELPER Pulse 81 07/02/2024 9:43 AM BLENDING TANK HELPER Temperature 36.5 C (97.7 F) 07/02/2024 9:43 AM BLENDING TANK HELPER Respiratory Rate 18 07/02/2024 9:43 AM BLENDING TANK HELPER Oxygen Saturation 93% 07/02/2024 9:43 AM BLENDING TANK HELPER Inhaled Oxygen Concentration - - Weight 91.2 kg (201 lb) 07/02/2024 9:43 AM BLENDING TANK HELPER Height 152.4 cm (5') 06/12/2022 3:43 PM CDT Body Mass Index 39.26 06/12/2022 3:43 PM CDT Plan of Treatment Upcoming Encounters Date Type Department Care Team (Late st Contact Info) Description 04/08/2025 9:15 AM CDT Office Visit [facility] Oncology and Hematology [facility] [address] [facility] [address] [place] [address] Cliff Cerda MD [address] [place] [address] Health Maintenance Due Date Last [...] (1 - 1-dose 75+ series) 2032 Insurance [facility] Care Teams Mammalogist Relationship Specialty Start Date End Date Consuelo Purvis MD [address] [place] [address] PCP - General Family Practice 05/22/21
--- OUTSIDE RECORDS SUMMARY | 2024-12-29 10:08 | XMS_ITS | Clinical Summary ---
Author Organization [facility] [place] [address] Address [address] [place] [address] Care Team Providers Care Home Designer Name Role Phone Consuelo Purvis MD Primary [...] ORAL) Take by mouth daily. 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 Gender Identity Not on file Sexual Orientation Not on file Obstetrics History Last Filed Vital Signs Vital Sign Reading Time Taken Comments Blood Pressure 126/74 08/23/2024 8:14 AM CYLINDER VALVE REPAIRER Pulse 86 08/23/2024 8:14 AM CYLINDER VALVE REPAIRER Temperature - - Respiratory Rate - - Oxygen Saturation 97% 08/23/2024 8:14 AM CYLINDER VALVE REPAIRER Inhaled Oxygen Concentration - - Weight 92.9 kg (204 lb 11.2 oz) 08/23/2024 8:14 AM CYLINDER VALVE REPAIRER Height 152.4 cm (5') 08/23/2024 8:14 AM CYLINDER VALVE REPAIRER Body Mass Index 39.98 08/23/2024 8:14 AM CYLINDER VALVE REPAIRER Plan of Treatment Health Maintenance Due Date [...] OPEN ACCESS [employer] OPEN ACCESS Care Teams Home Designer Relationship Specialty Start Date End Date Consuelo Purvis MD PCP - General Family Practice 11/05/17
--- OUTSIDE RECORDS SUMMARY | 2024-12-29 10:08 | XMS_ITS | Referral Summary ---
Author Organization [facility] [place] [address] Address [address] [place] [address] Care Team Providers Care Guide Rail Cleaner Name Role Phone Consuelo Purvis MD Primary [...] ORAL) Take by mouth daily. 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 Gender Identity Not on file Sexual Orientation Not on file Last Filed Vital Signs Vital Sign Reading Time Taken Comments Blood Pressure 126/74 08/23/2024 8:14 AM AMBULATORY TECHNOLOGIST Pulse 86 08/23/2024 8:14 AM AMBULATORY TECHNOLOGIST Temperature - - Respiratory Rate - - Oxygen Saturation 97% 08/23/2024 8:14 AM AMBULATORY TECHNOLOGIST Inhaled Oxygen Concentration - - Weight 92.9 kg (204 lb 11.2 oz) 08/23/2024 8:14 AM AMBULATORY TECHNOLOGIST Height 152.4 cm (5') 08/23/2024 8:14 AM AMBULATORY TECHNOLOGIST Body Mass Index 39.98 08/23/2024 8:14 AM AMBULATORY TECHNOLOGIST Plan of Treatment Not on file Insurance [employer] OPEN ACCESS [employer] OPEN ACCESS Care Teams Guide Rail Cleaner Relationship Specialty Start Date End Date Consuelo Purvis MD PCP - General Family Practice 11/05/17
[2024-12-29 13:02] LABS: Basophils Absolute Auto 0.1 K/mm3 (0.0-0.1); Basophils Percent Auto 1.1 % (0.2-1.2); Eosinophils Absolute Auto 0.6 K/mm3 (0-0.3); Eosinophils Percent Auto 5.9 % (0-4.4); Hematocrit 43.9 % (37.0-47.0); Hemoglobin 13.6 g/dL (12.0-15.0); Immature Granulocyte Absolute 0.05 K/mm3 (0.00-0.031); Immature Granulocyte Percent A 0.5 % (0-0.5); Lymphocytes Absolute Auto 1.96 K/mm3 (0.9-3.2); Lymphocytes Percent Auto 18.5 % (18.3-44.2); Mean Corpuscular Hemoglobin 30.8 pg (26-34); Mean Corpuscular Volume 99.3 fl (80-100); Mean Platelet Volume 9.9 fl (7.4-10.4); Monocytes Absolute Auto 0.8 K/mm3 (0.1-0.6); Monocytes Percent Auto 7.5 % (2.6-8.5); Neutrophils Absolute Auto 7.1 K/mm3 (1.3-6.7); Neutrophils Percent Auto 66.5 % (45.5-73.1); Platelet Count Result 453 k/mm3 (150-375); Red Blood Count 4.42 M/mm3 (4.2-5.4); Red Cell Distribution Width 12.9 % (11.5-14.5); White Blood Count 10.6 K/mm3 (4.5-10.0)
[2024-12-29 13:27] LABS: Alanine Aminotransferase 44 U/L (6-35); Albumin Level 4.3 g/dL (3.5-5.1); Alkaline Phosphatase 74 U/L (38-126); Anion Gap 7 mmol/L (4-12); Aspartate Amino Transferase 64 U/L (14-36); Bilirubin,Total 0.6 mg/dL (0.2-1.3); Blood Urea Nitrogen 22 mg/dL (7-17); Calcium 9.1 mg/dL (8.4-10.2); Carbon Dioxide 29 mmol/L (22-30); Chloride 104 mmol/L (98-107); Estimated Glomerular Filt Rate > 60; Glucose 95 mg/dL (65-110); Potassium 4.2 mmol/L (3.4-5.0); Sodium 140 mmol/L (137-145)
[2024-12-29 13:44] LABS: Free T4 Free Thyroxine 1.48 ng/dL (0.78-2.19); Vitamin D 25 Hydroxy 55.8 ng/mL
[2024-12-29 16:41] LABS: Hemoglobin A1C 5.9 % (<5.7)
== END 2024-12-29 09:29 | disposition home or self-care (01) ==
LOC: ANHGOSHLAB 09:29
PROVIDERS: PCP Family Medicine; Visit Provider Nurse Practitioner Family
DX: I10 Essential (primary) hypertension (principal); E03.9 Hypothyroidism, unspecified; E55.9 Vitamin D deficiency, unspecified; R73.03 Prediabetes
CPT/HCPCS: 36415; 80053; 82306; 83036; 84439; 84443; 85025

== ENCOUNTER 2025-04-01 08:25 | Outpatient (CLI) | payer OTHER, SELFPAY ==
[2025-04-01 08:40] LABS: Hematocrit 45.1 % (37.0-47.0); Hemoglobin 15.1 g/dL (12.0-15.0); Mean Corpuscular HGB Conc 33.5 g/dl (32-36); Mean Corpuscular Hemoglobin 31.5 pg (26-34); Mean Corpuscular Volume 94.0 fl (80-100); Platelet Count Result 518 k/mm3 (150-375); Red Blood Count 4.80 M/mm3 (4.2-5.4); White Blood Count 10.4 K/mm3 (4.5-10.0)
[2025-04-01 12:05] LABS: Alanine Aminotransferase 53 U/L (6-35); Albumin Level 4.4 g/dL (3.5-5.1); Alkaline Phosphatase 79 U/L (38-126); Anion Gap 10 mmol/L (4-12); Aspartate Amino Transferase 68 U/L (14-36); Bilirubin,Total 0.5 mg/dL (0.2-1.3); Blood Urea Nitrogen 17 mg/dL (7-17); Calcium 9.7 mg/dL (8.4-10.2); Carbon Dioxide 28 mmol/L (22-30); Chloride 101 mmol/L (98-107); Estimated Glomerular Filt Rate 59; Glucose 104 mg/dL (65-110); Potassium 4.1 mmol/L (3.4-5.0); Sodium 139 mmol/L (137-145); Total Protein 7.7 g/dL (6.3-8.2)
[2025-04-01 12:07] LABS: Iron 120 ug/dL (37-170)
[2025-04-01 12:16] LABS: Percent Iron Saturation 31 % (20-50)
[2025-04-01 12:52] LABS: Ferritin 182.00 ng/mL (11.1-264)
[2025-04-01 13:06] LABS: Uric Acid 4.6 mg/dL (2.5-7.5)
[2025-04-01 13:38] LABS: Vitamin B12 > 1000.0 pg/mL (239-931)
== END 2025-04-01 08:26 | disposition home or self-care (01) ==
PROVIDERS: Nurse Practitioner Family; PCP Family Medicine; Visit Provider Internal Medicine Hematology & Oncology
DX: M25.472 Effusion, left ankle (principal); D64.9 Anemia, unspecified
CPT/HCPCS: 36415; 80053; 82607; 82728; 83540; 83550; 84550; 85027

== ENCOUNTER 2025-04-01 10:44 | Outpatient (CLI) | payer OTHER, SELFPAY ==
--- NOTE | ~2025-04-01 | XR_ITS ---
XR ankle LT min 3V 04/01/2025 11:15 Indication: Left ankle pain. Effusion. Procedure: 4 views left ankle Comparison: 07/24/2022 Findings: Extensive subcutaneous edema. There is a corticated ossific density at the medial malleolus, likely related to remote trauma. No acute fracture or traumatic malalignment. Prominent degenerative calcaneal enthesophyte at the plantar surface. Talar dome is unremarkable. There are mild degenerative changes of the tibiotalar joint. Impression: 1: Mild osteoarthritis of the left ankle. Reviewed, dictated and finalized at location O. Impression: 1: Mild osteoarthritis of the left ankle.
== END 2025-04-01 10:45 | disposition home or self-care (01) ==
LOC: GOSHIMG 10:45
PROVIDERS: PCP Family Medicine; Visit Provider Nurse Practitioner Family
DX: M25.472 Effusion, left ankle (principal); M17.12 Unilateral primary osteoarthritis, left knee
CPT/HCPCS: 73610

== ENCOUNTER 2025-05-13 08:13 | Emergency (ER) | payer OTHER, SELFPAY ==
--- OUTSIDE RECORDS SUMMARY | 2025-05-13 08:16 | XMS_ITS | Clinical Summary ---
Author Organization [facility] [address] Address [address] [place] [address] Care Team Providers Care Drywall Sander Name Role Phone Consuelo Purvis MD Primary Care Provider Allergies Active Allergy Reactions Criticality Noted Date Comments Loratadine Medications levothyroxine (SYNTHROID, LEVOTHROID) 88 mcg tablet Take 1 tablet (88 mcg total) by mouth daily 8 Active meloxicam (MOBIC) 15 mg tablet Take 15 mg by mouth daily. 8 Active OMEPRAZOLE ORAL Take 40 mg by mouth daily 8 Active simvastatin (ZOCOR) 40 mg tablet [...] ORAL) Take by mouth daily. Active omega 5-rml-wwb-fish oil 1,000 mg (120 mg-180 mg) capsule [...] Active estrogens, conjugated, (PREMARIN) vaginal cream Active timolol/dorzola mide/latanop/PF (timoloL-dorzol amid-latanop,PF ,) 0.5-2-0.005 % drops Administer into affected eye(s) Active Active Problems Problem Noted Date Diagnosed Date Paroxysmal supraventricular tachycardia 11/07/19 18 Encounters Date Type Department Care Team Description 02/28/2025 8:30 AM CDT Office Visit [facility] Cardiology [address] [place] [address] Ankit Joseph MD Paroxysmal supraventricular tachycardia [...] on file 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 Gender Identity Not on file Sexual Orientation Not on file Obstetrics History Last Filed Vital Signs Vital Sign Reading Time Taken Comments Blood Pressure 120/72 02/28/2025 8:34 AM CDT Pulse 77 02/28/2025 8:34 AM CDT Temperature - - Respiratory Rate - - Oxygen Saturation 95% 02/28/2025 8:34 AM CDT Inhaled Oxygen Concentration - - Weight 91.3 kg (201 lb 4.8 oz) 02/28/2025 8:34 A M CDT Height 152.4 cm (5') 02/28/2025 8:34 AM CDT Body Mass Index 39.31 02/28/2025 8:34 AM CDT Plan of Treatment Health Maintenance Due Date Last Done Comments Colon Cancer Screening-Colonoscopy 1955 Depression Screening 1957 Fall Risk Assessment 1957 Hepatitis C Screening 1957 Osteoporosis Screening-Bone Density Scan 1957 DTaP/Tdap/Td Vaccine (1 - Tdap) 1968 Hepatitis B Screening 1975 Pneumococcal vaccine 65+ (1 of 1 - PCV) 2007 Zoster Vaccine (1 of 2) 2007 Well Visit 65+ 2022 Breast Cancer Screening-Mammogram 10/03/2024 10/03/2023, 05/17/2022, 03/19/2021 Covid-19 Vaccine ( season) 2025 08/17/2021, 11/17/2020, 10/27/2020 Influenza Vaccine (#1) 2025 Procedures Procedure Name Priority Date/Time Associated Diagnosis Comments POCT LIPID PANEL Routine 02/28/2025 10:1 9 AM CDT Paroxysmal supraventricular tachycardia from Last 3 Months Results * (ABNORMAL) POCT lipid panel (02/28/2025 10:19 AM CDT) Cholesterol, POC 156 <200 MG/DL HDL, POC 59 >=40 mg/dL Triglycerides, POC 155(A) <=149 mg/dL LDL Cholesterol POC 66 <=129 mg/dL Chol/HDL Ratio, POC 1.1 NONE Non-HDL Cholesterol, POC 97 NONE mg/dL Cholesterol Total, POC 156 30 - 199 mg/dL Capillary blood 02/28/2025 1 0:19 AM CDT Ankit Joseph MD POINT OF CARE TEST ORDER KASIA Final Result from Last 3 Months Insurance [employer] OPEN ACCESS [employer] OPEN ACCESS Care Teams Drywall Sander Relationship Specialty Start Date End Date Consuelo Purvis MD PCP - General Family Practice 11/05/17
--- OUTSIDE RECORDS SUMMARY | 2025-05-13 08:17 | XMS_ITS | Clinical Summary ---
Author Organization [facility] Address [address] [place] [address] Care Team Providers Care Supervisor Blood Donor Recruiters Name Role Phone Consuelo Purvis MD Primary [...] Comments Blood Pressure 133/82 08/20/2021 10:00 PM IRON CARRIER Pulse 70 08/20/2021 10:00 PM IRON CARRIER Temperature 36.4 C (97.6 F) 08/20/2021 9:00 PM IRON CARRIER Respiratory Rate 20 08/20/2021 10:00 PM IRON CARRIER Oxygen Saturation 96% 08/20/2021 10:00 PM IRON CARRIER Inhaled Oxygen Concentration - - Weight 85.7 kg (189 lb) 08/20/2021 6:48 PM IRON CARRIER Height 152.4 cm (5') 08/20/2021 6:48 PM IRON CARRIER Body Mass Index 36.91 08/20/2021 6:48 PM IRON CARRIER Plan of Treatment Health Maintenance Due Date Last Done Comments Colorectal Cancer Screening Colonoscopy (10 Years) 1957 Hepatitis C 1975 DTaP, Tdap and Td Vaccines ( 1 - Tdap) 1976 Mammogram Screening 1997 Pneumococcal Vaccine: 50+ Years (1 of 1 - PCV) 2007 Zoster Vaccines (1 of 2) 2007 Dexa Scan (General) 2022 COVID-19 Vaccine (3 - 2024-2 6 season) 2025 11/17/2020, 10/27/2020 RSV Immunization or 60+ Years [...] age to complete this topic Insurance [employer] PPO GENERIC - COMMERCIAL [place]ARY [employer] [employer] [id number] Care Teams Supervisor Blood Donor Recruiters Relationship Specialty Start Date End Date Consuelo Purvis MD [address] [place] [address] PCP - General FAMILY PRACTICE 02/23/21
--- OUTSIDE RECORDS SUMMARY | 2025-05-13 08:17 | XMS_ITS | Encounter Summary ---
Author Organization [facility] Healthcare Address [address] [place] [address] Care Team Providers Care Icu Tech Name Role Phone Consuelo Purvis MD Primary Care Provider Encounter Details Date Type Department Care Team (Late st Contact Info) Description 03/30/2018 Orders Only [facility] Health Information Management [address] [place] [address] Scanning, Provider Social History Tobacco Use Types Packs/Day Years Used Date Smoking Tobacco: Never Smokeless Tobacco: Never Alcohol Use Standard Drinks/Week Comments No 0 (1 standard drink = 0.6 oz pur e alcohol) Comments Unknown Sex and Gender Information Value Date Recorded Sex Assigned at Not on file 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 Gender Identity Not on file Sexual Orientation Not on file documented as of this encounter Plan of Treatment Not on file documented as of this encounter Procedures Procedure Name Priority Date/Time Associated Diagnosis Comments SCAN - RADIOLOGY/IMAGING 03/30/2018 CARDIOLOGY DOCUMENT SCAN 03/30/2018 documented in this encounter Results * SCAN - RADIOLOGY/IMAGING (03/30/2018) Anatomical Region Laterality Modality Other us Provider Scanning Final Result * Cardiology Document Scan (03/30/2018) Anatomical Region Laterality Modality Other us Provider Scanning CV CARDIAC SERVICES PROCEDURES Final Result documented in this encounter Visit Diagnoses Not on filedocumented in this encounter Care Teams Icu Tech Relationship Specialty Start Date End Date Consuelo Purvis MD PCP - General Family Practice 11/05/17 documented as of this encounter
--- OUTSIDE RECORDS SUMMARY | 2025-05-13 08:17 | XMS_ITS | Encounter Summary ---
Author Organization [facility] Healthcare Address [address] [place] [address] Care Team Providers Care Lumber Puller Name Role Phone Consuelo Purvis MD Primary Care Provider Encounter Details Date Type Department Care Team (Late st Contact Info) Description 06/18/2024 Orders Only [facility] Health Information Management [address] [place] [address] Scanning, Provider Social History Tobacco Use Types Packs/Day Years Used Date Smoking Tobacco: Never Smokeless Tobacco: Never Alcohol Use Standard Drinks/Week Comments No 0 (1 standard drink = 0.6 oz pur e alcohol) Comments Unknown Sex and Gender Information Value Date Recorded Sex Assigned at Not on file 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 Gender Identity Not on file Sexual Orientation Not on file documented as of this encounter Plan of Treatment Not on file documented as of this encounter Procedures Procedure Name Priority Date/Time Associated Diagnosis Comments SCAN - RADIOLOGY/IMAGING 06/18/2024 documented in this encounter Results * SCAN - RADIOLOGY/IMAGING (06/18/2024) Anatomical Region Laterality Modality Other us Provider Scanning Final Result documented in this encounter Visit Diagnoses Not on filedocumented in this encounter Care Teams Lumber Puller Relationship Specialty Start Date End Date Consuelo Purvis MD PCP - General Family Practice 11/05/17 documented as of this encounter
--- OUTSIDE RECORDS SUMMARY | 2025-05-13 08:17 | XMS_ITS | Clinical Summary ---
Author Organization [facility] Address [address] [facility] [place] [address] Phone Care Team Providers Care Bow Maker Gift Wrapping Name Role Phone Consuelo Purvis MD Primary [...] Encounters Date Type Department Care Team Description 04/26/2025 External Device Data STL ABSTRACTION Provider, Abstract 04/19/2025 External Device Data STL ABSTRACTION Provider, Abstract 04/08/2025 9:15 AM CDT Office Visit [facility] Oncology and Hematology - [place] [address] [place] [address] Cliff Cerda MD Chronic anemia (Primary Dx) 04/04/2025 Orders Only [facility] - [place] [address] [place] [address] Cliff Cerda MD 04/01/2025 Orders Only [facility] - [place] [address] [place] [address] Cliff Cerda MD 03/16/2025 External Device Data STL ABSTRACTION Provider, Abstract 03/15/2025 External Device Data STL ABSTRACTION Provider, Abstract 02/23/2025 External Device Data STL ABSTRACTION Provider, Abstract 02/23/2025 External Device Data STL ABSTRACTION Provider, Abstract 02/23/2025 External Device Data STL ABSTRACTION Provider, Abstract [...] on file Legal Sex Female 5:13 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 Gender Identity Not on file Sexual Orientation Not on file Last Filed Vital Signs Vital Sign Reading Time Taken Comments Blood Pressure 131/97 04/08/2025 9:21 AM CDT Pulse 81 04/08/2025 9:11 AM CDT Temperature 36.3 C (97.3 F) 04/08/2025 9:11 AM CDT Respiratory Rate 12 04/08/2025 9:11 AM CDT Oxygen Saturation 97% 04/08/2025 9:11 AM CDT Inhaled Oxygen Concentration - - Weight 91 kg (200 lb 9.6 oz) 04/08/2025 9:11 AM CDT Height 152.4 cm (5') 06/12/2022 3:43 PM CDT Body Mass Index 39.18 06/12/2022 3:43 PM CDT Plan of Treatment Upcoming Encounters Date Type Department Care Team (Late st Contact Info) Description 01/09/2026 10:00 AM CDT Office Visit [facility]ology - [place] [address] [facility] [address] [place] [address] Cliff Cerda MD [address] [facility] [address] [place] [address] Health Maintenance Due Date Last Done Comments Pre-Diabetes and Diabetes Screening 1955 BREAST CANCER SCREENING 1997 FIT-DNA Q 3 years 2002 FIT/FOBT Q 1 year 2002 Flex Sig/CT Colonography Q 5 years 2002 DTAP/TDAP/TD VACCINES (1 - Tdap) 02/02/2015 02/02/20 15 RSV VACCINE (60+ or ) (1 - Risk 60-74 years 1-dose series) 2017 OSTEOPOROSIS SCREENING 2022 INFLUENZA VACCINE (#1) 2025 COVID-19 Vaccine (4 - 2024-2 6 season) 2025 08/17/2021, 11/17/2020, 10/27/2020 COLORECTAL SCREENING 09/04/2031 09/04/2021, 09/03/2021, 08/11/2012, Additional history exists Colorectal Cancer Screening 09/04/2031 ZOSTER VACCINE Completed 07/19/2023, 03/07/2023 PNEUMOCOCCAL VACCINE 50+ YEARS Completed 11/28/2023 Procedures Procedure Name Priority Date/Time Associated Diagnosis Comments COMPREHENSIVE METABOLIC PANEL Routine 04/01/2025 11:29 AM CDT CBC WITH AUTODIFFERENTIAL Routine 2024 11:24 AM CDT from Last 3 Months Results * COMPREHENSIVE METABOLIC PANEL (04/01/2025 11:29 AM CDT) Blood us Cliff Cerda MD CHEMISTRY ORDERABLES Final Resu lt * CBC WITH AUTODIFFERENTIAL (04/01/2025 11:24 AM CDT) Blood us Cliff Cerda MD HEMATOLOGY ORDERABLES Final Res ult from Last 3 Months Insurance [facility] Care Teams Bow Maker Gift Wrapping Relationship Specialty Start Date End Date Consuelo Purvis MD [address] [place] [address] PCP - General Family Practice 05/22/21
--- OUTSIDE RECORDS SUMMARY | 2025-05-13 08:17 | XMS_ITS | Patient Health Record ---
Author Organization [facility] ([address]) Address [address] [place] [address] Care Team Providers Care Felt Machine Mechanic Name Role Phone Bhavana Purvis Primary Care Provider Kristal Guzman Unavailable [phone] Glenis Marcum Unavailable Unavailable Allergies No Known Allergies Results Component Value Reference Range Notes RESPIRATORY ALLERGY PROFILE REGION VIII: [place], [place] Reviewed date:04/12/2025 08:50:25 AM Interpretation:Normal Performing Lab:[place], [facility], [address], [place], [address] Ralph Mendoza MD Notes/Report: NON-FASTING DERMATOPHAGOIDES PTERONYSSIN US (D1) IGE <0.10 CLASS 0 DERMATOPHAGOIDES FARINAE (D2 ) IGE <0.10 CLASS 0 PENICILLIUM NOTATUM (M1) IGE <0.10 CLASS 0 CLADOSPORIUM HERBARUM (M2) IGE <0.10 CLASS 0 ASPERGILLUS FUMIGATUS (M3) IGE <0.10 CLASS 0 ALTERNARIA ALTERNATA (M6) IGE <0.10 CLASS 0 COCKROACH (I6) IGE <0.10 CLASS 0 MAPLE (BOX ELDER) (T1) IGE <0.10 CLASS 0 MOUNTAIN CEDAR (T6) IGE <0.10 CLASS 0 WALNUT TREE (T10) IGE <0.10 CLASS 0 SYCAMORE (T11) IGE <0.10 CLASS 0 COTTONWOOD (T14) IGE <0.10 CLASS 0 WHITE ARMANDO (T15) IGE <0.10 CLASS 0 OAK (T7) IGE <0.10 CLASS 0 ELM (T8) IGE <0.10 CLASS 0 HICKORY/PECAN TREE (T22) IGE <0.10 CLASS 0 WHITE MULBERRY (T70) IGE <0.10 CLASS 0 BERMUDA GRASS (G2) IGE <0.10 CLASS 0 BESSY GRASS (G6) IGE <0.10 CLASS 0 COMMON RAGWEED (SHORT) (W1) IGE <0.10 CLASS 0 ROUGH PIGWEED (W14) IGE <0.10 CLASS 0 IRANIAN THISTLE (W11) IGE <0.10 CLASS 0 ROUGH YANES ELDER (W16) IGE <0.10 CLASS 0 MOUSE URINE PROTEINS (E72) IGE <0.10 CLASS 0 IMMUNOGLOBULIN E 11 <ZO=028 kU/L CAT DANDER (E1) IGE <0.10 CLASS 0 DOG DANDER (E5) IGE <0.10 CLASS 0 INTERPRETATION Reviewed date:04/19/2025 08:57:46 PM Interpretation:Interpretation Performing Lab:[facility], [facility], [address] [place], [address] Ralph Mendoza MD Notes/Report: NON-FASTING INTERPRETATION Specific Level of Allergen IGE Class kU/L Specific IGE Antibody ----- --------- 0 <0.10 Absent/Undetectable 0/1 0.10-0.34 Very Low Level 1 0.35-0.69 Low Level 2 0.70-3.49 Moderate Level 3 3.50-17.4 High Level 4 17.5-49.9 Very High Level 5 50-100 Very High Level 6 >100 Very High Level The clinical relevance of allergen results of 0.10-0.34 kU/L are undetermined and intended for specialist use. Allergens denoted with a include results using one or more analyte specific reagents. In those cases, the test was developed and its analytical performance characteristics have been determined by [facility]. It has not been cleared or approved by the U.S. Food and Drug Administration. This assay has been validated pursuant to the CLIA regulations and is used for clinical purposes. Reason For Referral No Information Medications Medication SIG (Take, Route, Frequency, Duration) Notes Start Date End Date Status Metoprolol Succinate ER 50 MG Oral; Duration: 90 Days Acti ve Metoprolol Succinate ER 50 MG TAKE 1 TABLET BY MOUTH DAILY Oral; Duration: 90 Days Active Latanoprost 0.005 % Ophthalmic; Duration : 25 Days Active Fenofibrate 160 MG Oral; Duration: 90 Days Active Simvastatin 40 MG Oral; Duration: 90 Days Active dilTIAZem HCl ER Beads 240 MG Oral; Duration: 90 Days Acti ve Azelastine HCl 0.1 % Nasal Active Omeprazole 40 MG Oral; Duration: 90 Days Active Levothyroxine Sodium 88 MCG Oral; Duration: 90 Days Active Ketoconazole 2 % APPLY TOPICALLY TO T HE AFFECTED AREA TWICE DAILY External; Duration: 15 Days Active Estradiol 0.1 MG/GM Vaginal; Duration: 9 0 Days Active Social History Tobacco Use: Social History Observation Description Date Details (start date - stop date) Never Smoker NA - NA Sex Assigned At : Social History Observation Description Sex Assigned At Female Tobacco Control (Standard) Question Answer Notes Tobacco use: Nonsmoker AUDIT-C (Standard) Question Answer Notes Did you have a drink containing alcohol in the p ast year? No Points 0 Interpretation Negative Problems Problem Type SNOMED Code ICD Code Onset Dates Problem Status W/U Status Risk Notes Problem Chronic rhinitis (83794462) Chronic rhinitis (J31.0) Active confirmed Problem Hypertrophy of nasal turbinates (77820316) Hypertrophy of nasal turbinates (J34.3) Active confirmed Problem Chronic cough (84687279) Chronic cough (R05.3) Active confirmed Vital Signs Blood pressure diastolic 84 mm Hg 04/04/2025 Oximetry 98 % 04/04/2025 Height 59 in 04/04/2025 Blood pressure systolic 146 mm Hg 04/04/2025 Weight 203.0 lbs 04/04/2025 BMI 41 kg/m2 04/04/2025 Encounters Encounter Location Date Provider Diagnosis [facility] [address] [place] [address] 04/04/2025 Kristal Doll Hypertrophy of nasal turbinates J34.3 ; Chronic rhinitis J31.0 ; Chronic cough R05.3 and Elevated blood-pressure reading, without diagnosis of hypertension R03.[address] [address] 04/04/2025 Kristal Doll [facility] [address] [place] [address] 04/19/2025 Kristal Doll [facility] [address] [place] [address] 04/21/2025 Kristal Doll Assessments Encounter Date Diagnosis (ICD Code) Assessment Notes Treatment Notes Treatment Clinical Notes Section Notes 04/04/2025 Chronic rhinitis (ICD-10 - J31.0) See plan above 04/04/2025 Hypertrophy of nasal turbinates (ICD-10 - J34.3) Sarah presents with upper airway symptoms concerning for uncontrolled atopic disease. She has a chronic cough ongoing since 2020, she was sent by Dr. Marcum for ARC work-up. - Discussed skin testing, however deferred due to high OOP cost. Will obtain ImmunoCaps. > 20 minutes was spent on the phone on the patient's behalf to identify which lab company is in-network. Order sent to [facility]. - Return in 4 weeks for laboratory review 04/04/2025 Chronic cough (ICD-10 - R05.3) Sarah presents in consultation with her leach tank tender, Dr. Marcum, due to chronic cough that started in 2020. She reports having COVID-19, she feels the cough has persisted since. She admits to phlegm, which is worse in the morning. She had a PFT with Dr. Marcum (no records to review) and was started on AIRSUPRA PRN and azelastine. Sarah has yet to use AIRSUPRA. She denies smoking history. - Will request records from Dr. Marcum. - Considerations for cough include RAD vs long COVID vs GERD vs other. - Encouraged Sarah to trial AIRSUPRA PRN to assess for perceived benefit. - Return as above 04/04/2025 Elevated blood-pressure reading, without diagnosis of hypertension (ICD-10 - R03.0) BP elevated today without symptoms of urgency or emergency. Continue serial checks and follow-up with PCP 04/04/2025 Other Plan Of Treatment Next Appt Details Provider Name:Kristal dennis, 05/16/2025 07:30:00 AM, [address], [place], [address], Insurance Providers Payer Name Payer Address Payer Phone Subscriber Number Group Number Insured Name Patient Relationship to Insured Coverage Start Date Coverage End Date [employer] [address] [place] [address] [id number] Sarah Underwood Self - patient is the insured 5 Medical (General) History Surgical History Surgery Date(Month/Year) thyroidectomy 07/1998 D & C 10/2003 cholecystectomy 11/2003 Knee Surgery 08/2011 knee replacement 11/2017 cataract removal 2020
--- OUTSIDE RECORDS SUMMARY | 2025-05-13 08:17 | XMS_ITS | Encounter Summary ---
Author Organization [facility] Healthcare Address [address] [place] [address] Care Team Providers Care Associate Professor Of Literature Name Role Phone Consuelo Purvis MD Primary Care Provider Encounter Details Date Type Department Care Team (Late st Contact Info) Description 06/15/2024 Orders Only [facility] Health Information Management [address] [place] [address] Scanning, Provider Social History Tobacco Use Types Packs/Day Years Used Date Smoking Tobacco: Never Smokeless Tobacco: Never Alcohol Use Standard Drinks/Week Comments No 0 (1 standard drink = 0.6 oz pur e alcohol) Comments Unknown Sex and Gender Information Value Date Recorded Sex Assigned at Not on file 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 Gender Identity Not on file Sexual Orientation Not on file documented as of this encounter Plan of Treatment Not on file documented as of this encounter Procedures Procedure Name Priority Date/Time Associated Diagnosis Comments PULMONARY - RESULT SCAN 06/15/2024 documented in this encounter Results * PULMONARY - RESULT SCAN (06/15/2024) Anatomical Region Laterality Modality Other us Provider Scanning Final Result documented in this encounter Visit Diagnoses Not on filedocumented in this encounter Care Teams Associate Professor Of Literature Relationship Specialty Start Date End Date Consuelo Purvis MD PCP - General Family Practice 11/05/17 documented as of this encounter
[2025-05-13 08:20] VITALS: BP 138/77; PULSE 84; RESP 18; TEMP 36.5; O2SAT 95
[2025-05-13 08:45] LABS: EDCOVIDSCREEN Negative (Negative); EDINFLUASCREEN Negative (Negative); EDINFLUBSCREEN Negative (Negative)
--- NOTE | 2025-05-13 08:55 | ED.URI ---
HPI - URI/Sore Throat General Chief Complaint: Upper Respiratory Infection Stated Complaint: Cough / sore throat / congestion Time Seen by Provider: 05/13/25 08:30 Source: patient and RN notes reviewed Mode of arrival: ambulatory Limitations: no limitations History of Present Illness HPI Narrative: 69-year-old female presents [facility] complaining chronic cough, congestion, left earache, postnasal drip for last 2 days. Patient says she has a history of her chronic cough is persisting for the last 4 years, she has seen a injection molding machine tender in ENT, and seen an watershed engineer for it. Patient says her omeprazole was increased by ENT as he believe the chronic cough might be related to acid reflux. Two days ago patient noticed worsening congestion, postnasal drip, no worsening cough. Patient denies any fevers, body aches, chills, nausea vomiting, diarrhea, runny nose, sore throat, chest pain, difficulty breathing, or any other symptoms. Patient has been using her prescriptions as directed. Related Data Home Medications ?Medication ?Instructions ?Recorded ?Confirmed ?Last Taken ?Type latanoprost 0.005 % eye drops 1 drp ophthalmic (eye) QPM 07/14/19 05/03/25 1 Day Ago History ~10/19/19 Lactobacills gasseri-Bifidobac 1 cap PO DAILY 09/29/19 05/03/25 10/17/19 History bifidum,longum 1.5 billion cell capsule ([email or web address]) calcium 600 mg (as 1 tablet PO DAILY 09/29/19 05/03/25 10/17/19 History carbonate)-vitamin D3 10 mcg (400 unit) tablet (Calcium 600 + D(3)) cholecalciferol (vitamin D3) 25 25 mcg PO DAILY 09/29/19 05/03/25 10/17/19 History mcg (1,000 unit) tablet cyanocobalamin (vitamin B-12) 1,000 mcg PO DAILY 09/29/19 05/03/25 10/17/19 History 1,000 mcg capsule pdzipqoq-nsp-okufu acid 500 1 tablet PO DAILY 09/29/19 05/03/25 10/17/19 History mcg-lycopene 300 mcg-lutein 250 mcg tablet (Complete Multi 50+) ascorbic acid (vitamin C) 500 mg 500 mg PO DAILY 06/26/21 05/03/25 Unknown History tablet (Vitamin C) aspirin 81 mg tablet 81 mg PO DAILY 06/26/21 05/03/25 Unknown History estradiol 0.01% (0.1 mg/gram) 1 g vaginal 2XW 11/06/21 05/03/25 Unknown History vaginal cream ferrous sulfate 325 mg (65 mg 325 mg PO DAILY 05/08/22 05/03/25 Unknown History iron) tablet tretinoin 0.025 % topical cream 1 applic topical QHS 09/15/24 05/03/25 Unknown History omeprazole 40 mg capsule,delayed 40 mg PO DAILY 05/03/25 05/03/25 Unknown History release Allergies Allergy/AdvReac Type Severity Reaction Status Date / Time adhesive tape AdvReac Mild Redness of Verified 05/13/25 08:15 Skin Review of Systems Review of Systems: CONSTITUTIONAL: Denies fever, chills, or sweats. EYES: Denies visual changes, redness, or discharge. ENT: Denies rhinorrhea sore throat. Positive for congestion and otalgia. CARDIOVASCULAR: Denies chest pain, palpitations, or edema. RESPIRATORY: Positive for cough. Negative for wheezing or Dyspnea. GASTROINTESTINAL: Denies abdominal pain, nausea, vomiting, or diarrhea. GENITOURINARY: Denies dysuria or hematuria. SKIN: Denies rash or itching. MUSCULOSKELETAL: Denies back pain, joint pain, or myalgia. NEUROLOGIC: Denies headache, numbness, or weakness. PSYCHIATRIC: Denies anxiety or depression. All other systems reviewed are negative, except as documented in HPI. [facility] Past Medical History Medical History Hepatic steatosis Intermittent low back pain CKD (chronic kidney disease) stage 3, GFR 30-59 ml/min Chronic venous insufficiency of lower extremity History of colon polyps Thrombocytosis Osteopenia Umbilical hernia Diastasis recti Environmental allergies History of electrophysiologic study for SVT 02/22/2013 Polycystic ovaries Thyroid nodule Hypothyroidism (acquired) History of PSVT (paroxysmal supraventricular tachycardia) 2012 - no reo-ccurence since cardiac ablation Vitamin D deficiency Unspecified osteoarthritis, unspecified site Pre-diabetes GERD without esophagitis Dyslipidemia Essential (primary) hypertension Shingles (~05/2021) Postmenopausal IBS (irritable bowel syndrome) Rectal polyp Surgical History Surgical History History of cataract surgery b/l - 2020 History of bilateral knee replacement left - 11/2017, right - 10/2019 History of partial thyroidectomy 07/1998 Hx of dilation and curettage 10/28/2003 H/O arthroscopic knee surgery 11/17/2017 H/O prior ablation treatment SVT - 02/2013 History of cholecystectomy 11/30/2003 Family History Family History Father Diabetes mellitus Cerebrovascular accident Mother Hypertension Depression Heart disease Sibling Hypertension Grandparent Heart disease Grandparent Heart disease Other Family history of coronary artery disease Social History Social History Smoking status: Never smoker Second hand tobacco smoke exposure: No Alcohol intake: never Substance use: never Substance use type: does not use Do You Feel Safe in your Home?: Yes Lack of Transportation: No Lack of Food: Never True Current Housing: I Have Housing Concerned About Future Housing: No Difficulty Paying Gas/Electric Bills: No Difficulty Paying for Meds: No Currently Unemployed: No Education: High School Diploma/GED Difficulty w/ Childcare or Family Care: No Living arrangements: with family Gender identity (if verbalized by the patient): Female Spiritual care concerns: No Agree to blood products: Yes Comments At the time of my signature, I reviewed and agree with the nursing past medical, surgical, social, and family history. There is no relevant family history pertinent to the patient complaint. Exam Narrative: GENERAL: This is a well-nourished, well-developed adult, in no apparent distress. They are non ill-appearing, nontoxic appearing. HEAD: normocephalic, atraumatic. EYES: Sclera clear/white. Conjunctiva normal. Vision is grossly intact. Extraocular movements intact EARS: External ears normal, auditory canals clear and without drainage, TMs normal without perforation. Hearing grossly intact. NOSE: External nose normal with no obvious nasal discharge, nasal turbinates without redness, no rhinorrhea. THROAT: Mucous membranes moist, posterior pharynx boggy without erythema. Uvula midline. Postnasal drip present. NECK: Neck supple, non-tender without lymphadenopathy, masses or thyromegaly. CARDIOVASCULAR: Regular rate and rhythm without murmurs, gallops, or rubs. RESPIRATORY: Clear to auscultation. Breath sounds equal bilaterally. No wheezes, rales, or rhonchi. SKIN: warm, Dry, intact with no suspicious lesions or rash, good texture and turgor. NEURO: awake, alert, and oriented to person, place and time. There were no obvious focal neurologic abnormalities. EXTREMITIES: No joint tenderness, effusion, or edema noted. Course Course Emergency Course: Portions of this record may have been created with voice recognition software Level of Care: Express Care Visit Vital Signs Vital signs: Vital Signs Temperature 97.7 F 05/13/25 08:20 Pulse Rate 84 05/13/25 08:20 Respiratory Rate 18 05/13/25 08:20 Blood Pressure 138/77 05/13/25 08:20 Pulse Oximetry 95 05/13/25 08:20 Oxygen Delivery Room Air 05/13/25 08:20 Temperature 97.7 F 05/13/25 08:20 Pulse Rate 84 05/13/25 08:20 Respiratory Rate 18 05/13/25 08:20 Blood Pressure 138/77 05/13/25 08:20 Pulse Oximetry 95 05/13/25 08:20 Oxygen Delivery Room Air 05/13/25 08:20 Reviewed MDM - URI/Sore Throat MDM Narrative Medical decision making narrative: Rapid COVID in flu negative. Symptoms likely viral etiology. Recommend supportive therapy. Discussed physical exam findings. Advised supportive measures and signs/symptoms to go to the ER. Pt is appropriate for outpt treatment and f/u. Differential Diagnosis Differential diagnosis: Likely upper respiratory infection, sinusitis, viral infection and pharyngitis Lab Data Attestation: I reviewed the patient's lab results. Labs: Lab Results 05/13/25 Range/Units 08:43 POC Influenza A Ag Negative (Negative) POC Influenza B Ag Negative (Negative) POC SARS CoV-2 Ag Negative (Negative) Critical Care Time Critical Care Time Critical Care Time: No Discharge Plan Discharge Clinical Impression: Upper respiratory infection Qualifiers: URI type: unspecified viral URI Qualified Code(s): J06.9 - Acute upper respiratory infection, unspecified Patient Disposition: Home Condition: Stable Instructions: Antibiotic Form, Upper Respiratory Infection (ED) Additional Instructions: Your rapid COVID and flu were negative today. Viral illness may last between 5-10 days; antibiotics do not cure viral illness and are NOT recommended at this time. Continue to take your Claritin as directed. Also, recommend symptomatic treatment includes: rest, fluids, and increase humidity of the air at home. Tylenol ibuprofen as needed for pain or fevers. Follow instructions on the bottle. Please schedule a follow-up visit with your personal physician for further evaluation and treatment within 3-5days. If you develops any chest pain, difficulty breathing, nausea, vomiting, worsening symptoms, or any serious concerns please go to the ER immediately. Patient Language: Palestinian Prescriptions: No Action latanoprost 0.005 % Drops 1 drp OPHTHALMIC (EYE) QPM Rx Instructions: BOTH EYES ascorbic acid (vitamin C) [Vitamin C] 500 mg Tablet 500 mg PO DAILY aspirin 81 mg Tablet 81 mg PO DAILY estradiol 0.01 % (0.1 mg/gram) cream 1 g vaginal 2XW ferrous sulfate 325 mg (65 mg iron) tablet 325 mg PO DAILY azelastine 137 mcg (0.1 %) spray,non-aerosol 1 spray intranasal Q12H 30 Days Qty: 30 5RF Rx Instructions: administer into each nostril albuterol 90 mcg-budesonide 80 mcg/actuation HFA aerosol inhaler 90-80 mcg/actuation HFA aerosol inhaler 0RF tretinoin 0.025 % cream 1 applic topical QHS omeprazole 40 mg capsule,delayed release(DR/EC) 40 mg PO DAILY cholecalciferol (vitamin D3) 25 mcg (1,000 unit) Tablet 25 mcg PO DAILY calcium carbonate-vitamin D3 [Calcium 600 + D(3)] 600 mg(1,500mg) -400 unit Tablet 1 tablet PO DAILY Complete Multi 50+ 500-300-250 mcg Tablet 1 tablet PO DAILY [email or web address] 1.5 billion cell Capsule 1 cap PO DAILY cyanocobalamin (vitamin B-12) 1,000 mcg Capsule 1,000 mcg PO DAILY metoprolol succinate 50 mg tablet extended release 24 hr See Rx Instructions .ROUTE .COMPLEX Qty: 90 1RF Dose Instruction: TAKE 1 TABLET BY MOUTH DAILY Rx Instructions: TAKE 1 TABLET BY MOUTH DAILY levothyroxine 88 mcg tablet 88 mcg PO DAILY Qty: 90 1RF loratadine 10 mg tablet See Rx Instructions .ROUTE .COMPLEX Qty: 90 1RF Dose Instruction: TAKE ONE TABLET BY MOUTH DAILY Rx Instructions: TAKE ONE TABLET BY MOUTH DAILY ketoconazole 2 % cream See Rx Instructions .ROUTE .COMPLEX Qty: 30 0RF Dose Instruction: APPLY TOPICALLY TO THE AFFECTED AREA TWICE DAILY Rx Instructions: APPLY TOPICALLY TO THE AFFECTED AREA TWICE DAILY omeprazole 40 mg capsule,delayed release(DR/EC) See Rx Instructions .ROUTE .COMPLEX Qty: 90 1RF Dose Instruction: TAKE 1 CAPSULE BY MOUTH DAILY Rx Instructions: TAKE 1 CAPSULE BY MOUTH DAILY diltiazem HCl 240 mg capsule,extended release 24 hr See Rx Instructions .ROUTE .COMPLEX Qty: 90 1RF Dose Instruction: TAKE 1 CAPSULE BY MOUTH DAILY Rx Instructions: TAKE 1 CAPSULE BY MOUTH DAILY simvastatin 40 mg tablet 40 mg PO QHS Qty: 90 1RF fenofibrate 160 mg tablet 160 mg PO DAILY Qty: 90 1RF Follow-up/Referrals: Shruthi Purvis MD [Primary Care Provider, Family Practice] Time of Disposition: 08:55
== END 2025-05-13 08:58 | disposition home or self-care (01) ==
PROVIDERS: PCP Family Medicine
DX: J06.9 Acute upper respiratory infection, unspecified (principal); Z20.822 Contact with and (suspected) exposure to COVID-19; I12.9 Hypertensive chronic kidney disease with stage 1 through stage 4 chronic kidney disease, or unspecified chronic kidney disease; N18.30 Chronic kidney disease, stage 3 unspecified; E03.9 Hypothyroidism, unspecified; R73.03 Prediabetes; E78.5 Hyperlipidemia, unspecified; K21.9 Gastro-esophageal reflux disease without esophagitis; K76.0 Fatty (change of) liver, not elsewhere classified; I87.2 Venous insufficiency (chronic) (peripheral); M85.80 Other specified disorders of bone density and structure, unspecified site; E28.2 Polycystic ovarian syndrome; E55.9 Vitamin D deficiency, unspecified; M19.90 Unspecified osteoarthritis, unspecified site; Z79.82 Long term (current) use of aspirin
CPT/HCPCS: 87426; 87804; 99212; G0463

== ENCOUNTER 2025-06-13 12:06 | Outpatient (CLI) | payer OTHER, SELFPAY ==
--- NOTE | ~2025-06-13 | US_ITS ---
US thyroid INDICATION: Dysphasia and enlarged thyroid. Single nontoxic thyroid nodule. History of partial right thyroidectomy. TECHNIQUE: Real-time sonographic images of the thyroid gland were obtained. COMPARISON: No prior studies for comparison. FINDINGS: Right lobe is partially absent consistent with partial right thyroidectomy left lobe measures 3.5 x 0.9 x 0.8 cm. There is a solid hypoechoic 4 mm nodule in the left lobe which is solid, hypoechoic, wider than tall, smoothly marginated with punctate echogenic foci, TR 4. Right lobe is partially absent consistent with partial thyroidectomy. In the residual thyroid tissue, there is a abnormal appearing lymph nodes lateral to the right lobe largest measuring 1.2 cm with loss of fatty hilum. IMPRESSION: 1. Postsurgical changes of partial right thyroidectomy. 2: Likely benign left thyroid nodule measuring 4 mm, TR 4. This is below size threshold for biopsy. 3: Abnormal right lateral cervical lymph nodes largest measuring 1.2 cm with effaced fatty hilum, concerning for metastatic disease or reactive lymphadenopathy. Reviewed, dictated and finalized at location O. GE CLINICIAN IMPRESSION: 1. Postsurgical changes of partial right thyroidectomy. 2: Likely benign left thyroid nodule measuring 4 mm, TR 4. This is below size t hreshold for biopsy. 3: Abnormal right lateral cervical lymph nodes largest measuring 1.2 cm with e ffaced fatty hilum, concerning for metastatic disease or reactive lymphadenopat hy.
--- OUTSIDE RECORDS SUMMARY | 2025-06-13 13:31 | XMS_ITS | Encounter Summary ---
Author Organization [facility] Healthcare Address [address] [place] [address] Care Team Providers Care Production Engine Repairer Name Role Phone Consuelo Purvis MD Primary Care Provider Encounter Details Date Type Department Care Team (Late st Contact Info) Description 06/15/2024 Orders Only [facility] [place] Information Management [address] [place] [id number] Scanning, Provider Social History Tobacco Use Types Packs/Day Years Used Date Smoking Tobacco: Never Smokeless Tobacco: Never Alcohol Use Standard Drinks/Week Comments No 0 (1 standard drink = 0.6 oz pur e alcohol) Comments Unknown Sex and Gender Information Value Date Recorded Sex Assigned at Not on file 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
--- OUTSIDE RECORDS SUMMARY | 2025-06-13 13:31 | XMS_ITS | Clinical Summary ---
Author Organization [facility] Address [address] [place] [address] Care Team Providers Care Snack Bar [place] Name Role Phone Consuelo Purvis MD Primary [...] Comments Blood Pressure 133/82 08/20/2021 10:00 PM CIVIL PREPAREDNESS OFFICER Pulse 70 08/20/2021 10:00 PM CIVIL PREPAREDNESS OFFICER Temperature 36.4 C (97.6 F) 08/20/2021 9:00 PM CIVIL PREPAREDNESS OFFICER Respiratory Rate 20 08/20/2021 10:00 PM CIVIL PREPAREDNESS OFFICER Oxygen Saturation 96% 08/20/2021 10:00 PM CIVIL PREPAREDNESS OFFICER Inhaled Oxygen Concentration - - Weight 85.7 kg (189 lb) 08/20/2021 6:48 PM CIVIL PREPAREDNESS OFFICER Height 152.4 cm (5') 08/20/2021 6:48 PM CIVIL PREPAREDNESS OFFICER Body Mass Index 36.91 08/20/2021 6:48 PM CIVIL PREPAREDNESS OFFICER Plan of Treatment Health Maintenance Due Date Last Done Comments Colorectal Cancer Screening Colonoscopy (10 Years) 1957 Hepatitis C 1975 DTaP, Tdap and Td Vaccines ( 1 - Tdap) 1976 Mammogram Screening 1997 Pneumococcal Vaccine: 50+ Years (1 of 1 - PCV) 2007 Zoster Vaccines (1 of 2) 2007 Dexa Scan (General) 2022 COVID-19 Vaccine (3 - 2024-2 6 season) 2025 11/17/2020, 10/27/2020 Influenza Adult (#1) 2025 RSV Immunization or 60+ Years (1 - 1-dose 75+ series) 2032 Hepatitis A Vaccines Aged Out No long er eligible based on patient's age to complete this topic Meningococcal B Vaccine Aged Out No l onger eligible based on patient's age to complete this topic Meningococcal Vaccine Aged Out No melia bernadette eligible based on patient's age to complete this topic RSV Immunizations Under 20 Months Aged Out No longer eligible b ased on patient's age to complete this topic Insurance [employer] PPO GENERIC - COMMERCIAL [employer] [id number] Care Teams Snack Bar [place] Relationship Specialty Start Date End Date Consuelo Purvis MD [address] [place] [address] PCP - General FAMILY PRACTICE 02/23/21
--- OUTSIDE RECORDS SUMMARY | 2025-06-13 13:31 | XMS_ITS | Encounter Summary ---
Author Organization [facility] Healthcare Address [address] [place] [address] Care Team Providers Care Video Producer Name Role Phone Consuelo Purvis MD Primary Care Provider Encounter Details Date Type Department Care Team (Late st Contact Info) Description 03/30/2018 Orders Only [facility] [place] [place] Health Information Management [address] [place] [phone] Scanning, Provider Social History Tobacco Use Types Packs/Day Years Used Date Smoking Tobacco: Never Smokeless Tobacco: Never Alcohol Use Standard Drinks/Week Comments No 0 (1 standard drink = 0.6 oz pur e alcohol) Comments Unknown Sex and Gender Information Value Date Recorded Sex Assigned at Not on file 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
--- OUTSIDE RECORDS SUMMARY | 2025-06-13 13:31 | XMS_ITS | Clinical Summary ---
Author Organization [facility] [address] Address [address] [place] [address] Care Team Providers Care Software Quality Engineer Name Role Phone Consuelo Purvis MD Primary [...] ORAL) Take by mouth daily. 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
--- OUTSIDE RECORDS SUMMARY | 2025-06-13 13:31 | XMS_ITS | Clinical Summary ---
Author Organization [facility] Address [address] [place] [address] Phone Care Team Providers Care Vacuum Cleaner Assembler Name Role Phone Consuelo Purvis MD [...] Encounters Date Type Department Care Team Description 06/08/2025 External Device Data [facility] ABSTRACTION Provider, Abstract 06/01/2025 External Device Data [facility] Provider, Abstract 05/31/2025 External Device Data [facility] Provider, Abstract 04/26/2025 External Device Data [facility] Provider, Abstract 04/19/2025 External Device Data [facility] ABSTRACTION Provider, Abstract 04/08/2025 9:15 AM CDT Office Visit [facility] Oncology and Hematology - [place] [address] [place] [id number] Cliff Cerda MD Chronic anemia (Primary Dx) 04/04/2025 Orders Only [facility] Oncology and Hematology - [place] [address] [place] [address] Cliff Cerda MD 04/01/2025 Orders Only [facility] Oncology and Hematology - [place] [address] [place] [address] Cliff Cerda MD 03/16/2025 External Device Data [...] on file Legal Sex Female 5:13 AM 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 Gender Identity Not on file Sexual [...] Description 01/09/2026 10:00 AM CDT Office Visit [facility] Oncology and Hematology - [place] [address] [place] [address] Cliff Cerda MD [address] [facility] [address] [place] [address] Health Maintenance Due Date Last Done Comments Pre-Diabetes and Diabetes Screening 1955 BREAST CANCER SCREENING 1997 FIT-DNA Q 3 years 2002 FIT/FOBT Q 1 year 2002 Flex Sig/CT Colonography Q 5 years 2002 RSV VACCINE (60+ or ) (1 - Risk 50-74 years 1-dose series) 2007 DTAP/TDAP/TD VACCINES (1 - Tdap) 02/02/2015 02/02/20 15 OSTEOPOROSIS SCREENING 2022 INFLUENZA VACCINE (#1) 2025 [...] Res ult from Last 3 Months Insurance [facility] Care Teams Vacuum Cleaner Assembler Relationship Specialty Start Date End Date Consuelo Purvis MD [address] [place] [address] PCP - General Family Practice 05/22/21
--- OUTSIDE RECORDS SUMMARY | 2025-06-13 13:31 | XMS_ITS | Encounter Summary ---
Author Organization [facility] Healthcare Address [address] [place] [address] Care Team Providers Care Carrier Associate Name Role Phone Consuelo Purvis MD Primary Care Provider Encounter Details Date Type Department Care Team (Late st Contact Info) Description 06/18/2024 Orders Only [facility] [place] Health Information Management [address] [place] [phone] Scanning, Provider Social History Tobacco Use Types Packs/Day Years Used Date Smoking Tobacco: Never Smokeless Tobacco: Never Alcohol Use Standard Drinks/Week Comments No 0 (1 standard drink = 0.6 oz pur e alcohol) Comments Unknown Sex and Gender Information Value Date Recorded Sex Assigned at Not on file Legal Sex Female 11:01 AM MULTICULTURAL INTERNSHIP Gender Identity Not on file Sexual Orientation [...] on filedocumented in this encounter Care Teams Carrier Associate Relationship Specialty Start Date End Date Consuelo Purvis MD PCP - General Family Practice 11/05/17 documented as of this encounter
== END 2025-06-13 12:07 | disposition home or self-care (01) ==
PROVIDERS: PCP Family Medicine; Visit Provider Otolaryngology
DX: E04.1 Nontoxic single thyroid nodule (principal)
CPT/HCPCS: 76536

== ENCOUNTER 2025-07-03 16:43 | Emergency (ER) | payer OTHER, SELFPAY ==
--- NOTE | 2025-07-03 16:44 | ED_ITS ---
HPI - Back Pain/Injury General Chief Complaint: Back Pain/Injury Stated Complaint: back pain Time Seen by Provider: 07/03/25 16:43 Source: patient Mode of arrival: ambulatory Limitations: no limitations History of Present Illness HPI Narrative: Sarah is a 70-year-old female patient presenting to the clinic today with complaints of right low back/si joint pain x 1 week She reports decrease urine output. No fever, chills, or body aches. Heating pad helps relieve pain. No injury. States pain will shoot down her right leg on occasion. Denies any burning, frequency, or urgency with urination. Related Data Home Medications ?Medication ?Instructions ?Recorded ?Confirmed ?Last Taken ?Type latanoprost 0.005 % eye drops 1 drp ophthalmic (eye) Q PM 07/14/19 05/03/25 1 Day Ago History ~10/19/19 Lactobacills gasseri-Bifidobac 1 cap PO DAILY 09/29/19 05/03/25 10/17/19 History bifidum,longum 1.5 billion cell capsule ([employer]) calcium 600 mg (as 1 tablet PO DAILY 09/29/19 0 05/03/25 10/17/19 History carbonate)-vitamin D3 10 mcg (400 unit) tablet (Calcium 600 + D(3)) cholecalciferol (vitamin D3) 25 25 mcg PO DAILY 05/03/25 10/17/19 History mcg (1,000 unit) tablet cyanocobalamin (vitamin B-12) 1,000 mcg PO DAILY 09/2905/03/25 10/17/19 History 1,000 mcg capsule wpzsuerf-rbw-tgtqc acid 500 1 tablet PO DAILY 09/29/19 05/03/25 10/17/19 History mcg-lycopene 300 mcg-lutein 250 mcg tablet (Complete Multi 50+) ascorbic acid (vitamin C) 500 mg 500 mg PO DAILY 06/2605/03/25 Unknown History tablet (Vitamin C) aspirin 81 mg tablet 81 mg PO DAILY 06/26/2104/12 Unknown History estradiol 0.01% (0.1 mg/gram) 1 g vaginal 2XW 11/06/21 05/03/25 Unknown History vaginal cream ferrous sulfate 325 mg (65 mg 325 mg PO DAILY 05/08/22 05/03/25 Unknown History iron) tablet tretinoin 0.025 % topical cream 1 applic topical QHS 0 09/15/24 05/03/25 Unknown History omeprazole 40 mg capsule,delayed 40 mg PO DAILY 05/03/25 Unknown History release Allergies Allergy/AdvReac Type Severity Reaction Status Date / Time adhesive tape AdvReac Mild Redness of Verified 07/03/25 16:58 Skin Review of Systems Review of Systems: Pertinent positives per HPI. Patient denies any fever, chills, rash, headache, visual changes, dizziness, cough, runny nose, sore throat, shortness of breath, chest pain, palpitations, nausea, vomiting, diarrhea, constipation, abdominal pain, or any urinary issues. [facility] Past Medical History Medical History Hepatic steatosis Intermittent low back pain CKD (chronic kidney disease) stage 3, GFR 30-59 ml/min Chronic venous insufficiency of lower extremity History of colon polyps Thrombocytosis Osteopenia Umbilical hernia Diastasis recti Environmental allergies History of electrophysiologic study for SVT 02/22/2013 Polycystic ovaries Thyroid nodule Hypothyroidism (acquired) History of PSVT (paroxysmal supraventricular tachycardia) 2012 - no reo-ccurence since cardiac ablation Vitamin D deficiency Unspecified osteoarthritis, unspecified site Pre-diabetes GERD without esophagitis Dyslipidemia Essential (primary) hypertension Shingles (~05/2021) Postmenopausal IBS (irritable bowel syndrome) Rectal polyp Surgical History Surgical History History of cataract surgery b/l - 2020 History of bilateral knee replacement left - 11/2017, right - 10/2019 History of partial thyroidectomy 07/1998 Hx of dilation and curettage 10/28/2003 H/O arthroscopic knee surgery 11/17/2017 H/O prior ablation treatment SVT - 02/2013 History of cholecystectomy 11/30/2003 Family History Family History Father Diabetes mellitus Cerebrovascular accident Mother Hypertension Depression Heart disease Sibling Hypertension Grandparent Heart disease Grandparent Heart disease Other Family history of coronary artery disease Social History Social History Smoking status: Never smoker Second hand tobacco smoke exposure: No Alcohol intake: never Substance use: never Substance use type: does not use Do You Feel Safe in your Home?: Yes Lack of Transportation: No Lack of Food: Never True Current Housing: I Have Housing Concerned About Future Housing: No Difficulty Paying Gas/Electric Bills: No Difficulty Paying for Meds: No Currently Unemployed: No Education: High School Diploma/GED Difficulty w/ Childcare or Family Care: No Living arrangements: with family Gender identity (if verbalized by the patient): Female Spiritual care concerns: No Agree to blood products: Yes Comments At the time of my signature, I reviewed and agree with the nursing past medical, surgical, social, and family history. There is no relevant family history pertinent to the patient complaint. Exam Narrative: General: Well-developed, morbidly obese, in no apparent distress Head: Normocephalic, atraumatic. Cardio: Regular rate and rhythm, s1 and s2 normal, no murmur appreciated. Resp: Clear to auscultation bilaterally, no rhonchi, rales, wheezing or rubs. Abdomen: Soft, pliable, bowel sounds present in all quadrants, non-tender to palpation, no organomegly, no CVAT tenderness. Musculoskeletal: No deformity, right sided si joint tender to palpation, grossly normal range of motion, muscle strength strong and equal in BLE. SLT negative, patellar reflexes 2/4 bilaterally, negative foot drop, normal gait and station Course Course Emergency Course: Portions of this record may have been created with voice recognition software. Level of Care: Express Care Visit Vital Signs Vital signs: Vital Signs Temperature 36.7 C 07/03/25 16:58 Pulse Rate 87 07/03/25 16:58 Respiratory Rate 18 07/03/25 16:58 Blood Pressure 143/88 H 07/03/25 16:58 Pulse Oximetry 96 07/03/25 16:58 Oxygen Delivery Room Air 07/03/25 16:58 Temperature 36.7 C 07/03/25 16:58 Pulse Rate 87 07/03/25 16:58 Respiratory Rate 18 07/03/25 16:58 Blood Pressure 143/88 H 07/03/25 16:58 Pulse Oximetry 96 07/03/25 16:58 Oxygen Delivery Room Air 07/03/25 16:58 Vital signs reviewed MDM - Back Pain/Injury MDM Narrative Medical decision making narrative: At the time of visit patient is resting comfortably on the exam table. Patient appears to be nontoxic. Complaints of right low back/si joint pain x 1 week She reports decrease urine output. No fever, chills, or body aches. Heating pad helps relieve pain. No injury. States pain will shoot down her right leg on occasion. Denies any burning, frequency, or urgency with urination. Has taken Tylenol and Motrin as well for pain. On exam patient has tenderness to palpation over the right SI joint. Urine dip ordered Plan: I suspect patient has right-sided SI joint dysfunction. Prescription for Medrol Dosepak was sent to the pharmacy. Patient has thyroid biopsy scheduled for Friday. Recommend patient call their provider that is completing the biopsy prior to starting the steroids to make sure that this is okay for her to take. She may do lidocaine patches and Tylenol if not until the biopsy is completed. Supportive measures were discussed with the patient and they voiced understanding discharge instructions and agrees to treatment plan. Return precautions reviewed Differential Diagnosis Differential diagnosis: Likely lumbar radiculopathy, sciatica, strain of lumbar region, renal colic and pyelonephritis Discharge Plan Discharge Clinical Impression: Sacroiliac joint pain Patient Disposition: Home Condition: Stable Instructions: Antibiotic Form, Acute Low Back Pain (ED) Additional Instructions: Urine positive for 1+ leukocytes. Negative for nitrates, protein, or blood. We will send urine for culture. Call the doctor doing the thyroid biopsy prior to starting medication. Take any prescription medication only as prescribed-Medrol Dosepak May use heat or ice to the affected area Consider massage or chiropractor adjustment if this was discussed with provider May use blue emu, lidocaine patches, or asper cream to affected area- do not apply heat or ice directly over cream- can cause burn. Complete appropriate back stretching exercises. Follow up with your PCP in 3-5 days if symptom persist. Patient Language: Citizen Of [place] Prescriptions: New methylprednisolone [Medrol (Ruiz)] 4 mg tablets,dose pack See Rx Instructions PO .COMPLEX Qty: 21 0RF Rx Instructions: orally per package directions No Action latanoprost 0.005 % Drops 1 drp OPHTHALMIC (EYE) QPM Rx Instructions: BOTH EYES ascorbic acid (vitamin C) [Vitamin C] 500 mg Tablet 500 mg PO DAILY aspirin 81 mg Tablet 81 mg PO DAILY estradiol 0.01 % (0.1 mg/gram) cream 1 g vaginal 2XW ferrous sulfate 325 mg (65 mg iron) tablet 325 mg PO DAILY azelastine 137 mcg (0.1 %) spray,non-aerosol 1 spray intranasal Q12H 30 Days Qty: 30 5RF Rx Instructions: administer into each nostril albuterol 90 mcg-budesonide 80 mcg/actuation HFA aerosol inhaler 90-80 mcg/actuation HFA aerosol inhaler 0RF tretinoin 0.025 % cream 1 applic topical QHS omeprazole 40 mg capsule,delayed release(DR/EC) 40 mg PO DAILY cholecalciferol (vitamin D3) 25 mcg (1,000 unit) Tablet 25 mcg PO DAILY calcium carbonate-vitamin D3 [Calcium 600 + D(3)] 600 mg(1,500mg) -400 unit Tablet 1 tablet PO DAILY Complete Multi 50+ 500-300-250 mcg Tablet 1 tablet PO DAILY [employer] 1.5 billion cell Capsule 1 cap PO DAILY cyanocobalamin (vitamin B-12) 1,000 mcg Capsule 1,000 mcg PO DAILY metoprolol succinate 50 mg tablet extended release 24 hr See Rx Instructions .ROUTE .COMPLEX Qty: 90 1RF Dose Instruction: TAKE 1 TABLET BY MOUTH DAILY Rx Instructions: TAKE 1 TABLET BY MOUTH DAILY levothyroxine 88 mcg tablet 88 mcg PO DAILY Qty: 90 1RF loratadine 10 mg tablet See Rx Instructions .ROUTE .COMPLEX Qty: 90 1RF Dose Instruction: TAKE ONE TABLET BY MOUTH DAILY Rx Instructions: TAKE ONE TABLET BY MOUTH DAILY diltiazem HCl 240 mg capsule,extended release 24 hr See Rx Instructions .ROUTE .COMPLEX Qty: 90 1RF Dose Instruction: TAKE 1 CAPSULE BY MOUTH DAILY Rx Instructions: TAKE 1 CAPSULE BY MOUTH DAILY ketoconazole 2 % cream See Rx Instructions .ROUTE .COMPLEX Qty: 30 0RF Dose Instruction: APPLY TOPICALLY TO THE AFFECTED AREA TWICE DAILY Rx Instructions: APPLY TOPICALLY TO THE AFFECTED AREA TWICE DAILY fenofibrate 160 mg tablet 160 mg PO DAILY Qty: 90 1RF simvastatin 40 mg tablet 40 mg PO QHS Qty: 90 1RF Follow-up/Referrals: Shruthi Purvis MD [Primary Care Provider, Family Practice] Time of Disposition: 17:17 Quality NIHSS Nursing Documentation ED NIHSS nursing documentation: reviewed/agree
[2025-07-03 16:58] VITALS: BP 143/88; PULSE 87; RESP 18; TEMP 36.7; O2SAT 96
[2025-07-04 11:52] LABS: EDUAAPPEAR Clear; EDUABILI Negative (Negative); EDUABLOOD Negative (Negative); EDUACOLOR1 Yellow; EDUAGLUCOSE Negative (Negative); EDUAKETONE Negative (Negative); EDUALEUKO 1+ (Negative); EDUANITRATE Negative (Negative); EDUAPH 6.5; EDUAPROTEIN Negative (Negative); EDUASPGRAVITY 1.010; EDUAUROBILI 0.2
== END 2025-07-03 17:20 | disposition home or self-care (01) ==
PROVIDERS: Emergency Provider Nurse Practitioner Family; PCP Family Medicine
DX: M53.3 Sacrococcygeal disorders, not elsewhere classified (principal); I12.9 Hypertensive chronic kidney disease with stage 1 through stage 4 chronic kidney disease, or unspecified chronic kidney disease; N18.30 Chronic kidney disease, stage 3 unspecified; E03.9 Hypothyroidism, unspecified; R73.03 Prediabetes; K21.9 Gastro-esophageal reflux disease without esophagitis; E55.9 Vitamin D deficiency, unspecified; E28.2 Polycystic ovarian syndrome; M85.80 Other specified disorders of bone density and structure, unspecified site; K76.0 Fatty (change of) liver, not elsewhere classified; Z96.653 Presence of artificial knee joint, bilateral; Z90.89 Acquired absence of other organs; Z79.82 Long term (current) use of aspirin
CPT/HCPCS: 81003; 87086; 99213; G0463

== ENCOUNTER 2025-07-05 10:00 | Outpatient (CLI) | payer OTHER, SELFPAY ==
--- OUTSIDE RECORDS SUMMARY | 2025-05-16 11:30 | XMS_ITS ---
Author Organization [facility] ([address]) Address [address] [place] [address] Care Team Providers Care Health Type Technician Name Role Phone Bhavana Purvis Primary Care Provider Kristal Guzman Unavailable [phone] Glenis Marcum Unavailable Allergies No Known Allergies REASON FOR VISIT Chronic lower airways symptoms concerning for possible asthma, cough ongoing for several years. Recently established with Dr. Marcum., Chronic upper airway symptoms concerning for uncontrolled atopic disease, sinus drainage occurring year-round. Medications Medication SIG (Take, Route, Frequency, Duration) Notes Start Date End Date Status Estradiol 0.1 MG/GM Vaginal; Duration: 9 0 Days Active Azelastine HCl 0.1 % Nasal Active Metoprolol Succinate ER 50 MG TAKE 1 TABLET BY MOUTH DAILY Oral; Duration: 90 Days Active Metoprolol Succinate ER 50 MG Oral; Duration: 90 Days Acti ve Ketoconazole 2 % APPLY TOPICALLY TO T HE AFFECTED AREA TWICE DAILY External; Duration: 15 Days Active Simvastatin 40 MG Oral; Duration: 90 Days Active Fenofibrate 160 MG Oral; Duration: 90 Days Active Omeprazole 40 MG Oral; Duration: 90 Days Active dilTIAZem HCl ER Beads 240 MG Oral; Duration: 90 Days Acti ve Levothyroxine Sodium 88 MCG Oral; Duration: 90 Days Active Latanoprost 0.005 % Ophthalmic; Duration : 25 Days Active Social History Tobacco Use: Social [...] ast year? No Points 0 Interpretation Negative Encounters Encounter Location Date Provider Diagnosis [facility] [address] [place] [address] 05/16/2025 Kristal Doll Hypertrophy of nasal turbinates J34.3 ; Chronic rhinitis J31.0 ; Chronic cough R05.3 and Elevated blood-pressure reading, without diagnosis of hypertension R03.0 Assessments Encounter Date Diagnosis (ICD Code) Assessment Notes Treatment Notes Treatment Clinical Notes Section Notes 05/16/2025 Hypertrophy of nasal turbinates (ICD-10 - J34.3) [...] lab company is in-network. Order sent to [facility]. - Return in 4 weeks for laboratory review 05/16/2025 Chronic rhinitis (ICD-10 - J31.0) See plan above 05/16/2025 Chronic cough (ICD-10 - R05.3) Sarah presents in consultation with her data processing specialist, Dr. Marcum, due to chronic cough that [...] for perceived benefit. - Return as above 05/16/2025 Elevated blood-pressure reading, without diagnosis of hypertension (ICD-10 - R03.0) BP elevated today without symptoms of urgency or emergency. Continue serial checks and follow-up with PCP 05/16/2025 Other Plan Of Treatment Medication Medication Name Sig Start Date Stop Date Notes Azelastine HCl 0.1 % Nasal Treatment Notes Assessment Notes Hypertrophy of nasal turbinates Sarah presents with upper airway symptoms concerning [...] lab company is in-network. Order sent to [facility]. - Return in 4 weeks for laboratory review Chronic rhinitis See plan above Chronic cough Sarah presents in consultation with her data processing specialist, Dr. Marcum, due to chronic cough that [...] for perceived benefit. - Return as above Elevated blood-pressure read ing, without diagnosis of hypertension BP elevated today without symptoms of urgency or emergency. Continue serial checks and follow-up with PCP Pending Test Test Name Order Date RESPIRATORY ALLERGY PROFILE REGION VIII: [place], [place] 05/16/2025 INTERPRETATION 05/16/2025 Next Appt Details Follow Up: 4 Weeks, Reason: Laboratory Review Progress Notes * Tavo UNDERWOODisDOB:1955 ( 70 yo F)Acc No.[id number]:05/16/2025 Skin Testing Patient: Sarah HEREDIA Provider: CHAO Levine :1955 A ge:69 Y S ex:Female Date:05/16/2025 Address:[address] [place], [place] [id number] Pcp:Bhavana Purvis Subjective: * Chief Complaints: * 1 . Chronic lower airways symptoms concerning for possible asthma, cough ongoing for several years. Recently established with Dr. Marcum.. 2. Chronic upper airway symptoms concerning for uncontrolled atopic disease, sinus drainage occurring year-round.. * HPI: * Introduction: HPI: Abel Underwood, a 69-year-old female with pastmedical history significant for hypertension, high cholesterol and GERD, who presentsfor allergy evaluation and management. She is alone for today's visit. Sarah valencia in consultation with her data processing specialist, Dr. Marcum. She is alone for today'svisit. Sarah reports a daily cough since 2020, this started after havingCOVID-19. She admits to significant phlegm, particularly in the morning. Shehas been seen by her PCP, who has given antibiotics and steroids in the past.This has helped temporarily. She established care with Dr. Marcum, who has obtaineda PFT and started her on AIRSUPRA as-needed. Sarah has not used this inhaleryet. She was also started on azelastine, though has held it for the past 7 daysin anticipation of today's visit. She denies history of pneumonia, deniesbronchitis in the last 12 months. She does not have a smoking history. She hasnever been hospitalized due to lower airway symptoms. She does have a history ofreflux, prescribed omeprazole. Abel lewis endorses mild upper airway symptoms concerning foruncontrolled atopic disease. Descriptors of her symptoms are outlined below.There are no pets in her home. She has never undergone allergy testing orreceived specific allergen immunotherapy. Abel lewis denies additional concerns todayShe denies a history of physician-diagnosed allergic rhinitis, recurrent sinusitis or otitis media, recurrent pneumonia, asthma/RAD, eczema, food allergies, urticaria/angioedema, medication allergies, contact dermatitis, latex allergy, eosinophilic esophagitis or stinging insect hypersensitivity.Today, she reports no fevers, chills, night sweats or other constitutional symptoms. * Allergic Rhinoconjunctivitis: Allergic rhinitis D o you have or suspect you have allergic rhinitis (itchy eyes, sneezing, congestion or runny nose triggered by allergies)? N o Nose E ffective treatments? o ral antihistamines (Zyrtec or Dotty or Claritin) Sinuses H ave you lost sense of taste? N o H ave you been treated with antibiotics for sinusitis? N o H ave you ever had a CT scan or xray? N o H ave you ever undergone sinus surgery? N o Cough F requency: i nfrequent I s phlegm produced? Y es S putum color? c lear,yellow E ffective treatments? O TC cough medicine (Delsym or Robitussin) * Asthma: Cough D o you have a recurrent cough? Y es A pproximately, when did your cough start??09/08/2020 H ow often do you cough? i nfrequent W hat triggers your cough? l aughter,bronchitis,colds or flu W hich treatments have been effective for your cough? O TC cough medicine (Delsym or Robitussin) I s your cough more bothersome at night? N o Wheezing D o you have recurrent wheezing or a history of wheezing sometime in your life? N o D id you have symptoms of asthma as a child??No D id you have frequent respiratory infections as a child? N o W ere you ever hospitalized in the first 12 months of life for a respiratory infection in childhood? N o D o you still have wheezing? N o Physical Performance H ow many blocks can you walk? (Enter 99 for unlimited) 4 H ow many flights of stairs can you climb without stopping? (Enter 99 for unlimited) 2 I f there are limitations, what symptoms limit further activity? c ough,shortness of breath Effective treatments for cough and or wheezing O TC cough medicine D elsym * Prior Evaluations and Treatments: Prior evaluations and treatments H ave you been evaluated by another physician for allergic rhinitis, cough, wheezing, asthma, urticaria, angioedema, atopic dermatitis or eczema??No H ave you undergone testing for any aforementioned conditions or symptoms? N o H ave you ever been on allergy immunotherapy??No H ave you ever passed out during a blood draw, shot or vaccination? N o Last dose of antihistamine: l oratadine (Claritin) 0 03/27/2025 n mona antihistamine (azelastine, olopatadine, azelastine, Astepro, Patanase) 0 03/27/2025 H as your antihistamine been effective in controlling any of your symptoms? Y es * Infections: Vaccination History H ave you ever had a flu shot? N o H ave you ever had a pneumococcal vaccine (EJP-Cusmnmw-Ixtcxwfuf)? N o H ave you ever had a tetanus vaccine (YFnd-Nafo-Rh)? Y es D ate of last tetanus vaccine? 0 02/01/2015 * Medication allergy: Medication Allergy D o you feel you are allergic to any medications? N o * ROS: A LLERGY: Positive p er the HPI and history, otherwise unremarkable.? S PECIAL SENSES: Positve for n one. C ONSTITUTIONAL: Positive for n one. E NT: cough Y es. P ositive p er the HPI and history, otherwise unremarkable. R ESPIRATORY: shortness of breath Y es. c ough Y es. P ositive p er the HPI and history, otherwise unremakable. O PHTHALMOLOGY: Positive for p er the HPI and history, otherwise unremarkable. E NDOCRINOLOGY: Positive for n one. C ARDIOLOGY: leg edema Y es. s hortness of breath Y es. P ositive for n one. G ASTROENTEROLOGY: abdominal pain Y es. i ndigestion Y es. P ositive for n one. U ROLOGY: Positive for n one. D ERMATOLOGY: Positive for p er the HPI and history, otherwise unremakable. N EUROLOGY: Positive for n one. H EMATOLOGY/LYMPH: Positive for n one. M USCULOSKELETAL: joint swelling Y es. j oint pain Y es. j oint stiffness Y es. P ositive for n one. P SYCHOLOGY: Positive for n one. A ll other review of systems per the HPI and history, otherwise unremarkable. * Medical History: M edical History Verified. * Surgical History: t hyroidectomy 07/1998, D & C 10/2003, cholecystectomy 11/2003, Knee Surgery 08/2011, knee replacement 11/2017, cataract removal 2020. * Hospitalization/Major Diagno stic Procedure: D enies Past Hospitalization. * Family History: F ather: , Yes. M other: , Yes. P aternal Grand Father: Yes. P aternal Grand Mother: Yes. M aternal Grand Father: Yes. M aternal Grand Mother: Yes. S iblings: Yes. C hildren: No. Father- Diabetic and Srokes Mother- Heart Problems and Dementia. * Social History: M arital Status What is your marital status? s bonny A lcohol Screening Do you ever drink alcoholic beverages? N o S moking Have you ever smoked tobacco: n ever smoked Are you a : n ever smoker R ecreational drug use Have you ever used recreational drugs? N o D etails on consumption of certain products? Do you regularly consume products with aspartame; Equal or NutraSweet? N o Do you regularly consume products with artificial coloring??No Have you ever noticed worsening of your rash with these food items? N o E xercise What kind(s) of exercise do you perform regularly? w alking How often do you perform this exercise? e very other month A re any of the following personal care products containing fragrance, dye or preservatives used regularly? Shampoo: Y es Conditioner: Y es Soap: N o Laundry Detergent: Y es Fabric Softener: Y es Deodorant: Y es Perfume, cologne, after shave: Y es Air freshners or other scented products: N o Hair coloring dyes or rinses: Y es O ccupation Are you currenly employed? 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 number of years?19 Do you believe that your current or previous occupation has any bearing on your illness? N o How much work have you missed due to breathing difficulty within the past year? 1 or 2 days Please describe the effect of your illness on your job d ecreased enjoyment Do you have any pending or planned legal action against your current or former employer which pertains to your medical illness? N o Do you anticipate that your evaluation will be used in any legal action against your current employer or former employer? N o Have you had any job with high exposure to fumes, chemicals, dust or other noxious substances? N o Are you currently a student? N o E nvironmental History Living environment: p rivate home,alone Where is the home located? c [place] Age of home: 8 8 How long have you lived there? 5 years or more How many people live in the home? 1 H ome description Basement: Y es Any water damage in basement? N o Smokers in the home? N o Smokers outside the home? Y es Air Conditioning? Y es Central Air? Y es Forced air heating? N o Fireplace? N o Wood burning stove? N o Do you vacuum the home? Y es Air purification systems? N o Pillow and mattress dust-proof encasings? N o Do you use a humidifier? N o Do you own any pets? N o Fabric softeners used? Y es Plants in the home? Y es How many? 6 Where are they kept? o ther room in home Is there carpeting in your bedroom? Y es Age of carpet? 3 0 Do you have yvij-bf-xnuz carpeting? Y es What is the age of your carpeting? 3 0 What is the age of your mattress (years)? 3 0 What material(s) are used to manufacture your bedding and pillow? f eather,other What is the age of your pillow (years)? 3 0 What material are your bedding items made of? s ynthetic Do you sleep with quilts or blankets or a duvet? Y es What material? o ther T obacco Control (Standard) Tobacco use: N onsmoker A TERI-C (Standard) Did you have a drink containing alcohol in the past year? N o Points 0 Interpretation N egative * Medications: T aking Latanoprost 0.005 % Solution Ophthalmic , Taking Fenofibrate 160 MG Tablet Oral , Taking Simvastatin 40 MG Tablet Oral , Taking dilTIAZem HCl ER Beads 240 MG Capsule Extended Release 24 Hour Oral , Taking Omeprazole 40 MG Capsule Delayed Release Oral , Taking Levothyroxine Sodium 88 MCG Tablet Oral , Taking Ketoconazole 2 % Cream APPLY TOPICALLY TO THE AFFECTED AREA TWICE DAILY External , Taking Estradiol 0.1 MG/GM Cream Vaginal , Taking Metoprolol Succinate ER 50 MG Tablet Extended Release 24 Hour Oral , Taking Metoprolol Succinate ER 50 MG Tablet Extended Release 24 Hour TAKE 1 TABLET BY MOUTH DAILY Oral , Taking Azelastine HCl 0.1 % Solution Nasal , Medication List reviewed and reconciled with the patient * Allergies: N .K.D.A. Objective: * Vitals: * Examination: G eneral examination: General appearance: p leasant, well-developed, well-nourished, female, i n no apparent distress, speaking in full sentences. HEENT: c onjunctiva are normal bilaterally, turbinates 1+ swollen and pale inferiorly bilaterally, clear rhinorrhea is present, no polyps noted, no septal perforation, posterior oropharynx is clear without exudates, erythema on pharyngeal wall, no exudates, no tongue swelling, and uvula is midline. Oral cavity: n ormal, no lesions. Breasts : n ot performed. Heart: R RR, S1-S2, no murmurs, no rubs, no gallops. Lungs: c lear to auscultation in all lung green, no wheezes, no crackles, no rhonchi. Neurologic exam: u nremarkable. Skin: n ormal, no visible rash, dermatographism, urticaria, angioedema. Back: n ormal. Extremities: n ormal ROM, no clubbing, no cyanosis, no edema. Genitalia: n ot performed. Assessment: * Assessment: 1. H ypertrophy of nasal turbinates - J34.3 (Primary) 2 . C hronic rhinitis - J31.0 3 . C hronic cough - R05.3 4 . E levated blood-pressure reading, without diagnosis of hypertension - R03.0 Plan: * Treatment: 2. C hronic rhinitis L AB: RESPIRATORY ALLERGY PROFILE REGION VIII: [place], [place] Notes: See plan above 3. C hronic cough Notes: Sarah presents in consultation with her data processing specialist, Dr. Marcum, due to chronic cough that [...] for perceived benefit. - Return as above 4. E levated blood-pressure reading, without diagnosis of hypertension Notes: BP elevated today without symptoms of urgency or emergency. Continue serial checks and follow-up with PCP * Labs: * L ab: INTERPRETATION * Procedure Codes: 9 4760 MEASURE BLOOD OXYGEN LEVEL, G8427 DOC MEDS VERIFIED W/PT OR RE * Preventive Medicine: Counseling: M edication instruction: W atch for side effects of prescribed medications, Nasal steroid/antihistamine instruction: avoid septum. E ducation: G ENERAL EDUCATION: Our staff spent an additional 30 minutes in direct contact with the patient educating them on their current diagnoses and proper treatment and prevention of symptoms and the proper use of medications. P atient education material sent to portal? Y es C are goal follow up plan Above Normal BMI Follow-up D ietary needs education B P Management: FIRST HYPERTENSIVE BP READING FOLLOW-UP PLAN: F ollow-up 1 month LIFESTYLE RECOMMENDATION: H ypertension education REFERRAL TO ALTERNATIVE / PRIMARY CARE PROVIDER: R eferral to general practitioner Screenings: F all Risk Fall Risk Assessment: O ne fall without injury in the past year Plan of Care: D ocumented Type of fall plan of care: B alance, strength and gait training or instruction provided * Follow Up: 4 Weeks (Reason: Laboratory Review) * Billing Information: * Visit Code: 30420 Office Visit, New Pt., Level 4. Modifiers: 25 * Procedure Codes: 53785 MEASURE BLOOD OXYGEN LEVEL. G8427 DOC MEDS VERIFIED W/PT OR RE. * Electronic signature of Kristal Doll DNP, PARCEL POST ORDER CLERK-C on 07/05/2025 at 11:07 AM TRANSPORTATION DIRECTOR Sign off status: Pending * Provider: Maria Dolores Doll DNP [employer] POST ORDER CLERK-C Date: Generated for Varsha bal/Iris/eTluissmitting on: 09/04/2024 11:07 AM TRANSPORTATION DIRECTOR History and Physical Notes * HPI (History of Present Illness) Category Sub-Category Detail Notes Category Not es *Introduction HPI: Sarah Underwood, a 69-year-old female with past medical history significant for hypertension, high cholesterol and GERD, who presents for allergy evaluation and management. She is alone for today's visit. Sarah is here in consultation with her data processing specialist, Dr. Marcum. She is alone for today's visit. Sarah reports a daily cough since 2020, this started after having COVID-19. She admits to significant phlegm, particularly in the morning. She has been seen by her PCP, who has given antibiotics and steroids in the past. This has helped temporarily. She established care with Dr. Marcum, who has obtained a PFT and started her on AIRSUPRA as-needed. Sarah has not used this inhaler yet. She was also started on azelastine, though has held it for the past 7 days in anticipation of today's visit. She denies history of pneumonia, denies bronchitis in the last 12 months. She does not have a smoking history. She has never been hospitalized due to lower airway symptoms. She does have a history of reflux, prescribed omeprazole. Sarah endorses mild upper airway symptoms concerning for uncontrolled atopic disease. Descriptors of her symptoms are outlined below. There are no pets in her home. She has never undergone allergy testing or received specific allergen immunotherapy. Sarah denies additional concerns today She denies a history of physician-diagnosed allergic rhinitis, recurrent sinusitis or otitis media, recurrent pneumonia, asthma/RAD, eczema, food allergies, urticaria/angioedema, medication allergies, contact dermatitis, latex allergy, eosinophilic esophagitis or stinging insect hypersensitivity. Today, she reports no fevers, chills, night sweats or other constitutional symptoms *Allergic Rhinoconjunctivitis Cough Frequency:: infrequent Is phlegm produced?: Yes Sputum color?: clear,yellow Effective treatments?: OTC cough medicin e (Delsym or Robitussin) Nose Effective treatments?: oral anti histamines (Zyrtec or Dotty or Claritin) Sinuses Have you lost sense of taste?: N o Have you been treated with antibiotics f or sinusitis?: No Have you ever had a CT scan or xray?: No Have you ever undergone sinus surgery?: No Allergic rhinitis Do you have or suspe ct you have allergic rhinitis (itchy eyes, sneezing, congestion or runny nose triggered by allergies)?: No *Asthma Cough Do you have a recurrent cough?: Yes Approximately, when did your cough start?: 09/08/2020 How often do you cough?: infrequent What triggers your cough?: laughter,bronchitis,colds or flu Which treatments have been effective for your cough?: OTC cough medicine (Delsym or Robitussin) Is your cough more bothersome at night?: No Effective treatments for cou gh and or wheezing OTC cough medicine: Delsym Wheezing Do you have recurren t wheezing or a history of wheezing sometime in your life?: No Did you have symptoms of asthma as a chi ld?: No Did you have frequent respiratory infect ions as a child?: No Were you ever hospitalized i n the first 12 months of life for a respiratory infection in childhood?: No Do you still have wheezing?: No Physical Performance How many blocks can you wal k? (Enter 99 for unlimited): 4 How many flights of stairs c an you climb without stopping? (Enter 99 for unlimited): 2 If there are limitations, wh at symptoms limit further activity?: cough,shortness of breath *Infections Vaccination History Have you ever had a flu sh ot?: No Have you ever had a pneumococcal vaccine (ZTC-Twfneuj-Dhdbgfrrf)?: No Have you ever had a tetanus vaccine (DTa p-Tdap-Td)?: Yes Date of last tetanus vaccine?: 02/01/2015 *Medication allergy Medication Allergy Do you fe el you are allergic to any medications? : No *Prior Evaluations and Treatments Prior evaluations and treatments Have you been evaluated by another physician for allergic rhinitis, cough, wheezing, asthma, urticaria, angioedema, atopic dermatitis or eczema?: No Have you undergone testing for any afore mentioned conditions or symptoms?: No Have you ever been on allergy immunother apy?: No Have you ever passed out during a blood draw, shot or vaccination?: No Last dose of antihistamine: loratadine (Claritin ): 03/27/2025 nasal antihistamine (azelast ine, olopatadine, azelastine, Astepro, Patanase): 03/27/2025 Has your antihistamine been effective in controlling any of your symptoms?: Yes Examination Category Sub-Category Detail Notes Category Not es General examination HEENT: conjunctiva are normal bilaterally, turbinates 1+ swollen and pale inferiorly bilaterally, clear rhinorrhea is present, no polyps noted, no septal perforation, posterior oropharynx is clear without exudates, erythema on pharyngeal wall, no exudates, no tongue swelling, and uvula is midline Heart: RRR, S1-S2, no murmu rs, no rubs, no gallops Lungs: clear to auscultatio n in all lung green, no wheezes, no crackles, no rhonchi Extremities: normal ROM, no clubb ing, no cyanosis, no edema General appearance: pleasant, well-devel oped, well-nourished, female, in no apparent distress, speaking in full sentences Skin: normal, no visible r marlys, dermatographism, urticaria, angioedema Neurologic exam: unremarkable Oral cavity: normal, no lesions Breasts : not performed Back: normal Genitalia: not performed
--- NOTE | ~2025-07-05 | US_ITS ---
EXAMINATION: US biopsy lymph node DATE: 07/05/2025 11:18 INDICATION: Localized enlarged right jugular chain lymph nodes TECHNIQUE: The procedure including the risks and benefits was discussed with the patient. Risks discussed included bleeding and infection. The patient understood the risks and agreed to proceed. The skin overlying the right neck was prepped and draped in usual sterile fashion. Anesthetic was administered with 1% lidocaine subcutaneously. An 18 gauge core biopsy needle was advanced under continuous ultrasound observation to the lymph node of interest. 4 core biopsy specimens were obtained. The needle was removed and the entry site was cleaned and dressed. Post procedure ultrasound demonstrated no hemorrhage. FINDINGS: Ultrasound images demonstrate 2 of the previously noted right internal jugular chain lymph nodes of concern, the larger measuring 1.1 x 0.7 x 0.6 cm and the smaller measuring 7 x 5 x 5 mm. Subsequent images demonstrate the biopsy needle advanced through the larger of the 2 lymph nodes. IMPRESSION: 1. Successful Ultrasound-guided biopsy of the largest 1.1 x 0.7 x 0.6 cm right jugular chain lymph node. Reviewed, dictated and finalized at location A. NTAMINATION TECHNICIAN
--- OUTSIDE RECORDS SUMMARY | 2025-07-05 11:07 | XMS_ITS | Patient Health Record ---
Author Organization [facility] [employer] [place] ([address]) Address [address] [place] [address] Care Team Providers Care Extended Insurance Clerk Name Role Phone Bhavana Purvis Primary Care Provider Kristal Guzman Unavailable [phone] Glenis Marcum Unavailable Unavailable Allergies No Known Allergies Results Component Value Reference Range Notes RESPIRATORY ALLERGY PROFILE REGION VIII: [place], [place] Reviewed date:04/12/2025 08:50:25 AM Interpretation:Normal Performing Lab:[place], [facility], [address], [place], [address] Ralph Mendoza MD Notes/Report: NON-FASTING DERMATOPHAGOIDES PTERONYSSIN [...] ROUGH PIGWEED (W14) IGE <0.10 CLASS 0 HUNGARIAN THISTLE (W11) IGE <0.10 CLASS 0 ROUGH YANES ELDER (W16) IGE <0.10 CLASS 0 MOUSE URINE PROTEINS (E72) IGE <0.10 CLASS 0 IMMUNOGLOBULIN E 11 <QR=843 kU/L CAT DANDER (E1) IGE <0.10 CLASS 0 DOG DANDER (E5) IGE <0.10 CLASS 0 INTERPRETATION Reviewed date:04/19/2025 08:57:46 PM Interpretation:Interpretation Performing Lab:[place], [facility], [address] [place], [address] Ralph Mendoza MD Notes/Report: NON-FASTING INTERPRETATION Specific [...] analytical performance characteristics have been determined by [facility] It has not been cleared or approved [...] MG Oral; Duration: 90 Days Acti ve Latanoprost 0.005 % Ophthalmic; Duration : 25 Days Active Simvastatin 40 MG Oral; Duration: 90 Days Active Fenofibrate 160 MG Oral; Duration: 90 Days Active Omeprazole 40 MG Oral; Duration: 90 Days Active dilTIAZem HCl ER Beads 240 MG Oral; Duration: 90 Days Acti ve Ketoconazole 2 % APPLY TOPICALLY TO T HE AFFECTED AREA TWICE DAILY External; Duration: 15 Days Active Levothyroxine Sodium 88 MCG Oral; Duration: 90 Days Active Social History Tobacco Use: Social [...] W/U Status Risk Notes Problem Chronic rhinitis (23102432) Chronic rhinitis (J31.0) Active confirmed Problem Hypertrophy of nasal turbinates (75719596) Hypertrophy of nasal turbinates (J34.3) Active confirmed Problem Chronic cough (27068088) Chronic cough (R05.3) Active confirmed Vital Signs Blood pressure diastolic 84 mm Hg 04/04/2025 Oximetry 98 % 04/04/2025 Height 59 in 04/04/2025 Blood pressure systolic 146 mm Hg 04/04/2025 Weight 203.0 lbs 04/04/2025 BMI 41 kg/m2 04/04/2025 Encounters Encounter Location Date Provider Diagnosis [facility] [address] [place] [address] 04/04/2025 Kristal Doll Hypertrophy of nasal turbinates J34.3 ; Chronic rhinitis J31.0 ; Chronic cough R05.3 and Elevated blood-pressure reading, without diagnosis of hypertension R03.[address] [address] 04/04/[address] [facility] [address] [place] [address] 04/19/[address] [facility] [address] [place] [address] 04/21/2025 Kristal Doll Assessments Encounter Date Diagnosis [...] lab company is in-network. Order sent to [facility]. - Return in 4 weeks for laboratory review 04/04/2025 Chronic cough (ICD-10 - R05.3) Sarah presents in consultation with her cognos bi developer, Dr. Marcum, due to chronic cough that [...] checks and follow-up with PCP 05/16/2025 Other 04/04/2025 Other Plan Of Treatment No Information Insurance Providers Payer Name Payer Address Payer Phone Subscriber Number Group Number Insured Name Patient Relationship to Insured Coverage Start Date Coverage End Date [employer] [address] [place] [address] [id number] Sarah Underwood Self - patient is the insured 05/01/202 5 Medical (General) History Surgical History Surgery Date(Month/Year) thyroidectomy 07/1998 D & C 10/2003 cholecystectomy 11/2003 Knee Surgery 08/2011 knee replacement 11/2017 cataract removal 2020
--- OUTSIDE RECORDS SUMMARY | 2025-07-05 11:07 | XMS_ITS | Encounter Summary ---
Author Organization [facility] Address Counts include [address] beds at the [facility] [place] [address] Care Team Providers Care Development Vice President Name Role Phone Consuelo Purvis MD Primary Care Provider Encounter Details Date Type Department Care Team (Latest Contact Info) Description 06/28/2025 Scan MG HEALTH INFO SRVCS Scanned, Doc Med Group Social History Tobacco Use Types Packs/Day Years [...] on file documented as of this encounter Visit Diagnoses Not on filedocumented in this encounter Care Teams Development Vice President Relationship Specialty Start Date End Date Consuelo Purvis MD [address] [place] [address] PCP - General FAMILY PRACTICE 02/23/21 documented as of this encounter
--- OUTSIDE RECORDS SUMMARY | 2025-07-05 11:07 | XMS_ITS | Clinical Summary ---
Author Organization [facility] Address [address] [place] [address] Care Team Providers Care Pigment Making Supervisor Name Role Phone Consuelo Purvis MD Primary Care Provider Source Comments [facility],non-owned Affiliates and Associated Physician Practices is amultiple site organization consisting of ambulatory clinics and hospital sitesin [place], [place], [place] and [place]. This disclosure is being madepursuant to the Care Everywhere program and may not contain all information available regarding this patient. Last updated 18.[facility] [employer] Social History Tobacco Use Types Packs/Day Years Used Date Smoking Tobacco: Never Assessed Comments Unknown Sex and Gender Information Value Date Recorded Sex Assigned at Not on file Legal Sex Female 9:35 AM SUPERVISOR ADULT EDUCATION Gender Identity Not on file Sexual Orientation Not on file Plan of Treatment Upcoming Encounters Date Type Department Care Team (Late st Contact Info) Description 07/14/2025 10:15 AM SUPERVISOR ADULT EDUCATION Office Visit [facility] - Otolaryngology [address] [place] [phone] Maxi Arshad MD [address] [facility] [place] [address] Health Maintenance Due Date Last Done Comments BONE DENSITY TESTING 1955 COLOGUARD (AGES 45-75) - COL ON CA SCREENING 1955 COLON MONITORING 1955 COLONOSCOPY - COLON CA SCREENING 1957 CT COLONOGRAPHY - COLON CA SCREENING 1955 Colorectal Cancer Screening 1955 FIT - COLON CA SCREENING 1955 FLEX SIG - COLON CA SCREENING 1955 LIPID TESTING 1955 MAMMOGRAM 1955 HEPATITIS C SCREENING 06/19/1975 DTAP/TDAP/TD VACCINES (1 - Tdap) 1976 PNEUMOCOCCAL VACCINE 50+ (1 of 1 - PCV) 2007 ZOSTER VACCINE (1 of 2) 2007 DEPRESSION SCREENING 08/11/2024 COVID-19 VACCINE (1 - 2024-2 6 season) 2025 INFLUENZA VACCINE (#1) 2025 Respiratory Syncytial Virus (RSV) Vaccine Pt: or over 60 yrs (1 - 1-dose 75+ series) 2032 HEPATITIS B VACCINE Aged Out No longe r eligible based on patient's age to complete this topic HIB VACCINE Aged Out No longer eligi ble based on patient's age to complete this topic HPV VACCINE Aged Out No longer eligi ble based on patient's age to complete this topic MENINGOCOCCAL (Group B) VACC INE SHARED DECISION-MAKING Aged Out No longer eligibl e based on patient's age to complete this topic MENINGOCOCCAL GROUPS A/C/Y/W VACCINE Aged Out No longer eligible b ased on patient's age to complete this topic Insurance [employer] Care Teams Pigment Making Supervisor Relationship Specialty Start Date End Date Consuelo Purvis MD [address] [place] [address] PCP - General 09/05/21
--- OUTSIDE RECORDS SUMMARY | 2025-07-05 11:07 | XMS_ITS | Encounter Summary ---
Author Organization [facility] Healthcare Address [address] [place] [address] Care Team Providers Care Tubing Machine Operator Name Role Phone Consuelo Purvis MD Primary Care Provider Encounter Details Date Type Department Care Team (Late st Contact Info) Description 03/30/2018 Orders Only [facility] Health Information Management [address] [place] [address] Scanning, Provider Social History Tobacco Use Types Packs/Day Years Used Date Smoking Tobacco: Never Smokeless Tobacco: Never Alcohol Use Standard Drinks/Week Comments No 0 (1 standard drink = 0.6 oz pur e alcohol) Comments Unknown Sex and Gender Information Value Date Recorded Sex Assigned at Not on file Legal Sex Female 11:01 AM FLY RAIL OPERATOR Gender Identity Not on file Sexual Orientation [...] on filedocumented in this encounter Care Teams Tubing Machine Operator Relationship Specialty Start Date End Date Consuelo Purvis MD PCP - General Family Practice 11/05/17 documented as of this encounter
--- OUTSIDE RECORDS SUMMARY | 2025-07-05 11:07 | XMS_ITS | Encounter Summary ---
Author Organization [facility] Healthcare Address [address] [place] [address] Care Team Providers Care Filler Mixer Name Role Phone Consuelo Purvis MD Primary Care Provider Encounter Details Date Type Department Care Team (Late st Contact Info) Description 06/18/2024 Orders Only [facility] Health Information Management [address] [place] [address] Scanning, Provider Social History Tobacco Use Types Packs/Day Years Used Date Smoking Tobacco: Never Smokeless Tobacco: Never Alcohol Use Standard Drinks/Week Comments No 0 (1 standard drink = 0.6 oz pur e alcohol) Comments Unknown Sex and Gender Information Value Date Recorded Sex Assigned at Not on file Legal Sex Female 11:01 AM CUSTOM CLOTHIER Gender Identity Not on file Sexual Orientation [...] on filedocumented in this encounter Care Teams Filler Mixer Relationship Specialty Start Date End Date Consuelo Purvis MD PCP - General Family Practice 11/05/17 documented as of this encounter
--- OUTSIDE RECORDS SUMMARY | 2025-07-05 11:07 | XMS_ITS | Clinical Summary ---
Author Organization [facility] [address] Address [address] [place] [address] Care Team Providers Care Knifer Up Name Role Phone Consuelo Purvis MD Primary [...] ORAL) Take by mouth daily. Active omega 8-uuv-bzg-fish oil 1,000 mg (120 mg-180 mg) capsule [...] on file Legal Sex Female 11:01 AM MEDIA INTERN Gender Identity Not on file Sexual [...] OPEN ACCESS HEALTHLINK OPEN ACCESS Care Teams Knifer Up Relationship Specialty Start Date End Date Consuelo Purvis MD PCP - General Family Practice 11/05/17
--- OUTSIDE RECORDS SUMMARY | 2025-07-05 11:07 | XMS_ITS | Encounter Summary ---
Author Organization [facility] Healthcare Address [address] [place] [address] Care Team Providers Care Wood Dowel Machine Operator Name Role Phone Consuelo Purvis MD Primary Care Provider Encounter Details Date Type Department Care Team (Late st Contact Info) Description 06/15/2024 Orders Only [facility] Health Information Management [address] [place] [address] Scanning, Provider Social History Tobacco Use Types Packs/Day Years Used Date Smoking Tobacco: Never Smokeless Tobacco: Never Alcohol Use Standard Drinks/Week Comments No 0 (1 standard drink = 0.6 oz pur e alcohol) Comments Unknown Sex and Gender Information Value Date Recorded Sex Assigned at Not on file Legal Sex Female 11:01 AM ROLLER INSPECTOR AND MENDER Gender Identity Not on file Sexual Orientation [...] on filedocumented in this encounter Care Teams Wood Dowel Machine Operator Relationship Specialty Start Date End Date Consuelo Purvis MD PCP - General Family Practice 11/05/17 documented as of this encounter
--- OUTSIDE RECORDS SUMMARY | 2025-07-05 11:07 | XMS_ITS | Clinical Summary ---
Author Organization [facility] Address [address] [place] [address] Phone Care Team Providers Care Jelly Filter Tender Name Role Phone Consuelo Purvis MD Primary [...] Encounters Date Type Department Care Team Description 06/28/2025 External Device Data STL ABSTRACTION Provider, Abstract 06/08/2025 External Device Data [facility] ABSTRACTION Provider, Abstract 06/01/2025 External Device Data ST[place] ABSTRACTION Provider, Abstract 05/31/2025 External Device Data STL ABSTRACTION Provider, Abstract 04/26/2025 External Device Data STL ABSTRACTION Provider, Abstract 04/19/2025 External Device Data STL ABSTRACTION Provider, Abstract 04/08/2025 9:15 AM CDT Office Visit [facility] Oncology and Hematology - [place] [address] [place] [address] Cliff Cerda MD Chronic anemia (Primary Dx) 04/04/2025 Orders Only [facility] Oncology and Hematology - [place] [address] [place] [address] Cliff Cerda MD from Last 3 Months [...] on file Legal Sex Female 5:13 AM ENTERPRISE 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 Gender Identity Not on file Sexual Orientation [...] Description 01/09/2026 10:00 AM CDT Office Visit [facility] Oncology and Hematology [facility] [address] [facility] [address] [place] [address] Cliff Cerda MD [address] [facility] [address] [place] [address] Health Maintenance Due Date Last [...] 2022 INFLUENZA VACCINE (#1) 2025 COVID-19 Vaccine (2024-2 6 season) 2025 08/17/2021, 11/17/2020, 10/27/2020 COLORECTAL SCREENING 09/04/2031 09/04/2021, 09/03/2021, 08/11/2012, Additional history exists Colorectal Cancer Screening 09/04/2031 ZOSTER VACCINE Completed 07/19/2023, 03/07/2023 PNEUMOCOCCAL VACCINE 50+ YEARS Completed 11/28/2023 Insurance Care Teams Jelly Filter Tender Relationship Specialty Start Date End Date Consuelo Purvis MD [address] [place] [address] PCP - General Family Practice 05/22/21
--- OUTSIDE RECORDS SUMMARY | 2025-07-05 11:07 | XMS_ITS | Clinical Summary ---
Author Organization [facility] Address [address] [place] [address] Care Team Providers Care Yeast Culture Developer Name Role Phone Consuelo Purvis MD Primary [...] 05/02/2023 S/P total knee arthroplasty, right 10/25/2019 Encounters Date Type Department Care Team Description 06/30/2025 Telephone [facility] Medical [facility] Multispecialty Care - [facility] [address], [address] [place] [address] Terri Serrano MD Referral 06/28/2025 Scan HEALTH INFO SRVCS Scanned, Doc Med Group 06/28/2025 Telephone [facility] - [address] [place] [address] Ronnie Estevez MD Schedule Test from Last 3 Months Social History Tobacco Use Types Packs/Day Years [...] Comments Blood Pressure 133/82 08/20/2021 10:00 PM DONOR SERVICES TEAM LEADER Pulse 70 08/20/2021 10:00 PM DONOR SERVICES TEAM LEADER Temperature 36.4 C (97.6 F) 08/20/2021 9:00 PM DONOR SERVICES TEAM LEADER Respiratory Rate 20 08/20/2021 10:00 PM DONOR SERVICES TEAM LEADER Oxygen Saturation 96% 08/20/2021 10:00 PM DONOR SERVICES TEAM LEADER Inhaled Oxygen Concentration - - Weight 85.7 kg (189 lb) 08/20/2021 6:48 PM DONOR SERVICES TEAM LEADER Height 152.4 cm (5') 08/20/2021 6:48 PM DONOR SERVICES TEAM LEADER Body Mass Index 36.91 08/20/2021 6:48 PM DONOR SERVICES TEAM LEADER Plan of Treatment Health Maintenance Due Date Last Done Comments Colorectal Cancer Screening Colonoscopy (10 Years) 1957 Hepatitis C 1975 DTaP, Tdap and Td Vaccines ( 1 - Tdap) 1976 Mammogram Screening 1997 Pneumococcal Vaccine: 50+ Years (1 of 1 - PCV) 2007 Zoster Vaccines (1 of 2) 2007 Dexa Scan (General) 2022 PHQ-2 (Physician [place]) 08/11/2024 COVID-19 Vaccine (3 - 2024-2 6 season) [...] age to complete this topic Insurance [employer] PPO GENERIC - COMMERCIAL [employer] [id number] Care Teams Yeast Culture Developer Relationship Specialty Start Date End Date Consuelo Purvis MD [address] [place] [address] PCP - General FAMILY PRACTICE 02/23/21
--- NOTE | 2025-07-05 11:23 | S_PTH ---
PATIENT: Sarah Underwood LOC: [facility] U#:[id number] AGE/SX: 70/F ROOM: RE07/05/[address]: Felipe Marques MD : 1955 BED: DIS: 07/05/2025 SPEC #: [id number] RECD: 07/05/25 11:25 STATUS: SETH STARKS #: [id number] CECILE: 07/05/25 11:[address]: Felipe Marques DEPT: [facility] Surgical RECD BY: Tiara Wen ENTERED: 07/05/25 11:26 SP TYPE: Surgical OTHR DR: Consuelo Purvis MD Tissues: A - Lymph Node Biopsy Procedures: Unstained Slides Hematoxylin and Eosin Stain Gross and Microscopic Level 4
== END 2025-07-05 10:01 | disposition home or self-care (01) ==
PROVIDERS: PCP Family Medicine; Visit Provider Otolaryngology
DX: R59.0 Localized enlarged lymph nodes (principal)
CPT/HCPCS: 38505; 76942; 88305

== ENCOUNTER 2025-08-02 08:00 | Outpatient (RCR) | payer OTHER, SELFPAY ==
--- NOTE | 2025-05-05 10:12 | OTOPEVAL1 ---
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 She reports onset of pain ~4 months ago. Symptoms include left hand pain in her palm, ring finger triggering, pain in the base of the thumb, and intermittent tingling in the ulnar distribution of the hand. She is right handed. Pain particularly with gripping the steering wheel , gripping/opening a jar, and picking up her water bottle. Reported Pain Level Pain Score 2: Self Report Assessment OT Clinical Summary Patient referred to OT with dx of left thumb CMC OA, flexor tendon synovitis, and cubital tunnel. 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 Skilled OT indicated for use of modalities, splinting, manual therapy, therapeutic exercise, HEP instruction and progression, and modified ADL techniques to facilitate reduced pain and improved functional use for ADLs. Plan of Care Interventions Therapeutic Exercise,Manual Therapy,Therapeutic Activities,Hot Pack/Cold Pack,Check Out for Orthotic/Prosthetic,Ultrasound,Paraffin OT Services Indicated Yes Treatment Frequency and 2x/week for 8 visits Duration These treatments will address the objective and functional deficits as defined above. The patient will be advanced safely and appropriately in order for the patient to progress towards his/her prior level of function. Additional exercises will be introduced and as well as a comprehensive home exercise program upon discharge, if needed, ?to ensure carryover of functional gains achieved in the clinic. This treatment plan has been reviewed and agreement upon by the patient.
--- NOTE | 2025-05-05 10:12 | OPREHPOC ---
Outpatient Therapy Plan of Care This is a Multidisciplinary Plan of Care that may contain components documented by all disciplines (PT, OT, and ST.) OT Problem 1 OT Problem #1 Knowledge Deficit OT Goal 1 Goal / Goal Update 1. Patient to be independent with instructed materials. Target Visit 8 OT Problem 2 OT Problem #2 Pain OT Goal 1 Goal / Goal Update 1. Patient to report reduced pain in the left hand to 0/10 at rest and no greater than 2/10 with ADLs. Target Visit 8 OT Problem 3 OT Problem #3 Impaired Strength OT Goal 1 Goal / Goal Update 1. Patient to be able to progress functional procurement professional logistics strengthening with the left hand to koenig putty x5 minutes without pain or finger triggering. 2. Patient to be able to progress functional wrist strengthening with 2 lbs. without pain to increase functional wrist strength for ADLs. Target Visit 8
--- NOTE | 2025-06-06 09:57 | OTOPPROG ---
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 She reports reduced catching of the trigger finger, noting only 1 catch in the last week. She reports minimal pain in the hand, more reports of stiffness in the hand upon waking up in the morning. She notes this resolves once she does her HEP. She is no longer reports left thumb pain. She reports the left elbow continues to be painful , but overall her pain is reduced and the frequency of her pain is reduced. She notes that at work she is able to forget about the pain at times. Functionally she reports improvements with being able to product steward a steering wheel, opening a jar , and picking up her water bottle. Assessment OT Clinical Summary Patient referred to OT with dx of left thumb CMC OA, flexor tendon synovitis, and cubital tunnel. She presents with left elbow and hand pain, weakness, and reduced functional product steward for ADLs. She is making progress toward all therapy goals. She demonstrates reduced pain and improved functional strength for ADLs. She is using her left hand to product steward items, such as the steering wheel and jars, with less pain. She is experiencing less triggering of the left ring finger. She is tolerating progressive strengthening. Continued skilled OT indicated for continued use of modalities, manual therapy, therapeutic exercise, HEP instruction and progression, and modified ADL techniques to facilitate reduced pain and improved functional use for ADLs. Plan of Care Interventions Therapeutic Exercise,Manual Therapy,Therapeutic Activities,Hot Pack/Cold Pack,Check Out for Orthotic/Prosthetic,Ultrasound,Paraffin OT Services Indicated Yes Treatment Frequency and 2x/week for 8 visits Duration These treatments will address the objective and functional deficits as defined above. The patient will be advanced safely and appropriately in order for the patient to progress towards his/her prior level of function. Additional exercises will be introduced and as well as a comprehensive home exercise program upon discharge, if needed, ?to ensure carryover of functional gains achieved in the clinic. This treatment plan has been reviewed and agreement upon by the patient.
--- NOTE | 2025-06-06 09:57 | OPREHPOC ---
Outpatient Therapy Plan of Care This is a Multidisciplinary Plan of Care that may contain components documented by all disciplines (PT, OT, and ST.) OT Problem 1 OT Problem #1 Knowledge Deficit OT Goal 1 Goal / Goal Update 1. Patient to be independent with instructed materials. ---OT POC UPDATE 06/06/25--- 1. Met Target Visit 16 OT Problem 2 OT Problem #2 Pain OT Goal 1 Goal / Goal Update 1. Patient to report reduced pain in the left hand to 0/10 at rest and no greater than 2/10 with ADLs. ---OT POC UPDATE 06/06/25--- 1. Progressing, reports 3/10 at most, continue pain goal Target Visit 16 OT Problem 3 OT Problem #3 Impaired Strength OT Goal 1 Goal / Goal Update 1. Patient to be able to progress functional negative turner apprentice strengthening with the left hand to koenig putty x5 minutes without pain or finger triggering. 2. Patient to be able to progress functional wrist strengthening with 2 lbs. without pain to increase functional wrist strength for ADLs. ---OT POC UPDATE 06/06/25--- 1. Met - Upgrade goal: Pt to increase (L) negative turner apprentice strength from 38 to 48 lbs. 2. Met - Upgrade goal to 3 lbs x20 re[s Target Visit 16
--- NOTE | 2025-08-02 08:58 | OTOPPROG ---
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 She reports the left trigger finger has resolved. The left elbow has progressed to no pain at rest and no pain with ADLs. She notices the left elbow mostly when she rests her elbow at the edge of her desk for too long. She notes she continues to feel weak when trying to open drinks. She reports no difficulties now with gripping the steering wheel and picking up her water bottle. She notes she sometimes has difficulty with opening a jar, reporting no pain, just feeling weak. (R) carpal tunnel symptoms comes and goes she notes. She notes it's better and reports she does not feel the need to sleep in her wrist immobilizer. She reports she is having less paresthesia with using a blow dryer, writing, and with a prolonged negative restorer on the steering wheel. Assessment OT Clinical Summary Patient referred to OT with left elbow pain consistent with medial epicondylitis and cubital tunnel as well as right carpal tunnel syndrome. She continues to make progress toward therapy goals with reduced pain and improved functional use of bilateral hands for ADLs/work tasks such as gripping a steering wheel, writing, lifting her water, etc. She continues to have intermittent carpal tunnel symptoms on the right as well as gross negative restorer and pinch weakness. She continues to have left elbow pain with moderate tenderness with palpation to the common flexor origin as well as mild tenderness with palpation to the ulnar nerve at the cubital tunnel. Left trigger finger has resolved. Continued skilled OT indicated for continued focus on reducing left elbow pain and reducing right carpal tunnel symptoms through use of modalities, manual therapy, therapeutic exercise, HEP instruction and progression, and modified ADL techniques to facilitate reduced pain and improved functional use for ADLs. Plan of Care Interventions Therapeutic Exercise,Manual Therapy,Therapeutic Activities,Hot Pack/Cold Pack,Check Out for Orthotic/Prosthetic,Ultrasound,Paraffin OT Services Indicated Yes Treatment Frequency and 2x/week for 8 visits Duration These treatments will address the objective and functional deficits as defined above. The patient will be advanced safely and appropriately in order for the patient to progress towards his/her prior level of function. Additional exercises will be introduced and as well as a comprehensive home exercise program upon discharge, if needed, ?to ensure carryover of functional gains achieved in the clinic. This treatment plan has been reviewed and agreement upon by the patient.
--- NOTE | 2025-08-02 08:59 | OPREHPOC ---
Outpatient Therapy Plan of Care This is a Multidisciplinary Plan of Care that may contain components documented by all disciplines (PT, OT, and ST.) OT Problem 1 OT Problem #1 Knowledge Deficit OT Goal 1 Goal / Goal Update 1. Patient to be independent with instructed materials. ---OT POC UPDATE 06/06/25--- 1. Met ---OT POC UPDATE 08/02/25--- 1. Met, continue as HEP is progressed Target Visit 26 OT Problem 2 OT Problem #2 Pain OT Goal 1 Goal / Goal Update 1. Patient to report reduced pain in the left hand to 0/10 at rest and no greater than 2/10 with ADLs. ---OT POC UPDATE 06/06/25--- 1. Progressing, reports 3/10 at most, continue pain goal ---OT POC UPDATE 08/02/25--- 1. Met with LEFT hand, not met with LEFT elbow. Continue to treat pain in left elbow. Target Visit 26 OT Problem 3 OT Problem #3 Impaired Strength OT Goal 1 Goal / Goal Update 1. Patient to be able to progress functional regional intermodal truck driver strengthening with the left hand to koenig putty x5 minutes without pain or finger triggering. 2. Patient to be able to progress functional wrist strengthening with 2 lbs. without pain to increase functional wrist strength for ADLs. ---OT POC UPDATE 06/06/25--- 1. Met - Upgrade goal: Pt to increase (L) regional intermodal truck driver strength from 38 to 48 lbs. 2. Met - Upgrade goal to 3 lbs x20 reps ---OT POC UPDATE 08/02/25--- 1. Not met, continue gross regional intermodal truck driver and pinch strengthening 2. Not met, continue gross wrist strengthening Target Visit 26 OT Problem 4 OT Problem #4 Impaired Sensation OT Goal 1 Goal / Goal Update ---NEW GOAL 08/02/25--- 1. Patient to report (R) carpal tunnel symptoms ( paresthesia) 1 of 7 days of the week or less. Target Visit 26
== END 2025-08-03 23:59 | disposition home or self-care (01) ==
LOC: ANHHIOT 08:00
PROVIDERS: PCP Family Medicine; Visit Provider Plastic Surgery
DX: M18.12 Unilateral primary osteoarthritis of first carpometacarpal joint, left hand (principal); M79.642 Pain in left hand; M65.942 Unspecified synovitis and tenosynovitis, left hand
CPT/HCPCS: 97018; 97035; 97110; 97112; 97140; 97166